=== PATIENT | female | born 1960 | race Caucasian/White ===

== ENCOUNTER 2018-04-02 13:49 | Outpatient (REF) | payer MEDICAID, SELFPAY ==
[2018-04-02 21:25] LABS: Anion Gap 7.8 mmol/L (3-11); BUN 11 mg/dL (7-18); CO2 30.2 mmol/L (21.0-32.0); CREATININE 0.56 mg/dL (0.55-1.02); Calcium 8.8 mg/dL (8.5-10.1); Chloride 100 mmol/L (98-107); Glucose 82 mg/dL (70-100); Potassium 4.3 mmol/L (3.5-5.1); Sodium 138 mmol/L (136-145); TSH (W/Ref FT4) 4.59 uIU/mL (0.358-3.74)
[2018-04-02 22:16] LABS: FREE T4 1.23 ng/dL (0.76-1.46)
[2018-04-02 22:53] LABS: Cholesterol 183 mg/dL (50-200); HDL Cholesterol 69 mg/dL (40-60); LDL CHOLESTEROL 99 mg/dL (<100); Triglyceride 80 mg/dL (30-150)
== END 2018-04-02 14:09 ==
LOC: NCHCN 13:49
PROVIDERS: PCP Nurse Practitioner Family; Visit Provider Specialist/Technologist Athletic Trainer
DX: E03.9 Hypothyroidism, unspecified (principal); E78.5 Hyperlipidemia, unspecified
CPT/HCPCS: 80048; 80061; 83721; 84439; 84443

== ENCOUNTER 2018-11-04 15:36 | Inpatient (IN) | payer OTHER, SELFPAY ==
[2018-11-04] VITALS (57 sets, daily range): BP systolic 126–187; BP diastolic 71–147; PULSE 94–132; RESP 4–49; TEMP 36.8–37.3; O2SAT 90–99
[2018-11-04] MEDS: Albuterol/Ipratropium 3 ML UPD VIAL (15:52)
--- NOTE | 2018-11-04 16:00 | W.ED.GENAD ---
Discharge Plan Disposition Patient Disposition: [facility] INPATIENT Condition: Fair Discharge Details Chief Complaint: SOB Clinical Impression: COPD with acute exacerbation, Alcohol intoxication Admit Date/Time: 11/04/18 21:54 Admit Provider: Ulises Dickey Attending Provider: Yaneth Carbajal Primary Care Provider: Heladio Charles ED Provider: Kiley Lerma Discharge Data Discharge Date/Time-TO BE ENTERED AT DEPARTURE: 11/04/18 22:49 Medical Decision Making 58-year-old female with a history of COPD, hypertension, depression who presents with a complaint of I feel bad. EMS states that her daughter called for concerns of patient's progressively worsening shortness of breath. Patient initially denies shortness of breath but now admits this. EMS states that patient had pursed lip breathing and sats were in the mid 80s on arrival and increased to high 90s after neb treatment. Oxygen saturation 99% on room air on arrival. Patient speaks in 2-3 word sentences. She has scattered wheezing throughout. EKG notes a rate of 104, sinus, no acute ST or T wave ischemic changes. 1700 --labs and imaging reviewed. Normal white blood cell count troponin negative. Alcohol 292. Chest x-ray negative. Patient sitting up on edge of bed speaking with daughters and appears in no acute distress. 1800 --called to bedside for patient complaining of nausea and not feeling well. Oxygen saturation 90 to 91% on room air. She was placed on 2 L nasal cannula and increased to 99%. Denies any chest pain. Repeat EKG unchanged. Dose of Compazine and Ativan given as patient appeared anxious. Abdomen soft and nontender. Discussed with daughter at bedside that if any change in status or pain, will consider CT abdomen pelvis. 1899 --patient denies any improvement. Still with scattered wheezing. We will give another albuterol neb treatment, dose of phenergan, and another dose of Ativan. Oxygen saturation 90% on room air, patient continues to take the nasal cannula oxygen off. 1999 --called to bedside for patient seeming to be more short of breath and drowsy. O2 sat 94% on room air. Diminished breath sounds and wheezing throughout. Patient does demonstrate increased work of breathing. Patient placed on BiPAP but she did not tolerate this. She then became more alert and comfortable after neb treatment. Lipase within normal limits. ABG notes lactate ~5 but otherwise unremarkable. Will continue IVF. Discussed with Dr. Bedoya accepts patient for admission. CT abdomen and pelvis ordered. Medical Records Medical records reviewed: Yes I reviewed the patient's medical records. Imaging Data Radiologic Study: Radiologist's impression: XR Chest, 2 Views EXAM DATE/TIME: 11/04/2018 3:59 PM CLINICAL HISTORY: 58 years old, female; Shortness of breath; Patient HX: SOB TECHNIQUE: Imaging protocol: XR of the chest, 2 views. COMPARISON: CR CHEST 2 VIEWS PA,LAT 06/09/2013 11:09 AM FINDINGS: Lungs: Unremarkable. No consolidation. Pleural space: Unremarkable. No pleural effusion. No pneumothorax. Heart/Mediastinum: Unremarkable. No cardiomegaly. Bones/joints: Degenerative disc disease. IMPRESSION: No acute finding. Lab Data Lab results reviewed: Yes I reviewed the patient's lab results. ECG Data Attestation: I personally reviewed and interpreted this ECG (s) as follows: Interpretation: #1 -- Rate of 104, sinus, T wave inversion in aVL. No acute ST elevation or depression. QTc 442. QRS 90. #2 -- Rate of 97, sinus, no acute ST elevation or depression. QTc 447. QRS 92 HPI General Mode of arrival: ambulatory. Date/Time Provider Initiated Documentation: 11/04/18 15:56. Limitations to Documentation: no limitations. Information obtained by: patient. HPI Narrative: Patient is a 58-year-old female with a history of hypertension, COPD, hyperlipidemia presents with shortness of breath for the past 3 days. Patient initially was denying she had shortness of breath and stated I feel bad. Patient appears intoxicated and smells of alcohol but states she is unsure if she drank any alcohol today. EMS stated that patient's daughter called the ambulance due to concern for her breathing and alcohol use. Patient denies any fever, coughing, urinary symptoms, chest pain or abdominal pain. Related Data Home Medications Medication Instructions Recorded Confirmed albuterol sulfate 2 puff INHALATION Q4H PRN PRN 03/20/13 11/04/18 potassium chloride 10 meq PO DAILY 03/20/13 11/04/18 simvastatin 40 mg PO DAILY 06/09/13 11/04/18 aspirin 325 mg PO DAILY 06/10/13 11/04/18 lisinopril 40 mg PO DAILY 06/10/13 11/04/18 loratadine 10 mg PO DAILY 11/13/14 11/04/18 budesonide-formoterol [Symbicort] 2 puff INHALATION Q12H 11/04/18 11/04/18 furosemide 40 mg PO DAILY 11/04/18 11/04/18 Allergies Allergy/AdvReac Type Severity Reaction Status Date / Time codeine AdvReac Severe Dizziness/L Unverified 11/04/18 21:55 ightheade Review of Systems Review of Systems All systems reviewed & are unremarkable except as noted in HPI and below Constitutional Reports as per HPI, Denies chills and Denies fever(s) Eyes Denies blurry vision ENT Denies dizziness, Denies sore throat and Denies throat swelling Cardiovascular Denies chest pain and Denies dyspnea Respiratory Denies cough and Denies dyspnea Gastrointestinal Denies abdominal pain, Denies diarrhea and Denies vomiting Genitourinary Denies hematuria and Denies dysuria Musculoskeletal Denies back pain and Denies numbness Integumentary/Breasts Denies lesions and Denies rash Neurologic Denies dizziness, Denies focal weakness and Denies numbness Allergic/Immunologic Denies throat swelling PFSH Medical History Gallstones (Acute) Fatty liver (Acute) COPD (chronic obstructive pulmonary disease) (Chronic) Depression (Chronic) Tobacco abuse (Chronic) Hypertension (Chronic) Hyperlipidemia (Chronic) Chronic alcohol abuse (Chronic) Alcoholism (Chronic) Depression (Chronic) HTN (hypertension) (Chronic) Anemia (Resolved) Hypokalemia (Resolved) Hyponatremia (Resolved) Left lower lobe pneumonia (Resolved 06/09/13) Surgical History H/O section (Chronic) History of tonsillectomy (Chronic) Social History Smoking/Tobacco Use Status: Current every day Tobacco Type: cigarettes Alcohol Intake: current Alcohol Intake frequency: 3 or more drinks per day Drug use: Never Do you feel safe at home: Yes Exam Const General: cooperative and intoxicated appearing [facility] Head: normal to inspection Face and sinus: normal facial exam Eyes General: appearance normal, both eyes and all related structures EOM: EOM intact bilaterally Neck Neck: normal visual inspection and No submandibular swelling Lymphatic: no lymphadenopathy noted Chest Chest: normal inspection of the chest and no tenderness Resp Effort & Inspection: normal respiratory effort and able to speak in complete sentences Auscultation: wheezes lower bilaterally and upper bilaterally Cardio Rate: regular rate Rhythm: regular rhythm GI Inspection: normal to inspection Palpation: soft, not firm, not rigid and nontender Auscultation: normal bowel sounds Skin General skin exam: no rashes or lesions noted Neuro General: alert, awake and oriented x3 Cognition: normal cognition Speech: speech normal Motor: muscle tone normal throughout Sensory Exam: no sensory deficits noted Extrem General: normal to inspection, full ROM, normal capillary refill, no calf tenderness bilaterally and no edema Psych Appearance: grossly normal Mental Status: mental status grossly normal Speech and Movement: speech and movement normal Affect: normal affect Course Vital Signs Pulse 99 H 11/04/18 15:52 Respiratory Rate 11/04/18 15:52 Pulse Oximetry 98 11/04/18 15:52 Pulse 99 H 11/04/18 15:52 Respiratory Rate 22 11/04/18 15:52 Pulse Oximetry 98 11/04/18 15:52 Oxygen Delivery Method Room Air 11/04/18 15:52 Oxygen Flow Rate 0 11/04/18 15:52
--- NOTE | 2018-11-04 16:04 | ED.GENADUL_ITS ---
Discharge Plan Disposition Patient Disposition: [facility] INPATIENT Condition: Fair Discharge Details Chief Complaint: SOB Clinical Impression: COPD with acute exacerbation, Alcohol intoxication Admit Date/Time: 11/04/18 21:54 Admit Provider: Ulises Dickey Attending Provider: Yaneth Carbajal Primary Care Provider: Heladio Charles ED Provider: Kiley Lerma Discharge Data Discharge Date/Time-TO BE ENTERED AT DEPARTURE: 11/04/18 22:49 Medical Decision Making 58-year-old female with a history of COPD, hypertension, depression who presents with a complaint of I feel bad. EMS states that her daughter called for concerns of patient's progressively worsening shortness of breath. Patient initially denies shortness of breath but now admits this. EMS states that patient had pursed lip breathing and sats were in the mid 80s on arrival and increased to high 90s after neb treatment. Oxygen saturation 99% on room air on arrival. Patient speaks in 2-3 word sentences. She has scattered wheezing throughout. EKG notes a rate of 104, sinus, no acute ST or T wave ischemic changes. 1700 --labs and imaging reviewed. Normal white blood cell count troponin negative. Alcohol 292. Chest x-ray negative. Patient sitting up on edge of bed speaking with daughters and appears in no acute distress. 1800 --called to bedside for patient complaining of nausea and not feeling well. Oxygen saturation 90 to 91% on room air. She was placed on 2 L nasal cannula and increased to 99%. Denies any chest pain. Repeat EKG unchanged. Dose of Compazine and Ativan given as patient appeared anxious. Abdomen soft and nontender. Discussed with daughter at bedside that if any change in status or pain, will consider CT abdomen pelvis. 1899 --patient denies any improvement. Still with scattered wheezing. We will give another albuterol neb treatment, dose of phenergan, and another dose of Ativan. Oxygen saturation 90% on room air, patient continues to take the nasal cannula oxygen off. 1999 --called to bedside for patient seeming to be more short of breath and drowsy. O2 sat 94% on room air. Diminished breath sounds and wheezing throughout. Patient does demonstrate increased work of breathing. Patient placed on BiPAP but she did not tolerate this. She then became more alert and comfortable after neb treatment. Lipase within normal limits. ABG notes lactate ~5 but otherwise unremarkable. Will continue IVF. Discussed with Dr. Bedoya accepts patient for admission. CT abdomen and pelvis ordered. Medical Records Medical records reviewed: Yes I reviewed the patient's medical records. Imaging Data Radiologic Study: Radiologist's impression: XR Chest, 2 Views EXAM DATE/TIME: 11/04/2018 3:59 PM CLINICAL HISTORY: 58 years old, female; Shortness of breath; Patient HX: SOB TECHNIQUE: Imaging protocol: XR of the chest, 2 views. COMPARISON: CR CHEST 2 VIEWS PA,LAT 06/09/2013 11:09 AM FINDINGS: Lungs: Unremarkable. No consolidation. Pleural space: Unremarkable. No pleural effusion. No pneumothorax. Heart/Mediastinum: Unremarkable. No cardiomegaly. Bones/joints: Degenerative disc disease. IMPRESSION: No acute finding. Lab Data Lab results reviewed: Yes I reviewed the patient's lab results. ECG Data Attestation: I personally reviewed and interpreted this ECG (s) as follows: Interpretation: #1 -- Rate of 104, sinus, T wave inversion in aVL. No acute ST elevation or depression. QTc 442. QRS 90. #2 -- Rate of 97, sinus, no acute ST elevation or depression. QTc 447. QRS 92 HPI General Mode of arrival: ambulatory . Date/Time Provider Initiated Documentation: 11/04/18 15:56 . Limitations to Documentation: no limitations . Information obtained by: patient . HPI Narrative: Patient is a 58-year-old female with a history of hypertension, COPD, hyperlipidemia presents with shortness of breath for the past 3 days. Patient initially was denying she had shortness of breath and stated I feel bad. Patient appears intoxicated and smells of alcohol but states she is unsure if she drank any alcohol today. EMS stated that patient's daughter called the ambulance due to concern for her breathing and alcohol use. Patient denies any fever, coughing, urinary symptoms, chest pain or abdominal pain. Related Data Home Medications Medication Instructions Recorded Confirmed albuterol sulfate 2 puff INHALATION Q4H PRN PRN 03/20/13 11/04/18 potassium chloride 10 meq PO DAILY 03/20/13 11/04/18 simvastatin 40 mg PO DAILY 06/09/13 11/04/18 aspirin 325 mg PO DAILY 06/10/13 11/04/18 lisinopril 40 mg PO DAILY 06/10/13 11/04/18 loratadine 10 mg PO DAILY 11/13/14 11/04/18 budesonide-formoterol [Symbicort] 2 puff INHALATION Q12H 11/04/18 11/04/18 furosemide 40 mg PO DAILY 11/04/18 11/04/18 Allergies Allergy/AdvReac Type Severity Reaction Status Date / Time codeine AdvReac Severe Dizziness/L Unverified 11/04/18 21:55 ightheade Review of Systems Review of Systems All systems reviewed & are unremarkable except as noted in HPI and below Constitutional Reports as per HPI, Denies chills and Denies fever(s) Eyes Denies blurry vision ENT Denies dizziness, Denies sore throat and Denies throat swelling Cardiovascular Denies chest pain and Denies dyspnea Respiratory Denies cough and Denies dyspnea Gastrointestinal Denies abdominal pain, Denies diarrhea and Denies vomiting Genitourinary Denies hematuria and Denies dysuria Musculoskeletal Denies back pain and Denies numbness Integumentary/Breasts Denies lesions and Denies rash Neurologic Denies dizziness, Denies focal weakness and Denies numbness Allergic/Immunologic Denies throat swelling PFSH Medical History Gallstones (Acute) Fatty liver (Acute) COPD (chronic obstructive pulmonary disease) (Chronic) Depression (Chronic) Tobacco abuse (Chronic) Hypertension (Chronic) Hyperlipidemia (Chronic) Chronic alcohol abuse (Chronic) Alcoholism (Chronic) Depression (Chronic) HTN (hypertension) (Chronic) Anemia (Resolved) Hypokalemia (Resolved) Hyponatremia (Resolved) Left lower lobe pneumonia (Resolved 06/09/13) Surgical History H/O section (Chronic) History of tonsillectomy (Chronic) Social History Smoking/Tobacco Use Status: Current every day Tobacco Type: cigarettes Alcohol Intake: current Alcohol Intake frequency: 3 or more drinks per day Drug use: Never Do you feel safe at home: Yes Exam Const General: cooperative and intoxicated appearing [facility] Head: normal to inspection Face and sinus: normal facial exam Eyes General: appearance normal, both eyes and all related structures EOM: EOM intact bilaterally Neck Neck: normal visual inspection and No submandibular swelling Lymphatic: no lymphadenopathy noted Chest Chest: normal inspection of the chest and no tenderness Resp Effort & Inspection: normal respiratory effort and able to speak in complete sentences Auscultation: wheezes lower bilaterally and upper bilaterally Cardio Rate: regular rate Rhythm: regular rhythm GI Inspection: normal to inspection Palpation: soft, not firm, not rigid and nontender Auscultation: normal bowel sounds Skin General skin exam: no rashes or lesions noted Neuro General: alert, awake and oriented x3 Cognition: normal cognition Speech: speech normal Motor: muscle tone normal throughout Sensory Exam: no sensory deficits noted Extrem General: normal to inspection, full ROM, normal capillary refill, no calf te nderness bilaterally and no edema Psych Appearance: grossly normal Mental Status: mental status grossly normal Speech and Movement: speech and movement normal Affect: normal affect Course Vital Signs Pulse 99 H 11/04/18 15:52 Respiratory Rate 11/04/18 15:52 Pulse Oximetry 98 11/04/18 15:52 Pulse 99 H 11/04/18 15:52 Respiratory Rate 22 11/04/18 15:52 Pulse Oximetry 98 11/04/18 15:52 Oxygen Delivery Method Room Air 11/04/18 15:52 Oxygen Flow Rate 0 11/04/18 15:52
[2018-11-04 16:24] LABS: Abs Immature Grans 0.06 k/cumm (0.0-0.09); Absolute Basophil Count 0.03 k/cumm (0.0-0.2); Absolute Eosinophil Count 0.03 k/cumm (0.0-0.7); Absolute Lymphocyte Count 2.16 k/cumm (1.2-3.4); Absolute Monocyte Count 0.79 k/cumm (0.11-0.7); Absolute Neutrophil Count 6.22 k/cumm (1.2-6.7); Basophils % 0.3; Eosinophils % 0.3; HCT 40.9 % (36.0-46.0); Immature Grans % 0.6; Lymphocytes % 23.3; Mean Corp. HGB Concentration 34.2 g/dL (32.0-36.0); Mean Corpuscular Hemoglobin 30.6 pg (27.0-33.0); Mean Corpuscular Volume 89.3 fL (80-95); Monocytes % 8.5; Platelet Count 253 x1000/uL (130-400); RBC 4.58 m/cumm (4.00-5.20); RBC Distribution Width 13.2 % (11.7-14.6); White Blood Cell Count 9.29 k/cumm (4.4-10.8)
--- NOTE | 2018-11-04 16:36 | DI.RAD_ITS ---
SYMPTOM/DIAGNOSIS: SHORTNESS OF BREATH, R/O ACUTE DISEASE PA AND LATERAL CHEST: The lungs are well expanded and free of infiltrate. There is no pleural effusion The cardiovascular structures are intact. SUMMARY: No evidence of acute cardiopulmonary disease.
[2018-11-04 16:45] LABS: NT-proBNP 91 pg/mL
[2018-11-04 16:47] LABS: ALT 42 U/L (12-78); AST 56 U/L (15-37); Albumin 3.3 g/dL (3.4-5.0); Alkaline Phosphatase 98 U/L (46-116); Anion Gap 13.4 mmol/L (3-11); BUN 6 mg/dL (7-18); Bilirubin, Total 0.2 mg/dL (0.2-1.0); CO2 27.6 mmol/L (21.0-32.0); CREATININE 0.42 mg/dL (0.55-1.02); Calcium 8.5 mg/dL (8.5-10.1); Chloride 92 mmol/L (98-107); Glucose 116 mg/dL (70-100); Magnesium 1.5 mg/dL (1.8-2.4); Potassium 3.7 mmol/L (3.5-5.1); Sodium 133 mmol/L (136-145); Total Protein 7.1 g/dL (6.4-8.2)
[2018-11-04 16:50] LABS: ETHANOL BLOOD 292.3 mg/dL (<3); Troponin I < 0.05 ng/mL (0.00-0.06)
--- NOTE | 2018-11-04 17:14 | DI.VRAD_ITS ---
EXAM: XR Chest, 2 Views EXAM DATE/TIME: 11/04/2018 3:59 PM CLINICAL HISTORY: 58 years old, female; Shortness of breath; Patient HX: SOB TECHNIQUE: Imaging protocol: XR of the chest, 2 views. COMPARISON: CR CHEST 2 VIEWS PA,LAT 06/09/2013 11:09 AM FINDINGS: Lungs: Unremarkable. No consolidation. Pleural space: Unremarkable. No pleural effusion. No pneumothorax. Heart/Mediastinum: Unremarkable. No cardiomegaly. Bones/joints: Degenerative disc disease. IMPRESSION: No acute finding. Dictated and Authenticated by: Eddie Barbour MD. Ordering:RUTH ANN Cao MD
[2018-11-04] MEDS: Albuterol 2.5 MG/3 ML INH SOLN VIAL 5 MG UPD (18:14)
[2018-11-04] MEDS: LORazepam 2 MG/ML VIAL 0.5 MG IVP ×2 (18:44→19:33)
[2018-11-04] MEDS: methylPREDNISolone SUCC 125 MG VIAL IVP (18:45)
[2018-11-04] MEDS: Prochlorperazine 10 MG/2 ML VIAL IVP (18:45)
[2018-11-04] MEDS: Normal Saline 250 ML IV (19:30)
[2018-11-04 20:33] LABS: BE 0.9 mmol/L (-3-3); HCO3 25 mmol/L (22-28); pCO2 39 mmHg (34-47); pH 7.42 (7.35-7.45); pO2 71 mmHg (83-108); sO2 94 % (94-98); tCO2 23 mmol/L (22-29)
[2018-11-04 20:35] LABS: FIO2 21% %; Site Right Radial
[2018-11-04 20:50] LABS: Lipase 170 U/L (73-393)
--- NOTE | 2018-11-04 22:10 | HPE_ITS ---
Date of service: 11/04/18 Time of Service: 22:10 Assessment and Plan (1) COPD (chronic obstructive pulmonary disease): Current visit: No Status: Chronic iv corticosteroids, scheduled nebulizers w/ DuoNeb, cont. her home dose of Symbicort. Use BIPAP if needed for acute respiratory failure. Qualifiers: COPD type: COPD with acute exacerbation Qualified Code(s): J44.1 - Chronic obstructive pulmonary disease with (acute) exacerbation (2) Alcoholism: Current visit: No Status: Chronic monitor for signs of acute alcohol withdrawal. place her on CIWA monitoring and prn ativan, consider scheduled doses of serax (3) Hypertension: Current visit: No Status: Chronic continue her lisinopril; hold on her lasix while she is being hydrated for the lactic acidosis (4) Tobacco abuse: Current visit: No Status: Chronic use nicotine patch (5) Lactic acidosis: Current visit: Yes Status: Acute unclear as to cause, may be due to acute alcohol intoxication. CTA abdomen/pelvis did not show any acute occlusion of her celiac or renal or mesenteric axes. continue to hydrate her and check serial lactate levels tonight, along w/ repeat CMP and CBC in the a.m. I have consulted w/ Dr. Smith to evaluate from a surgical standpoint to be sure that I am not missing any acute intraabdominal process. History of Present Illness Chief Complaint: short of breath, nausea, abdominal pain Narrative: 58 yr old female smoker w/ hx of depression, chronic alcoholism, HTN, HLD, COPD who presents to the ER w/ c/o dyspnea, nonproductive cough and vague abdominal discomfort for couple of days. Initially she denied any abdominal pains but admitted to nausea w/out emesis. Had BM yesterday that she described as dark, black. No hematochezia and no hematemesis. She has been binge drinking and drinks 4 to 5 glasses of wine a day and a gallono of vodka every 2 to 3 days. Her daughter called EMS and upon arrival her oxygen saturation was in the mid 80's and she was placed on oxygen and given a nebulizer treatment w/ albuterol. Upon arrival she was speaking in 2-3 word sentences and using pursed lip breathing and had scattered wheezes throughout although her oxygen was up to 99% on room air. While in the ER she seemed to have improved and was sitting up talking to her daughters in no acute distress, this was around 1700. However later around 1800 she complained of nausea and not feeling well although no chest pain. Her oxygen level dipped to 90-91% and she was placed on oxygen per NH. Her nausea was treated w/ compazine and ativan (0.5 mg iv x 2 doses) was given for anxiety. She continued to feel ill w/ scattered wheezing and was given iv corticosteroids (solumedrol 125 mg ivp) and given further nebulized albuterol. Upon my arrival to the ER she appeared to be dyspneic w/ audible wheezing and using her accessory respiratory muscles and with pursed lip breathing. She continued to complain of vague abdominal discomfort. A continuous albuterol nebulizer treatment x 1 hr was ordered and further labs were ordered including d-dimer, lactate, prolactin levels and a CT of her chest, abdomen and pelvis were ordered w/ iv contrast to rule out PE and to evaluate for acute abdominal problems such as ischemic bowel, diverticulitis, perforated viscus. CT report is pending however her ABG while it did not show any acidosis nor hypercapnea, the lactate was elevated at 8 and this prompted a formal blood lactated to be drawn which came back elevated at 8.6 thus prompting the CTA chest/abdome/pelvis. Patient was intoxicated upon arrival w/ VIV of 293, the rest of her UDS was negative. She is now admitted to ICU for treatment of COPD exacerbation, acute alcohol intoxication and evaluation of her lactic acidosis. Review of Systems Review of Systems All systems reviewed & are unremarkable except as noted in HPI and below Cardiovascular Denies chest pain at rest, Denies chest pain with activity, Reports dyspnea and Reports dyspnea on exertion Respiratory Denies change in phlegm color, Denies chest congestion, Denies hemoptysis, Denies excessive phlegm production, Reports dyspnea, Reports dyspnea on exertion and Reports wheezing Gastrointestinal Reports abdominal pain, Reports change in stool character (very dark colored black stool yesterday; no hematochezia), Reports nausea, Denies vomiting and Denies hematemesis Genitourinary Reports system reviewed and no additional complaints, except as docu Allergic/Immunologic Reports wheezing FOR[facility]LY [facility] Medical History COPD (chronic obstructive pulmonary disease) (Chronic) Depression (Chronic) Tobacco abuse (Chronic) Hypertension (Chronic) Hyperlipidemia (Chronic) Chronic alcohol abuse (Chronic) Alcoholism (Chronic) Depression (Chronic) HTN (hypertension) (Chronic) Anemia (Resolved) Hypokalemia (Resolved) Hyponatremia (Resolved) Left lower lobe pneumonia (Resolved 06/09/13) Surgical History H/O section (Chronic) History of tonsillectomy (Chronic) Social History Smoking/Tobacco Use Status: Current every day Tobacco Type: cigarettes Alcohol Intake: current Alcohol Intake frequency: 3 or more drinks per day Drug use: Never Do you feel safe at home: Yes Meds Home Medications Medication Instructions Recorded Confirmed Type albuterol sulfate 2 puff INHALATION Q4H PRN PRN 03/20/13 11/04/18 History potassium chloride 10 meq PO DAILY 03/20/13 11/04/18 History simvastatin 40 mg PO DAILY 06/09/13 11/04/18 History aspirin 325 mg PO DAILY 06/10/13 11/04/18 History lisinopril 40 mg PO DAILY 06/10/13 11/04/18 History loratadine 10 mg PO DAILY 11/13/14 11/04/18 History budesonide-formoterol [Symbicort] 2 puff INHALATION Q12H 11/04/18 11/04/18 History furosemide 40 mg PO DAILY 11/04/18 11/04/18 History Allergies Allergy/AdvReac Type Severity Reaction Status Date / Time codeine AdvReac Severe Dizziness/L Unverified 11/04/18 21:55 ightheade Exam Const General: cooperative, acute distress respiratory, anxious and ill appearing acutely Nutritional Appearance: overweight Orientation: alert, awake and oriented x3 Eyes General: appearance normal, both eyes and all related structures Alignment and Position: alignment normal Periorbital: periorbital findings normal Eyelids: eyelids normal Conjunctivae: conjunctivae normal Sclera: sclerae normal Cornea: corneas normal Pupils: PERRL EOM: EOM intact bilaterally Neck Neck: normal visual inspection, full ROM, trachea midline and no JVD Thyroid: thyroid normal Carotids: normal carotid upstroke Lymphatic: no lymphadenopathy noted Chest Chest: abnormal inspection of the chest barrel chest Resp Effort & Inspection: audible wheezes, cough Quality of cough: dry, pursed lip breathing, respiratory distress, tachypneic and uses accessory muscles Auscultation: wheezes scattered wheezes Cardio Jugular venous pressure: no JVD Palpation: normal PMI Rate: tachycardic Rhythm: regular rhythm Heart Sounds: S1 normal, S2 normal, normal, physiologic split S2 and no murmurs Bruits: no abdominal aortic bruits and no carotid bruits Pulses: normal peripheral pulses GI Inspection: obesity Palpation: soft, no hepatosplenomegaly, no guarding and no hepatosplenomegaly Percussion: normal to percussion Auscultation: normal bowel sounds General: bladder abnormal distended Back/Spine/Pelvis Back: no CVA tenderness Cervical Spine: normal cervical lordosis Thoracic/Lumbar Spine: thoracic and lumbar spine normal to inspection Skin General skin exam: no rashes or lesions noted, elasticity normal and turgor normal Neuro General: alert, awake, oriented x3, moves all extremities and no focal motor deficits Cranial Nerves: PERRL, EOM intact bilaterally, no nystagmus, facial strength normal, tongue midline, gag reflex normal and able to rotate head bilaterally Cognition: normal cognition Speech: speech normal Motor: muscle tone normal throughout Sensory Exam: no sensory deficits noted Extrem General: normal to inspection, full ROM, normal capillary refill, no joint enlargement, no clubbing, cyanosis or edema, no pedal edema and no calf tenderness Psych Appearance: grossly normal Mental Status: mental status grossly normal Speech and Movement: speech and movement normal Mood: congruent mood Affect: normal affect Attitude: cooperative Thought Process: normal Thought Content: normal Insight: insight good Judgment: judgment good Results Imaging Chest x-ray: image reviewed Abdomen CT scan report/results: report reviewed CT scan - chest: report reviewed CT scan - pelvis: report reviewed Labs : 11/05/18 06:40 11/05/18 06:40 Laboratory Results - last 24 hr 11/04/18 11/04/18 11/04/18 16:17 16:17 16:17 WBC 9.29 RBC 4.58 Hgb 14.0 Hct 40.9 MCV 89.3 MCH 30.6 MCHC 34.2 RDW 13.2 Plt Count 253 MPV 10.0 Immature Gran % 0.6 Neutrophils % 67.0 Lymphocytes % 23.3 Monocytes % 8.5 Eosinophils % 0.3 Basophils % 0.3 Absolute Neutrophils 6.22 Absolute Lymphocytes 2.16 Absolute Monocytes 0.79 H Absolute Eosinophils 0.03 Absolute Basophils 0.03 Sample Site pCO2 pO2 O2 Saturation ABG pH ABG HCO3 ABG Total CO2 ABG Base Excess FiO2 Sodium 133 L Potassium 3.7 Chloride 92 L Carbon Dioxide 27.6 Anion Gap 13.4 H BUN 6 L Creatinine 0.42 L Estimated GFR/1.73 m2 >= 60.00 Glucose 116 H Calcium 8.5 Magnesium 1.5 L Total Bilirubin 0.2 AST 56 H ALT 42 Alkaline Phosphatase 98 Troponin I < 0.05 NT-Pro-B Natriuret Pep 91 Total Protein 7.1 Albumin 3.3 L Lipase Ethyl Alcohol 292.3 11/04/18 11/04/18 16:17 20:17 WBC RBC Hgb Hct MCV MCH MCHC RDW Plt Count MPV Immature Gran % Neutrophils % Lymphocytes % Monocytes % Eosinophils % Basophils % Absolute Neutrophils Absolute Lymphocytes Absolute Monocytes Absolute Eosinophils Absolute Basophils Sample Site Right radial pCO2 39 pO2 71 L O2 Saturation 94 ABG pH 7.42 ABG HCO3 25 ABG Total CO2 23 ABG Base Excess 0.9 FiO2 21% Sodium Potassium Chloride Carbon Dioxide Anion Gap BUN Creatinine Estimated GFR/1.73 m2 Glucose Calcium Magnesium Total Bilirubin AST ALT Alkaline Phosphatase Troponin I NT-Pro-B Natriuret Pep Total Protein Albumin Lipase 170 Ethyl Alcohol Last Vital Signs Pulse 96 H 11/04/18 21:31 Resp 18 11/04/18 21:40 BP 140/106 H 11/04/18 21:31 Pulse Ox 94 L 11/04/18 21:40
[2018-11-04 22:17] LABS: Lactate-non-spesis 8.6 mmol/l (0.6-1.4)
--- NOTE | 2018-11-04 22:35 | DI.CT_ITS ---
SYMPTOM/DIAGNOSIS: DYSPNEA, ABDOMINAL PAIN. PE CT AND CT ABDOMEN AND PELVIS: CT angiography was performed with multi slice acquisition and multi planar and 3D reconstruction. The study was carried out with an intravenous administration of 100 cc Omnipaque 350. There is no evidence of pulmonary emboli. The aorta is unremarkable. Emphysematous changes are noted in the lungs. There is no pneumothorax or pleural effusion. The heart is not enlarged. There is no pericardial effusion. There is no evidence of lymphadenopathy. No acute bony abnormality seen. SUMMARY: Mild to moderate central lobular emphysematous changes identified in the lungs. No acute abnormality is noted in the chest. ANGIOGRAPHY ABDOMEN AND PELVIS: CT angiography was performed with multi slice acquisition and multi planar and 3D reconstruction. The study was conducted according to the usual protocol. There are minimal atherosclerotic changes involving the aorta. Celiac and mesenteric arteries are intact with no evidence of significant stenosis The renal arteries are intact There is fatty infiltration of the liver. Small gallstones are noted in the gallbladder. There is no evidence of biliary obstruction. The pancreas, spleen and adrenals and kidneys are normal. There is no evidence of bowel obstruction. There is nothing specific to suggest an acute appendix. Note is made of an exophytic right uterine fibroid. There is no evidence of free air or free fluid in the intraperitoneal space No acute bony abnormalities seen. The soft tissues are unremarkable. There is no evidence of lymphadenopathy. SUMMARY: A fatty liver is demonstrated. There is evidence of cholelithiasis. The appendix is not seen but there is nothing specific on this examination to suggest an acute appendix. There is minimal atherosclerosis.
[2018-11-04] MEDS: Omnipaque 350 MG/ML 100 ML BTL IJ (22:37)
[2018-11-04 22:47] LABS: D-Dimer 797 ng/mlFEU (<500)
[2018-11-04 22:51] LABS: Procalcitonin < 0.1 ng/mL
[2018-11-04] MEDS: Normal Saline 1,000 ML 150 ML IV (23:07)
[2018-11-04] MEDS: MAGNESIUM SULFATE 2 GM/50 ML BAG IVPB (23:07)
--- NOTE | 2018-11-04 23:13 | DI.VRAD_ITS ---
EXAM: CT Angiography Chest With Contrast EXAM DATE/TIME: 11/04/2018 9:14 PM CLINICAL HISTORY: 58 years old, female; Dyspnea and shortness of breath; Difficulty breathing or dyspnea; Additional info: Best images obtained due to patient unable to breathe. TECHNIQUE: Imaging protocol: Axial computed tomographic angiography images of the chest with intravenous contrast using CT angiography protocol. Coronal and sagittal reformatted images were created and reviewed. 3D rendering: MIP reconstructed images were created and reviewed. Radiation optimization: All CT scans at this facility use at least one of these dose optimization techniques: automated exposure control; mA and/or kV adjustment per patient size (includes targeted exams where dose is matched to clinical indication); or iterative reconstruction. Contrast material: OMNIPAQUE 350; Contrast volume: 100 ml; Contrast route: IV; COMPARISON: CR XR CHEST 2V PA LATERAL 11/04/2018 4:31 PM FINDINGS: Pulmonary arteries: Normal. No pulmonary emboli. Aorta: Unremarkable. No aortic aneurysm. No aortic dissection. Lungs: Mild to moderate centrilobular pulmonary emphysema. Pleural space: Unremarkable. No pneumothorax. No pleural effusion. Heart: Unremarkable. No cardiomegaly. No pericardial effusion. Lymph nodes: Unremarkable. No enlarged lymph nodes. Bones/joints: Degenerative changes in the spine. Soft tissues: Unremarkable. IMPRESSION: 1. Mild to moderate centrilobular pulmonary emphysema. 2. Degenerative changes in the spine. EXAM: CT Angiography Abdomen With Contrast EXAM DATE/TIME: 11/04/2018 9:14 PM CLINICAL HISTORY: 58 years old, female; Dyspnea and shortness of breath; Difficulty breathing or dyspnea; Additional info: Best images obtained due to patient unable to breathe. TECHNIQUE: Imaging protocol: Axial computed tomographic angiography images of the abdomen with intravenous contrast material. Coronal and sagittal reformatted images were created and reviewed. 3D rendering: MIP reconstructed images were created and reviewed. Radiation optimization: All CT scans at this facility use at least one of these dose optimization techniques: automated exposure control; mA and/or kV adjustment per patient size (includes targeted exams where dose is matched to clinical indication); or iterative reconstruction. COMPARISON: CR XR CHEST 2V PA LATERAL 11/04/2018 4:31 PM FINDINGS: Lungs: Unremarkable. No consolidation. VASCULATURE: Aorta: Minimal atherosclerosis. Celiac trunk and mesenteric arteries: No occlusion or significant stenosis. Renal arteries: No occlusion or significant stenosis. ABDOMEN: Liver: Fatty liver. Gallbladder and bile ducts: Small gallstones. Pancreas: Normal. No ductal dilation. Spleen: Normal. No splenomegaly. Adrenals: Normal. No mass. Kidneys and ureters: Normal. No hydronephrosis. Stomach and bowel: Unremarkable. No obstruction. No mucosal thickening. Appendix: Unable to identify the appendix. Reproductive: Exophytic right fibroid in the uterus. Intraperitoneal space: Unremarkable. No free air. No significant fluid collection. Bones/joints: Degenerative changes in the spine. Soft tissues: Unremarkable. Lymph nodes: Unremarkable. No enlarged lymph nodes. IMPRESSION: 1. Fatty liver. 2. Exophytic right fibroid in the uterus. 3. Small gallstones. 4. Unable to identify the appendix. 5. Minimal atherosclerosis. 6. Degenerative changes in the spine. Dictated and Authenticated by: Eddie Barbour MD. Ordering:[facility] Keli Montgomery MD
--- NOTE | 2018-11-04 23:54 | W.SURGCON ---
Date of service: 11/04/18 Time of Service: 23:54 Assessment and Plan (1) Alcohol withdrawal: Current visit: Yes Status: Acute (2) COPD with acute exacerbation: Current visit: Yes Status: Acute (3) Lactic acidosis: Current visit: Yes Status: Resolved I was asked to see pt regarding acidosis and uncertain etiology. I do not see anything on her CT's to suggest ischemia or bleeding. By physical exam- she does not have acute abdomen. She had good contrast uptake by the liver so I don't think she had any shock liver . I don't see any signs of acute infection in the chest or any etiology for her COPD exacerbation. B/c of her Hx of ETOH abuse- she has the possible for severe cirrhosis and potential for varices and GI bleed- although I don't see any signs of this currently. I did review the case w/ Dr. Carbajal and recommend she be on a PPI and carafate. She is actively w/drawing for ETOH. I don't see any signs of bleeding and don't think EGD is warranted at this time and feel it would be safer to wait until she is through w/drawls to perform if there are further concerns for Gi bleed. continue supportive care. will follow (4) COPD (chronic obstructive pulmonary disease): Current visit: No Status: Chronic Qualifiers: COPD type: COPD with acute exacerbation Qualified Code(s): J44.1 - Chronic obstructive pulmonary disease with (acute) exacerbation (5) Depression: Current visit: No Status: Chronic (6) Tobacco abuse: Current visit: No Status: Chronic (7) Hypertension: Current visit: No Status: Chronic (8) Hyperlipidemia: Current visit: No Status: Chronic (9) Chronic alcohol abuse: Current visit: No Status: Chronic (10) Alcoholism: Current visit: No Status: Chronic (11) Fatty liver: Current visit: Yes Status: Acute (12) Gallstones: Current visit: Yes Status: Acute History of Present Illness Narrative: I did review all of pt studies last pm. I did not see any signs of bowel ischemia- no air w/ in bowel wall/no wall thickening. no air w/ vessel of the bowel or liver or thrombosis or emboli. The liver took contrast readily up the small vessel of the liver- so I don't think here was any acute ischemia or shock liver. There are no signs of any lg varices in splenic/portal/esophageal system. There was no arterial blush/extravasation of contrast. There is no free air or signs of obstruction. The pt is starting to actively w/draw from ETOH adn can't answer in questions this am. She did have a lg black BM in ED- hemoccult was not done. no N/v. she says she does not have any abdominal pain. She did swallow ok per RN's. Consults Consult date: 11/04/18 Requesting physician: Ulises Dickey Review of Systems Review of Systems Unobtainable due to mental status [facility] Medical History COPD (chronic obstructive pulmonary disease) (Chronic) Depression (Chronic) Tobacco abuse (Chronic) Hypertension (Chronic) Hyperlipidemia (Chronic) Chronic alcohol abuse (Chronic) Alcoholism (Chronic) Depression (Chronic) HTN (hypertension) (Chronic) Anemia (Resolved) Hypokalemia (Resolved) Hyponatremia (Resolved) Left lower lobe pneumonia (Resolved 06/09/13) Surgical History H/O section (Chronic) History of tonsillectomy (Chronic) Social History Smoking/Tobacco Use Status: Current every day Tobacco Type: cigarettes Alcohol Intake: current Alcohol Intake frequency: 3 or more drinks per day Drug use: Never Do you feel safe at home: Yes Exam Const General: well developed and disheveled Nutritional Appearance: average body habitus and well nourished Orientation: oriented to person and confused Other: starting to w/draw. She knows her name. tremulous. Per the staff respiratory therapist- she has had no fever or chills. no vomting. Does not appear to be in pain. no stooling since she has been in [facility] Head: normal to inspection, normocephalic and atraumatic Ears: hearing grossly normal bilaterally and external ears normal General nose exam: external nose normal Face and sinus: normal facial exam Mouth: oral mucosae normal, lip normal, tongue normal and moist mucous membranes Teeth and gingiva: fair dentition Eyes General: appearance normal, both eyes and all related structures Conjunctivae: conjunctivae normal Sclera: sclerae normal Pupils: PERRL Chest Chest: normal inspection of the chest Resp Effort & Inspection: normal respiratory effort, able to speak in complete sentences, no cough, no nasal flaring, not tachypneic and no use of accessory muscles Auscultation: clear to auscultation bilaterally, no rales, no rhonchi and no wheezes Cardio Jugular venous pressure: no JVD Rate: regular rate Rhythm: regular rhythm GI Inspection: normal to inspection, no edema and non-distended Palpation: soft, no masses, nontender and No ascites Auscultation: normal bowel sounds Skin General skin exam: no rashes or lesions noted Trauma: no lacerations or abrasions Neuro General: oriented Patient Orientation: Person and moves all extremities Cranial Nerves: other (DT's) Cognition: abnormal cognition Extrem General: normal to inspection, full ROM and no clubbing, cyanosis or edema Psych Appearance: grossly normal and well kempt Mental Status: mental status grossly normal Speech and Movement: speech and movement normal Affect: normal affect Results Last Vital Signs Temp 37.3 C 11/04/18 23:17 Pulse 125 H 11/04/18 23:17 Resp 23 11/04/18 23:01 BP 132/76 11/04/18 23:00 Pulse Ox 97 11/04/18 23:17 Labs : 11/05/18 06:40 11/05/18 06:40 Laboratory Results - last 24 hr 11/04/18 11/04/18 11/04/18 16:17 16:17 16:17 WBC 9.29 RBC 4.58 Hgb 14.0 Hct 40.9 MCV 89.3 MCH 30.6 MCHC 34.2 RDW 13.2 Plt Count 253 MPV 10.0 Immature Gran % 0.6 Neutrophils % 67.0 Lymphocytes % 23.3 Monocytes % 8.5 Eosinophils % 0.3 Basophils % 0.3 Absolute Neutrophils 6.22 Absolute Lymphocytes 2.16 Absolute Monocytes 0.79 H Absolute Eosinophils 0.03 Absolute Basophils 0.03 D-Dimer Sample Site pCO2 pO2 O2 Saturation ABG pH ABG HCO3 ABG Total CO2 ABG Base Excess FiO2 Sodium 133 L Potassium 3.7 Chloride 92 L Carbon Dioxide 27.6 Anion Gap 13.4 H BUN 6 L Creatinine 0.42 L Estimated GFR/1.73 m2 >= 60.00 Glucose 116 H Lactate Calcium 8.5 Magnesium 1.5 L Total Bilirubin 0.2 AST 56 H ALT 42 Alkaline Phosphatase 98 Troponin I < 0.05 NT-Pro-B Natriuret Pep 91 Total Protein 7.1 Albumin 3.3 L Lipase Procalcitonin Ethyl Alcohol 292.3 11/04/18 11/04/18 11/04/18 16:17 20:17 22:10 WBC RBC Hgb Hct MCV MCH MCHC RDW Plt Count MPV Immature Gran % Neutrophils % Lymphocytes % Monocytes % Eosinophils % Basophils % Absolute Neutrophils Absolute Lymphocytes Absolute Monocytes Absolute Eosinophils Absolute Basophils D-Dimer Sample Site Right radial pCO2 39 pO2 71 L O2 Saturation 94 ABG pH 7.42 ABG HCO3 25 ABG Total CO2 23 ABG Base Excess 0.9 FiO2 21% Sodium Potassium Chloride Carbon Dioxide Anion Gap BUN Creatinine Estimated GFR/1.73 m2 Glucose Lactate 8.6 H Calcium Magnesium Total Bilirubin AST ALT Alkaline Phosphatase Troponin I NT-Pro-B Natriuret Pep Total Protein Albumin Lipase 170 Procalcitonin Ethyl Alcohol 11/04/18 11/04/18 22:10 22:10 WBC RBC Hgb Hct MCV MCH MCHC RDW Plt Count MPV Immature Gran % Neutrophils % Lymphocytes % Monocytes % Eosinophils % Basophils % Absolute Neutrophils Absolute Lymphocytes Absolute Monocytes Absolute Eosinophils Absolute Basophils D-Dimer 797 H Sample Site pCO2 pO2 O2 Saturation ABG pH ABG HCO3 ABG Total CO2 ABG Base Excess FiO2 Sodium Potassium Chloride Carbon Dioxide Anion Gap BUN Creatinine Estimated GFR/1.73 m2 Glucose Lactate Calcium Magnesium Total Bilirubin AST ALT Alkaline Phosphatase Troponin I NT-Pro-B Natriuret Pep Total Protein Albumin Lipase Procalcitonin < 0.1 Ethyl Alcohol
[2018-11-05] VITALS (45 sets, daily range): BP systolic 96–184; BP diastolic 47–106; PULSE 93–121; RESP 4–31; TEMP 36.7–37.3; O2SAT 84–97
[2018-11-05 01:13] LABS: Lactate 7.8 mmol/L (0.6-1.4)
[2018-11-05 01:23] LABS: BUN 6 mg/dL (7-18); CREATININE 0.65 mg/dL (0.55-1.02); Calcium 8.3 mg/dL (8.5-10.1); Chloride 91 mmol/L (98-107); Glucose 165 mg/dL (70-100); Potassium 3.5 mmol/L (3.5-5.1); Sodium 132 mmol/L (136-145)
[2018-11-05] MEDS: methylPREDNISolone SUCC 125 MG VIAL 80 MG IVP ×2 (01:26→10:00)
[2018-11-05] MEDS: FAMOTIDINE 20 MG/50 ML BAG 200 MG IVPB ×2 (01:26→12:07)
[2018-11-05] MEDS: Albuterol/Ipratropium 3 ML UPD VIAL UPD ×4 (01:34→18:36)
[2018-11-05] MEDS: Nicotine 21 MG/24 HR PATCH TD (01:34)
[2018-11-05] MEDS: LORazepam 1 MG TAB PO/SL ×4 (01:35→21:54)
[2018-11-05] MEDS: LORazepam 2 MG/ML VIAL IVP ×2 (05:50→21:17)
[2018-11-05] MEDS: Normal Saline 1,000 ML 300 ML IV (06:55)
[2018-11-05 07:02] LABS: Lactate 1.8 mmol/L (0.6-1.4)
[2018-11-05 07:10] LABS: Abs Immature Grans 0.05 k/cumm (0.0-0.09); Absolute Lymphocyte Count 0.58 k/cumm (1.2-3.4); Absolute Monocyte Count 0.18 k/cumm (0.11-0.7); HCT 36.7 % (36.0-46.0); HGB 12.4 g/dL (12.0-15.5); Immature Grans % 0.5; Mean Corp. HGB Concentration 33.8 g/dL (32.0-36.0); Mean Corpuscular Hemoglobin 30.2 pg (27.0-33.0); Mean Corpuscular Volume 89.3 fL (80-95); Mean Platelet Volume 10.3 fL (8.0-11.0); Monocytes % 1.9; Neutrophils % 91.6; Platelet Count 213 x1000/uL (130-400); RBC 4.11 m/cumm (4.00-5.20); RBC Distribution Width 13.1 % (11.7-14.6); White Blood Cell Count 9.61 k/cumm (4.4-10.8)
[2018-11-05 07:16] LABS: Magnesium 1.8 mg/dL (1.8-2.4)
[2018-11-05 07:23] LABS: C-Reactive Protein 0.36 mg/dL (0.0-0.3)
[2018-11-05 07:27] LABS: ALT 49 U/L (12-78); AST 60 U/L (15-37); Albumin 3.3 g/dL (3.4-5.0); Alkaline Phosphatase 89 U/L (46-116); Anion Gap 12.5 mmol/L (3-11); BUN 5 mg/dL (7-18); Bilirubin, Total 0.5 mg/dL (0.2-1.0); CO2 26.5 mmol/L (21.0-32.0); CREATININE 0.57 mg/dL (0.55-1.02); Calcium 8.1 mg/dL (8.5-10.1); Chloride 95 mmol/L (98-107); Glucose 180 mg/dL (70-100); Potassium 3.5 mmol/L (3.5-5.1); Sodium 134 mmol/L (136-145); Total Protein 6.8 g/dL (6.4-8.2)
--- NOTE | 2018-11-05 08:27 | W.PM.PROGNOT ---
Date of Service Date of service: 11/05/18 Time of Service: 08:27 Assessment and Plan (1) COPD with acute exacerbation: Current visit: Yes Status: Acute Significantly better. Continue symbicort. Continue scheduled and prn nebs. Decrease solumedrol to 60 mg IV BID. No evidence of active bacterial infectioN (negative procalcitonin) - will hold antibiotics at this time. Blood cultures drawn this am. (2) Alcohol withdrawal: Current visit: Yes Status: Acute I anticipate a pretty serious withdrawal considering the amount the patient drinks and that she was still intoxicated when she arrived to the ED yesterday. Will watch in ICU tonight to see in which direction the withdrawal is heading. Monitor CIWA/provide prn ativan, scheduled vitamins. (3) Alcoholism: Current visit: No Status: Chronic As above (4) Hypertension: Current visit: No Status: Chronic Continue her lisinopril; Would continue to hold lasix. (5) Tobacco abuse: Current visit: No Status: Chronic use nicotine patch (6) Lactic acidosis: Current visit: Yes Status: Resolved No evidence of bowel ischemia, and the patient's respiratory status cannot explain this degree of lactic acidosis. Agree that this could be due to acute alcohol intoxication. Discussed with Dr Smith (7) Complaint of melena: Current visit: Yes Status: Acute Not noted here. Patient is on H2 perlita, PPI, and carafate. Checking hematest. General surgery aware - if bleeding is indeed confirmed, we will address this. (8) Discharge planning issues: Current visit: Yes Status: Acute Full code Keep in ICU in anticipation of serious alcohol withdrawal (9) DVT prophylaxis: Current visit: Yes Status: Acute Hold lovenox due to potential for GI bleeding. Subjective Interval history since last seen: Denies dizziness, chest pain, shortness of breath, nausea, vomiting. Apparently, she drinks a gallon of vodka daily. States she has withdrawn before, but denies every getting confused or having seizures while withdrawing. CIWA 2-8-4 this morning. Drowsy, but does wake up and knows where she is. She has been tachycardic. Apparently, she reported dark stools (prior to admission) Not requiring oxygen today (did need 2 L overnight). Reported restless legs to nursing. Exam Narrative Exam Narrative: General: Obese female, mildly tachypenic, A&OX3, somnolent, easily arousable HEENT: EOMI, MMM Heart: RRR, tachycardic, no m/r/g Lungs: Diminished breath sounds B. The patient does not permit me to listen to her back, but anteriorly I hear no wheezing GI: abdomen is soft, nontender, nondistended Extremities: no e/c/c BLEs; ?bruise R ankle, 2+ pedal pulses B Objective Objective Clinical Data: Abnormal lab results 11/04/18 11/04/18 11/04/18 Range/Units 16:17 16:17 20:17 Absolute Neutrophils (1.2-6.7) k/cumm Absolute Lymphocytes (1.2-3.4) k/cumm Absolute Monocytes 0.79 H (0.11-0.7) k/cumm D-Dimer (<500) ng/mlFEU pO2 71 L (83-108) mmHg Sodium 133 L (136-145) mmol/L Chloride 92 L (98-107) mmol/L Carbon Dioxide (21.0-32.0) mmol/L Anion Gap 13.4 H (3-11) mmol/L BUN 6 L (7-18) mg/dL Creatinine 0.42 L (0.55-1.02) mg/dL Glucose 116 H (70-100) mg/dL Lactate (0.6-1.4) mmol/l Calcium (8.5-10.1) mg/dL Phosphorus (2.6-4.7) mg/dL Magnesium 1.5 L (1.8-2.4) mg/dL AST 56 H (15-37) U/L C-Reactive Protein (0.0-0.3) mg/dL Albumin 3.3 L (3.4-5.0) g/dL 11/04/18 11/04/18 11/05/18 Range/Units 22:10 22:10 01:00 Absolute Neutrophils (1.2-6.7) k/cumm Absolute Lymphocytes (1.2-3.4) k/cumm Absolute Monocytes (0.11-0.7) k/cumm D-Dimer 797 H (<500) ng/mlFEU pO2 (83-108) mmHg Sodium (136-145) mmol/L Chloride (98-107) mmol/L Carbon Dioxide (21.0-32.0) mmol/L Anion Gap (3-11) mmol/L BUN (7-18) mg/dL Creatinine (0.55-1.02) mg/dL Glucose (70-100) mg/dL Lactate 8.6 H 7.8 H* (0.6-1.4) mmol/l Calcium (8.5-10.1) mg/dL Phosphorus (2.6-4.7) mg/dL Magnesium (1.8-2.4) mg/dL AST (15-37) U/L C-Reactive Protein (0.0-0.3) mg/dL Albumin (3.4-5.0) g/dL 11/05/18 11/05/18 11/05/18 Range/Units 01:00 06:40 06:40 Absolute Neutrophils (1.2-6.7) k/cumm Absolute Lymphocytes (1.2-3.4) k/cumm Absolute Monocytes (0.11-0.7) k/cumm D-Dimer (<500) ng/mlFEU pO2 (83-108) mmHg Sodium 132 L (136-145) mmol/L Chloride 91 L (98-107) mmol/L Carbon Dioxide 20.0 L (21.0-32.0) mmol/L Anion Gap 21.0 H (3-11) mmol/L BUN 6 L (7-18) mg/dL Creatinine (0.55-1.02) mg/dL Glucose 165 H (70-100) mg/dL Lactate 1.8 H (0.6-1.4) mmol/l Calcium 8.3 L (8.5-10.1) mg/dL Phosphorus 2.0 L (2.6-4.7) mg/dL Magnesium (1.8-2.4) mg/dL AST (15-37) U/L C-Reactive Protein (0.0-0.3) mg/dL Albumin (3.4-5.0) g/dL 11/05/18 11/05/18 11/05/18 Range/Units 06:40 06:40 06:40 Absolute Neutrophils 8.80 H (1.2-6.7) k/cumm Absolute Lymphocytes 0.58 L (1.2-3.4) k/cumm Absolute Monocytes (0.11-0.7) k/cumm D-Dimer (<500) ng/mlFEU pO2 (83-108) mmHg Sodium 134 L (136-145) mmol/L Chloride 95 L (98-107) mmol/L Carbon Dioxide (21.0-32.0) mmol/L Anion Gap 12.5 H (3-11) mmol/L BUN 5 L (7-18) mg/dL Creatinine (0.55-1.02) mg/dL Glucose 180 H (70-100) mg/dL Lactate (0.6-1.4) mmol/l Calcium 8.1 L (8.5-10.1) mg/dL Phosphorus (2.6-4.7) mg/dL Magnesium (1.8-2.4) mg/dL AST 60 H (15-37) U/L C-Reactive Protein 0.36 H (0.0-0.3) mg/dL Albumin 3.3 L (3.4-5.0) g/dL Vital Signs Temperature 36.7 C 11/05/18 03:03 Temperature Source Temporal Artery Scan 11/05/18 03:03 Pulse 111 H 11/05/18 02:00 Pulse 121 H 11/05/18 04:30 Respiratory Rate 26 H 11/05/18 04:30 Respiratory Effort 11/05/18 03:03 Respiratory Depth Normal 11/05/18 03:03 Respiratory Pattern Tachypnea 11/05/18 03:03 Blood Pressure 142/71 H 11/05/18 02:00 Blood Pressure Mean 90 11/05/18 02:00 Blood Pressure Position Supine 11/04/18 23:17 Pulse Oximetry 96 11/05/18 02:00 Oxygen Delivery Method Nasal Cannula 11/05/18 03:03 Oxygen Flow Rate 2 11/05/18 03:03 Pain Level 0 11/05/18 03:03 Intake & Output 11/04/18 11/04/18 11/05/18 11:59 23:59 11:59 Intake Total 257.5 / 257.5 1242.500 / 1242.500 Output Total 1300 / 1300 Balance 257.5 / 257.5 -57.500 / -57.500 Weight 93.2 kg 94.3 kg Intake: IV 257.5 / 257.5 1042.500 / 1042.500 Oral 200 / 200 Output: Urine 1300 / 1300 Other: Urine Color Yellow Urine Appearance Clear Comment sykes in place draining and patent sykes in place draining and patent Laboratory Results WBC 9.61 k/cumm (4.4-10.8) 11/05/18 06:40 RBC 4.11 m/cumm (4.00-5.20) 11/05/18 06:40 Hgb 12.4 g/dL (12.0-15.5) 11/05/18 06:40 Hct 36.7 % (36.0-46.0) 11/05/18 06:40 MCV 89.3 fL (80-95) 11/05/18 06:40 MCH 30.2 pg (27.0-33.0) 11/05/18 06:40 MCHC 33.8 g/dL (32.0-36.0) 11/05/18 06:40 RDW 13.1 % (11.7-14.6) 11/05/18 06:40 Plt Count 213 x1000/uL (130-400) 11/05/18 06:40 MPV 10.3 fL (8.0-11.0) 11/05/18 06:40 Immature Gran % 0.5 11/05/18 06:40 Neutrophils % 91.6 11/05/18 06:40 Lymphocytes % 6.0 11/05/18 06:40 Monocytes % 1.9 11/05/18 06:40 Eosinophils % 0.0 11/05/18 06:40 Basophils % 0.0 11/05/18 06:40 Absolute Neutrophils 8.80 k/cumm (1.2-6.7) H 11/05/18 06:40 Absolute Lymphocytes 0.58 k/cumm (1.2-3.4) L 11/05/18 06:40 Absolute Monocytes 0.18 k/cumm (0.11-0.7) 11/05/18 06:40 Absolute Eosinophils 0.00 k/cumm (0.0-0.7) 11/05/18 06:40 Absolute Basophils 0.00 k/cumm (0.0-0.2) 11/05/18 06:40 D-Dimer 797 ng/mlFEU (<500) H 11/04/18 22:10 Sample Site Right radial 06/19/19 20:17 pCO2 39 mmHg (34-47) 11/04/18 20:17 pO2 71 mmHg (83-108) L 11/04/18 20:17 O2 Saturation 94 % (94-98) 11/04/18 20:17 ABG pH 7.42 (7.35-7.45) 11/04/18 20:17 ABG HCO3 25 mmol/L (22-28) 11/04/18 20:17 ABG Total CO2 23 mmol/L (22-29) 11/04/18 20:17 ABG Base Excess 0.9 mmol/L (-3-3) 11/04/18 20:17 FiO2 21% % 11/04/18 20:17 Sodium 134 mmol/L (136-145) L 11/05/18 06:40 Potassium 3.5 mmol/L (3.5-5.1) 11/05/18 06:40 Chloride 95 mmol/L (98-107) L 11/05/18 06:40 Carbon Dioxide 26.5 mmol/L (21.0-32.0) 11/05/18 06:40 Anion Gap 12.5 mmol/L (3-11) H 11/05/18 06:40 BUN 5 mg/dL (7-18) L 11/05/18 06:40 Creatinine 0.57 mg/dL (0.55-1.02) 11/05/18 06:40 Estimated GFR/1.73 m2 >= 60.00 (mL/min/1.73m2) 11/05/18 06:40 Glucose 180 mg/dL (70-100) H 11/05/18 06:40 Lactate 1.8 mmol/L (0.6-1.4) H 11/05/18 06:40 Calcium 8.1 mg/dL (8.5-10.1) L 11/05/18 06:40 Phosphorus 2.0 mg/dL (2.6-4.7) L 11/05/18 06:40 Magnesium 1.8 mg/dL (1.8-2.4) 11/05/18 06:40 Total Bilirubin 0.5 mg/dL (0.2-1.0) 11/05/18 06:40 AST 60 U/L (15-37) H 11/05/18 06:40 ALT 49 U/L (12-78) 11/05/18 06:40 Alkaline Phosphatase 89 U/L (46-116) 11/05/18 06:40 Troponin I < 0.05 ng/mL (0.00-0.06) 11/04/18 16:17 C-Reactive Protein 0.36 mg/dL (0.0-0.3) H 11/05/18 06:40 NT-Pro-B Natriuret Pep 91 pg/mL (-299) 11/04/18 16:17 Total Protein 6.8 g/dL (6.4-8.2) 11/05/18 06:40 Albumin 3.3 g/dL (3.4-5.0) L 11/05/18 06:40 Lipase 170 U/L (73-393) 11/04/18 16:17 Procalcitonin < 0.1 ng/mL 11/04/18 22:10 Ethyl Alcohol 292.3 mg/dL (<3) 11/04/18 16:17
[2018-11-05 08:31] LABS: D-Dimer 878 ng/mlFEU (<500)
[2018-11-05 08:57] LABS: Bilirubin Negative (Negative); Blood Trace-intact (Negative); Clarity Clear; Glucose Negative (Negative); Ketones Trace mg/dL (Negative); Leukocyte Esterase Negative (Negative); Nitrite Negative (Negative); Specific Gravity <= 1.005 (1.005-1.025); Urobilinogen 0.2 EU/dL (Up TO 0.2); pH 6.5 (5-8)
[2018-11-05] MEDS: Lisinopril 20 MG TAB 40 MG PO (09:03)
[2018-11-05] MEDS: Enoxaparin 40 MG/0.4 ML SYR SC (09:04)
[2018-11-05] MEDS: Folic Acid 1 MG TAB PO (09:04)
[2018-11-05] MEDS: Thiamine 100 MG TAB PO (09:04)
[2018-11-05] MEDS: Multivitamin TAB 1 TAB PO (09:04)
[2018-11-05 09:06] LABS: Epithelial Cells Negative HPF (Negative)
[2018-11-05 09:07] LABS: Bacteria Negative HPF (Negative); C & S Indicated? No; Crystals Negative HPF (Negative); Mucus Negative (Negative); Other Cells Rare Transitional (Negative); WBC Negative HPF (0-5)
[2018-11-05] MEDS: Pantoprazole 40 MG VIAL IVP (10:00)
[2018-11-05] MEDS: Normal Saline Flush 10 ML SYR IVP (10:01)
[2018-11-05] MEDS: Budesonide/Formoterol 160/4.5 6 GM 60 PUFF INH IH ×2 (10:32→19:45)
[2018-11-05] MEDS: Sucralfate 1 GM TAB PO ×3 (12:07→23:18)
--- NOTE | 2018-11-05 12:20 | PHARADMIT ---
Addendum entered by Addison Givens III 11/06/18 11:47: Pharmacy Note Subjective MD notes that patient is much improved. Lactic Acidosis trending down RT notes she is still a little wheezy. Ready to transfer to [facility] Objective BP-156/102 K+2.8 Mag-1.9 WBC-18.47 (micro-no growth/24hrs) on steroids Other Labs-WNL Assessment CIWA Score-12 overnight (0-2 now) Plan Awaiting bed for transfer Original Note: Admission Pharmacy Clinical Review Acute COPD exacerbation, alcohol intoxication Code Status Full Code Current Weight 94.3 kg Renally Cleared and Narrow Therapeutic Index Meds Crcl ~108.9 mL/min using adjusted body weight QTc Value / Action Taken QTc 447 BP Control, Fever BP 162/92 afebrile Electrolytes reviewed Na 134 Cl 95 phos 2.0 DVT Prophylaxis enoxaparin Opiate Usage / Scheduled Bowel Regimen Ordered no/prn Plt/SCr for Heparin / Enoxaparin plt 213 SCr 0.57 INR for Warfarin n/a H/H stable, WBC/Bands h/h 12.4/36.7 wbc 9.61 Antibiotic appropriateness none Cultures and Sensitivities blood cultures pending Surgical ABX d/c within 24 hr n/a DM control / Insulin Dosing BG 180 none Heart Failure (Check EF%) (MATT's, B-Block, Diuretics) lisinopril IV to PO Switch n/a Home Meds Reviewed loratadine may enhance the ulcerogenic effects of potassium Home Meds Not Ordered aspirin, furosemide, loratadine, KCl Comments CIWA max of 11 this morning, 4 most recently
--- NOTE | 2018-11-05 13:30 | PDOC.CMIN ---
- If Service Date Differs Date of service: 11/05/18 Time of Service: 13:30 Care Management Initial Assess REASON FOR HOSPITALIZATION:: COPD, acute intoxication VIV 292.3 on admission PAST MEDICAL HISTORY/PAST SURGICAL HISTORY:: COPD (chronic obstructive pulmonary disease) (Chronic). Depression (Chronic). Tobacco abuse (Chronic). Hypertension (Chronic). Hyperlipidemia (Chronic). Chronic alcohol abuse (Chronic). Alcoholism (Chronic). Depression (Chronic). HTN (hypertension) (Chronic). Anemia (Resolved). Hypokalemia (Resolved). Hyponatremia (Resolved). Left lower lobe pneumonia (Resolved 06/09/13). Surgical hx: csection x 5 and tonsilectomy PREVIOUS FUNCTIONAL STATUS/SOCIAL/FAMILY SUPPORTS:: Carolin states she lives in an apartment in [place], [place] she states she lives along and has a daughter Alysa who is supportive. The only equipment she reports is a nebulizer at home and she states she uses [facility] for transportation. CURRENT FUNCTIONAL STATUS:: Carolin is sleepy she is not able to engage with CM well at time of visit. She is having blood cultures, and remains in the ICU. She states her daughter Alysa will be here soon and can provide updates. ADVANCE DIRECTIVES:: Pt reports she has them, CM is unable to locate. Has patient been provided with information about the portal?: No Did the patient sign up for the portal?: No CODE STATUS:: Full Code INSURANCE COVERAGE / FINANCIAL ISSUES:: Self pay - Pt states she does have coverage and is awaiting daughter to arrive with cards. CURRENT HOME/COMMUNITY SERVICES/EQUIPMENT:: Pt reports no home services, she does have a nebulizer. PRIMARY CARE PHYSICIAN:: Heladio Charles POTENTIAL DISCHARGE NEEDS:: Follow up with primary care, referral to substance abuse services and community connections assistance with supports. PATIENT/FAMILY EDUCATION NEEDS:: Discharge education, limitaitons and follow up plan of care including ask me three. ANTICIPATED BARRIERS TO DISCHARGE:: Access to care, substance abuse services. TRANSPORTATION:: Via [facility] at time of discharge. PLAN:: Carolin is being treated for COPD exacerbation and CIWA protocol. She is receiving IV steroids to treat COPD and IV fluids. Carolin will be discharged home when medically ready. CM to continue to provide support discahrge planning and disposition.
[2018-11-05] MEDS: Normal Saline 1,000 ML 150 ML IV ×2 (15:00→21:17)
[2018-11-05] MEDS: Simvastatin 40 MG TAB PO (19:45)
[2018-11-05] MEDS: Pantoprazole 40 MG TABCR PO (19:45)
[2018-11-05] MEDS: methylPREDNISolone SUCC 125 MG VIAL 60 MG IVP (19:46)
--- NOTE | 2018-11-05 23:34 | NUR.NOTE ---
symptoms of etoh withdrawal escalated during the - shift. By 2100, pt stated removing blood pressure cuff and started to get oob and states she was going home. Pt medicated with 1mg lorazepam IV which did not provide enough relief and was given 3mg po lorazepam. Pt asleep by 2200.
[2018-11-06] VITALS (25 sets, daily range): BP systolic 136–174; BP diastolic 74–102; PULSE 72–112; RESP 17–29; TEMP 36.3–36.8; O2SAT 91–95
[2018-11-06] MEDS: FAMOTIDINE 20 MG/50 ML BAG 200 MG IVPB ×2 (01:11→12:39)
[2018-11-06] MEDS: LORazepam 1 MG TAB PO/SL (01:14)
[2018-11-06] MEDS: Albuterol 2.5 MG/3 ML INH SOLN VIAL UPD (03:09)
[2018-11-06] MEDS: Normal Saline 1,000 ML 150 ML IV (03:59)
[2018-11-06] MEDS: Albuterol/Ipratropium 3 ML UPD VIAL UPD ×3 (06:29→18:06)
[2018-11-06 06:59] LABS: Abs Immature Grans 0.08 k/cumm (0.0-0.09); HCT 39.9 % (36.0-46.0); HGB 13.5 g/dL (12.0-15.5); Immature Grans % 0.4; Lymphocytes % 3.6; Mean Corp. HGB Concentration 33.8 g/dL (32.0-36.0); Mean Corpuscular Hemoglobin 30.6 pg (27.0-33.0); Mean Corpuscular Volume 90.5 fL (80-95); Mean Platelet Volume 10.7 fL (8.0-11.0); Monocytes % 6.1; Neutrophils % 89.9; Platelet Count 209 x1000/uL (130-400); RBC 4.41 m/cumm (4.00-5.20); RBC Distribution Width 13.5 % (11.7-14.6); White Blood Cell Count 18.47 k/cumm (4.4-10.8)
[2018-11-06 07:08] LABS: Anion Gap 10.1 mmol/L (3-11); BUN 5 mg/dL (7-18); CO2 29.9 mmol/L (21.0-32.0); CREATININE 0.52 mg/dL (0.55-1.02); Calcium 7.9 mg/dL (8.5-10.1); Chloride 103 mmol/L (98-107); Glucose 141 mg/dL (70-100); Magnesium 1.9 mg/dL (1.8-2.4); Sodium 143 mmol/L (136-145)
[2018-11-06 07:09] LABS: Absolute Lymphocyte Count 0.66 k/cumm (1.2-3.4); Absolute Monocyte Count 1.13 k/cumm (0.11-0.7)
[2018-11-06 07:10] LABS: Potassium 2.8 mmol/L (3.5-5.1)
[2018-11-06] MEDS: Budesonide/Formoterol 160/4.5 6 GM 60 PUFF INH IH (07:16)
[2018-11-06] MEDS: Pantoprazole 40 MG TABCR PO (07:39)
[2018-11-06] MEDS: Sucralfate 1 GM TAB PO ×2 (07:39→12:39)
[2018-11-06] MEDS: Thiamine 100 MG TAB PO (07:39)
[2018-11-06] MEDS: Lisinopril 20 MG TAB 40 MG PO (07:40)
[2018-11-06] MEDS: methylPREDNISolone SUCC 125 MG VIAL 60 MG IVP (07:40)
[2018-11-06] MEDS: Folic Acid 1 MG TAB PO (07:40)
[2018-11-06] MEDS: Multivitamin TAB 1 TAB PO (07:40)
[2018-11-06] MEDS: POTASSIUM CHLORIDE/0.9% NACL 1,000 ML 150 MEQ IV ×2 (08:03→15:59)
[2018-11-06] MEDS: Potassium Chloride 20 MEQ TABCR 40 MEQ PO (08:05)
[2018-11-06] MEDS: POTASSIUM CHLORIDE 20 MEQ/100 ML BAG 50 MEQ IVPB ×2 (08:06→10:30)
--- NOTE | 2018-11-06 08:19 | PDOC.CMPRO ---
- If Service Date Differs Date of service: 11/06/18 Time of Service: 08:19 Care Management Progress Note S/O: CM met with Carolin in her room she is sitting up in the chair she is complaining of being chilled. She does have her insurance card on her which CM faxed to access she has MVP. Carolin remains in the ICU she continues to be monitored for ETOH withdrawal and continues to recieve resp support. A: Carolin is a 58 year old female admitted with COPD acute on choronic and ETOH withdrawal. P: Carolin remains in the ICU today anticipate she will transition to acute status from ICU level of care today. Carolin will be discharged home when medically ready anticipate no services she has been offered a field hockey and lacrosse coach and will consider it.
--- NOTE | 2018-11-06 08:26 | CMPROGNOTE_ITS ---
- If Service Date Differs Date of service: 11/06/18 Time of Service: 08:19 Care Management Progress Note S/O: CM met with Carolin in her room she is sitting up in the chair she is complaining of being chilled. She does have her insurance card on her which CM faxed to access she has MVP. Carolin remains in the ICU she continues to be monitored for ETOH withdrawal and continues to recieve resp support. A: Carolin is a 58 year old female admitted with COPD acute on choronic and ETOH withdrawal. P: Carolin remains in the ICU today anticipate she will transition to acute status from ICU level of care today. Carolin will be discharged home when medically ready anticipate no services she has been offered a track and field coach and will consider it.
--- NOTE | 2018-11-06 08:32 | PGE_ITS ---
Date of Service Date of service: 11/06/18 Time of Service: 08:29 Assessment and Plan (1) COPD with acute exacerbation: Current visit: Yes Status: Acute Improved, but still diminished. No change in therapy today. Continue symbicort. Continue scheduled and prn nebs. Continue solumedrol to 60 mg IV BID. No indication for antibiotics at this time. Blood cx negative. (2) Alcohol withdrawal: Current visit: Yes Status: Acute Mild so far. Ok to transfer out of ICU to [facility] with tele. (3) Alcoholism: Current visit: No Status: Chronic As above (4) Hypertension: Current visit: No Status: Chronic Continue her lisinopril; Would continue to hold lasix. (5) Tobacco abuse: Current visit: No Status: Chronic use nicotine patch (6) Lactic acidosis: Current visit: Yes Status: Resolved Resolved. No evidence of bowel ischemia, and the patient's respiratory status cannot explain this degree of lactic acidosis. Likely due to acute alcohol intoxication. No further workup indicated. (7) Complaint of melena: Current visit: Yes Status: Ruled-out Hemoccult negative. D/c PPI and carafate. Continue H2 perlita. (8) Discharge planning issues: Current visit: Yes Status: Acute Full code Transfer out to [facility] with tele. (9) DVT prophylaxis: Current visit: Yes Status: Acute Resume lovenox. Subjective Interval history since last seen: CIWA 12 at 3 am - received 3 mg of ativan PO, doing well since. CIWA 0 since then States breathing is better. Denies dizziness, chest pain, nausea, vomiting. Nursing, however, states she got very short of breath on walking just a few steps and also reports that the patient has had 2 episodes of fecal incontinence today (hemoccult negative). Nursing feels that she is so weak, she could benefit from subacute reab. Remains on room air, O2 sats in the 90's. Exam Narrative Exam Narrative: General: Obese female, sitting in a chair, awake, A&OX3 HEENT: EOMI, MMM Heart: RRR, no m/r/g Lungs: Diminished breath sounds B. No wheezing GI: abdomen is soft, nontender, nondistended Extremities: no e/c/c BLEs; 2+ pedal pulses B Objective Objective Clinical Data: Abnormal lab results 11/05/18 11/05/18 11/06/18 Range/Units 06:40 08:15 06:15 WBC (4.4-10.8) k/cumm Absolute Neutrophils (1.2-6.7) k/cumm Absolute Lymphocytes (1.2-3.4) k/cumm Absolute Monocytes (0.11-0.7) k/cumm D-Dimer 878 H (<500) ng/mlFEU Potassium 2.8 L* (3.5-5.1) mmol/L BUN 5 L (7-18) mg/dL Creatinine 0.52 L (0.55-1.02) mg/dL Glucose 141 H (70-100) mg/dL Calcium 7.9 L (8.5-10.1) mg/dL Urine Ketones Trace H (Negative) mg/dL Urine Blood Trace-intact H (Negative) Urine RBC 5-10 H (0-2) 11/06/18 Range/Units 06:15 WBC 18.47 H D (4.4-10.8) k/cumm Absolute Neutrophils 16.60 H (1.2-6.7) k/cumm Absolute Lymphocytes 0.66 L (1.2-3.4) k/cumm Absolute Monocytes 1.13 H (0.11-0.7) k/cumm D-Dimer (<500) ng/mlFEU Potassium (3.5-5.1) mmol/L BUN (7-18) mg/dL Creatinine (0.55-1.02) mg/dL Glucose (70-100) mg/dL Calcium (8.5-10.1) mg/dL Urine Ketones (Negative) mg/dL Urine Blood (Negative) Urine RBC (0-2) Vital Signs Temperature 36.6 C 11/06/18 03:05 Temperature Source Temporal Artery Scan 11/06/18 03:05 Pulse 98 H 11/06/18 07:33 Pulse 95 H 11/06/18 08:00 Respiratory Rate 23 11/06/18 08:00 Respiratory Effort 11/06/18 03:05 Respiratory Depth Shallow 11/06/18 03:05 Respiratory Pattern Tachypnea 11/06/18 03:05 Blood Pressure 165/93 H 11/06/18 07:33 Blood Pressure Mean 111 11/06/18 07:33 Blood Pressure Position Supine 11/05/18 15:30 Pulse Oximetry 94 L 11/06/18 07:33 Oxygen Delivery Method Room Air 11/05/18 23:35 Oxygen Flow Rate 0 11/05/18 23:35 Pain Level 0 11/06/18 03:05 Intake & Output 11/05/18 11/05/18 11/06/18 11:59 23:59 11:59 Intake Total 1392.500 / 4285.000 2892.5 / 4285.000 1960 / 1960 Output Total 1300 / 4450 3150 / 4450 1200 / 1200 Balance 92.500 / -165.000 -257.5 / -165.000 760 / 760 Weight 94.3 kg 95.6 kg Intake: IV 1142.500 / 3035.000 1892.5 / 3035.000 1660 / 1660 Oral 250 / 1250 1000 / 1250 300 / 300 Output: Urine 1300 / 4450 3150 / 4450 1200 / 1200 Other: Urine Color Yellow Pale Light Cristina Urine Appearance Clear Clear Clear Comment Lopez to gravity Lopez in place. Lopez in place. Stool Size Smear Stool Characteristics Brown Laboratory Results WBC 18.47 k/cumm (4.4-10.8) H D 11/06/18 06:15 RBC 4.41 m/cumm (4.00-5.20) 11/06/18 06:15 Hgb 13.5 g/dL (12.0-15.5) 11/06/18 06:15 Hct 39.9 % (36.0-46.0) 11/06/18 06:15 MCV 90.5 fL (80-95) 11/06/18 06:15 MCH 30.6 pg (27.0-33.0) 11/06/18 06:15 MCHC 33.8 g/dL (32.0-36.0) 11/06/18 06:15 RDW 13.5 % (11.7-14.6) 11/06/18 06:15 Plt Count 209 x1000/uL (130-400) 11/06/18 06:15 MPV 10.7 fL (8.0-11.0) 11/06/18 06:15 Immature Gran % 0.4 11/06/18 06:15 Neutrophils % 89.9 11/06/18 06:15 Lymphocytes % 3.6 11/06/18 06:15 Monocytes % 6.1 11/06/18 06:15 Eosinophils % 0.0 11/06/18 06:15 Basophils % 0.0 11/06/18 06:15 Absolute Neutrophils 16.60 k/cumm (1.2-6.7) H 11/06/18 06:15 Absolute Lymphocytes 0.66 k/cumm (1.2-3.4) L 11/06/18 06:15 Absolute Monocytes 1.13 k/cumm (0.11-0.7) H 11/06/18 06:15 Absolute Eosinophils 0.00 k/cumm (0.0-0.7) 11/06/18 06:15 Absolute Basophils 0.00 k/cumm (0.0-0.2) 11/06/18 06:15 D-Dimer 878 ng/mlFEU (<500) H 11/05/18 06:40 Sample Site Right radial 11/04/18 20:17 pCO2 39 mmHg (34-47) 11/04/18 20:17 pO2 71 mmHg (83-108) L 11/04/18 20:17 O2 Saturation 94 % (94-98) 11/04/18 20:17 ABG pH 7.42 (7.35-7.45) 11/04/18 20:17 ABG HCO3 25 mmol/L (22-28) 11/04/18 20:17 ABG Total CO2 23 mmol/L (22-29) 11/04/18 20:17 ABG Base Excess 0.9 mmol/L (-3-3) 11/04/18 20:17 FiO2 21% % 11/04/18 20:17 Sodium 143 mmol/L (136-145) 11/06/18 06:15 Potassium 2.8 mmol/L (3.5-5.1) L* 11/06/18 06:15 Chloride 103 mmol/L (98-107) 11/06/18 06:15 Carbon Dioxide 29.9 mmol/L (21.0-32.0) 11/06/18 06:15 Anion Gap 10.1 mmol/L (3-11) 11/06/18 06:15 BUN 5 mg/dL (7-18) L 11/06/18 06:15 Creatinine 0.52 mg/dL (0.55-1.02) L 11/06/18 06:15 Estimated GFR/1.73 m2 >= 60.00 (mL/min/1.73m2) 11/06/18 06:15 Glucose 141 mg/dL (70-100) H 11/06/18 06:15 Lactate 1.8 mmol/L (0.6-1.4) H 11/05/18 06:40 Calcium 7.9 mg/dL (8.5-10.1) L 11/06/18 06:15 Phosphorus 2.0 mg/dL (2.6-4.7) L 11/05/18 06:40 Magnesium 1.9 mg/dL (1.8-2.4) 11/06/18 06:15 Total Bilirubin 0.5 mg/dL (0.2-1.0) 11/05/18 06:40 AST 60 U/L (15-37) H 11/05/18 06:40 ALT 49 U/L (12-78) 11/05/18 06:40 Alkaline Phosphatase 89 U/L (46-116) 11/05/18 06:40 Troponin I < 0.05 ng/mL (0.00-0.06) 11/04/18 16:17 C-Reactive Protein 0.36 mg/dL (0.0-0.3) H 11/05/18 06:40 NT-Pro-B Natriuret Pep 91 pg/mL (-299) 11/04/18 16:17 Total Protein 6.8 g/dL (6.4-8.2) 11/05/18 06:40 Albumin 3.3 g/dL (3.4-5.0) L 11/05/18 06:40 Lipase 170 U/L (73-393) 11/04/18 16:17 Procalcitonin < 0.1 ng/mL 11/04/18 22:10 Urine Color Yellow (Yellow) 11/05/18 08:15 Urine Clarity Clear 11/05/18 08:15 Urine pH 6.5 (5-8) 11/05/18 08:15 Ur Specific Peetz <= 1.005 (1.005-1.025) 11/05/18 08:15 Urine Protein Negative mg/dL (Negative) 11/05/18 08:15 Urine Ketones Trace mg/dL (Negative) H 11/05/18 08:15 Urine Blood Trace-intact (Negative) H 11/05/18 08:15 Urine Nitrite Negative (Negative) 11/05/18 08:15 Urine Bilirubin Negative (Negative) 11/05/18 08:15 Urine Urobilinogen 0.2 EU/dL (Up TO 0.2) 11/05/18 08:15 Ur Leukocyte Esterase Negative (Negative) 11/05/18 08:15 Urine RBC 5-10 (0-2) H 11/05/18 08:15 Urine WBC Negative HPF (0-5) 11/05/18 08:15 Ur Epithelial Cells Negative HPF (Negative) 11/05/18 08:15 Urine Crystals Negative HPF (Negative) 11/05/18 08:15 Urine Bacteria Negative HPF (Negative) 11/05/18 08:15 Urine Mucus Negative (Negative) 11/05/18 08:15 Urine Other Rare transitional (Negative) 11/05/18 08:15 Ur Culture Indicated? No 11/05/18 08:15 Urine Glucose Negative mg/dL (Negative) 11/05/18 08:15 Ethyl Alcohol 292.3 mg/dL (<3) 11/04/18 16:17
--- NOTE | 2018-11-06 09:00 | DI.RAD_ITS ---
SYMPTOM/DIAGNOSIS: ASPIRATION PORTABLE CHEST: The exam is limited by mild motion. Leads overlie the chest. The heart size is normal. The lungs are grossly clear. IMPRESSION: Limited exam. No gross evidence of an acute abnormality.
--- NOTE | 2018-11-06 09:16 | OT.INIE ---
Occupational Therapy Notes Inpatient Occupational Therapy Evaluation Date: 11/06/18 Referring Doctor:Yaneth Carbajal MD OT Orders: Eval and Treat Precautions: Fall, Standard PATIENT PROFILE/ADMITTING DIAGNOSIS: Pt is a 58 year old female who presented through the ER on 11/04/18 for SOB. She was assessed in the ER and admitted to the ICU for COPD, acute intoxication VIV 292.3 on admission per pts EMR. Pt is currently being treated with IV steroids to tx COPD. Past Medical History: COPD (chronic obstructive pulmonary disease) (Chronic) Depression (Chronic) Tobacco abuse (Chronic) Hypertension (Chronic) Hyperlipidemia (Chronic) Chronic alcohol abuse (Chronic) Alcoholism (Chronic) Depression (Chronic) HTN (hypertension) (Chronic) Anemia (Resolved) Hypokalemia (Resolved) Hyponatremia (Resolved) Left lower lobe pneumonia (Resolved 06/09/13) Surgical History H/O section (Chronic) History of tonsillectomy (Chronic) Current Functional Limitations: Decreased functional activity tolerance, decreased (B) UE strength, decreased ADLs due to labored breathing. Difficulty performing bending, lifting and carrying objects required for functional activities in her home. Social History/Home Situation: Pt lives in a private apartment in [place], [place]. She states that there is a handicap ramp near her building which she walks on each day 3x and then walks around the house. Pt states that she is totally (I) with all ADLs/IADLs however she notes that she is only having difficulty with ADLs because she is out of shape. Functionally pt reports that she was a stall shower, she notes that she does not have a seat which would be beneficial for breathing in the shower however she denies the need for a shower bench at this time. Pt also notes that she is (I) with dressing in her room in her apartment. She has a daughter who lives close by who (A) her with anything that she needs. She gets (A) with home cleaning and grocery shopping. She states that if she feels like going grocery shopping she does otherwise she waits till her daughter can take her or go for her. Pt notes that she is able to do her hair and teeth (I), she reports that she is not (I) in community mobility. She notes that she does not qualify for RCT as she does not have the proper insurance, OT will clarify this with child care teacher. She also notes that she performs an exercise regimen everyday and if she gets tired from that then she does not do anything the rest of the day. Pt did not clarify whether this was given to her from a health professional or one that she came up with on her own. Pt states that she is (I) with her toileting routine at home on the toilet. Equipment owned/DME: None per pt report. SUBJECTIVE: Pt is a pleasant 58 year old female. She is positive that the only reason she is here is because she is deconditioned and needs to exercise. Pt reports that she is normally on 2 inhalers both symbicort and albuterol and uses a nebulizer. She notes that the nebulizer medication is cheaper for her to afford so she was using just that. She states that the symbicort costs around $100 and she cannot afford this so she has not been using it. She states that she is unsure as to whether the symbicort even works or not. She then notes that since she has stopped using it she has noticed slight difficulty in wheezing when performing her functional mobility. Pt states that she cannot afford to continue to pay for her inhalers all the time so the albuterol one is what she uses to maintain her breathing. OBJECTIVE: General Observation: Pt was pleasant and answered questions appropriately. IV, telemetry, sykes, BP cuff (L) UE, Mental Status: A&Ox3 Pain: no c/o pain ROM: RUE AROM WNL L UE AROM WNL STRENGTH: RUE Shoulder flexion 3/5, bicep 3+/5, tricep 3/5, fighter pilot is weak LUE Shoulder flexion 3/5, bicep 3/5, tricep 3/5, fighter pilot is weak FUNCTIONAL MOBILITY/ADLS: Transfers- pt denies and states that she would like to stay in the chair. Noticeable breathing/wheezing. OT did discuss this with nursing who reports that pt was having difficulty with this yesterday. BATHING - pt denies stating she is clean, however she was able to demonstrate AROM required for performance of bathing self in seated position. She functionally is very weak and this required increased performance time. DRESSING Dressing UE NT Dressing LE Seated in chair min vc for leg placement (I) with don and doffing (B) socks with increased functional activity time for performance. GROOMING Pt denies going to the sink, however in seated position she was able to brush her teeth with difficulty opening and closing toothpaste d/t decreased functional strength. She was able to bring tooth brush to mouth but performed minimal brushing then stated she was done. TOILETING Pt denies at this time, she does have a sykes currently in place. EATING Sitting in chair, pt was able to open containers with decreased overall strength to close them. BALANCE: Static sitting Normal Dynamic Sitting Good SPECIAL TESTS: Daily Activity Limitations Standardized Measure [facility] AM -PAC ?6 clicks? Daily Activity Inpatient Short Form: Raw score: 21 Standardized score: 44.27 CMS score: 32.79% INFORMED CONSENT/EDUCATION: Pt instructed in purpose of OT Consult and plan of care. ASSESSMENT: Patient is a 58-year-old female referred to occupational therapy services with diagnosis of COPD, acute intoxication on admission, being tx with IV steriods to tx COPD. Patient presents with clinical signs and symptoms consistent with dx, as demonstrated by the following impairment level findings: decreased (B) UE strength, decreased functional activity tolerance, difficulty with functional mobility d/t breathing, decreased gross and fine motor control for performance of ADLs. Impairments are contributing to the following functional limitations: Increased functional activity time to perform ADL routines, decreased functional mobility required to perform ADL routines, decreased functional activity tolerance, difficulty breathing when performing ADLs d/t COPD. AMPAC score 21, CMS score 32.79% Patient is assessed as a Moderate 90554 complexity based on the following: History: See Above Examination: See Above Presentation: Evolving Decision Making: AMPAC score 21, CMS score 32.79% GOALS Goals x1 week 1. Transfers LRD (I) 2. Dressing Sitting in chair pt will be able to (I) don and doff UE/LE clothing 3. Bathing Sitting in chair pt will be able to (I) wash UE/LE 4. Toileting on commode (I) 5. Eating (I) open and closing containers, (I) food to mouth translation 6. Grooming (I) with brushing teeth standing at sink PLAN OF CARE/TREATMENT PLAN: 1x/day, 5 days/ week x 1week Initiate Occupational Therapy Services for bathing, dressing, grooming, toileting, eating, transfer training. DISCHARGE RECOMMENDATIONS OT recommends that if pt returns home that she have a home assessment and assessment of ADLs/IADLs performed by HH to assess pts functional (I) and safety in her home setting. Pt would benefit from a shower seat/bench to increase her overall safety with her bathing routine, however pt denies the need for one at this time. TREATMENT TIME/MINUTES/CODES [id number], Raya Napier, OTR/L [facility]
--- NOTE | 2018-11-06 09:25 | OTIE_ITS ---
Occupational Therapy Notes Inpatient Occupational Therapy Evaluation Date: 11/06/18 Referring Doctor:Yaneth Carbajal MD OT Orders: Eval and Treat Precautions: Fall, Standard PATIENT PROFILE/ADMITTING DIAGNOSIS: Pt is a 58 year old female who presented through the ER on 11/04/18 for SOB. She was assessed in the ER and admitted to the ICU for COPD, acute intoxication VIV 292.3 on admission per pts EMR. Pt is currently being treated with IV steroids to tx COPD. Past Medical History: COPD (chronic obstructive pulmonary disease) (Chronic) Depression (Chronic) Tobacco abuse (Chronic) Hypertension (Chronic) Hyperlipidemia (Chronic) Chronic alcohol abuse (Chronic) Alcoholism (Chronic) Depression (Chronic) HTN (hypertension) (Chronic) Anemia (Resolved) Hypokalemia (Resolved) Hyponatremia (Resolved) Left lower lobe pneumonia (Resolved 06/09/13) Surgical History H/O section (Chronic) History of tonsillectomy (Chronic) Current Functional Limitations: Decreased functional activity tolerance, decreased (B) UE strength, decreased ADLs due to labored breathing. Difficulty performing bending, lifting and carrying objects required for functional activities in her home. Social History/Home Situation: Pt lives in a private apartment in [place], [place]. She states that there is a handicap ramp near her building which she walks on each day 3x and then walks around the house. Pt states that she is totally (I) with all ADLs/IADLs however she notes that she is only having difficulty wit h ADLs because she is out of shape. Functionally pt reports that she was a stall shower, she notes that she does not have a seat which would be beneficial for breathing in the shower however she denies the need for a shower bench at this time. Pt also notes that she is (I) with dressing in her room in her apartment. She has a daughter who lives close by who (A) her with anything that she needs. She gets (A) with home cleaning and grocery shopping. She states that if she feels like going grocery shopping she does otherwise she waits till her daughter can take her or go for her. Pt notes that she is able to do her hair and teeth (I), she reports that she is not (I) in community mobility. She notes that she does not qualify for RCT as she does not have the proper insurance, OT will clarify this with respiratory care program director. She also notes that she performs an exercise regimen everyday and if she gets tired from that then she does not do anything the rest of the day. Pt did not clarify whether this was given to her from a health professional or one that she came up with on her own. Pt states that she is (I) with her toileting routine at home on the toilet. Equipment owned/DME: None per pt report. SUBJECTIVE: Pt is a pleasant 58 year old female. She is positive that the only reason she is here is because she is deconditioned and needs to exercise. Pt reports that she is normally on 2 inhalers both symbicort and albuterol and uses a nebulizer. She notes that the nebulizer medication is cheaper for her to afford so she was using just that. She states that the symbicort costs around $100 and she cannot afford this so she has not been using it. She states that she is unsure as to whether the symbicort even works or not. She then notes that since she has stopped using it she has noticed slight difficulty in wheezing when performing her functional mobility. Pt states that she cannot afford to continue to pay for her inhalers all the time so the albuterol one is what she uses to maintain her breathing. OBJECTIVE: General Observation: Pt was pleasant and answered questions appropriately. IV, telemetry, sykes, BP cuff (L) UE, Mental Status: A&Ox3 Pain: no c/o pain ROM: RUE AROM WNL L UE AROM WNL STRENGTH: RUE Shoulder flexion 3/5, bicep 3+/5, tricep 3/5, mine patrol is weak LUE Shoulder flexion 3/5, bicep 3/5, tricep 3/5, mine patrol is weak FUNCTIONAL MOBILITY/ADLS: Transfers- pt denies and states that she would like to stay in the chair. Noticeable breathing/wheezing. OT did discuss this with nursing who reports that pt was having difficulty with this yesterday. BATHING - pt denies stating she is clean, however she was able to demonstrate AROM required for performance of bathing self in seated position. She functionally is very weak and this required increased performance time. DRESSING Dressing UE NT Dressing LE Seated in chair min vc for leg placement (I) with don and doannelieseing (B) socks with increased functional activity time for performance. GROOMING Pt denies going to the sink, however in seated position she was able to brush her teeth with difficulty opening and closing toothpaste d/t decreased functional strength. She was able to bring tooth brush to mouth but performed minimal brushing then stated she was done. TOILETING Pt denies at this time, she does have a sykes currently in place. EATING Sitting in chair, pt was able to open containers with decreased overall strength to close them. BALANCE: Static sitting Normal Dynamic Sitting Good SPECIAL TESTS: Daily Activity Limitations Standardized Measure [facility] AM -PAC ?6 clicks? Daily Activity Inpatient Short Form: Raw score: 21 Standardized score: 44.27 CMS score: 32.79% INFORMED CONSENT/EDUCATION: Pt instructed in purpose of OT Consult and plan of care. ASSESSMENT: Patient is a 58-year-old female referred to occupational therapy services with diagnosis of COPD, acute intoxication on admission, being tx with IV steriods to tx COPD. Patient presents with clinical signs and symptoms consistent with dx, as demonstrated by the following impairment level findings: decreased (B) UE strength, decreased functional activity tolerance, difficulty with functional mobility d/t breathing, decreased gross and fine motor control for performance of ADLs. Impairments are contributing to the following functional limitations: Increased functional activity time to perform ADL routines, decreased functional mobility required to perform ADL routines, decreased functional activity tolerance, difficulty breathing when performing ADLs d/t COPD. AMPAC score 21, CMS score 32.79% Patient is assessed as a Moderate 51447 complexity based on the following: History: See Above Examination: See Above Presentation: Evolving Decision Making: AMPAC score 21, CMS score 32.79% GOALS Goals x1 week 1. Transfers LRD (I) 2. Dressing Sitting in chair pt will be able to (I) don and doff UE/LE clothing 3. Bathing Sitting in chair pt will be able to (I) wash UE/LE 4. Toileting on commode (I) 5. Eating (I) open and closing containers, (I) food to mouth translation 6. Grooming (I) with brushing teeth standing at sink PLAN OF CARE/TREATMENT PLAN: 1x/day, 5 days/ week x 1week Initiate Occupational Therapy Services for bathing, dressing, grooming, toileting, eating, transfer training. DISCHARGE RECOMMENDATIONS OT recommends that if pt returns home that she have a home assessment and assessment of ADLs/IADLs performed by HH to assess pts functional (I) and safety in her home setting. Pt would benefit from a shower seat/bench to increase her overall safety with her bathing routine, however pt denies the need for one at this time. TREATMENT TIME/MINUTES/CODES [id number], Raya Napier, OTR/L [facility]
--- NOTE | 2018-11-06 11:03 | W.PM.PROGNOT ---
Date of Service Date of service: 11/06/18 Time of Service: 11:03 Assessment and Plan (1) Lactic acidosis: Current visit: Yes Status: Resolved Lactic acidosis trending down on admission. Abdomen benign on exam. No signs of acute bowel ischemia. Nothing further to add at this time. Will sign off. Please reconsult as needed. (2) Complaint of melena: Current visit: Yes Status: Acute Stool hemoccult (-) this am. No urgent indication for endoscopy at this time. Can follow-up for screening colonoscopy if patient is due for one. Nothing further to add at this time. Please reconsult as needed. Subjective Interval history since last seen: Chart reviewed. Patient up in chair. No complaints. Denies any abdominal pain, nausea, or vomiting. Not much appetite but tolerated breakfast. (+) small, soft BM - hemoccult (-) this am. Lactic acid had decreased from 8.6 -> 7.8 -> 1.8 on this admission. Labs this am reviewed. Exam Const General: cooperative, comfortable and no acute distress Nutritional Appearance: overweight Orientation: alert [facility] Head: normocephalic and atraumatic Eyes Sclera: sclerae normal Resp Effort & Inspection: normal respiratory effort and able to speak in complete sentences GI Inspection: non-distended Palpation: soft, not firm, no guarding, not rigid and nontender Auscultation: normal bowel sounds Objective Objective Clinical Data: Abnormal lab results 11/06/18 11/06/18 Range/Units 06:15 06:15 WBC 18.47 H D (4.4-10.8) k/cumm Absolute Neutrophils 16.60 H (1.2-6.7) k/cumm Absolute Lymphocytes 0.66 L (1.2-3.4) k/cumm Absolute Monocytes 1.13 H (0.11-0.7) k/cumm Potassium 2.8 L* (3.5-5.1) mmol/L BUN 5 L (7-18) mg/dL Creatinine 0.52 L (0.55-1.02) mg/dL Glucose 141 H (70-100) mg/dL Calcium 7.9 L (8.5-10.1) mg/dL Vital Signs Temperature 36.3 C L 11/06/18 09:58 Temperature Source Temporal Artery Scan 11/06/18 09:58 Pulse 72 11/06/18 09:48 Pulse 83 11/06/18 09:48 Respiratory Rate 24 11/06/18 09:48 Respiratory Effort 11/06/18 09:48 Respiratory Depth Normal 11/06/18 09:48 Respiratory Pattern Normal 11/06/18 09:48 Blood Pressure 156/102 H 11/06/18 09:48 Blood Pressure Mean 115 11/06/18 09:48 Blood Pressure Position Sitting 11/06/18 09:48 Pulse Oximetry 94 L 11/06/18 09:58 Oxygen Delivery Method Room Air 11/06/18 09:58 Oxygen Flow Rate 0 11/06/18 09:58 Pain Level 0 11/06/18 03:05 Intake & Output 11/05/18 11/05/18 11/06/18 11:59 23:59 11:59 Intake Total 1392.500 / 4285.000 2892.5 / 4285.000 2300 / 2300 Output Total 1300 / 4450 3150 / 4450 1200 / 1200 Balance 92.500 / -165.000 -257.5 / -420.170 1380 / 1100 Weight 94.3 kg 95.6 kg Intake: IV 1142.500 / 3035.000 1892.5 / 3035.000 1760 / 1760 Oral 250 / 1250 1000 / 1250 540 / 540 Output: Urine 1300 / 4450 3150 / 4450 1200 / 1200 Other: Urine Color Yellow Pale Yellow Urine Appearance Clear Clear Clear Comment Lopez to gravity Lopez in place. Lopez draining to gravity Stool Occult Blood Negative Stool Size Small Stool Characteristics Soft Laboratory Results WBC 18.47 k/cumm (4.4-10.8) H D 11/06/18 06:15 RBC 4.41 m/cumm (4.00-5.20) 11/06/18 06:15 Hgb 13.5 g/dL (12.0-15.5) 11/06/18 06:15 Hct 39.9 % (36.0-46.0) 11/06/18 06:15 MCV 90.5 fL (80-95) 11/06/18 06:15 MCH 30.6 pg (27.0-33.0) 11/06/18 06:15 MCHC 33.8 g/dL (32.0-36.0) 11/06/18 06:15 RDW 13.5 % (11.7-14.6) 11/06/18 06:15 Plt Count 209 x1000/uL (130-400) 11/06/18 06:15 MPV 10.7 fL (8.0-11.0) 11/06/18 06:15 Immature Gran % 0.4 11/06/18 06:15 Neutrophils % 89.9 11/06/18 06:15 Lymphocytes % 3.6 11/06/18 06:15 Monocytes % 6.1 11/06/18 06:15 Eosinophils % 0.0 11/06/18 06:15 Basophils % 0.0 11/06/18 06:15 Absolute Neutrophils 16.60 k/cumm (1.2-6.7) H 11/06/18 06:15 Absolute Lymphocytes 0.66 k/cumm (1.2-3.4) L 11/06/18 06:15 Absolute Monocytes 1.13 k/cumm (0.11-0.7) H 11/06/18 06:15 Absolute Eosinophils 0.00 k/cumm (0.0-0.7) 11/06/18 06:15 Absolute Basophils 0.00 k/cumm (0.0-0.2) 11/06/18 06:15 D-Dimer 878 ng/mlFEU (<500) H 11/05/18 06:40 Sample Site Right radial 11/04/18 20:17 pCO2 39 mmHg (34-47) 11/04/18 20:17 pO2 71 mmHg (83-108) L 11/04/18 20:17 O2 Saturation 94 % (94-98) 11/04/18 20:17 ABG pH 7.42 (7.35-7.45) 11/04/18 20:17 ABG HCO3 25 mmol/L (22-28) 11/04/18 20:17 ABG Total CO2 23 mmol/L (22-29) 11/04/18 20:17 ABG Base Excess 0.9 mmol/L (-3-3) 11/04/18 20:17 FiO2 21% % 11/04/18 20:17 Sodium 143 mmol/L (136-145) 11/06/18 06:15 Potassium 2.8 mmol/L (3.5-5.1) L* 11/06/18 06:15 Chloride 103 mmol/L (98-107) 11/06/18 06:15 Carbon Dioxide 29.9 mmol/L (21.0-32.0) 11/06/18 06:15 Anion Gap 10.1 mmol/L (3-11) 11/06/18 06:15 BUN 5 mg/dL (7-18) L 11/06/18 06:15 Creatinine 0.52 mg/dL (0.55-1.02) L 11/06/18 06:15 Estimated GFR/1.73 m2 >= 60.00 (mL/min/1.73m2) 11/06/18 06:15 Glucose 141 mg/dL (70-100) H 11/06/18 06:15 Lactate 1.8 mmol/L (0.6-1.4) H 11/05/18 06:40 Calcium 7.9 mg/dL (8.5-10.1) L 11/06/18 06:15 Phosphorus 2.0 mg/dL (2.6-4.7) L 11/05/18 06:40 Magnesium 1.9 mg/dL (1.8-2.4) 11/06/18 06:15 Total Bilirubin 0.5 mg/dL (0.2-1.0) 11/05/18 06:40 AST 60 U/L (15-37) H 11/05/18 06:40 ALT 49 U/L (12-78) 11/05/18 06:40 Alkaline Phosphatase 89 U/L (46-116) 11/05/18 06:40 Troponin I < 0.05 ng/mL (0.00-0.06) 11/04/18 16:17 C-Reactive Protein 0.36 mg/dL (0.0-0.3) H 11/05/18 06:40 NT-Pro-B Natriuret Pep 91 pg/mL (-299) 11/04/18 16:17 Total Protein 6.8 g/dL (6.4-8.2) 11/05/18 06:40 Albumin 3.3 g/dL (3.4-5.0) L 11/05/18 06:40 Lipase 170 U/L (73-393) 11/04/18 16:17 Procalcitonin < 0.1 ng/mL 11/04/18 22:10 Urine Color Yellow (Yellow) 11/05/18 08:15 Urine Clarity Clear 11/05/18 08:15 Urine pH 6.5 (5-8) 11/05/18 08:15 Ur Specific [place] <= 1.005 (1.005-1.025) 11/05/18 08:15 Urine Protein Negative mg/dL (Negative) 11/05/18 08:15 Urine Ketones Trace mg/dL (Negative) H 11/05/18 08:15 Urine Blood Trace-intact (Negative) H 11/05/18 08:15 Urine Nitrite Negative (Negative) 11/05/18 08:15 Urine Bilirubin Negative (Negative) 11/05/18 08:15 Urine Urobilinogen 0.2 EU/dL (Up TO 0.2) 11/05/18 08:15 Ur Leukocyte Esterase Negative (Negative) 11/05/18 08:15 Urine RBC 5-10 (0-2) H 11/05/18 08:15 Urine WBC Negative HPF (0-5) 11/05/18 08:15 Ur Epithelial Cells Negative HPF (Negative) 11/05/18 08:15 Urine Crystals Negative HPF (Negative) 11/05/18 08:15 Urine Bacteria Negative HPF (Negative) 11/05/18 08:15 Urine Mucus Negative (Negative) 11/05/18 08:15 Urine Other Rare transitional (Negative) 11/05/18 08:15 Ur Culture Indicated? No 11/05/18 08:15 Urine Glucose Negative mg/dL (Negative) 11/05/18 08:15 Ethyl Alcohol 292.3 mg/dL (<3) 11/04/18 16:17
--- NOTE | 2018-11-06 14:03 | CHAPLAIN ---
Carolin was sitting up in her chair when I visited. She said she is feeling better, but is bored. She told me that she has three daughters, a nurse, a PT, and a mental health counselor, but none have been in to visit her yet, and she 's not mickey why. She is [employer] and was visited today by the residential real estate appraiser. s Carolin asked for a cup a coffee and responded to questions but seemed not interested in further conversation.
[2018-11-06 14:48] LABS: ANA Interpretation Negative (NEGAT)
--- NOTE | 2018-11-06 20:44 | PT.INTREAT ---
Date of service: 11/06/18 Time of Service: 20:44 PT Notes Inpatient Physical Therapy Treatment Note [facility] Date: 11/06/18 PRECAUTIONS: Fall SUBJECTIVE: Carolin is agreeable to participating in PT, although states that she would like to be discharged back home as soon as possible. OBJECTIVE: PAIN: No c/o pain BED MOBILITY/TRANSFERS Sit-supine: SBA with HOB flat Sit-stand: CGA Stand-sit: CGA GAIT Assistive Device: FWW Weight bearing: Full Assist: CGA Distance: 25' x2 Deviation: Slow pace, increased need for direction and instruction ASSESSMENT: Patient was able to tolerate a slight progression in gait distance with FWW support and CGA. She would benefit from continued gait and transfer training as well as strengthening for improved mobility and activity tolerance. PLAN: Continue with PT's POC TREATMENT CODE/TIME: 20 minutes; [id number]
--- NOTE | 2018-11-07 06:15 | IN_ITS ---
Date of service: 11/07/18 Time of Service: 10:46 PT Notes Inpatient Physical Therapy Evaluation Date: 11/06/2018 Referring Doctor: Yaneth Carbajal MD PT Orders: PT CONSULT: Eval/treat Precautions: Fall. Standard. Patient Profile/Admitting Diagnosis: Patient is a 58-year-old female who presented to the ED on 11/04/2018 with chief complaints of shortness of breath, nausea, vague abdominal pain, and nonproductive cough. Patient was diagnosed with lactic acidosis due to alcohol withdrawal, COPD exacerbation, and generalized weakness. Referral for physical therapy was made to address functional mobility decline, reduced activity tolerance, and increased fall risk. PMHX: Medical History COPD (chronic obstructive pulmonary disease) (Chronic) Depression (Chronic) Tobacco abuse (Chronic) Hypertension (Chronic) Hyperlipidemia (Chronic) Chronic alcohol abuse (Chronic) Alcoholism (Chronic) Depression (Chronic) HTN (hypertension) (Chronic) Anemia (Resolved) Hypokalemia (Resolved) Hyponatremia (Resolved) Left lower lobe pneumonia (Resolved 06/09/13) Surgical History H/O section (Chronic) History of tonsillectomy (Chronic) Social History/Home Situation: Patient states she lives alone in a 1 floor apartment without stairs in [place], [place]. She states she reports that she is independent with all aspects of ADLs without the need to use a walker, cane, or any other adaptive equipment. She does not drive anymore and needs to use of the [facility] bus for all her transportation needs. Per case management notes, patient has a daughter who lives close by who is able to help as needed. Current Functional Limitations: Need for assistance with all transfers and ambulation task performance using front wheeled walker due to increased shakiness, reduced activity tolerance, and weakness. Equipment Owned/DME: None Subjective: Patient reports that she slept better last night. She states that coughing bouts has subsided but continues to be minimally productive. She is agreeable to a PT consult and treatment today. She reported feeling shaky and unstable when she tried working with this PT. She is agreeable to having home health physical therapy ordered to ensure progression to prior level of function at discharge destination. Objective: General Observation: Patient is seen resting on her chair just breakfast. Telemetry monitoring monitoring in place. IV in the left UE. Mental Status: Alert and oriented x 4 although instructions needed to be given twice or thrice for clarity Pain: 0/10 Vital Signs: Oxygen saturation stayed above 90% on room air during ambulation activity ROM: Right Upper Extremity: Shoulder Flexion WFL. Shoulder abduction WFL. Elbow flexion WFL. Wrist flexion WFL. Functional opening and closing of hand WFL. Left Upper Extremity: Shoulder Flexion WFL. Shoulder abduction WFL. Elbow flexion WFL. Wrist flexion WFL. Functional opening and closing of hand WFL. Right Lower Extremity: Hip flexion WFL. Hip abduction WFL. Knee flexion WFL. Ankle dorsiflexion WFL. Ankle plantarflexion WFL. Left Lower Extremity: Hip flexion WFL. Hip abduction WFL. Knee flexion WFL. Ankle dorsiflexion WFL. Ankle plantarflexion WFL. Strength: Right Upper Extremity: Shoulder flexors 4/5. Shoulder abductors 4/5. Elbow flexors 4/5. Elbow extensors 4/5. Community Outreach Advocate strong. Left Upper Extremity: Shoulder flexors 4/5. Shoulder abductors 4/5. Elbow flexors 4/5. Elbow extensors 4/5. Community Outreach Advocate strong. Right Lower Extremity: Hip flexors 4-/5. Hip abductors 4-/5. Knee flexors 4-/5. Knee extensors 4-/5. Ankle dorsiflexors 4-/5. Ankle plantarflexors 4-/5. Left Lower Extremity: Hip flexors 4-/5. Hip abductors 4-/5. Knee flexors 4-/5. Knee extensors 4-/5. Ankle dorsiflexors 4-/5. Ankle plantarflexors 4-/5. Sensation: Intact as to pain and pressure on bilateral lower extremities. Bed Mobility/Transfers: Supine to sit minimal assist Sit to supine minimal assist Sit to stand CGA Stand to sit CGA Bed to chair CGA Chair to bed CGA Gait: Patient was able to tolerate in room ambulation of 12 feet using FWW and reported increased shakiness and unsteadiness requiring minimal assist of this PT and standby assist of nurse for IV pole management and overall safety. Modified Suha dyspnea scale of 3-4/10 with patient demonstrating moderate to somewhat severe breathlessness after gait activity. Significantly reduced gait velocity, step height, and step length observed. Balance: Static Sitting: Good Dynamic Sitting: Good Static Standing: Fair Dynamic Standing: Fair Special Tests: Mobility Limitations Standardized Measure [facility] AM-PAC 6 clicks Basic Mobility Inpatient Short Form: Raw Score: 16 CMS Score: 54% deficit Informed Consent/Education: Patient instructed in purpose of PT consult and plan of care. Reinforced with patient the need for calling for help for all out of bed and out of chair activities in order to reduce fall risk and maximize safety. Assessment: 58-year-old female with COPD exacerbation and lactic acidosis from alcohol withdrawal admitted for medical management and rehabilitation. Patient presents with clinical signs and symptoms consistent with current/admitting diagnoses that have resulted to mobility limitations, gait instability, generalized weakness, and impairment of motor control as demonstrated by the following impairment level findings: 1. Decreased strength to B LE major muscle groups 2. Impaired sitting/standing balance 3. Impaired activity tolerance Impairments are contributing to the following functional limitations: 1. Dependent bed mobility skills 2. Increased dependence with transfers 3. Inability to safely ambulate without assistive device and physical assistance 4. Increase completion time for mobility ADL performance 5. Increased fall risk 6. Inability to negotiate steps alone safely Patient is assessed as a 31591 moderate complexity complexity based on the following: History: 58-year-old female with COPD exacerbation lactic acidosis from alcohol withdrawal demonstrating above impairments and functional limitations with comorbidities as listed above Examination: Demonstrable impairment in strength, balance, and range of motion with underlying impairments and functional limitations as documented above Presentation:Evolving Decision Makin moderate complexity Goals: Goals X1 week 1. Supine-Sit independent 2. Sit-Supine independent 3. Sit-Stand independent 4. Stand-Sit independent 5. Bed-Chair independent 6. Chair-Bed independent 7. Independent gait on level surface with use of least restrictive device for at least 100 feet without report of dyspnea with board modified dyspnea scale of 1/10 8. Independent with home exercise program 9. Good static and dynamic standing balance/tolerance Plan of Care/Treatment Plan: 1-2x/day, 7 days/week x 1 week. Plan of care has been reviewed with the [facility] providing the service under Physical Therapy direction. Initiate Physical Therapy intervention for strengthening, bed mobility, transfers, gait, stairs, balance training, use of assistive device. DISCHARGE RECOMMENDATIONS: Patient will benefit from home health PT services in order to progress mobility level using least restrictive assistive ambulatory device/using no device, assess home safety, identify additional equipment needs, and establish a functional maintenance program that will increase ability of patient to remain at home. TREATMENT CODE/TIME: 16586 for 30 minutes, [id number] 423 minutes beginning at 10:46 AM. Thank you very much for this referral. Paulette Irwin PT, DPT, CLT [facility]
--- NOTE | 2018-11-09 07:52 | OT.INDS ---
Date of service: 11/09/18 Time of Service: 07:52 Occupational Therapy Notes Occupational Therapy Inpatient Discharge Summary Date: 11/09/18 Dates of Service: 11/06/18-11/06/18 as pt left AMA Referring Doctor:Yaneth Carbajal MD OT Orders: Eval and Treat Precautions: Fall, Standard PATIENT PROFILE/ADMITTING DIAGNOSIS: Pt is a 58 year old female who presented through the ER on 11/04/18 for SOB. She was assessed in the ER and admitted to the ICU for COPD, acute intoxication VIV 292.3 on admission per pts EMR. Pt is currently being treated with IV steroids to tx COPD. Past Medical History: COPD (chronic obstructive pulmonary disease) (Chronic) Depression (Chronic) Tobacco abuse (Chronic) Hypertension (Chronic) Hyperlipidemia (Chronic) Chronic alcohol abuse (Chronic) Alcoholism (Chronic) Depression (Chronic) HTN (hypertension) (Chronic) Anemia (Resolved) Hypokalemia (Resolved) Hyponatremia (Resolved) Left lower lobe pneumonia (Resolved 06/09/13) Surgical History H/O section (Chronic) History of tonsillectomy (Chronic) Social History/Home Situation: Pt lives in a private apartment in [place], [place]. She states that there is a handicap ramp near her building which she walks on each day 3x and then walks around the house. Pt states that she is totally (I) with all ADLs/IADLs however she notes that she is only having difficulty with ADLs because she is out of shape. Functionally pt reports that she was a stall shower, she notes that she does not have a seat which would be beneficial for breathing in the shower however she denies the need for a shower bench at this time. Pt also notes that she is (I) with dressing in her room in her apartment. She has a daughter who lives close by who (A) her with anything that she needs. She gets (A) with home cleaning and grocery shopping. She states that if she feels like going grocery shopping she does otherwise she waits till her daughter can take her or go for her. Pt notes that she is able to do her hair and teeth (I), she reports that she is not (I) in community mobility. She notes that she does not qualify for [facility] as she does not have the proper insurance, OT will clarify this with lawn care technician. She also notes that she performs an exercise regimen everyday and if she gets tired from that then she does not do anything the rest of the day. Pt did not clarify whether this was given to her from a health professional or one that she came up with on her own. Pt states that she is (I) with her toileting routine at home on the toilet. Equipment owned/DME: None per pt report. THIS DOCUMENT SERVES A SUMMARY OF CARE, NO SKILLED OT SERVICES PROVIDED FOR THIS DOCUMENTATION. SUBJECTIVE: NT OBJECTIVE: ROM: RUE AROM WNL L UE AROM WNL STRENGTH: RUE Shoulder flexion 3/5, bicep 3+/5, tricep 3/5, bag end sewer is weak LUE Shoulder flexion 3/5, bicep 3/5, tricep 3/5, bag end sewer is weak FUNCTIONAL MOBILITY/ADLS: No skilled OT services provided for this documentation. Functional mobility/ADLs are taken from initial assessment. BATHING -She was able to demonstrate AROM required for performance of bathing self in seated position. She functionally is very weak and this required increased performance time. DRESSING Dressing UE NT Dressing LE Seated in chair min vc for leg placement (I) with don and doffing (B) socks with increased functional activity time for performance. GROOMING Pt denies going to the sink, however in seated position she was able to brush her teeth with difficulty opening and closing toothpaste d/t decreased functional strength. She was able to bring tooth brush to mouth but performed minimal brushing then stated she was done. TOILETING Pt denies at this time, she does have a sykes currently in place. EATING Sitting in chair, pt was able to open containers with decreased overall strength to close them. BALANCE: Static sitting Normal Dynamic Sitting Good ASSESSMENT: Patient is a 58-year-old female referred to occupational therapy services with diagnosis of COPD, acute intoxication on admission, being tx with IV steriods to tx COPD. Pt was seen for OT consult only. She was unable to obtain goals and was seen for OT consult only. Based on this OT will plan to discharge pt from skilled OT services at this time. GOALS- Pt did not meet goals, pt was seen for OT consult only. 1. Transfers LRD (I) 2. Dressing Sitting in chair pt will be able to (I) don and doff UE/LE clothing 3. Bathing Sitting in chair pt will be able to (I) wash UE/LE 4. Toileting on commode (I) 5. Eating (I) open and closing containers, (I) food to mouth translation 6. Grooming (I) with brushing teeth standing at sink PLAN OF CARE/TREATMENT PLAN: Discharge pt from skilled OT services. DISCHARGE RECOMMENDATIONS Pt left 11/06/18 AMA TREATMENT TIME/MINUTES/CODES N/A Raya Napier OTR/L [facility]
--- NOTE | 2018-11-09 07:57 | OTDS_ITS ---
Date of service: 11/09/18 Time of Service: 07:52 Occupational Therapy Notes Occupational Therapy Inpatient Discharge Summary Date: 11/09/18 Dates of Service: 11/06/18-11/06/18 as pt left AMA Referring Doctor:Yaneth Carbajal MD OT Orders: Eval and Treat Precautions: Fall, Standard PATIENT PROFILE/ADMITTING DIAGNOSIS: Pt is a 58 year old female who presented through the ER on 11/04/18 for SOB. She was assessed in the ER and admitted to the ICU for COPD, acute intoxication VIV 292.3 on admission per pts EMR. Pt is currently being treated with IV steroids to tx COPD. Past Medical History: COPD (chronic obstructive pulmonary disease) (Chronic) Depression (Chronic) Tobacco abuse (Chronic) Hypertension (Chronic) Hyperlipidemia (Chronic) Chronic alcohol abuse (Chronic) Alcoholism (Chronic) Depression (Chronic) HTN (hypertension) (Chronic) Anemia (Resolved) Hypokalemia (Resolved) Hyponatremia (Resolved) Left lower lobe pneumonia (Resolved 06/09/13) Surgical History H/O section (Chronic) History of tonsillectomy (Chronic) Social History/Home Situation: Pt lives in a private apartment in [place], [place]. She states that there is a handicap ramp near her building which she walks on each day 3x and then walks around the house. Pt states that she is totally (I) with all ADLs/IADLs however she notes that she is only having difficulty with ADLs because she is out of shape. Functionally pt reports that she was a stall shower, she notes that she does not have a seat which would be beneficial for breathing in the shower however she denies the need for a shower bench at this time. Pt also notes that she is (I) with dressing in her room in her apartment. She has a daughter who lives close by who (A) her with anything that she needs. She gets (A) with home cleaning and grocery shopping. She states that if she feels like going grocery shopping she does otherwise she waits till her daughter can take her or go for her. Pt notes that she is able to do her hair and teeth (I), she reports that she is not (I) in community mobility. She notes that she does not qualify for [facility] as she does not have the proper insurance, OT will clarify this with healthcare economics consultant. She also notes that she performs an exercise regimen everyday and if she gets tired from that then she does not do anything the rest of the day. Pt did not clarify whether this was given to her from a health professional or one that she came up with on her own. Pt states that she is (I) with her toileting routine at home on the toilet. Equipment owned/DME: None per pt report. THIS DOCUMENT SERVES A SUMMARY OF CARE, NO SKILLED OT SERVICES PROVIDED FOR THIS DOCUMENTATION. SUBJECTIVE: NT OBJECTIVE: ROM: RUE AROM WNL L UE AROM WNL STRENGTH: RUE Shoulder flexion 3/5, bicep 3+/5, tricep 3/5, metallurgical analyst is weak LUE Shoulder flexion 3/5, bicep 3/5, tricep 3/5, metallurgical analyst is weak FUNCTIONAL MOBILITY/ADLS: No skilled OT services provided for this documentation. Functional mobility/ADLs are taken from initial assessment. BATHING -She was able to demonstrate AROM required for performance of bathing self in seated position. She functionally is very weak and this required increased performance time. DRESSING Dressing UE NT Dressing LE Seated in chair min vc for leg placement (I) with don and doffing (B) socks with increased functional activity time for performance. GROOMING Pt denies going to the sink, however in seated position she was able to brush her teeth with difficulty opening and closing toothpaste d/t decreased functional strength. She was able to bring tooth brush to mouth but performed minimal brushing then stated she was done. TOILETING Pt denies at this time, she does have a sykes currently in place. EATING Sitting in chair, pt was able to open containers with decreased overall strength to close them. BALANCE: Static sitting Normal Dynamic Sitting Good ASSESSMENT: Patient is a 58-year-old female referred to occupational therapy services with diagnosis of COPD, acute intoxication on admission, being tx with IV steriods to tx COPD. Pt was seen for OT consult only. She was unable to obtain goals and was seen for OT consult only. Based on this OT will plan to discharge pt from skilled OT services at this time. GOALS- Pt did not meet goals, pt was seen for OT consult only. 1. Transfers LRD (I) 2. Dressing Sitting in chair pt will be able to (I) don and doff UE/LE clothing 3. Bathing Sitting in chair pt will be able to (I) wash UE/LE 4. Toileting on commode (I) 5. Eating (I) open and closing containers, (I) food to mouth translation 6. Grooming (I) with brushing teeth standing at sink PLAN OF CARE/TREATMENT PLAN: Discharge pt from skilled OT services. DISCHARGE RECOMMENDATIONS Pt left 11/06/18 AMA TREATMENT TIME/MINUTES/CODES N/A Raya Napier OTR/L [facility]
--- NOTE | 2018-11-09 16:45 | PT.INDS ---
Date of service: 11/09/18 PT Notes Inpatient Physical Therapy Discharge Summary Dates: 11/09/2018 Dates of Service: 11/06/2018 only This is a clinical summary of care provided on the duration of dates listed above. No charge was made in the completion of this documentation. Referring Doctor: Yaneth Carbajal MD PT Orders: PT CONSULT: Eval/treat Precautions: Fall. Standard. Patient Profile/Admitting Diagnosis: Patient left AMA on 11/14/2018. Patient is a 58-year-old female who presented to the ED on 11/04/2018 with chief complaints of shortness of breath, nausea, vague abdominal pain, and nonproductive cough. Patient was diagnosed with lactic acidosis due to alcohol withdrawal, COPD exacerbation, and generalized weakness. Referral for physical therapy was made to address functional mobility decline, reduced activity tolerance, and increased fall risk. PMHX: Medical History COPD (chronic obstructive pulmonary disease) (Chronic) Depression (Chronic) Tobacco abuse (Chronic) Hypertension (Chronic) Hyperlipidemia (Chronic) Chronic alcohol abuse (Chronic) Alcoholism (Chronic) Depression (Chronic) HTN (hypertension) (Chronic) Anemia (Resolved) Hypokalemia (Resolved) Hyponatremia (Resolved) Left lower lobe pneumonia (Resolved 06/09/13) Surgical History H/O section (Chronic) History of tonsillectomy (Chronic) Social History/Home Situation: Patient states she lives alone in a 1 floor apartment without stairs in [place], [place]. She states she reports that she is independent with all aspects of ADLs without the need to use a walker, cane, or any other adaptive equipment. She does not drive anymore and needs to use of the [facility] bus for all her transportation needs. Per case management notes, patient has a daughter who lives close by who is able to help as needed. Current Functional Limitations: Need for assistance with all transfers and ambulation task performance using front wheeled walker due to increased shakiness, reduced activity tolerance, and weakness. Equipment Owned/DME: None Subjective: NT Objective: General Observation:NT Mental Status: NT Pain: NT ROM: Right Upper Extremity: Shoulder Flexion WFL. Shoulder abduction WFL. Elbow flexion WFL. Wrist flexion WFL. Functional opening and closing of hand WFL. Left Upper Extremity: Shoulder Flexion WFL. Shoulder abduction WFL. Elbow flexion WFL. Wrist flexion WFL. Functional opening and closing of hand WFL. Right Lower Extremity: Hip flexion WFL. Hip abduction WFL. Knee flexion WFL. Ankle dorsiflexion WFL. Ankle plantarflexion WFL. Left Lower Extremity: Hip flexion WFL. Hip abduction WFL. Knee flexion WFL. Ankle dorsiflexion WFL. Ankle plantarflexion WFL. Strength: Right Upper Extremity: Shoulder flexors 4/5. Shoulder abductors 4/5. Elbow flexors 4/5. Elbow extensors 4/5. 911 Operator strong. Left Upper Extremity: Shoulder flexors 4/5. Shoulder abductors 4/5. Elbow flexors 4/5. Elbow extensors 4/5. 911 Operator strong. Right Lower Extremity: Hip flexors 4-/5. Hip abductors 4-/5. Knee flexors 4-/5. Knee extensors 4-/5. Ankle dorsiflexors 4-/5. Ankle plantarflexors 4-/5. Left Lower Extremity: Hip flexors 4-/5. Hip abductors 4-/5. Knee flexors 4-/5. Knee extensors 4-/5. Ankle dorsiflexors 4-/5. Ankle plantarflexors 4-/5. Sensation: Intact as to pain and pressure on bilateral lower extremities. Bed Mobility/Transfers: Supine to sit minimal assist Sit to supine minimal assist Sit to stand CGA Stand to sit CGA Bed to chair CGA Chair to bed CGA Gait: Patient was able to tolerate in room ambulation of 12 feet using FWW and reported increased shakiness and unsteadiness requiring minimal assist of this PT and standby assist of nurse for IV pole management and overall safety. Modified Suha dyspnea scale of 3-4/10 with patient demonstrating moderate to somewhat severe breathlessness after gait activity. Significantly reduced gait velocity, step height, and step length observed. Balance: Static Sitting: Good Dynamic Sitting: Good Static Standing: Fair Dynamic Standing: Fair Special Tests: Mobility Limitations Standardized Measure [facility]-PAC 6 clicks Basic Mobility Inpatient Short Form: Raw Score: 16 CMS Score: 54% deficit Assessment: 58-year-old female with COPD exacerbation and lactic acidosis from alcohol withdrawal admitted for medical management and rehabilitation. Patient presents with clinical signs and symptoms consistent with current/admitting diagnoses that have resulted to mobility limitations, gait instability, generalized weakness, and impairment of motor control as demonstrated by the following impairment level findings: 1. Decreased strength to B LE major muscle groups 2. Impaired sitting/standing balance 3. Impaired activity tolerance Impairments are contributing to the following functional limitations: 1. Dependent bed mobility skills 2. Increased dependence with transfers 3. Inability to safely ambulate without assistive device and physical assistance 4. Increase completion time for mobility ADL performance 5. Increased fall risk 6. Inability to negotiate steps alone safely Goals: Goals X1 week 1. Supine-Sit independent NOT MET 2. Sit-Supine independent NOT MET 3. Sit-Stand independent NOT MET 4. Stand-Sit independent NOT MET 5. Bed-Chair independent NOT MET 6. Chair-Bed independent NOT MET 7. Independent gait on level surface with use of least restrictive device for at least 100 feet without report of dyspnea with board modified dyspnea scale of 1/10 NOT MET 8. Independent with home exercise program NOT MET 9. Good static and dynamic standing balance/tolerance NOT MET DISCHARGE RECOMMENDATIONS: Patient will benefit from home health PT services in order to progress mobility level using least restrictive assistive ambulatory device/using no device, assess home safety, identify additional equipment needs, and establish a functional maintenance program that will increase ability of patient to remain at home. TREATMENT CODE/TIME: NM Thank you very much for this referral. Paulette Irwin PT, DPT, CLT [facility]
--- NOTE | 2018-11-09 16:48 | INDS_ITS ---
Date of service: 11/09/18 PT Notes Inpatient Physical Therapy Discharge Summary Dates: 11/09/2018 Dates of Service: 11/06/2018 only This is a clinical summary of care provided on the duration of dates listed above. No charge was made in the completion of this documentation. Referring Doctor: Yaneth Carbajal MD PT Orders: PT CONSULT: Eval/treat Precautions: Fall. Standard. Patient Profile/Admitting Diagnosis: Patient left AMA on 11/14/2018. Patient is a 58-year-old female who presented to the ED on 11/04/2018 with chief complaints of shortness of breath, nausea, vague abdominal pain, and nonproductive cough. Patient was diagnosed with lactic acidosis due to alcohol withdrawal, COPD exac erbation, and generalized weakness. Referral for physical therapy was made to address functional mobility decline, reduced activity tolerance, and increased fall risk. PMHX: Medical History COPD (chronic obstructive pulmonary disease) (Chronic) Depression (Chronic) Tobacco abuse (Chronic) Hypertension (Chronic) Hyperlipidemia (Chronic) Chronic alcohol abuse (Chronic) Alcoholism (Chronic) Depression (Chronic) HTN (hypertension) (Chronic) Anemia (Resolved) Hypokalemia (Resolved) Hyponatremia (Resolved) Left lower lobe pneumonia (Resolved 06/09/13) Surgical History H/O section (Chronic) History of tonsillectomy (Chronic) Social History/Home Situation: Patient states she lives alone in a 1 floor apartment without stairs in [place], [place]. She states she reports that she is independent with all aspects of ADLs without the need to use a walker, cane, or any other adaptive equipment. She does not drive anymore and needs to use of the [employer] bus for all her transportation needs. Per case management notes, patient has a daughter who lives close by who is able to help as needed. Current Functional Limitations: Need for assistance with all transfers and ambulation task performance using front wheeled walker due to increased shakiness, reduced activity tolerance, and weakness. Equipment Owned/DME: None Subjective: NT Objective: General Observation:NT Mental Status: NT Pain: NT ROM: Right Upper Extremity: Shoulder Flexion WFL. Shoulder abduction WFL. Elbow flexion WFL. Wrist flexion WFL. Functional opening and closing of hand WFL. Left Upper Extremity: Shoulder Flexion WFL. Shoulder abduction WFL. Elbow flexion WFL. Wrist flexion WFL. Functional opening and closing of hand WFL. Right Lower Extremity: Hip flexion WFL. Hip abduction WFL. Knee flexion WFL. Ankle dorsiflexion WFL. Ankle plantarflexion WFL. Left Lower Extremity: Hip flexion WFL. Hip abduction WFL. Knee flexion WFL. Ankle dorsiflexion WFL. Ankle plantarflexion WFL. Strength: Right Upper Extremity: Shoulder flexors 4/5. Shoulder abductors 4/5. Elbow flexors 4/5. Elbow extensors 4/5. Pretzel Twister strong. Left Upper Extremity: Shoulder flexors 4/5. Shoulder abductors 4/5. Elbow flexors 4/5. Elbow extensors 4/5. Pretzel Twister strong. Right Lower Extremity: Hip flexors 4-/5. Hip abductors 4-/5. Knee flexors 4-/5. Knee extensors 4-/5. Ankle dorsiflexors 4-/5. Ankle plantarflexors 4-/5. Left Lower Extremity: Hip flexors 4-/5. Hip abductors 4-/5. Knee flexors 4-/5. Knee extensors 4-/5. Ankle dorsiflexors 4-/5. Ankle plantarflexors 4-/5. Sensation: Intact as to pain and pressure on bilateral lower extremities. Bed Mobility/Transfers: Supine to sit minimal assist Sit to supine minimal assist Sit to stand CGA Stand to sit CGA Bed to chair CGA Chair to bed CGA Gait: Patient was able to tolerate in room ambulation of 12 feet using FWW and reported increased shakiness and unsteadiness requiring minimal assist of this PT and standby assist of nurse for IV pole management and overall safety. Modified Suha dyspnea scale of 3-4/10 with patient demonstrating moderate to somewhat severe breathlessness after gait activity. Significantly reduced gait velocity, step height, and step length observed. Balance: Static Sitting: Good Dynamic Sitting: Good Static Standing: Fair Dynamic Standing: Fair Special Tests: Mobility Limitations Standardized Measure [facility]-P[facility] 6 clicks Basic Mobility Inpatient Short Form: Raw Score: 16 CMS Score: 54% deficit Assessment: 58-year-old female with COPD exacerbation and lactic acidosis from alcohol withdrawal admitted for medical management and rehabilitation. Patient presents with clinical signs and symptoms consistent with current/admitting diagnoses that have resulted to mobility limitations, gait instability, generalized weakness, and impairment of motor control as demonstrated by the following impairment level findings: 1. Decreased strength to B LE major muscle groups 2. Impaired sitting/standing balance 3. Impaired activity tolerance Impairments are contributing to the following functional limitations: 1. Dependent bed mobility skills 2. Increased dependence with transfers 3. Inability to safely ambulate without assistive device and physical assistance 4. Increase completion time for mobility ADL performance 5. Increased fall risk 6. Inability to negotiate steps alone safely Goals: Goals X1 week 1. Supine-Sit independent NOT MET 2. Sit-Supine independent NOT MET 3. Sit-Stand independent NOT MET 4. Stand-Sit independent NOT MET 5. Bed-Chair independent NOT MET 6. Chair-Bed independent NOT MET 7. Independent gait on level surface with use of least restrictive device for at least 100 feet without report of dyspnea with board modified dyspnea scale of 1/10 NOT MET 8. Independent with home exercise program NOT MET 9. Good static and dynamic standing balance/tolerance NOT MET DISCHARGE RECOMMENDATIONS: Patient will benefit from home health PT services in order to progress mobility level using least restrictive assistive ambulatory device/using no device, assess home safety, identify additional equipment needs, and establish a functional maintenance program that will increase ability of patient to remain at home. TREATMENT CODE/TIME: RI Thank you very much for this referral. Paulette Irwin PT, DPT, CLT [facility]
== END 2018-11-06 19:15 | disposition left against medical advice (07) | DRG 191 ==
LOC: ER 21:24 → ICU 22:56
PROVIDERS: Admitting Provider Internal Medicine; Emergency Provider Physician Assistant; PCP Specialist/Technologist Athletic Trainer; Visit Provider Internal Medicine
DX: J44.1 Chronic obstructive pulmonary disease with (acute) exacerbation (principal); E87.2 Acidosis; K92.1 Melena; F10.239 Alcohol dependence with withdrawal, unspecified; Z53.29 Procedure and treatment not carried out because of patient's decision for other reasons; I10 Essential (primary) hypertension; F17.210 Nicotine dependence, cigarettes, uncomplicated; F10.220 Alcohol dependence with intoxication, uncomplicated; Y90.7 Blood alcohol level of 200-239 mg/100 ml; F32.9 Major depressive disorder, single episode, unspecified; E78.5 Hyperlipidemia, unspecified; R09.02 Hypoxemia; R10.9 Unspecified abdominal pain; K76.0 Fatty (change of) liver, not elsewhere classified; R53.1 Weakness
CPT/HCPCS: 36410; 36415; 71275; 74177; 80048; 80053; 82805; 83690; 84145; 87040; 93005; 94640; 96361; 96365; 97162; 97166; 97530; 99223; 99232; 99233; 99253; 99285; J1650; 71045; 71046; 80320; 81003; 81015; 83605; 83735; 83880; 84100; 84484; 85025; 85379; 86038; 86140; 93010; J0780; J2060; J2930; J3480; J3490; J7613; J7620

== ENCOUNTER 2018-11-12 16:40 | Inpatient (IN) | payer OTHER, SELFPAY ==
[2018-11-12] VITALS (25 sets, daily range): BP systolic 103–130; BP diastolic 61–94; PULSE 72–102; RESP 1–25; TEMP 37–37.6; O2SAT 87–95
--- NOTE | 2018-11-12 17:06 | DI.RAD_ITS ---
SYMPTOM/DIAGNOSIS: COUGH, WHEEZE, SMOKER PA AND LATERAL CHEST: 11/12 The examination is compared with previous chest radiographs of 11/04/18 and 11/06/18. There is interval development of an area of apparent consolidation and/or atelectasis of the right middle lobe. Otherwise, lungs remain clear. No pleural effusion seen. CONCLUSION: Findings consistent with interval development of right middle lobe pneumonia
--- NOTE | 2018-11-12 17:10 | W.ED.GENAD ---
Discharge Plan Disposition Patient Disposition: [facility] INPATIENT Condition: Improving Discharge Details Chief Complaint: Nausea/Vomit/Diar Clinical Impression: Hypokalemia, Alcoholism, COPD with acute exacerbation, Rectal bleeding Primary Care Provider: Heladio Charles ED Provider: Tavon Long Home Meds and New Rx's Prescriptions: No Action potassium chloride 10 MEQ capsule, extended release 10 meq PO DAILY RF: 0 albuterol sulfate 8.5 GM HFA aerosol inhaler 2 puff Inhalation Q4H PRN PRNRF: 0 simvastatin 40 MG tablet 40 mg PO DAILY RF: 0 lisinopril 40 MG tablet 40 mg PO DAILY RF: 0 aspirin 325 MG tablet 325 mg PO DAILY RF: 0 loratadine 10 MG tablet 10 mg PO DAILY RF: 0 furosemide 40 mg Tablet 40 mg PO DAILY RF: 0 Symbicort 160-4.5 mcg/actuation Hfa Aerosol Inhaler 2 puff INHALATION Q12H RF: 0 Medical Decision Making 58-year-old female chronic and daily alcoholic presents with generalized weakness, mild diffuse abdominal pain, shortness of breath, and bright red blood per rectum when wiping today. She continues to abuse alcohol. She was admitted to the hospital last week now returns due to aforementioned complaints. Fountain Helper has not been completed, but I am informed that she left AMA. She arrives with a temp of 37.2, pulse 72 at rest, blood pressure 103/61. She is somewhat tremulous, poorly kept, with decreased breath sounds and wheezing, discrete bright red blood per rectum on exam. Differential diagnosis includes dehydration, electrolyte abnormality, alcohol withdrawal, lower GI bleed. Patient was placed on a monitoring coordinator and given an antiemetic, PPI, inhaled DuoNeb. She is referred for laboratory testing, chest x-ray, EKG. Potassium is 2.5, magnesium 1.1, bicarb 36. Hematocrit stable at 39. chest x-ray with atelectasis versus infiltrate at the right base. She will require ongoing electrolyte supplementation, management of COPD exacerbation, further evaluation of probable lower GI bleed, and is at risk for alcohol withdrawal. Case discussed with Dr. Eckert and patient to be admitted. Lab Data Lab results reviewed: Yes I reviewed the patient's lab results. Laboratory Results - last 24 hr 11/12/18 11/12/18 11/12/18 16:50 16:50 16:50 WBC 14.60 H RBC 4.52 Hgb 13.6 Hct 39.4 MCV 87.2 MCH 30.1 MCHC 34.5 RDW 13.3 Plt Count 119 L MPV 11.9 H Immature Gran % 0.8 Neutrophils % 73.8 Lymphocytes % 9.0 Monocytes % 16.2 Eosinophils % 0.1 Basophils % 0.1 Absolute Neutrophils 10.77 H Absolute Lymphocytes 1.31 Absolute Monocytes 2.37 H Absolute Eosinophils 0.01 Absolute Basophils 0.01 PT 11.0 INR 1.1 Sodium 131 L Potassium 2.5 L* Chloride 86 L Carbon Dioxide 36.0 H Anion Gap 9.0 BUN 8 Creatinine 0.66 Estimated GFR/1.73 m2 >= 60.00 Glucose 133 H Calcium 8.7 Magnesium 1.1 L Total Bilirubin 1.2 H AST 36 ALT 52 Alkaline Phosphatase 91 Total Protein 6.8 Albumin 3.3 L Lipase Ethyl Alcohol 11/12/18 11/12/18 16:50 16:50 WBC RBC Hgb Hct MCV MCH MCHC RDW Plt Count MPV Immature Gran % Neutrophils % Lymphocytes % Monocytes % Eosinophils % Basophils % Absolute Neutrophils Absolute Lymphocytes Absolute Monocytes Absolute Eosinophils Absolute Basophils PT INR Sodium Potassium Chloride Carbon Dioxide Anion Gap BUN Creatinine Estimated GFR/1.73 m2 Glucose Calcium Magnesium Total Bilirubin AST ALT Alkaline Phosphatase Total Protein Albumin Lipase 250 Ethyl Alcohol < 3.0 ECG Data Attestation: I personally reviewed and interpreted this ECG (s) as follows: Interpretation: Normal sinus rhythm with a rate of 94, the QRS is narrow, no ST segment elevation HPI General Mode of arrival: ambulatory. Date/Time Provider Initiated Documentation: 11/12/18 16:54. Limitations to Documentation: no limitations. Information obtained by: patient. History of Present Illness 58 year old F presents to the emergency department with the chief complaint of Generalized weakness, persistent alcohol abuse, bright red blood per rectum, described as moderate, Quality is described as dull and constant, Patient started experiencing this day(s) and it has been constant. No relieving factors improve symptom(s), No exacerbating factors reported . Patient notes loss of appetite, weakness and other (Nauseated. No emesis.); denies fever/chills and syncope. Patient did receive the following treatments prior to arrival, none Related Data Home Medications Medication Instructions Recorded Confirmed albuterol sulfate 2 puff INHALATION Q4H PRN PRN 03/20/13 11/12/18 potassium chloride 10 meq PO DAILY 03/20/13 11/12/18 simvastatin 40 mg PO DAILY 06/09/13 11/12/18 aspirin 325 mg PO DAILY 06/10/13 11/12/18 lisinopril 40 mg PO DAILY 06/10/13 11/12/18 loratadine 10 mg PO DAILY 11/13/14 11/12/18 budesonide-formoterol [Symbicort] 2 puff INHALATION Q12H 11/04/18 11/12/18 furosemide 40 mg PO DAILY 11/04/18 11/12/18 Allergies Allergy/AdvReac Type Severity Reaction Status Date / Time codeine AdvReac Severe Dizziness/L Unverified 11/12/18 16:48 ightheade General Stated Complaint: Nausea/Vomit/Diar DAVID: 2 Review of Systems Review of Systems Continues to drink alcohol daily including this morning. Reports no active rectal bleeding but noted bright red blood when wiping today. Mild diffuse abdominal pain. Nauseated without emesis. Short of breath, chronic cough. Denies chest pain. 8 systems reviewed and otherwise neg PFSH Medical History Gallstones (Acute) Fatty liver (Acute) COPD (chronic obstructive pulmonary disease) (Chronic) Depression (Chronic) Tobacco abuse (Chronic) Hypertension (Chronic) Hyperlipidemia (Chronic) Chronic alcohol abuse (Chronic) Alcoholism (Chronic) Depression (Chronic) HTN (hypertension) (Chronic) Anemia (Resolved) Hypokalemia (Resolved) Hyponatremia (Resolved) Left lower lobe pneumonia (Resolved 06/09/13) Surgical History H/O section (Chronic) History of tonsillectomy (Chronic) Social History Smoking/Tobacco Use Status: Current every day Tobacco Type: cigarettes Alcohol Intake: current Alcohol Intake frequency: 3 or more drinks per day Drug use: Never Do you feel safe at home: Yes Do you feel safe in your relationship?: Yes Exam Narrative Exam Narrative: GEN: awake, alert, oriented 3. Pleasant, poorly groomed, interactive. HEAD: Normocephalic, atraumatic ENT: Mucous membranes moist, oropharynx unremarkable, External ear exam unremarkable EYES: PERRL, EOMI NECK: Full ROM, no MADELIN, no menigismus CHEST/RESP: Nontender, diminished bilaterally with bilateral end expiratory CARDIOVASCULAR: RRR, no murmur, rub natalia. 2+ Rad pulse bilateral ABDOMEN: Soft, nontender, no mass. +Bowel sounds. Rectal exam performed with scant bloody effluent present. No mass appreciated EXT: Full ROM, no edema, no rash Neuro: Grossly normal neurologic exam, conversant, interactive. Mildly tremulous Psych: Speech fluent, thoughts congruent, affect anxious Course Vital Signs Temperature 37.2 C 11/12/18 16:40 Pulse 72 11/12/18 16:40 Respiratory Rate 18 11/12/18 16:40 Blood Pressure 103/61 11/12/18 16:40 Pulse Oximetry 95 11/12/18 16:40 Temperature 37.2 C 11/12/18 16:40 Temperature Source Temporal Artery Scan 11/12/18 16:40 Pulse 72 11/12/18 16:40 Respiratory Rate 18 11/12/18 16:40 Respiratory Effort Non-Labored 11/12/18 16:46 Blood Pressure 103/61 11/12/18 16:40 Blood Pressure Position Supine 11/12/18 16:40 Pulse Oximetry 95 11/12/18 16:40 Oxygen Delivery Method Room Air 11/12/18 16:40 Oxygen Flow Rate 0 11/12/18 16:40 Pain Level 0 11/12/18 16:40
--- NOTE | 2018-11-12 17:13 | ED.GENADUL_ITS ---
Discharge Plan Disposition Patient Disposition: [facility] INPATIENT Condition: Improving Discharge Details Chief Complaint: Nausea/Vomit/Diar Clinical Impression: Hypokalemia, Alcoholism, COPD with acute exacerbation, Rectal bleeding Primary Care Provider: Heladio Charles ED Provider: Tavon Long Home Meds and New Rx's Prescriptions: No Action potassium chloride 10 MEQ capsule, extended release 10 meq PO DAILY RF: 0 albuterol sulfate 8.5 GM HFA aerosol inhaler 2 puff Inhalation Q4H PRN PRNRF: 0 simvastatin 40 MG tablet 40 mg PO DAILY RF: 0 lisinopril 40 MG tablet 40 mg PO DAILY RF: 0 aspirin 325 MG tablet 325 mg PO DAILY RF: 0 loratadine 10 MG tablet 10 mg PO DAILY RF: 0 furosemide 40 mg Tablet 40 mg PO DAILY RF: 0 Symbicort 160-4.5 mcg/actuation Hfa Aerosol Inhaler 2 puff INHALATION Q12H RF: 0 Medical Decision Making 58-year-old female chronic and daily alcoholic presents with generalized weakness, mild diffuse abdominal pain, shortness of breath, and bright red blood per rectum when wiping today. She continues to abuse alcohol. She was admitted to the hospital last week now returns due to aforementioned complaints. Diving Board Assembler has not been completed, but I am informed that she left AMA. She arrives with a temp of 37.2, pulse 72 at rest, blood pressure 103/61. She is somewhat tremulous, poorly kept, with decreased breath sounds and wheezing, discrete bright red blood per rectum on exam. Differential diagnosis includes dehydration, electrolyte abnormality, alcohol withdrawal, lower GI bleed. Patient was placed on a pearler and given an antiemetic, PPI, inhaled DuoNeb. She is referred for laboratory testing, chest x-ray, EKG. Potassium is 2.5, magnesium 1.1, bicarb 36. Hematocrit stable at 39. chest x- ray with atelectasis versus infiltrate at the right base. She will require ongoing electrolyte supplementation, management of COPD exacerbation, further evaluation of probable lower GI bleed, and is at risk for alcohol withdrawal. Case discussed with Dr. Eckert and patient to be admitted. Lab Data Lab results reviewed: Yes I reviewed the patient's lab results. Laboratory Results - last 24 hr 11/12/18 11/12/18 11/12/18 16:50 16:50 16:50 WBC 14.60 H RBC 4.52 Hgb 13.6 Hct 39.4 MCV 87.2 MCH 30.1 MCHC 34.5 RDW 13.3 Plt Count 119 L MPV 11.9 H Immature Gran % 0.8 Neutrophils % 73.8 Lymphocytes % 9.0 Monocytes % 16.2 Eosinophils % 0.1 Basophils % 0.1 Absolute Neutrophils 10.77 H Absolute Lymphocytes 1.31 Absolute Monocytes 2.37 H Absolute Eosinophils 0.01 Absolute Basophils 0.01 PT 11.0 INR 1.1 Sodium 131 L Potassium 2.5 L* Chloride 86 L Carbon Dioxide 36.0 H Anion Gap 9.0 BUN 8 Creatinine 0.66 Estimated GFR/1.73 m2 >= 60.00 Glucose 133 H Calcium 8.7 Magnesium 1.1 L Total Bilirubin 1.2 H AST 36 ALT 52 Alkaline Phosphatase 91 Total Protein 6.8 Albumin 3.3 L Lipase Ethyl Alcohol 11/12/18 11/12/18 16:50 16:50 WBC RBC Hgb Hct MCV MCH MCHC RDW Plt Count MPV Immature Gran % Neutrophils % Lymphocytes % Monocytes % Eosinophils % Basophils % Absolute Neutrophils Absolute Lymphocytes Absolute Monocytes Absolute Eosinophils Absolute Basophils PT INR Sodium Potassium Chloride Carbon Dioxide Anion Gap BUN Creatinine Estimated GFR/1.73 m2 Glucose Calcium Magnesium Total Bilirubin AST ALT Alkaline Phosphatase Total Protein Albumin Lipase 250 Ethyl Alcohol < 3.0 ECG Data Attestation: I personally reviewed and interpreted this ECG (s) as follows: Interpretation: Normal sinus rhythm with a rate of 94, the QRS is narrow, no ST segment elevation HPI General Mode of arrival: ambulatory . Date/Time Provider Initiated Documentation: 11/12/18 16:54 . Limitations to Documentation: no limitations . Information obtained by: patient . History of Present Illness 58 year old F presents to the emergency department with the chief complaint of Generalized weakness, persistent alcohol abuse, bright red blood per rectum, described as moderate, Quality is described as dull and constant, Patient started experiencing this day(s) and it has been constant. No relieving factors improve symptom(s), No exacerbating factors reported . Patient notes loss of appetite, weakness and other (Nauseated. No emesis.); denies fever/chills and syncope. Patient did receive the following treatments prior to arrival, none Related Data Home Medications Medication Instructions Recorded Confirmed albuterol sulfate 2 puff INHALATION Q4H PRN PRN 03/20/13 11/12/18 potassium chloride 10 meq PO DAILY 03/20/13 11/12/18 simvastatin 40 mg PO DAILY 06/09/13 11/12/18 aspirin 325 mg PO DAILY 06/10/13 11/12/18 lisinopril 40 mg PO DAILY 06/10/13 11/12/18 loratadine 10 mg PO DAILY 11/13/14 11/12/18 budesonide-formoterol [Symbicort] 2 puff INHALATION Q12H 11/04/18 11/12/18 furosemide 40 mg PO DAILY 11/04/18 11/12/18 Allergies Allergy/AdvReac Type Severity Reaction Status Date / Time codeine AdvReac Severe Dizziness/L Unverified 11/12/18 16:48 ightheade General Stated Complaint: Nausea/Vomit/Diar DAVID: 2 Review of Systems Review of Systems Continues to drink alcohol daily including this morning. Reports no active rectal bleeding but noted bright red blood when wiping today. Mild diffuse abdominal pain. Nauseated without emesis. Short of breath, chronic cough. Denies chest pain. 8 systems reviewed and otherwise neg PFSH Medical History Gallstones (Acute) Fatty liver (Acute) COPD (chronic obstructive pulmonary disease) (Chronic) Depression (Chronic) Tobacco abuse (Chronic) Hypertension (Chronic) Hyperlipidemia (Chronic) Chronic alcohol abuse (Chronic) Alcoholism (Chronic) Depression (Chronic) HTN (hypertension) (Chronic) Anemia (Resolved) Hypokalemia (Resolved) Hyponatremia (Resolved) Left lower lobe pneumonia (Resolved 06/09/13) Surgical History H/O section (Chronic) History of tonsillectomy (Chronic) Social History Smoking/Tobacco Use Status: Current every day Tobacco Type: cigarettes Alcohol Intake: current Alcohol Intake frequency: 3 or more drinks per day Drug use: Never Do you feel safe at home: Yes Do you feel safe in your relationship?: Yes Exam Narrative Exam Narrative: GEN: awake, alert, oriented 3. Pleasant, poorly groomed, interactive. HEAD: Normocephalic, atraumatic ENT: Mucous membranes moist, oropharynx unremarkable, External ear exam unremarkable EYES: PERRL, EOMI NECK: Full ROM, no MADELIN, no menigismus CHEST/RESP: Nontender, diminished bilaterally with bilateral end expiratory CARDIOVASCULAR: RRR, no murmur, rub natalia. 2+ Rad pulse bilateral ABDOMEN: Soft, nontender, no mass. +Bowel sounds. Rectal exam performed with scant bloody effluent present. No mass appreciated EXT: Full ROM, no edema, no rash Neuro: Grossly normal neurologic exam, conversant, interactive. Mildly tremulous Psych: Speech fluent, thoughts congruent, affect anxious Course Vital Signs Temperature 37.2 C 11/12/18 16:40 Pulse 72 11/12/18 16:40 Respiratory Rate 18 11/12/18 16:40 Blood Pressure 103/61 11/12/18 16:40 Pulse Oximetry 95 11/12/18 16:40 Temperature 37.2 C 11/12/18 16:40 Temperature Source Temporal Artery Scan 11/12/18 16:40 Pulse 72 11/12/18 16:40 Respiratory Rate 18 11/12/18 16:40 Respiratory Effort Non-Labored 11/12/18 16:46 Blood Pressure 103/61 11/12/18 16:40 Blood Pressure Position Supine 11/12/18 16:40 Pulse Oximetry 95 11/12/18 16:40 Oxygen Delivery Method Room Air 11/12/18 16:40 Oxygen Flow Rate 0 11/12/18 16:40 Pain Level 0 11/12/18 16:40
[2018-11-12] MEDS: Pantoprazole 40 MG VIAL 80 MG IVP (17:23)
[2018-11-12] MEDS: Ondansetron 4 MG/2 ML VIAL IVP (17:23)
[2018-11-12] MEDS: Albuterol/Ipratropium 3 ML UPD VIAL UPD (17:24)
[2018-11-12] MEDS: Normal Saline 1,000 ML 125 ML IV (17:24)
[2018-11-12 17:29] LABS: Absolute Basophil Count 0.01 k/cumm (0.0-0.2); Basophils % 0.1; HGB 13.6 g/dL (12.0-15.5)
[2018-11-12 17:46] LABS: INR 1.1 (0.9-1.1)
[2018-11-12 17:51] LABS: Lipase 250 U/L (73-393)
[2018-11-12 18:04] LABS: ALT 52 U/L (12-78); AST 36 U/L (15-37); Albumin 3.3 g/dL (3.4-5.0); Alkaline Phosphatase 91 U/L (46-116); BUN 8 mg/dL (7-18); Bilirubin, Total 1.2 mg/dL (0.2-1.0); CREATININE 0.66 mg/dL (0.55-1.02); Calcium 8.7 mg/dL (8.5-10.1); Chloride 86 mmol/L (98-107); Glucose 133 mg/dL (70-100); Magnesium 1.1 mg/dL (1.8-2.4); Potassium 2.5 mmol/L (3.5-5.1); Sodium 131 mmol/L (136-145); Total Protein 6.8 g/dL (6.4-8.2)
[2018-11-12 18:12] LABS: ETHANOL BLOOD < 3.0 mg/dL (<3)
[2018-11-12 18:22] LABS: Abs Immature Grans 0.11 k/cumm (0.0-0.09); Absolute Eosinophil Count 0.01 k/cumm (0.0-0.7); Absolute Lymphocyte Count 1.31 k/cumm (1.2-3.4); Absolute Monocyte Count 2.37 k/cumm (0.11-0.7); Absolute Neutrophil Count 10.77 k/cumm (1.2-6.7); Eosinophils % 0.1; HCT 39.4 % (36.0-46.0); Immature Grans % 0.8; Mean Corp. HGB Concentration 34.5 g/dL (32.0-36.0); Mean Corpuscular Hemoglobin 30.1 pg (27.0-33.0); Mean Corpuscular Volume 87.2 fL (80-95); Mean Platelet Volume 11.9 fL (8.0-11.0); Monocytes % 16.2; Neutrophils % 73.8; Platelet Count 119 x1000/uL (130-400); RBC 4.52 m/cumm (4.00-5.20); RBC Distribution Width 13.3 % (11.7-14.6)
--- NOTE | 2018-11-12 18:33 | DI.VRAD_ITS ---
EXAM: XR Chest, 2 Views EXAM DATE/TIME: 11/12/2018 5:07 PM CLINICAL HISTORY: 58 years old, female; Cough and wheezing TECHNIQUE: Imaging protocol: XR of the chest, 2 views. COMPARISON: CR XR PORTABLE CHEST AP 11/06/2018 9:12 AM FINDINGS: Lungs: Increased density in the right basilar distribution on the frontal view, with a band like zone of density projecting over the cardiac shadow on the lateral view in the distribution of the right middle lobe. This is consistent with atelectasis or infiltrate in the anterior right base. Mild vascular congestion. Pleural space: No pleural effusion. No pneumothorax. Heart/Mediastinum: Heart size normal. Vasculature: Mild aortic tortuosity and ectasia. Bones/joints: No acute osseous abnormalities are identified. Other findings: No tracheal shift. IMPRESSION: Atelectasis versus infiltrate in anterior right basilar distribution. Dictated and Authenticated by: Parrish Leon MD. Ordering:SHAWNA Montes De Oca MD
[2018-11-12] MEDS: POTASSIUM CHLORIDE 20 MEQ/100 ML BAG 50 MEQ IVPB (18:43)
[2018-11-12] MEDS: MAGNESIUM SULFATE 2 GM/50 ML BAG IVPB (18:45)
[2018-11-12 20:10] LABS: Diff Comment Diff Reviewed
[2018-11-12 20:11] LABS: RBC Morphology Normal
--- NOTE | 2018-11-12 20:16 | HPE_ITS ---
Date of service: 11/12/18 Time of Service: 20:05 Assessment and Plan (1) Bright red blood per rectum: Current visit: Yes Status: Acute Bright red blood confirmed by Dr. Long in the ER on his exam. Hemodynam ically stable at this time. Absence of tachycardia speaks against a very brisk upper GI bleed causing blood per rectum. Probably this is distal, hemorrhoid or diverticular most likely. I am placing her on IV fluids, monitoring hemoglobin, monitor for further rectal bleeding. IV PPI as noted below. Hold aspirin and no anticoagulants at this time. Surgical consultation for considering upper and lower endoscopy. (2) Nausea & vomiting: Current visit: Yes Status: Acute Never fully went away following last week's hospitalization and symptoms worsened. Does not have symptoms that point to obstruction but certainly compatible with peptic acid disease or alcoholic gastritis. Clinically dehydrated. Diagnostically monitor symptoms, CBC. Symptom treatment for nause a, IV PPI. (3) Hypokalemia due to loss of potassium: Current visit: Yes Status: Acute Probably due to ongoing diuretic use with poor oral intake. Replace IV and monitor potassium level. Telemetry until potassium level closer to normal. (4) Hyponatremia: Current visit: Yes Status: Acute Suspect due to continued diuretic use with poor oral intake. IV fluids and recheck electrolytes. (5) Hypomagnesemia: Current visit: Yes Status: Acute May have chronic hypomagnesemia from her alcohol use worsened with dehydration. IV supplementation and recheck magnesium level. (6) Dehydration: Current visit: Yes Status: Acute Poor oral intake plus continued diuretic use. IV fluids as above. (7) COPD (chronic obstructive pulmonary disease): Current visit: Yes Status: Chronic Seems to be close to or at baseline. I do not think she has pneumonia based on lack of significant cough or sputum production, no fever, chest x-ray that is equivocal but certainly there is no lobar infiltrate and exam does not have any focal findings. I am not going to start her on antibiotics. Received a single dose of steroids the emergency room. Subjectively her breathing does not bother her and I am concerned about peptic acid disease and steroids contributing to that. Hold off on any further steroids at this time and monitor respiratory status. Continue inhaled corticosteroids with long-acting beta agonist and as needed short acting beta agonist. Oxygen supplementation as needed. Nicotine replacement as needed. Qualifiers: COPD type: COPD with acute exacerbation Qualified Code(s): J44.1 - Chronic obstructive pulmonary disease with (acute) exacerbation (8) Alcoholism: Current visit: Yes Status: Chronic Continues to actively drink. Verbalizing her desire to quit and perhaps attend AA. Placed on withdrawal protocol. Will start with p.o. lorazepam in hopes that withdrawal symptoms, if present, will be mild. Vitamin supplem entation. (9) Hypertension: Current visit: Yes Status: Chronic MATT inhibitor and diuretics on hold. Monitor blood pressure off meds in the setting of GI bleed and uncertainty as to hemodynamics. (10) Thrombocytopenia: Current visit: Yes Status: Acute This is new compared to her last admission. Not sure if this is alcohol related. I think it is unlikely this represents consumption from bleeding. She did not have splenomegaly on CT scan done last week. Hold on anticoagulants and aspirin. Recheck platelet count in the morning. (11) DVT prophylaxis: Current visit: Yes Status: Acute Will use mechanical means with compression stockings. History of Present Illness Chief Complaint: Continued nausea, dry heaves, stomach distress and new rectal bleeding Narrative: 58-year-old woman with a history of alcohol abuse hypertension and COPD who presented back to the emergency room complaining of ongoing abdominal discomfort in the mid and epigastric areas, nausea, inability to take much in the way of fluids and no solids since her hospitalization last week when she left AMA 6 days ago. She was admitted last week with diffuse abdominal discomfort but a nonsurgical abdomen, lactic acidosis and COPD exacerbation. The source of her lactic acidosis could not be found and resolved during her hospitalization. She had heme-negative stool on at least 2 occasions during that admission. She was placed on PPI and Carafate prophylactically. She left the hospital AMA before complete work-up, now stating she is not sure why. She regrets her decision as she resumed drinking as soon as she got out of the hospital, had worsening abdominal pressure-like sensation in the mid abdomen, anorexia, dry heaves. She never had hematemesis. She does not recall any choking episodes or aspiration events. Her appetite is depressed. She has had fewer bowel movements but no diarrhea. Today for the first time noted br ight red blood on the toilet tissue when she cleaned herself. Her urine output has diminished greatly but she has not had any dysuria, urgency or hematuria. She continued to take most of her medications, stopped aspirin and potassium because she could not get them down and was worried about bleeding. She continues to take her 40 mg of furosemide every day despite very little oral intake solid or liquid. She denies any increased shortness of breath or cough. She has had no pleuritic chest pain. No fevers or chills. Her last alcohol consumption was this morning, glass of wine. She self identifies as an alcoholic. Presently stating that she needs to quit and is open to attending AA meetings when she is out of the hospital. She has never had a colonoscopy. She has done stool fecal occult blood testing within the past 2 or so years and recalls it was negative. She had heme-negativ e stool last week when she was in the hospital. She has no known history of ulcers. She had no indication of cirrhosis by CT scan done last week. She is never had upper endoscopy and is never known to have varices. She is not known to have hemorrhoids. Review of Systems Review of Systems No dizziness or lightheadedness when she sits up. Has been feeling weaker. No night sweats. Other than the rectal bleeding no bleeding elsewhere. No paresthesias or focal weakness. All systems reviewed & are unremarkable except as noted in HPI and below PFSH Medical History Gallstones (Acute) Fatty liver (Acute) COPD (chronic obstructive pulmonary disease) (Chronic) Depression (Chronic) Tobacco abuse (Chronic) Hypertension (Chronic) Hyperlipidemia (Chronic) Chronic alcohol abuse (Chronic) Alcoholism (Chronic) Depression (Chronic) HTN (hypertension) (Chronic) Anemia (Resolved) Hypokalemia (Resolved) Hyponatremia (Resolved) Left lower lobe pneumonia (Resolved 06/09/13) Surgical History H/O section (Chronic) History of tonsillectomy (Chronic) Social History Smoking/Tobacco Use Status: Current every day Tobacco Type: cigarettes Alcohol Intake: current Alcohol Intake frequency: 3 or more drinks per day Drug use: Never Do you feel safe at home: Yes Do you feel safe in your relationship?: Yes Meds Home Medications Medication Instructions Recorded Confirmed Type albuterol sulfate 2 puff INHALATION Q4H PRN PRN 03/20/13 11/12/18 History potassium chloride 10 meq PO DAILY 03/20/13 11/12/18 History simvastatin 40 mg PO DAILY 06/09/13 11/12/18 History aspirin 325 mg PO DAILY 06/10/13 11/12/18 History lisinopril 40 mg PO DAILY 06/10/13 11/12/18 History loratadine 10 mg PO DAILY 11/13/14 11/12/18 History budesonide-formoterol [Symbicort] 2 puff INHALATION Q12H 11/04/18 11/12/18 History furosemide 40 mg PO DAILY 11/04/18 11/12/18 History Allergies Allergy/AdvReac Type Severity Reaction Status Date / Time codeine AdvReac Severe Dizziness/L Unverified 11/12/18 16:48 ightheade Exam Narrative Exam Narrative: No acute respiratory distress at the time of my exam which followed her ER treatments with albuterol/ipratropium, Solu-Medrol, IV fluids, IV Protonix, 10 mEq of potassium and magnesium currently running. Skin is not jaundiced. Sclera clear. Poor dentition. Mucous membranes dry no ulcerations. No JVD thyromegaly carotid bruits or cervical adenopathy. Lungs distant breath sounds no wheeze crackles or rub heard anywhere. Heart rate in the upper 80s at rest, regular rhythm, no murmur S3 or S4. Bowel sounds normal. Abdomen obese with some mild tenderness to palpation in the epigastric area. No guarding or rebound. No masses appreciated. Dr. Long did a rectal exam in the ER and reported bright red blood on the examining digit, no hemorrhoids reported. Extremities warm with 2+ pulses in the feet. No petechiae. Trace ankle edema. Transfers independently. No tremor. Oriented x4. Cranial nerve function intact. Symmetric movement of all extremities. 2+ DTRs at the knees and elbows symmetrically. Results Chest x-ray probable atelectasis in the right middle lobe. EKG normal Labs : 11/12/18 16:50 11/12/18 16:50 Laboratory Results - last 24 hr 11/12/18 11/12/18 11/12/18 16:50 16:50 16:50 WBC 14.60 H RBC 4.52 Hgb 13.6 Hct 39.4 MCV 87.2 MCH 30.1 MCHC 34.5 RDW 13.3 Plt Count 119 L MPV 11.9 H Immature Gran % 0.8 Neutrophils % 73.8 Lymphocytes % 9.0 Monocytes % 16.2 Eosinophils % 0.1 Basophils % 0.1 Absolute Neutrophils 10.77 H Absolute Lymphocytes 1.31 Absolute Monocytes 2.37 H Absolute Eosinophils 0.01 Absolute Basophils 0.01 PT 11.0 INR 1.1 Sodium 131 L Potassium 2.5 L* Chloride 86 L Carbon Dioxide 36.0 H Anion Gap 9.0 BUN 8 Creatinine 0.66 Estimated GFR/1.73 m2 >= 60.00 Glucose 133 H Calcium 8.7 Magnesium 1.1 L Total Bilirubin 1.2 H AST 36 ALT 52 Alkaline Phosphatase 91 Total Protein 6.8 Albumin 3.3 L Lipase Ethyl Alcohol Patient ABO/Rh Antibody Screen 11/12/18 11/12/18 11/12/18 16:50 16:50 16:50 WBC RBC Hgb Hct MCV MCH MCHC RDW Plt Count MPV Immature Gran % Neutrophils % Lymphocytes % Monocytes % Eosinophils % Basophils % Absolute Neutrophils Absolute Lymphocytes Absolute Monocytes Absolute Eosinophils Absolute Basophils PT INR Sodium Potassium Chloride Carbon Dioxide Anion Gap BUN Creatinine Estimated GFR/1.73 m2 Glucose Calcium Magnesium Total Bilirubin AST ALT Alkaline Phosphatase Total Protein Albumin Lipase 250 Ethyl Alcohol < 3.0 Patient ABO/Rh AB Positive Antibody Screen Negative Last Vital Signs Temp 37.2 C 11/12/18 16:40 Pulse 83 11/12/18 19:10 Resp 22 11/12/18 19:10 BP 127/68 11/12/18 19:10 Pulse Ox 94 L 11/12/18 19:10
[2018-11-12] MEDS: POTASSIUM CHLORIDE 10 MEQ/100 ML BAG 100 MEQ IVPB ×2 (20:36→22:58)
[2018-11-12] MEDS: Normal Saline Flush 10 ML SYR IVP ×3 (20:43→21:58)
[2018-11-12] MEDS: methylPREDNISolone SUCC 125 MG VIAL IVP (21:58)
[2018-11-12 22:17] LABS: HGB 12.5 g/dL (12.0-15.5)
[2018-11-12 22:24] LABS: Anion Gap 6.1 mmol/L (3-11); BUN 7 mg/dL (7-18); CO2 33.9 mmol/L (21.0-32.0); CREATININE 0.71 mg/dL (0.55-1.02); Chloride 90 mmol/L (98-107); Glucose 144 mg/dL (70-100); Sodium 130 mmol/L (136-145)
[2018-11-12 22:26] LABS: Potassium 2.9 mmol/L (3.5-5.1)
[2018-11-12] MEDS: Albuterol 2.5 MG/3 ML INH SOLN VIAL UPD (23:22)
[2018-11-13] VITALS (17 sets, daily range): BP systolic 102–142; BP diastolic 64–87; PULSE 80–111; RESP 4–20; TEMP 36.5–37.5; O2SAT 92–96
--- NOTE | 2018-11-13 02:26 | NUR.NOTE ---
Nursing Note: At 1920 hrs., pt admitted in [facility], alert and oriented x 3, sometimes has garbled speech due to sorethroat. Has both feet with trace of edema. Unable to lie down flat. Instructed for NPO after midnight for procedure today. Large bruised on right arm noted. Voiding good with no difficulty. Had nebs tx PRN for SOB on exertion.Denied of pain.Call lights at reach.
[2018-11-13] MEDS: Albuterol 2.5 MG/3 ML INH SOLN VIAL UPD ×4 (04:19→16:28)
[2018-11-13 07:30] LABS: HCT 37.9 % (36.0-46.0); HGB 12.8 g/dL (12.0-15.5); Mean Corp. HGB Concentration 33.8 g/dL (32.0-36.0); Mean Corpuscular Hemoglobin 30.2 pg (27.0-33.0); Mean Corpuscular Volume 89.4 fL (80-95); Mean Platelet Volume 11.8 fL (8.0-11.0); Platelet Count 136 x1000/uL (130-400); RBC 4.24 m/cumm (4.00-5.20); RBC Distribution Width 13.6 % (11.7-14.6); White Blood Cell Count 11.35 k/cumm (4.4-10.8)
[2018-11-13 07:41] LABS: Anion Gap 8.1 mmol/L (3-11); BUN 6 mg/dL (7-18); CO2 33.9 mmol/L (21.0-32.0); CREATININE 0.69 mg/dL (0.55-1.02); Calcium 8.1 mg/dL (8.5-10.1); Chloride 94 mmol/L (98-107); Glucose 212 mg/dL (70-100); Magnesium 1.8 mg/dL (1.8-2.4); Potassium 3.1 mmol/L (3.5-5.1); Sodium 136 mmol/L (136-145)
[2018-11-13] MEDS: Budesonide/Formoterol 160/4.5 6 GM 60 PUFF INH IH ×2 (07:50→20:30)
[2018-11-13] MEDS: Pantoprazole 40 MG VIAL IVP ×2 (08:40→20:31)
[2018-11-13] MEDS: Normal Saline Flush 10 ML SYR IVP ×4 (08:40→23:55)
[2018-11-13] MEDS: Magnesium Oxide 400 MG TAB PO (09:13)
[2018-11-13] MEDS: Potassium Chloride 20 MEQ TABCR 40 MEQ PO ×2 (09:13→15:28)
--- NOTE | 2018-11-13 10:22 | INITIAL_ITS ---
- If Service Date Differs Date of service: 11/13/18 Time of Service: 10:21 Care Management Initial Assess PAST MEDICAL HISTORY/PAST SURGICAL HISTORY:: COPD (chronic obstructive pulmonary disease) (Chronic). Depression (Chronic). Tobacco abuse (Chronic). Hypertension (Chronic). Hyperlipidemia (Chronic). Chronic alcohol abuse (Chronic). Alcoholism (Chronic). Depression (Chronic). HTN (hypertension) (Chronic). Anemia (Resolved). Hypokalemia (Resolved). Hyponatremia (Reso lved). Left lower lobe pneumonia (Resolved 06/09/13). Surgical hx: csection x 5 and tonsilectomy PREVIOUS FUNCTIONAL STATUS/SOCIAL/FAMILY SUPPORTS:: Carolin states she lives in an apartment in [place], [place] she states she lives along and has a daughter Alysa who is supportive. The only equipment she reports is a nebulizer at home and she states she uses [facility] for transportation. CURRENT FUNCTIONAL STATUS:: Carolin is siting up over the side of then bed. She states she feel sready for discharge she reports she is going to stop using alcohol. NICOLAS gaver her the contact for [facility]. ADVANCE DIRECTIVES:: None on file Has patient been provided with information about the portal?: Yes Did the patient sign up for the portal?: No CODE STATUS:: Full Code INSURANCE COVERAGE / FINANCIAL ISSUES:: [facility] CURRENT HOME/COMMUNITY SERVICES/EQUIPMENT:: Nebulizer PRIMARY CARE PHYSICIAN:: POTENTIAL DISCHARGE NEEDS:: Follow up appt with [facility] when ready PATIENT/FAMILY EDUCATION NEEDS:: discharge education. limitations and follow up plan of car ANTICIPATED BARRIERS TO DISCHARGE:: None. NICOLAS gave her the contact number for disaster recovery consultant. TRANSPORTATION:: Via private car when meddically ready PLAN:: Carolin is going to be discharged today and follow up with surgery next week for colonoscopy and EGD. Carolin is returning home with medciations to assist her with sympotms of withdrawal. NICOLAS provided disaster recovery consultant contact information and offered to call with her she declines and states she will call on her own. She has a friend nameed Jarad that is supportive and sober. Carolin will be transported home via private car with her daughter at time of discharge.
[2018-11-13] MEDS: Gabapentin 800 MG TAB PO ×2 (11:25→20:32)
[2018-11-13] MEDS: Sucralfate 1 GM TAB PO ×3 (11:25→21:32)
--- NOTE | 2018-11-13 12:19 | PHARADMIT ---
Addendum entered by Margaret Maguire 11/14/18 13:56: Pharmacy Note Subjective pt wants to go home per nursing report Objective VS-okay WBC-20.65(up) Assessment cefepime changed to zosyn to cover for possible aspiration gabapentin dosing decreased pantoprazole changed from IV to PO Plan continue to watch VS, labs and for med changes Original Note: Admission Pharmacy Clinical Review rectal bleeding, hypokalemia, nausea, dehydration, COPD Code Status Full Code Current Weight 92 kg Renally Cleared and Narrow Therapeutic Index Meds Crcl ~93.3 mL/min using adjusted body weight QTc Value / Action Taken QTc 485 has ondansetron and formotorol ordered BP Control, Fever BP 130/65 afebrile Electrolytes reviewed K+ 3.1 Cl 94 DVT Prophylaxis none- due to bleeding Opiate Usage / Scheduled Bowel Regimen Ordered no/prn Plt/SCr for Heparin / Enoxaparin plt 136 SCr 0.69 INR for Warfarin n/a H/H stable, WBC/Bands h/h 12.8/37.9 wbc 11.35 Antibiotic appropriateness n/a Cultures and Sensitivities n/a Surgical ABX d/c within 24 hr n/a DM control / Insulin Dosing BG 212 none, no A1c done since 2012 Heart Failure (Check EF%) (MATT's, B-Block, Diuretics) none IV to PO Switch n/a Home Meds Reviewed loratadine may enhance the ulcerogenic effect of potassium Home Meds Not Ordered aspirin, furosemide, lisinopril, loratadine, potassium Comments surgery consult- outpatient EGD and colonoscopy recommended
--- NOTE | 2018-11-13 12:21 | W.SURGCON ---
Date of service: 11/13/18 Time of Service: 12:21 Assessment and Plan (1) Bright red blood per rectum: Current visit: Yes Status: Acute The bleeding has not continued and her HgB is stable. I advised outpatient EGD and colonoscopy. Will schedule an office visit for next week to discuss the prep and schedule the procedures in the near future. Okay to advance diet Contact me with any changes. History of Present Illness Narrative: Patient was admitted with complaints of dry heaves and bright red blood per rectum. She states that she urinated and with wiping had some bright red blood on the toilet paper. Rectal exam did reveal Hemoccult positive stool per the emergency department. Today the patient is feeling well. She has been able to tolerate a clear diet without nausea or vomiting. She has no abdominal pain. She has not had any further rectal bleeding. The patient did have a recent admission when possible melena was observed and she needs to have an outpatient EGD and colonoscopy. She has not had previous. The patient in general notes no change in her bowel habits. Her hemoglobin has been stable this admission. Review of Systems Constitutional Denies fatigue Eyes Denies change in vision ENT Denies neck mass Cardiovascular Denies chest pain, Denies edema and Denies palpitations Gastrointestinal Denies abdominal pain and Denies change in bowel habits Genitourinary Denies abnormal vaginal bleeding and Denies dysuria Musculoskeletal Denies joint swelling Integumentary/Breasts Denies new lesions and Denies rash Neurologic Denies confusion and Denies focal weakness Psychiatric Reports system reviewed and no additional complaints, except as docu and Denies confusion Endocrine Denies fatigue and Denies palpitations Hematologic/Lymphatic Denies easy bleeding and Denies lymphadenopathy COUNT INCLUDES THE [facility] Medical History Gallstones (Acute) Fatty liver (Acute) COPD (chronic obstructive pulmonary disease) (Chronic) Depression (Chronic) Tobacco abuse (Chronic) Hypertension (Chronic) Hyperlipidemia (Chronic) Alcoholism (Chronic) Depression (Chronic) HTN (hypertension) (Chronic) Anemia (Resolved) Hypokalemia (Resolved) Hyponatremia (Resolved) Left lower lobe pneumonia (Resolved 06/09/13) Surgical History H/O section (Chronic) History of tonsillectomy (Chronic) Social History Smoking/Tobacco Use Status: Current every day Tobacco Type: cigarettes Alcohol Intake: current Alcohol Intake frequency: 3 or more drinks per day Drug use: Never Do you feel safe at home: Yes Do you feel safe in your relationship?: Yes Exam Const General: not in acute distress Nutritional Appearance: well nourished Orientation: oriented x3 HENMT Head: normal to inspection Eyes Sclera: sclerae normal Pupils: PERRL Neck Neck: no lymphadenopathy Thyroid: thyroid normal Carotids: no bruits Lymphatic: no lymphadenopathy noted Resp Effort & Inspection: normal respiratory effort Auscultation: diminished lung sounds and no wheezes Cardio Rate: regular rate Rhythm: regular rhythm GI Inspection: non-distended Palpation: soft, no hepatosplenomegaly, no hernias and nontender Skin General skin exam: no rashes or lesions noted Neuro General: alert Extrem General: normal to inspection Psych Affect: normal affect Attitude: cooperative Results Last Vital Signs Temp 97.7 F 11/13/18 09:00 Pulse 92 H 11/13/18 09:45 Resp 20 11/13/18 09:00 BP 130/65 11/13/18 09:00 Pulse Ox 95 11/13/18 09:00 Labs : 11/13/18 06:40 11/13/18 06:40 Laboratory Results - last 24 hr 11/12/18 11/12/18 11/12/18 16:50 16:50 16:50 WBC 14.60 H RBC 4.52 Hgb 13.6 Hct 39.4 MCV 87.2 MCH 30.1 MCHC 34.5 RDW 13.3 Plt Count 119 L MPV 11.9 H Immature Gran % 0.8 Neutrophils % 73.8 Lymphocytes % 9.0 Monocytes % 16.2 Eosinophils % 0.1 Basophils % 0.1 Absolute Neutrophils 10.77 H Absolute Lymphocytes 1.31 Absolute Monocytes 2.37 H Absolute Eosinophils 0.01 Absolute Basophils 0.01 Differential Comment Diff reviewed RBC Morphology Normal PT 11.0 INR 1.1 Sodium 131 L Potassium 2.5 L* Chloride 86 L Carbon Dioxide 36.0 H Anion Gap 9.0 BUN 8 Creatinine 0.66 Estimated GFR/1.73 m2 >= 60.00 Glucose 133 H Calcium 8.7 Magnesium 1.1 L Total Bilirubin 1.2 H AST 36 ALT 52 Alkaline Phosphatase 91 Total Protein 6.8 Albumin 3.3 L Lipase Ethyl Alcohol Patient ABO/Rh Antibody Screen 11/12/18 11/12/18 11/12/18 16:50 16:50 16:50 WBC RBC Hgb Hct MCV MCH MCHC RDW Plt Count MPV Immature Gran % Neutrophils % Lymphocytes % Monocytes % Eosinophils % Basophils % Absolute Neutrophils Absolute Lymphocytes Absolute Monocytes Absolute Eosinophils Absolute Basophils Differential Comment RBC Morphology PT INR Sodium Potassium Chloride Carbon Dioxide Anion Gap BUN Creatinine Estimated GFR/1.73 m2 Glucose Calcium Magnesium Total Bilirubin AST ALT Alkaline Phosphatase Total Protein Albumin Lipase 250 Ethyl Alcohol < 3.0 Patient ABO/Rh AB Positive Antibody Screen Negative 11/12/18 11/12/18 11/13/18 22:10 22:10 06:40 WBC RBC Hgb 12.5 Hct MCV MCH MCHC RDW Plt Count MPV Immature Gran % Neutrophils % Lymphocytes % Monocytes % Eosinophils % Basophils % Absolute Neutrophils Absolute Lymphocytes Absolute Monocytes Absolute Eosinophils Absolute Basophils Differential Comment RBC Morphology PT INR Sodium 130 L 136 Potassium 2.9 L* 3.1 L Chloride 90 L 94 L Carbon Dioxide 33.9 H 33.9 H Anion Gap 6.1 8.1 BUN 7 6 L Creatinine 0.71 0.69 Estimated GFR/1.73 m2 >= 60.00 >= 60.00 Glucose 144 H 212 H Calcium 8.0 L 8.1 L Magnesium 1.8 Total Bilirubin AST ALT Alkaline Phosphatase Total Protein Albumin Lipase Ethyl Alcohol Patient ABO/Rh Antibody Screen 11/13/18 06:40 WBC 11.35 H RBC 4.24 Hgb 12.8 Hct 37.9 MCV 89.4 MCH 30.2 MCHC 33.8 RDW 13.6 Plt Count 136 MPV 11.8 H Immature Gran % Neutrophils % Lymphocytes % Monocytes % Eosinophils % Basophils % Absolute Neutrophils Absolute Lymphocytes Absolute Monocytes Absolute Eosinophils Absolute Basophils Differential Comment RBC Morphology PT INR Sodium Potassium Chloride Carbon Dioxide Anion Gap BUN Creatinine Estimated GFR/1.73 m2 Glucose Calcium Magnesium Total Bilirubin AST ALT Alkaline Phosphatase Total Protein Albumin Lipase Ethyl Alcohol Patient ABO/Rh Antibody Screen
[2018-11-13] MEDS: MAGNESIUM SULFATE 8.12 MEQ, MULTIVITAMIN 10 ML, THIAMINE 100 MG, FOLIC ACID 1 MG in Nor... 168.867 MG IV (13:19)
[2018-11-13] MEDS: Acetaminophen 325 MG TAB PO ×2 (15:28→20:32)
--- NOTE | 2018-11-13 16:26 | DSE_ITS ---
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 She was admitted last week with diffuse abdominal discomfort but a nonsurgical abdomen, lactic acidosis and COPD exacerbation. The source of her lactic acidosis could not be found and resolved during her hospitalization. She had heme-negative stool on at least 2 occasions during that admission. She was placed on PPI and Carafate prophylactically. She left the hospital AMA before complete work-up, now stating she is not sure why. She regrets her decision as she resumed drinking as soon as she got out of the hospital, had worsening abdominal pressure-like sensation in the mid abdomen, anorexia, dry heaves. She never had hematemesis. She does not recall any choking episodes or aspiration events. Her appetite is depressed. She has had fewer bowel movements but no diarrhea. For the first time yesterday she noted bright red blood on the toilet tissue when she cleaned herself. Her urine output has diminished greatly but she has not had any dysuria, urgency or hematuria. She continued to take most of her medications, stopped aspirin and potassium because she could not get them down and was worried about bleeding. She continues to take her 40 mg of furosemide every day despite very little oral intake solid or liquid. She denies any increased shortness of breath or cough. She has had no pleuritic chest pain. No fevers or chills. Her last alcohol consumption was yesterday a glass of wine. She self identifies as an alcoholic. Presently stating that she needs to quit and is open to attending AA meetings when she is out of the hospital. She has never had a colonoscopy. She has done stool fecal occult blood testing within the past 2 or so years and recalls it was negative. She had heme- negative stool last week when she was in the hospital. She has no known history of ulcers. She had no indication of cirrhosis by CT scan done last week. She is never had upper endoscopy and is never known to have varices. She is not known to have hemorrhoids. During course of hospital stay, she was seen by Dr. Duque who feels she can be seen as an outpatient for colonoscopy and EGD given negative heme stools, stable H/H and no nausea or vomiting. She has an available appointment on Friday and will see her in the office. The legal secretary receptionist is setting up the appointment now. She will be sent home on PPI and carafate. It was recommended she does not drink, she will go through withdrawal, she has gone through withdrawal in the past and does not feel that she can not handle it. She will be getting a tapering dose of gabapentin and Oxazepam. The dangers of withdrawal were explained to her. She denies, CP, SOB, n/v/d. Home Meds and New Rx's Prescriptions: New gabapentin [Neurontin] 400 mg Capsule 400 mg PO TID Qty: 12 RF: 0 sucralfate 1 gram Tablet 1 g PO AC & HS Qty: 30 RF: 0 oxazepam 15 mg Capsule 25 mg PO TID Qty: 24 RF: 0 gabapentin 800 mg Tablet 800 mg PO TID Qty: 11 RF: 0 omeprazole 40 mg capsule,delayed release(DR/EC) 40 mg PO DAILY Qty: 30 RF: 0 ondansetron HCl [Zofran] 4 mg tablet 4 mg PO QID PRN (Reason: nausea and vomiting) Qty: 20 RF: 0 Continued potassium chloride 10 MEQ capsule, extended release 10 meq PO DAILY RF: 0 albuterol sulfate 8.5 GM HFA aerosol inhaler 2 puff Inhalation Q4H PRN PRNRF: 0 simvastatin 40 MG tablet 40 mg PO DAILY RF: 0 lisinopril 40 MG tablet 40 mg PO DAILY RF: 0 aspirin 325 MG tablet 325 mg PO DAILY RF: 0 loratadine 10 MG tablet 10 mg PO DAILY RF: 0 furosemide 40 mg Tablet 40 mg PO DAILY RF: 0 Symbicort 160-4.5 mcg/actuation Hfa Aerosol Inhaler 2 puff INHALATION Q12H RF: 0 Discharge Instructions Instructions: Gastritis (GEN), Colonoscopy (GEN), Alcohol Intoxication (GEN), Abuse of Alcohol (DC), Acute Nausea and Vomiting (DC), Alcohol Withdrawal (GEN) Additional Instructions: Take two potassium supplements for the next 2 days then take your normal amount. Space them out, one in the evening one in the morning. You will be following up with Dr. Duque for an appointment for EDG or Colonoscopy on Friday. We will call you with the time Follow up with your PCP in 1 week. STOP DRINKING!! take the gabapentin and oxazepam as scheduled to help you withdrawal. Seek medical attention immediately if you have Shortness of breath, nausea, vomiting, diarrhea. Referrals: Dina Duque MD [[facility] STAFF PHYSICIAN] - 11/17/18 9:00 am Heladio Charles [Primary Care Provider] - 11/23/18 11:20 am Activity:: Activity as Tolerated Equipment/Supplies:: No Equipment Needed Diet:: As Tolerated Discharge Orders Discharge Orders: Discharge Order (Routine); Ordered 11/13/18 Ordered By: Ashley Dobson Exam Narrative Exam Narrative: Skin is not jaundiced. Sclera clear. Poor dentition. Mucous membranes dry no ulcerations. No JVD thyromegaly carotid bruits or cervical adenopathy. Lungs distant breath sounds no wheeze crackles or rub heard anywhere. Heart rate in the upper 80s at rest, regular rhythm, no murmur S3 or S4. Bowel sounds normal. Abdomen obese without tenderness to palpation in the epigastric area. No guarding or rebound. No masses appreciated. Extremities warm with 2+ pulses in the feet. No petechiae. Trace ankle edema. Transfers independently. No tremor. Oriented x4. Cranial nerve function intact. Sym metric movement of all extremities. 2+ DTRs at the knees and elbows symmetrically. DS: Data Vitals/I&O Vitals and I&O: Vital Signs Temperature 37.1 C 11/13/18 13:15 Temperature Source Tympanic 11/13/18 13:15 Pulse 92 H 11/13/18 13:15 Pulse Rhythm Regular 11/13/18 15:41 Pulse 93 H 11/12/18 18:50 Respiratory Rate 20 11/13/18 13:15 Respiratory Effort Non-Labored 11/13/18 15:41 Respiratory Depth Normal 11/13/18 15:41 Respiratory Pattern Normal 11/13/18 15:41 Blood Pressure 132/80 11/13/18 13:15 Blood Pressure Mean 74 11/12/18 18:19 Blood Pressure Position Supine 11/12/18 16:40 Pulse Oximetry 95 11/13/18 13:15 Oxygen Delivery Method Room Air 11/13/18 13:15 Oxygen Flow Rate 0 11/13/18 13:15 Pain Level 4 11/13/18 15:28 Intake & Output 11/12/18 11/13/18 11/13/18 23:59 11:59 23:59 Intake Total 516.667 / 516.667 912 / 1312 400 / 1312 Output Total 1200 / 2150 950 / 2150 Balance 516.667 / 516.667 -288 / -838 -550 / -838 Weight 92 kg Intake: IV 516.667 / 516.667 862 / 862 Oral 50 / 450 400 / 450 Output: Urine 1200 / 2150 950 / 2150 Other: Urine Color Straw Yellow Yellow Urine Appearance Clear Clear Clear Urine Odor Normal Normal Normal Comment urine not assessed at this time; pt oob to void at this time Emesis Description Bile Voiding Methods Toilet Toilet Toilet Labs on day of discharge: Labs from last 24 hours 11/13/18 11/13/18 11/12/18 06:40 06:40 22:10 WBC 11.35 H RBC 4.24 Hgb 12.8 12.5 Hct 37.9 MCV 89.4 MCH 30.2 MCHC 33.8 RDW 13.6 Plt Count 136 MPV 11.8 H Immature Gran % Neutrophils % Lymphocytes % Monocytes % Eosinophils % Basophils % Absolute Neutrophils Absolute Lymphocytes Absolute Monocytes Absolute Eosinophils Absolute Basophils Differential Comment RBC Morphology PT INR Sodium 136 Potassium 3.1 L Chloride 94 L Carbon Dioxide 33.9 H Anion Gap 8.1 BUN 6 L Creatinine 0.69 Estimated GFR/1.73 m2 >= 60.00 Glucose 212 H Calcium 8.1 L Magnesium 1.8 Total Bilirubin AST ALT Alkaline Phosphatase Total Protein Albumin Lipase Ethyl Alcohol Patient ABO/Rh Antibody Screen 11/12/18 11/12/18 11/12/18 22:10 16:50 16:50 WBC RBC Hgb Hct MCV MCH MCHC RDW Plt Count MPV Immature Gran % Neutrophils % Lymphocytes % Monocytes % Eosinophils % Basophils % Absolute Neutrophils Absolute Lymphocytes Absolute Monocytes Absolute Eosinophils Absolute Basophils Differential Comment RBC Morphology PT INR Sodium 130 L Potassium 2.9 L* Chloride 90 L Carbon Dioxide 33.9 H Anion Gap 6.1 BUN 7 Creatinine 0.71 Estimated GFR/1.73 m2 >= 60.00 Glucose 144 H Calcium 8.0 L Magnesium Total Bilirubin AST ALT Alkaline Phosphatase Total Protein Albumin Lipase 250 Ethyl Alcohol < 3.0 Patient ABO/Rh Antibody Screen 11/12/18 11/12/18 11/12/18 16:50 16:50 16:50 WBC 14.60 H RBC 4.52 Hgb 13.6 Hct 39.4 MCV 87.2 MCH 30.1 MCHC 34.5 RDW 13.3 Plt Count 119 L MPV 11.9 H Immature Gran % 0.8 Neutrophils % 73.8 Lymphocytes % 9.0 Monocytes % 16.2 Eosinophils % 0.1 Basophils % 0.1 Absolute Neutrophils 10.77 H Absolute Lymphocytes 1.31 Absolute Monocytes 2.37 H Absolute Eosinophils 0.01 Absolute Basophils 0.01 Differential Comment Diff reviewed RBC Morphology Normal PT 11.0 INR 1.1 Sodium Potassium Chloride Carbon Dioxide Anion Gap BUN Creatinine Estimated GFR/1.73 m2 Glucose Calcium Magnesium Total Bilirubin AST ALT Alkaline Phosphatase Total Protein Albumin Lipase Ethyl Alcohol Patient ABO/Rh AB Positive Antibody Screen Negative 11/12/18 16:50 WBC RBC Hgb Hct MCV MCH MCHC RDW Plt Count MPV Immature Gran % Neutrophils % Lymphocytes % Monocytes % Eosinophils % Basophils % Absolute Neutrophils Absolute Lymphocytes Absolute Monocytes Absolute Eosinophils Absolute Basophils Differential Comment RBC Morphology PT INR Sodium 131 L Potassium 2.5 L* Chloride 86 L Carbon Dioxide 36.0 H Anion Gap 9.0 BUN 8 Creatinine 0.66 Estimated GFR/1.73 m2 >= 60.00 Glucose 133 H Calcium 8.7 Magnesium 1.1 L Total Bilirubin 1.2 H AST 36 ALT 52 Alkaline Phosphatase 91 Total Protein 6.8 Albumin 3.3 L Lipase Ethyl Alcohol Patient ABO/Rh Antibody Screen [facility] Medical History Gallstones (Acute) Fatty liver (Acute) COPD (chronic obstructive pulmonary disease) (Chronic) Depression (Chronic) Tobacco abuse (Chronic) Hypertension (Chronic) Hyperlipidemia (Chronic) Alcoholism (Chronic) Depression (Chronic) HTN (hypertension) (Chronic) Anemia (Resolved) Hypokalemia (Resolved) Hyponatremia (Resolved) Left lower lobe pneumonia (Resolved 06/09/13) Surgical History H/O section (Chronic) History of tonsillectomy (Chronic) Social History Smoking/Tobacco Use Status: Current every day Tobacco Type: cigarettes Alcohol Intake: current Alcohol Intake frequency: 3 or more drinks per day Drug use: Never Do you feel safe at home: Yes Do you feel safe in your relationship?: Yes
--- NOTE | 2018-11-13 16:46 | PGE_ITS ---
Date of Service Date of service: 11/13/18 Time of Service: 16:46 Assessment and Plan (1) HCAP (healthcare-associated pneumonia): Start date: 11/13/18 Start time: 17:26 Current visit: Yes Status: Acute CXR revealing RLL pneumonia. Being treated for HCAP, in the setting of recently hospitalized at this facility for several days. Updrafts, nebs, vancomycin and cefepime day 1, blood cultures ordered, sputum culture ordered. Not requiring oxygen at this time. Lung sounds with rhonchi no wheezing or c rackles, consider steroids if patient starts wheezing. (2) COPD (chronic obstructive pulmonary disease): Start date: 11/13/18 Start time: 17:29 Current visit: Yes Status: Chronic Not exacerbated at this time. Being treated for HCAP, see above. Qualifiers: COPD type: COPD with acute exacerbation Qualified Code(s): J44.1 - Chronic obstructive pulmonary disease with (acute) exacerbation (3) Tobacco abuse: Start date: 11/13/18 Start time: 17:30 Current visit: No Status: Chronic Smokes maybe one cigarette a day, does not want replacement at this time (4) Alcohol withdrawal: Start date: 11/13/18 Start time: 17:32 Current visit: No Status: Acute Drinks a large amount of alcohol per day. Last drink was 24 hours ago. Starting to have tremors, CIWA with oxazepam and gabapentin on board for withdrawal. continue to monitor (5) Nausea & vomiting: Start date: 11/13/18 Start time: 17:33 Current visit: Yes Status: Acute Resolved (6) Hypokalemia due to loss of potassium: Start date: 11/13/18 Start time: 17:33 Current visit: Yes Status: Acute Continue to monitor and replete as necessary Subjective Patient reports: feels better Interval history since last seen: Mrs. Nieto is feeling better, not nauseated tolerating her diet. Surgery saw her and feel that she is stable enough to be seen as an outpatient with stable h/h no hempotsis, no rectal bleeding, abdominal pain is resolved. No nausea or vomiting. She was going to be discharged home when she was found to have RLL pneumonia. She did have a CXR that revealed RLL pneumonia. In the setting that she is COPD, smoker and was previously here 6 days ago she will need to be treated for HCAP. Blood cultures ordered, procalcitonin, sputum culture, updrafts, albuterol nebs, at this time she does not having wheezing and I do not feel she requires any steroids at this time, if she does present with wheezing consider steroids. Continue CIWA with gabapentin taper and oxazepam taper. Monitor for worsening signs of withdrawal in which she has gone through withdrawal before and states it was not that bad. She denies, CP, SOB, n/v/d. Exam Const General: cooperative, healthy appearing and comfortable Neck Lymphatic: no lymphadenopathy noted and no lymphedema noted Chest Chest: normal inspection of the chest Resp Effort & Inspection: normal respiratory effort and able to speak in complete sentences Cardio Jugular venous pressure: no JVD Rate: regular rate Rhythm: regular rhythm Heart Sounds: S1 normal and S2 normal GI Inspection: normal to inspection Palpation: soft and no hepatosplenomegaly Auscultation: normal bowel sounds Skin General skin exam: no rashes or lesions noted Lesions: no lesions Rashes: no rashes Wounds: no wounds Neuro General: alert, awake and oriented x3 Cognition: normal cognition Speech: speech normal Gait: normal gait Extrem General: normal to inspection and full ROM Right lower extremity: edema Details: 2+ Left lower extremity: edema Details: 2+ Objective Objective Clinical Data: Abnormal lab results 11/12/18 11/12/18 11/12/18 Range/Units 16:50 16:50 22:10 WBC 14.60 H (4.4-10.8) k/cumm Plt Count 119 L (130-400) x1000/uL MPV 11.9 H (8.0-11.0) fL Absolute Neutrophils 10.77 H (1.2-6.7) k/cumm Absolute Monocytes 2.37 H (0.11-0.7) k/cumm Sodium 131 L 130 L (136-145) mmol/L Potassium 2.5 L* 2.9 L* (3.5-5.1) mmol/L Chloride 86 L 90 L (98-107) mmol/L Carbon Dioxide 36.0 H 33.9 H (21.0-32.0) mmol/L BUN (7-18) mg/dL Glucose 133 H 144 H (70-100) mg/dL Calcium 8.0 L (8.5-10.1) mg/dL Magnesium 1.1 L (1.8-2.4) mg/dL Total Bilirubin 1.2 H (0.2-1.0) mg/dL Albumin 3.3 L (3.4-5.0) g/dL 11/13/18 11/13/18 Range/Units 06:40 06:40 WBC 11.35 H (4.4-10.8) k/cumm Plt Count (130-400) x1000/uL MPV 11.8 H (8.0-11.0) fL Absolute Neutrophils (1.2-6.7) k/cumm Absolute Monocytes (0.11-0.7) k/cumm Sodium (136-145) mmol/L Potassium 3.1 L (3.5-5.1) mmol/L Chloride 94 L (98-107) mmol/L Carbon Dioxide 33.9 H (21.0-32.0) mmol/L BUN 6 L (7-18) mg/dL Glucose 212 H (70-100) mg/dL Calcium 8.1 L (8.5-10.1) mg/dL Magnesium (1.8-2.4) mg/dL Total Bilirubin (0.2-1.0) mg/dL Albumin (3.4-5.0) g/dL Vital Signs Temperature 36.9 C 11/13/18 15:45 Temperature Source Tympanic 11/13/18 15:45 Pulse 106 H 11/13/18 15:45 Pulse Rhythm Regular 11/13/18 15:41 Pulse 93 H 11/12/18 18:50 Respiratory Rate 19 11/13/18 15:45 Respiratory Effort Non-Labored 11/13/18 15:41 Respiratory Depth Normal 11/13/18 15:41 Respiratory Pattern Normal 11/13/18 15:41 Blood Pressure 126/64 11/13/18 15:45 Blood Pressure Mean 74 11/12/18 18:19 Blood Pressure Position Supine 11/12/18 16:40 Pulse Oximetry 94 L 11/13/18 15:45 Oxygen Delivery Method Room Air 11/13/18 15:45 Oxygen Flow Rate 0 11/13/18 15:45 Pain Level 1 11/13/18 16:28 Intake & Output 11/12/18 11/13/18 11/13/18 23:59 11:59 23:59 Intake Total 516.667 / 516.667 912 / 1312 400 / 1312 Output Total 1200 / 2150 950 / 2150 Balance 516.667 / 516.667 -288 / -838 -550 / -838 Weight 92 kg Intake: IV 516.667 / 516.667 862 / 862 Oral 50 / 450 400 / 450 Output: Urine 1200 / 2150 950 / 2150 Other: Urine Color Straw Yellow Yellow Urine Appearance Clear Clear Clear Urine Odor Normal Normal Normal Comment urine not assessed at this time; pt oob to void at this time Emesis Description Bile Voiding Methods Toilet Toilet Toilet Laboratory Results WBC 11.35 k/cumm (4.4-10.8) H 11/13/18 06:40 RBC 4.24 m/cumm (4.00-5.20) 11/13/18 06:40 Hgb 12.8 g/dL (12.0-15.5) 11/13/18 06:40 Hct 37.9 % (36.0-46.0) 11/13/18 06:40 MCV 89.4 fL (80-95) 11/13/18 06:40 MCH 30.2 pg (27.0-33.0) 11/13/18 06:40 MCHC 33.8 g/dL (32.0-36.0) 11/13/18 06:40 RDW 13.6 % (11.7-14.6) 11/13/18 06:40 Plt Count 136 x1000/uL (130-400) 11/13/18 06:40 MPV 11.8 fL (8.0-11.0) H 11/13/18 06:40 Immature Gran % 0.8 11/12/18 16:50 Neutrophils % 73.8 11/12/18 16:50 Lymphocytes % 9.0 11/12/18 16:50 Monocytes % 16.2 11/12/18 16:50 Eosinophils % 0.1 11/12/18 16:50 Basophils % 0.1 11/12/18 16:50 Absolute Neutrophils 10.77 k/cumm (1.2-6.7) H 11/12/18 16:50 Absolute Lymphocytes 1.31 k/cumm (1.2-3.4) 11/12/18 16:50 Absolute Monocytes 2.37 k/cumm (0.11-0.7) H 11/12/18 16:50 Absolute Eosinophils 0.01 k/cumm (0.0-0.7) 11/12/18 16:50 Absolute Basophils 0.01 k/cumm (0.0-0.2) 11/12/18 16:50 Differential Comment Diff reviewed 11/12/18 16:50 RBC Morphology Normal 11/12/18 16:50 PT 11.0 sec (9.3-11.0) 11/12/18 16:50 INR 1.1 (0.9-1.1) 11/12/18 16:50 Sodium 136 mmol/L (136-145) 11/13/18 06:40 Potassium 3.1 mmol/L (3.5-5.1) L 11/13/18 06:40 Chloride 94 mmol/L (98-107) L 11/13/18 06:40 Carbon Dioxide 33.9 mmol/L (21.0-32.0) H 11/13/18 06:40 Anion Gap 8.1 mmol/L (3-11) 11/13/18 06:40 BUN 6 mg/dL (7-18) L 11/13/18 06:40 Creatinine 0.69 mg/dL (0.55-1.02) 11/13/18 06:40 Estimated GFR/1.73 m2 >= 60.00 (mL/min/1.73m2) 11/13/18 06:40 Glucose 212 mg/dL (70-100) H 11/13/18 06:40 Calcium 8.1 mg/dL (8.5-10.1) L 11/13/18 06:40 Magnesium 1.8 mg/dL (1.8-2.4) 11/13/18 06:40 Total Bilirubin 1.2 mg/dL (0.2-1.0) H 11/12/18 16:50 AST 36 U/L (15-37) 11/12/18 16:50 ALT 52 U/L (12-78) 11/12/18 16:50 Alkaline Phosphatase 91 U/L (46-116) 11/12/18 16:50 Total Protein 6.8 g/dL (6.4-8.2) 11/12/18 16:50 Albumin 3.3 g/dL (3.4-5.0) L 11/12/18 16:50 Lipase 250 U/L (73-393) 11/12/18 16:50 Ethyl Alcohol < 3.0 mg/dL (<3) 11/12/18 16:50 Patient ABO/Rh AB Positive 11/12/18 16:50 Antibody Screen Negative 11/12/18 16:50
[2018-11-13] MEDS: Normal Saline 500 ML IV (17:29)
[2018-11-13] MEDS: CEFEPIME 2 GM in Normal Saline 100 ML IVPB (17:29)
[2018-11-13 17:43] LABS: Procalcitonin < 0.1 ng/mL
[2018-11-13] MEDS: Albuterol/Ipratropium 3 ML UPD VIAL UPD ×2 (18:43→23:54)
[2018-11-13] MEDS: CEFEPIME 1 GM in Normal Saline 50 ML IVPB (23:55)
[2018-11-14] VITALS (15 sets, daily range): BP systolic 115–153; BP diastolic 62–85; PULSE 78–93; RESP 17–19; TEMP 36.2–37.2; O2SAT 93–97
[2018-11-14] MEDS: Acetaminophen 325 MG TAB PO ×4 (02:43→20:41)
[2018-11-14] MEDS: Albuterol/Ipratropium 3 ML UPD VIAL UPD ×3 (05:50→17:46)
[2018-11-14 07:24] LABS: Abs Immature Grans 0.23 k/cumm (0.0-0.09); Absolute Basophil Count 0.02 k/cumm (0.0-0.2); Absolute Monocyte Count 2.19 k/cumm (0.11-0.7); Basophils % 0.1; HCT 35.5 % (36.0-46.0); HGB 11.5 g/dL (12.0-15.5); Immature Grans % 1.1; Lymphocytes % 9.2; Mean Corp. HGB Concentration 32.4 g/dL (32.0-36.0); Mean Corpuscular Hemoglobin 30.4 pg (27.0-33.0); Mean Corpuscular Volume 93.9 fL (80-95); Mean Platelet Volume 11.2 fL (8.0-11.0); Monocytes % 10.6; Platelet Count 143 x1000/uL (130-400); RBC 3.78 m/cumm (4.00-5.20); RBC Distribution Width 14.3 % (11.7-14.6); White Blood Cell Count 20.65 k/cumm (4.4-10.8)
[2018-11-14 07:29] LABS: Absolute Neutrophil Count 16.31 k/cumm (1.2-6.7)
[2018-11-14 07:37] LABS: Anion Gap 5.5 mmol/L (3-11); BUN 7 mg/dL (7-18); CO2 30.5 mmol/L (21.0-32.0); Calcium 8.1 mg/dL (8.5-10.1); Chloride 100 mmol/L (98-107); Glucose 100 mg/dL (70-100); Magnesium 1.8 mg/dL (1.8-2.4); Potassium 4.1 mmol/L (3.5-5.1); Sodium 136 mmol/L (136-145)
[2018-11-14] MEDS: Budesonide/Formoterol 160/4.5 6 GM 60 PUFF INH IH ×2 (07:50→20:00)
[2018-11-14 07:55] LABS: Diff Comment Agrees w/ Instrument; RBC Morphology Normal
[2018-11-14] MEDS: Pantoprazole 40 MG VIAL IVP (08:07)
[2018-11-14] MEDS: Normal Saline Flush 10 ML SYR IVP (08:07)
[2018-11-14] MEDS: Sucralfate 1 GM TAB PO ×3 (08:09→22:16)
[2018-11-14] MEDS: Gabapentin 800 MG TAB PO (08:09)
[2018-11-14] MEDS: Simvastatin 40 MG TAB PO (08:09)
[2018-11-14] MEDS: PIPERACILLIN/TAZO 3.375 GM in Normal Saline 50 ML IVPB ×3 (08:52→20:02)
--- NOTE | 2018-11-14 13:22 | PGE_ITS ---
Date of Service Date of service: 11/14/18 Time of Service: 13:10 Assessment and Plan (1) HCAP (healthcare-associated pneumonia): Start date: 11/14/18 Start time: 13:29 Current visit: Yes Status: Acute CXR revealing RLL pneumonia. Day 2 of vancomycin, switched to zosyn Day 1 today to cover possible aspiration pneumonia after vomiting last week. Continue nebs, updrafts, ICS, IHS. Blood culture pending. Sputum pending. Cough improved. Lung sound with rhonchi. (2) COPD (chronic obstructive pulmonary disease): Start date: 11/14/18 Start time: 13:29 Current visit: Yes Status: Chronic Not exacerbated at this time. Being treated for HCAP, see above. Qualifiers: COPD type: COPD with acute exacerbation Qualified Code(s): J44.1 - Chronic obstructive pulmonary disease with (acute) exacerbation (3) Tobacco abuse: Start date: 11/14/18 Start time: 13:27 Current visit: No Status: Chronic Smokes maybe one cigarette a day, would like nicotine patch and nicotrol inhaler. (4) Alcohol withdrawal: Start date: 11/14/18 Start time: 13:25 Current visit: No Status: Acute Drinks a large amount of alcohol per day. Last drink was 10 am on the 11/12 hours ago. CIWA 0-3, currently on oxazepam and gabapentin titrated dose down to 400 mg TID. On telemetry SR in 80-90's as high as 102. continue to monitor on teley (5) Nausea & vomiting: Start date: 11/14/18 Start time: 13:25 Current visit: Yes Status: Acute Resolved (6) Hypokalemia due to loss of potassium: Start date: 11/14/18 Start time: 13:25 Current visit: Yes Status: Acute Resolved. (7) Anemia due to acute blood loss: Start date: 11/14/18 Start time: 13:22 Current visit: Yes Status: Acute H/H down to 11.5/35.5 from 13.6/39.4 on admission. continue to monitor. Surgery does not feel colonoscopy is needed at this time, it can be done on outpatient basis. Continue to monitor. Last heme stool negative. Denies bleeding. (8) DVT prophylaxis: Start date: 11/14/18 Start time: 13:19 Current visit: Yes Status: Acute Chemical prophylaxis contraindicated in a patient with bloody stool and possible varicies. Subjective Patient reports: no new complaints Interval history since last seen: Patient feeling sleepy today. Neurontin changed to 400 mg TID which is likely contributing to her sleepiness. No SOB. WBC did increase likely in setting of steroid use. Continue nebs, updrafts IHS, on Day 2 on vanco and Day 1 on zosyn; on prior admission patient was hospital ized and vomiting treating for aspiration pneumonia. HCAP found prior to admission by xray. CIWA has been 0-3 not requiring any additional benzos at this time. Continue monitor. Telemetry with 80's HR. Denies CP, SOB, n/v/d. Exam Const General: cooperative, healthy appearing and comfortable Neck Lymphatic: no lymphadenopathy noted and no lymphedema noted Chest Chest: normal inspection of the chest Resp Effort & Inspection: normal respiratory effort and able to speak in complete sentences Auscultation: rhonchi Cardio Jugular venous pressure: no JVD Rate: regular rate Rhythm: regular rhythm Heart Sounds: S1 normal and S2 normal GI Inspection: normal to inspection Palpation: soft and no hepatosplenomegaly Auscultation: normal bowel sounds Skin General skin exam: no rashes or lesions noted Lesions: no lesions Rashes: no rashes Wounds: no wounds Neuro General: alert, awake and oriented x3 Cognition: normal cognition Speech: speech normal Gait: normal gait Extrem General: normal to inspection and full ROM Right lower extremity: edema Details: 2+ Left lower extremity: edema Details: 2+ Objective Objective Clinical Data: Abnormal lab results 11/14/18 11/14/18 Range/Units 07:04 07:04 WBC 20.65 H D (4.4-10.8) k/cumm RBC 3.78 L (4.00-5.20) m/cumm Hgb 11.5 L (12.0-15.5) g/dL Hct 35.5 L (36.0-46.0) % MPV 11.2 H (8.0-11.0) fL Absolute Neutrophils 16.31 H (1.2-6.7) k/cumm Absolute Monocytes 2.19 H (0.11-0.7) k/cumm Calcium 8.1 L (8.5-10.1) mg/dL Vital Signs Temperature 36.6 C 11/14/18 07:23 Temperature Source Tympanic 11/14/18 07:23 Pulse 80 11/14/18 07:23 Pulse Rhythm Regular 11/14/18 03:33 Pulse 93 H 11/12/18 18:50 Respiratory Rate 18 11/14/18 07:23 Respiratory Effort Non-Labored 11/14/18 03:33 Respiratory Depth Normal 11/14/18 03:33 Respiratory Pattern Normal 11/14/18 03:33 Blood Pressure 115/72 11/14/18 07:23 Blood Pressure Mean 74 11/12/18 18:19 Blood Pressure Position Supine 11/12/18 16:40 Pulse Oximetry 94 L 11/14/18 07:50 Oxygen Delivery Method Room Air 11/14/18 07:50 Oxygen Flow Rate 0 11/14/18 07:50 Pain Level 5 11/14/18 09:07 Comment 11/13/18 18:42 Intake & Output 11/13/18 11/14/18 11/14/18 23:59 11:59 23:59 Intake Total 2332.591 / 3244.591 1778.6 / 1778.6 Output Total 950 / 2150 1300 / 1300 Balance 1382.591 / 1094.591 478.6 / 478.6 Intake: IV 1692.591 / 2554.591 1778.6 / 1778.6 Oral 640 / 690 Output: Urine 950 / 2150 1300 / 1300 Other: Urine Color Yellow Light Cristina Urine Appearance Clear Clear Urine Odor Normal Voiding Methods Toilet Toilet Laboratory Results WBC 20.65 k/cumm (4.4-10.8) H D 11/14/18 07:04 RBC 3.78 m/cumm (4.00-5.20) L 11/14/18 07:04 Hgb 11.5 g/dL (12.0-15.5) L 11/14/18 07:04 Hct 35.5 % (36.0-46.0) L 11/14/18 07:04 MCV 93.9 fL (80-95) 11/14/18 07:04 MCH 30.4 pg (27.0-33.0) 11/14/18 07:04 MCHC 32.4 g/dL (32.0-36.0) 11/14/18 07:04 RDW 14.3 % (11.7-14.6) 11/14/18 07:04 Plt Count 143 x1000/uL (130-400) 11/14/18 07:04 MPV 11.2 fL (8.0-11.0) H 11/14/18 07:04 Immature Gran % 1.1 11/14/18 07:04 Neutrophils % 79.0 11/14/18 07:04 Lymphocytes % 9.2 11/14/18 07:04 Monocytes % 10.6 11/14/18 07:04 Eosinophils % 0.0 11/14/18 07:04 Basophils % 0.1 11/14/18 07:04 Absolute Neutrophils 16.31 k/cumm (1.2-6.7) H 11/14/18 07:04 Absolute Lymphocytes 1.90 k/cumm (1.2-3.4) 11/14/18 07:04 Absolute Monocytes 2.19 k/cumm (0.11-0.7) H 11/14/18 07:04 Absolute Eosinophils 0.00 k/cumm (0.0-0.7) 11/14/18 07:04 Absolute Basophils 0.02 k/cumm (0.0-0.2) 11/14/18 07:04 Differential Comment Agrees w/ instrument 11/14/18 07:04 RBC Morphology Normal 11/14/18 07:04 PT 11.0 sec (9.3-11.0) 11/12/18 16:50 INR 1.1 (0.9-1.1) 11/12/18 16:50 Sodium 136 mmol/L (136-145) 11/14/18 07:04 Potassium 4.1 mmol/L (3.5-5.1) D 11/14/18 07:04 Chloride 100 mmol/L (98-107) 11/14/18 07:04 Carbon Dioxide 30.5 mmol/L (21.0-32.0) 11/14/18 07:04 Anion Gap 5.5 mmol/L (3-11) 11/14/18 07:04 BUN 7 mg/dL (7-18) 11/14/18 07:04 Creatinine 0.80 mg/dL (0.55-1.02) 11/14/18 07:04 Estimated GFR/1.73 m2 >= 60.00 (mL/min/1.73m2) 11/14/18 07:04 Glucose 100 mg/dL (70-100) D 11/14/18 07:04 Calcium 8.1 mg/dL (8.5-10.1) L 11/14/18 07:04 Magnesium 1.8 mg/dL (1.8-2.4) 11/14/18 07:04 Total Bilirubin 1.2 mg/dL (0.2-1.0) H 11/12/18 16:50 AST 36 U/L (15-37) 11/12/18 16:50 ALT 52 U/L (12-78) 11/12/18 16:50 Alkaline Phosphatase 91 U/L (46-116) 11/12/18 16:50 Total Protein 6.8 g/dL (6.4-8.2) 11/12/18 16:50 Albumin 3.3 g/dL (3.4-5.0) L 11/12/18 16:50 Lipase 250 U/L (73-393) 11/12/18 16:50 Procalcitonin < 0.1 ng/mL 11/13/18 00:01 Ethyl Alcohol < 3.0 mg/dL (<3) 11/12/18 16:50 Patient ABO/Rh AB Positive 11/12/18 16:50 Antibody Screen Negative 11/12/18 16:50
--- NOTE | 2018-11-14 13:43 | PDOC.CMPRO ---
Care Management Progress Note S/O: Carolin was sitting up in her recliner visiting with her daughter and grandchildren. Laughing and enjoying the interactions. Prior to the family's arrival she had been anxious and wanted to go home even if she had to sign out AMA. She seems to be able to accept the need to remain in the hospital at this time. A: 58 y.o. female admitted for rectal bleeding, hypokalemia, nausea and dehydration. Remains acute. IV medications changing to oral today. P: Carolin will return home when medically cleared for discharge. Daughter will transport.
[2018-11-14] MEDS: Gabapentin 400 MG CAP PO (20:01)
[2018-11-14] MEDS: Pantoprazole 40 MG TABCR PO (20:01)
[2018-11-14] MEDS: Albuterol 2.5 MG/3 ML INH SOLN VIAL UPD (22:22)
[2018-11-15] MEDS: Albuterol/Ipratropium 3 ML UPD VIAL UPD ×3 (00:02→11:25)
[2018-11-15] MEDS: Normal Saline Flush 10 ML SYR IVP ×2 (02:01→08:00)
[2018-11-15] MEDS: PIPERACILLIN/TAZO 3.375 GM in Normal Saline 50 ML IVPB ×2 (02:01→08:00)
[2018-11-15 03:28] VITALS: BP 127/76; PULSE 84; RESP 17; TEMP 36.6; O2SAT 96
[2018-11-15 06:57] VITALS: PULSE 84
[2018-11-15 07:26] VITALS: BP 147/84; PULSE 82; RESP 19; TEMP 37; O2SAT 94
[2018-11-15] MEDS: Budesonide/Formoterol 160/4.5 6 GM 60 PUFF INH IH (07:29)
[2018-11-15 07:30] VITALS: O2SAT 94
[2018-11-15 07:35] LABS: Abs Immature Grans 0.46 k/cumm (0.0-0.09); HCT 36.3 % (36.0-46.0); HGB 11.6 g/dL (12.0-15.5); Mean Corpuscular Hemoglobin 30.4 pg (27.0-33.0); Platelet Count 169 x1000/uL (130-400); RBC 3.82 m/cumm (4.00-5.20); RBC Distribution Width 14.4 % (11.7-14.6)
[2018-11-15 07:46] LABS: Anion Gap 7.3 mmol/L (3-11); BUN 11 mg/dL (7-18); CO2 29.7 mmol/L (21.0-32.0); CREATININE 0.65 mg/dL (0.55-1.02); Calcium 8.2 mg/dL (8.5-10.1); Chloride 100 mmol/L (98-107); Glucose 80 mg/dL (70-100); Magnesium 1.4 mg/dL (1.8-2.4); Potassium 3.8 mmol/L (3.5-5.1); Sodium 137 mmol/L (136-145)
[2018-11-15 07:47] LABS: Vancomycin, Trough 17.7 ug/mL (10.0-20.0)
[2018-11-15] MEDS: Pantoprazole 40 MG TABCR PO (08:00)
[2018-11-15] MEDS: Simvastatin 40 MG TAB PO (08:00)
[2018-11-15] MEDS: Sucralfate 1 GM TAB PO ×2 (08:02→10:55)
[2018-11-15] MEDS: Acetaminophen 325 MG TAB PO (08:02)
[2018-11-15 08:09] LABS: Absolute Lymphocyte Count 2.28 k/cumm (1.2-3.4); Absolute Monocyte Count 1.47 k/cumm (0.11-0.7); Absolute Neutrophil Count 9.11 k/cumm (1.2-6.7)
[2018-11-15 08:10] LABS: Diff Comment Manual Differential; RBC Morphology Normal
[2018-11-15] MEDS: Amoxicillin 875/Clav. 125 TAB PO (08:41)
[2018-11-15] MEDS: Magnesium Oxide 400 MG TAB 800 MG PO (10:55)
[2018-11-15] MEDS: Furosemide 40 MG TAB PO (10:55)
[2018-11-15] MEDS: Lisinopril 20 MG TAB 40 MG PO (10:55)
[2018-11-15 11:13] VITALS: BP 165/98; PULSE 82; RESP 18; TEMP 36.8; O2SAT 98
--- NOTE | 2018-11-15 14:14 | W.PM.DS.N ---
Date of service: 11/15/18 Time of Service: 14:15 DS: Diagnosis Discharge Diagnosis (1) HCAP (healthcare-associated pneumonia): Status: Acute (2) COPD (chronic obstructive pulmonary disease): Status: Chronic (3) Tobacco abuse: Status: Chronic (4) Alcohol withdrawal: Status: Acute (5) Nausea & vomiting: Status: Acute (6) Hypokalemia due to loss of potassium: Status: Acute (7) Anemia due to acute blood loss: Status: Acute (8) DVT prophylaxis: Status: Acute Discharge Plan Disposition Patient Disposition: HOME Condition: Stable Discharge Details Reason For Visit: RECTAL BLEEDING,HYPOKALEMIA,NAUSEA,DEHYDRATION,ANESTHESIOLOGIST ASSISTANT CERTIFIED Admit Date/Time: 11/12/18 18:46 Admit Provider: Jun Eckert Attending Provider: Jun Eckert Primary Care Provider: Heladio Charles Hospital Course Hospital Course: 58-year-old woman with a history of alcohol abuse hypertension and COPD who presented back to the emergency room complaining of ongoing abdominal discomfort in the mid and epigastric areas, nausea, inability to take much in the way of fluids and no solids since her hospitalization last week when she left AMA 6 days ago. She was admitted last week with diffuse abdominal discomfort but a nonsurgical abdomen, lactic acidosis and COPD exacerbation. The source of her lactic acidosis could not be found and resolved during her hospitalization. She had heme-negative stool on at least 2 occasions during that admission. She was placed on PPI and Carafate prophylactically. She left the hospital AMA before complete work-up, now stating she is not sure why. She regrets her decision as she resumed drinking as soon as she got out of the hospital, had worsening abdominal pressure-like sensation in the mid abdomen, anorexia, dry heaves. She never had hematemesis. She does not recall any choking episodes or aspiration events. Her appetite is depressed. She has had fewer bowel movements but no diarrhea. For the first time yesterday she noted bright red blood on the toilet tissue when she cleaned herself. Her urine output has diminished greatly but she has not had any dysuria, urgency or hematuria. She continued to take most of her medications, stopped aspirin and potassium because she could not get them down and was worried about bleeding. She continues to take her 40 mg of furosemide every day despite very little oral intake solid or liquid. She denies any increased shortness of breath or cough. She has had no pleuritic chest pain. No fevers or chills. Her last alcohol consumption was yesterday a glass of wine. She self identifies as an alcoholic. Presently stating that she needs to quit and is open to attending AA meetings when she is out of the hospital. She has never had a colonoscopy. She has done stool fecal occult blood testing within the past 2 or so years and recalls it was negative. She had heme-negative stool last week when she was in the hospital. She has no known history of ulcers. She had no indication of cirrhosis by CT scan done last week. She is never had upper endoscopy and is never known to have varices. She is not known to have hemorrhoids. During course of hospital stay, she was seen by Dr. Duque who feels she can be seen as an outpatient for colonoscopy and EGD given negative heme stools, stable H/H and no nausea or vomiting. She has an available appointment on Friday and will see her in the office. The workers compensation legal secretary is setting up the appointment now. She will be sent home on PPI and carafate. She was also found to have a right basilar distribution. She was treated with zosyn and vancomycin for 2 days, IV then infiltrated and she refused to have any more placed. She was switched to augmentin in which she is doing well. She was also monitored for withdrawal. HR one time 120 and few times low 110's, more consistently in the 80's-90's. Her last alcohol beverage was ; with CIWA 0-3 at the [facility]. She did revcieve a course of oxazepam and gabapentin here. Today she is up ambulating around, sitting up in a chair, looking well and feeling well. There was a long discussion about alcohol and oxazepam and gabapentin. She agreed to not drink, she wants to be sober and stated there was no alcohol in her house. She will be getting a tapering dose of gabapentin and Oxazepam. The dangers of withdrawal were explained to her. She will be getting a full course of augmentinShe denies, CP, SOB, n/v/d. Home Meds and New Rx's Prescriptions: New gabapentin 800 mg Tablet 800 mg PO TID Qty: 11 RF: 0 omeprazole 40 mg capsule,delayed release(DR/EC) 40 mg PO DAILY Qty: 30 RF: 0 ondansetron HCl [Zofran] 4 mg tablet 4 mg PO QID PRN (Reason: nausea and vomiting) Qty: 20 RF: 0 potassium chloride 20 mEq tablet,ER particles/crystals 40 meq PO DAILY Qty: 60 RF: 0 amoxicillin-pot clavulanate [Augmentin] 875-125 mg tablet 1 tab PO BID Qty: 20 RF: 0 gabapentin [Neurontin] 400 mg Capsule 400 mg PO BID Qty: 12 RF: 0 pantoprazole 40 mg Tablet,Delayed Release (Dr/Ec) 40 mg PO BID Qty: 60 RF: 0 magnesium chloride [Mag 64] 64 mg Tablet,Delayed Release (Dr/Ec) 64 mg PO BID Qty: 60 RF: 0 oxazepam 15 mg capsule 15 mg PO TID PRN (Reason: alcohol withdrawal) Qty: 9 RF: 0 sucralfate [Carafate] 1 gram tablet 1 gm PO QACHS Qty: 60 RF: 0 Continued potassium chloride 10 MEQ capsule, extended release 10 meq PO DAILY RF: 0 albuterol sulfate 8.5 GM HFA aerosol inhaler 2 puff Inhalation Q4H PRN PRNRF: 0 simvastatin 40 MG tablet 40 mg PO DAILY RF: 0 lisinopril 40 MG tablet 40 mg PO DAILY RF: 0 aspirin 325 MG tablet 325 mg PO DAILY RF: 0 loratadine 10 MG tablet 10 mg PO DAILY RF: 0 furosemide 40 mg Tablet 40 mg PO DAILY RF: 0 Symbicort 160-4.5 mcg/actuation Hfa Aerosol Inhaler 2 puff INHALATION Q12H RF: 0 Discharge Instructions Instructions: Gastritis (GEN), Colonoscopy (GEN), Alcohol Intoxication (GEN), Abuse of Alcohol (DC), Acute Nausea and Vomiting (DC), Alcohol Withdrawal (GEN) Additional Instructions: Take potassium daily You will be following up with Dr. Duque for an appointment for EDG or Colonoscopy on Friday. We will call you with the time Follow up with your PCP in 1 week. STOP DRINKING!! take the gabapentin and oxazepam as scheduled to help you withdrawal. Take the augmentin twice a day for 10 days. Seek medical attention immediately if you have Shortness of breath, nausea, vomiting, diarrhea. Stand Alone Forms: Nursing Discharge Form Referrals: Dina Duque MD [ [facility]YS[facility]IAN] - 11/17/18 9:00 am Heladio Charles [Primary Care Provider] - 11/23/18 11:20 am Activity:: Activity as Tolerated Equipment/Supplies:: No Equipment Needed Diet:: As Tolerated Discharge Orders Discharge Orders: Discharge Order (Routine); Ordered 11/15/18 Ordered By: Ashley Dobson Exam Const General: cooperative, healthy appearing and comfortable Neck Lymphatic: no lymphadenopathy noted and no lymphedema noted Chest Chest: normal inspection of the chest Resp Effort & Inspection: normal respiratory effort and able to speak in complete sentences Auscultation: rhonchi Cardio Jugular venous pressure: no JVD Rate: regular rate Rhythm: regular rhythm Heart Sounds: S1 normal and S2 normal GI Inspection: normal to inspection Palpation: soft and no hepatosplenomegaly Auscultation: normal bowel sounds Skin General skin exam: no rashes or lesions noted Lesions: no lesions Rashes: no rashes Wounds: no wounds Neuro General: alert, awake and oriented x3 Cognition: normal cognition Speech: speech normal Gait: normal gait Extrem General: normal to inspection and full ROM Right lower extremity: edema Details: 2+ Left lower extremity: edema Details: 2+ DS: Data Vitals/I&O Vitals and I&O: Vital Signs Temperature 36.8 C 11/15/18 11:13 Temperature Source Tympanic 11/15/18 11:13 Pulse 82 11/15/18 11:13 Pulse Rhythm Regular 11/15/18 08:13 Pulse 93 H 11/12/18 18:50 Respiratory Rate 18 11/15/18 11:13 Respiratory Effort Non-Labored 11/15/18 08:13 Respiratory Depth Normal 11/15/18 08:13 Respiratory Pattern Normal 11/15/18 08:13 Blood Pressure 165/98 H 11/15/18 11:13 Blood Pressure Mean 74 11/12/18 18:19 Blood Pressure Position Supine 11/12/18 16:40 Pulse Oximetry 98 11/15/18 11:13 Oxygen Delivery Method Room Air 11/15/18 11:13 Oxygen Flow Rate 0 11/15/18 11:13 Pain Level 0 11/15/18 11:13 Comment 11/13/18 18:42 Intake & Output 11/14/18 11/15/18 11/15/18 23:59 11:59 23:59 Intake Total 2826 / 5204.6 610 / 660 50 / 660 Balance 2826 / 3904.6 610 / 660 50 / 660 Intake: IV 1506 / 3284.6 50 / 100 50 / 100 Oral 1320 / 1920 560 / 560 Other: Urine Appearance Clear Clear Comment pt voiding ad tatum in toilet; urine not assessed Voiding Methods Toilet Toilet Completed studies during hospitalization [Text1]: EXAM: XR Chest, 2 Views EXAM DATE/TIME: 11/12/2018 5:07 PM CLINICAL HISTORY: 58 years old, female; Cough and wheezing TECHNIQUE: Imaging protocol: XR of the chest, 2 views. COMPARISON: CR XR PORTABLE CHEST AP 11/06/2018 9:12 AM FINDINGS: Lungs: Increased density in the right basilar distribution on the frontal view, with a band like zone of density projecting over the cardiac shadow on the lateral view in the distribution of the right middle lobe. This is consistent with atelectasis or infiltrate in the anterior right base. Mild vascular congestion. Pleural space: No pleural effusion. No pneumothorax. Heart/Mediastinum: Heart size normal. Vasculature: Mild aortic tortuosity and ectasia. Bones/joints: No acute osseous abnormalities are identified. Other findings: No tracheal shift. IMPRESSION: Atelectasis versus infiltrate in anterior right basilar distribution Labs on day of discharge: Labs from last 24 hours 11/15/18 11/15/18 11/15/18 07:04 07:04 07:04 WBC 13.40 H D RBC 3.82 L Hgb 11.6 L Hct 36.3 MCV 95.0 MCH 30.4 MCHC 32.0 RDW 14.4 Plt Count 169 MPV 11.0 Immature Gran % See Differential Neutrophils % 63.0 Band Neutrophils % 5.0 Lymphocytes % 17.0 Monocytes % 11.0 Eosinophils % 0.0 Basophils % 0.0 Metamyelocytes % 2.0 Myelocytes % 2.0 Absolute Neutrophils 9.11 H Absolute Lymphocytes 2.28 Absolute Monocytes 1.47 H Absolute Eosinophils 0.00 Absolute Basophils 0.00 Differential Comment Manual differential RBC Morphology Normal Sodium 137 Potassium 3.8 Chloride 100 Carbon Dioxide 29.7 Anion Gap 7.3 BUN 11 Creatinine 0.65 Estimated GFR/1.73 m2 >= 60.00 Glucose 80 Calcium 8.2 L Magnesium 1.4 L Vancomycin Trough 17.7 Preliminary micro results at discharge 11/13/18 17:46 Blood Culture - Preliminary Blood NO GROWTH 24 HOURS 11/13/18 17:35 Blood Culture - Preliminary Blood NO GROWTH 24 HOURS [facility] Medical History Gallstones (Acute) Fatty liver (Acute) COPD (chronic obstructive pulmonary disease) (Chronic) Depression (Chronic) Tobacco abuse (Chronic) Hypertension (Chronic) Hyperlipidemia (Chronic) Alcoholism (Chronic) Depression (Chronic) HTN (hypertension) (Chronic) Anemia (Resolved) Hypokalemia (Resolved) Hyponatremia (Resolved) Left lower lobe pneumonia (Resolved 06/09/13) Surgical History H/O section (Chronic) History of tonsillectomy (Chronic) Social History Smoking/Tobacco Use Status: Current every day Tobacco Type: cigarettes Alcohol Intake: current Alcohol Intake frequency: 3 or more drinks per day Drug use: Never Do you feel safe at home: Yes Do you feel safe in your relationship?: Yes
[2018-11-15 14:20] VITALS: PULSE 91
--- NOTE | 2018-11-15 16:59 | PDOC.CMDIS ---
LACE Index Scoring Tool - Questions: Length of Stay (in days): 3 Acuity (Admit via E.D.?): Yes E.D. Visits: 2 - Answers: Total Score: 8 Risk of Readmission: Low Risk Care Management Discharge Reason for Hospitalization: Rectal bleeding, hypokalemia, nausea, dehydration Discharge Plan: Carolin will returnhome and has been instructed to make contact with her college coach. Patient/Family Education Needs: Discharge instructions.
--- NOTE | 2018-11-15 17:02 | CMDISCH_ITS ---
LACE Index Scoring Tool - Questions: Length of Stay (in days): 3 Acuity (Admit via E.D.?): Yes E.D. 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 Patient/Family Education Needs: Discharge instructions.
== END 2018-11-15 15:19 | disposition home or self-care (01) | DRG 190 ==
LOC: ER 19:09 → MS 19:23
PROVIDERS: Internal Medicine; Nurse Practitioner Family; Admitting Provider Internal Medicine; Emergency Provider Emergency Medicine; PCP Specialist/Technologist Athletic Trainer; Visit Provider Internal Medicine
DX: J44.0 Chronic obstructive pulmonary disease with (acute) lower respiratory infection (principal); J18.1 Lobar pneumonia, unspecified organism; F10.239 Alcohol dependence with withdrawal, unspecified; D62 Acute posthemorrhagic anemia; K92.1 Melena; E87.1 Hypo-osmolality and hyponatremia; J44.1 Chronic obstructive pulmonary disease with (acute) exacerbation; Y95 Nosocomial condition; F17.210 Nicotine dependence, cigarettes, uncomplicated; E87.6 Hypokalemia; R11.2 Nausea with vomiting, unspecified; I10 Essential (primary) hypertension; E83.42 Hypomagnesemia; D69.6 Thrombocytopenia, unspecified
CPT/HCPCS: 36410; 36415; 80048; 80053; 83690; 84145; 85027; 86850; 86900; 86901; 87040; 93005; 94640; 96361; 96374; 96375; 99223; 99233; 99239; 99253; 99285; 71046; 80202; 80320; 83735; 85018; 85025; 85610; 93010; 99284; J2405; J2543; J2930; J3370; J3480; J7613; J7620

== ENCOUNTER 2019-04-01 09:57 | Outpatient (REF) | payer OTHER, SELFPAY ==
[2019-04-01 20:41] LABS: Abs Immature Grans 0.04 k/cumm (0.0-0.09); Absolute Basophil Count 0.05 k/cumm (0.0-0.2); Absolute Lymphocyte Count 2.59 k/cumm (1.2-3.4); Absolute Monocyte Count 1.05 k/cumm (0.11-0.7); Absolute Neutrophil Count 5.97 k/cumm (1.2-6.7); Basophils % 0.5; HCT 39.3 % (36.0-46.0); HGB 12.6 g/dL (12.0-15.5); Immature Grans % 0.4; Lymphocytes % 25.9; Mean Corp. HGB Concentration 32.1 g/dL (32.0-36.0); Mean Corpuscular Volume 87.3 fL (80-95); Mean Platelet Volume 11.8 fL (8.0-11.0); Monocytes % 10.5; Neutrophils % 59.7; Platelet Count 319 x1000/uL (130-400); RBC Distribution Width 14.4 % (11.7-14.6)
[2019-04-01 20:49] LABS: ALT 18 U/L (14-59); AST 12 U/L (15-37); Albumin 3.9 g/dL (3.4-5.0); Alkaline Phosphatase 86 U/L (46-116); Anion Gap 7.8 mmol/L (3-11); BUN 10 mg/dL (7-18); Bilirubin, Total 0.2 mg/dL (0.2-1.0); CO2 30.2 mmol/L (21.0-32.0); CREATININE 0.62 mg/dL (0.55-1.02); Calcium 9.1 mg/dL (8.5-10.1); Calculated LDL 84 mg/dL; Chloride 101 mmol/L (98-107); Cholesterol 165 mg/dL (50-200); Glucose 105 mg/dL (70-100); HDL Cholesterol 68 mg/dL (40-60); Magnesium 1.9 mg/dL (1.8-2.4); Sodium 139 mmol/L (136-145); TSH (W/Ref FT4) 4.08 uIU/mL (0.36-3.74); Total Protein 7.3 g/dL (6.4-8.2); Triglyceride 69 mg/dL (30-150)
[2019-04-01 22:57] LABS: FREE T4 1.22 ng/dL (0.76-1.46)
== END 2019-04-01 10:17 ==
LOC: NCHCN 09:57
PROVIDERS: PCP Specialist/Technologist Athletic Trainer; Visit Provider Specialist/Technologist Athletic Trainer
DX: E03.9 Hypothyroidism, unspecified (principal); E78.5 Hyperlipidemia, unspecified; I10 Essential (primary) hypertension
CPT/HCPCS: 80053; 80061; 83735; 84439; 84443; 85025

== ENCOUNTER 2020-03-30 15:54 | Outpatient (REF) | payer OTHER, SELFPAY ==
--- NOTE | 2020-03-30 15:10 | PAPFT_PTH ---
PATIENT: Carolin Nieto LOC: [facility] U#:[id number] AGE/SX: 60/F ROOM: RE03/30/[address]: Kelly Hogan V : 1960 BED: DIS: 03/30/2020 SPEC #: [id number] RECD: 03/30/20 18:33 STATUS: VIRGIL REQ #: [id number] KAI: 03/30/20 15:[address]: Kelly Hogan V DEPT: [facility] Cytology RECD BY: Raegan Ferguson Tissues: 1 - CX/ENDOCX FOR PAP SMEARS Procedures: PAP THIN PREP/[facility] Screening HPV DNA PROBE Comments: [id number] (CVPH#)
[2020-03-30 19:17] LABS: HCT 40.8 % (36.0-46.0); HGB 13.2 g/dL (11.2-15.7); MCH 27.2 pg (27.0-33.0); MCHC 32.4 % (32.0-36.0); MPV 11.2 fL (8.0-11.0); Platelet Count 288 10^3/uL (130-400); RBC 4.86 10^6/uL (3.93-5.22); RDW 13.8 % (11.7-14.6); RDW-SD 42.7 fL; WBC 10.09 10^3/uL (4.4-10.8)
[2020-03-30 19:37] LABS: ALT 15 U/L (14-59); AST 11 U/L (15-37); Albumin 3.7 g/dL (3.4-5.0); Alkaline Phosphatase 73 U/L (46-116); Anion Gap 5.2 mmol/L (3-11); BUN 8 mg/dL (7-18); Bilirubin, Total 0.3 mg/dL (0.2-1.0); CO2 31.8 mmol/L (21.0-32.0); CREATININE 0.63 mg/dL (0.55-1.02); Calcium 9.2 mg/dL (8.5-10.1); Chloride 100 mmol/L (98-107); FREE T4 1.47 ng/dL (0.76-1.46); Glucose 107 mg/dL (74-106); Sodium 137 mmol/L (136-145)
== END 2020-03-30 16:14 ==
LOC: NCHCN 15:54
PROVIDERS: PCP Family Medicine; Visit Provider Family Medicine
DX: Z00.00 Encounter for general adult medical examination without abnormal findings (principal); I10 Essential (primary) hypertension; E03.9 Hypothyroidism, unspecified; E78.5 Hyperlipidemia, unspecified; J44.9 Chronic obstructive pulmonary disease, unspecified; Z12.4 Encounter for screening for malignant neoplasm of cervix; Z11.51 Encounter for screening for human papillomavirus (HPV)
CPT/HCPCS: 80053; 85027; 88142; 84439; 87624

== ENCOUNTER 2020-11-08 13:16 | Inpatient (IN) | payer OTHER, SELFPAY ==
[2020-11-08] VITALS (54 sets, daily range): BP systolic 126–153; BP diastolic 84–109; PULSE 88–110; RESP 2–36; TEMP 36.2–36.8; O2SAT 87–99
--- NOTE | 2020-11-08 13:00 | DI.RAD_ITS ---
Exam(s) XR PORTABLE CHEST AP EXAM: XR PORTABLE CHEST AP CLINICAL HISTORY: SOB, HX COPD, CHF. TECHNIQUE: 2D digital imaging was performed. COMPARISON: CR XR CHEST 2V PA LATERAL from 11/12/2018 FINDINGS: Heart size is normal. The mediastinum is not widened. Lungs are clear. No infiltrates nor obvious pleural effusions. Previously present infiltrate in the right lung is less evident on the present portable view. No ple ural effusions. No pneumothorax IMPRESSION: No acute pulmonary findings on this single AP portable view of the chest. DATA REPOSITORY: RADIATION DOSE DELIVERED: All CT scans at this facility use at least one of these dose optimization techniques: automated exposure control; mA and/or kV adjustment per patient size (includes targeted e xams where dose is matched to clinical indication); or iterative reconstruction.
--- NOTE | 2020-11-08 13:15 | RT.EKG_ITS ---
APPROVED REPORT Exam: Resting ECG Reason for Exam: SOB, Hx CHF,COPD Patient Location: E HR:100 bpm ECG Measurements Heart Rate 100 AXIS IN 205 P 57 QRSd 96 QRS 49 QT 369 T 82 QTc 476 Conclusion Sinus tachycardia...rate> 99. No STEMI I have reviewed and interpreted ECG and agree with software generated interpretation.
--- NOTE | 2020-11-08 13:18 | W.ED.GENAD ---
Discharge Plan Disposition Patient Disposition: [facility] IN[facility]IENT Condition: Fair Discharge Details Clinical Impression: COPD exacerbation Admit Date/Time: 11/10/20 17:15 Admit Provider: Ulises Quezada Attending Provider: Ulises Quezada Primary Care Provider: Kelly Hogan V ED Provider: Brittney Huff Discharge Data Discharge Date/Time-TO BE ENTERED AT DEPARTURE: 11/08/20 23:28 Medical Decision Making <Cheryl Crenshaw - Last Filed: 11/11/20 00:31> 50-year-old female presents to the ER via EMS with chief complaint of think you shortness of breath which has been worsening over the last couple of days, on scene she was 90% room air per fire, she received 125 mg Solu-Medrol prior to arrival, 2 albuterol nebulizer treatment, she does have a duo nebs handheld inhaler at home which she used prior to arrival. Upon initial exam she has scattered wheezes throughout, is receiving 10 mg albuterol nebulizer by EMS satting 100%. She is tachypneic not able to speak in full sentences. She does have 2+ pitting edema to bilateral lower extremities. She denies any chest pain. She denies productive cough. She is a current daily smoker. She has a past medical history of hyponatremia hypokalemia, pneumonia, COPD, depression, she does take furosemide 40 mg daily however she reports she did not take any of her medications today. She also reports she has been out of her Spiriva inhaler for the last 2-weeks. She has received 1 DuoNeb treatment here in the department and a 10 mg albuterol nebulizer, did receive 125 mg Solu-Medrol prior to arrival. Work-up ordered including CBC, CMP, serial troponins, EKG, chest x-ray. Labs are largely within normal limits sodium is slightly low at 135 which is expected from the nebulizer treatments, no leukocytosis no evidence for infection. BNP is 251 initial troponin is within normal limits chest x-ray COMPARISON: CR XR CHEST 2V PA LATERAL from 11/12/2018 FINDINGS: Heart size is normal. The mediastinum is not widened. Lungs are clear. No infiltrates nor obvious pleural effusions. Previously present infiltrate in the right lung is less evident on the present portable view. No pleural effusions. No pneumothorax IMPRESSION: No acute pulmonary findings on this single AP portable view of the chest. 1522: Patient reevaluation, sitting on edge of bed breathing eupneic is on 2 L nasal cannula, satting 94-95%. Placed on room air for room air trial, 1630: Patient easily dropped down to 88% on room air with mild movement. IV inadvertently got pulled out while patient was placing her shirt on. She is 91 to 92% on room air at rest. Dropped down to 86% RA with ambulation. Care is to be signed out to Brittney Huff [employer] pending reevaluation and disposition for discharge versus admission. At this time we will give patient normal daily dose of Lasix and order Spiriva. Lasix 40 mg IV, ordered Spiriva inhaler. <Brittney Huff, [employer] - Last Filed: 11/09/20 10:27> sign out and care of patient received from Saroj Valdez APRN. patient is still requiring 1 liter to maintain sats in the low 90's. was given IV lasix, duoneb, IV steroids, her spiriva and tiotropium with improvement in her symptoms. she is hemodynamically stable voicing no other c/o. will continue to monitor in the ED for now and see if she responds enough to wean off oxygen and discharge home after several hours of monitoring and repeating duoneb, patient is unable to wean off oxygen with activity. case was discussed with DR Quezada and she will be referred to observation for further management and weaning of oxygen as able. admission orders placed Medical Records Medical records reviewed: Yes I reviewed the patient's medical records. Lab Data Lab results reviewed: Yes I reviewed the patient's lab results. Lab results narrative: Laboratory Results - last 24 hr 11/08/20 11/08/20 11/08/20 13:50 13:50 17:30 WBC 10.30 RBC 4.63 Hgb 12.8 Hct 39.2 MCV 84.7 MCH 27.6 MCHC 32.7 RDW 13.4 Plt Count 276 MPV 10.6 Immature Gran % 0.5 Neutrophils % 77.8 Lymphocytes % 12.4 Monocytes % 8.7 Eosinophils % 0.2 Basophils % 0.4 Nucleated RBC % 0 Absolute Neutrophils 8.01 H Absolute Lymphocytes 1.28 Absolute Monocytes 0.90 H Absolute Eosinophils 0.02 Absolute Basophils 0.04 D-Dimer Sodium 135 L Potassium 3.5 Chloride 96 L Carbon Dioxide 29.6 Anion Gap 9.4 BUN 8 Creatinine 0.6 Estimated GFR/1.73 m2 >= 60.00 Glucose 141 H Calcium 8.9 Magnesium 1.9 Total Bilirubin 0.3 AST 17 ALT 17 Alkaline Phosphatase 80 Troponin I < 0.05 < 0.05 NT-Pro-B Natriuret Pep 251 Total Protein 7.9 Albumin 3.7 COVID-19 Source SARS-CoV-2 (PCR) 11/08/20 11/08/20 20:25 21:15 WBC RBC Hgb Hct MCV MCH MCHC RDW Plt Count MPV Immature Gran % Neutrophils % Lymphocytes % Monocytes % Eosinophils % Basophils % Nucleated RBC % Absolute Neutrophils Absolute Lymphocytes Absolute Monocytes Absolute Eosinophils Absolute Basophils D-Dimer 650 H Sodium Potassium Chloride Carbon Dioxide Anion Gap BUN Creatinine Estimated GFR/1.73 m2 Glucose Calcium Magnesium Total Bilirubin AST ALT Alkaline Phosphatase Troponin I NT-Pro-B Natriuret Pep Total Protein Albumin COVID-19 Source Nasal/Nares SARS-CoV-2 (PCR) Negative HPI <Cheryl Crenshaw - Last Filed: 11/11/20 00:31> General Mode of arrival: EMS. Date/Time Provider Initiated Documentation: 11/08/20 14:50. Limitations to Documentation: no limitations. Information obtained by: patient and EMS. HPI Narrative: 50-year-old female presents to the ER via EMS with chief complaint of think you shortness of breath which has been worsening over the last couple of days, on scene she was 90% room air per fire, she received 125 mg Solu-Medrol prior to arrival, 2 albuterol nebulizer treatment, she does have a duo nebs handheld inhaler at home which she used prior to arrival. Upon initial exam she has scattered wheezes throughout, is receiving 10 mg albuterol nebulizer by EMS satting 100%. She is tachypneic not able to speak in full sentences. She does have 2+ pitting edema to bilateral lower extremities. She denies any chest pain. She denies productive cough. She is a current daily smoker. She has a past medical history of hyponatremia hypokalemia, pneumonia, COPD, depression, she does take furosemide 40 mg daily however she reports she did not take any of her medications today. She also reports she has been out of her Spiriva inhaler for the last 2-weeks. Related Data Home Medications Medication Instructions Recorded Confirmed albuterol sulfate 2 puff INHALATION Q4H PRN PRN 03/20/13 11/08/20 simvastatin 40 mg PO DAILY 06/09/13 11/08/20 aspirin 325 mg PO DAILY 06/10/13 11/08/20 lisinopril 40 mg PO DAILY 06/10/13 11/08/20 loratadine 10 mg PO DAILY 11/13/14 11/08/20 budesonide-formoterol [Symbicort] 2 puff INHALATION Q12H 11/04/18 11/08/20 furosemide 40 mg PO DAILY 11/04/18 11/08/20 magnesium chloride [Mag 64] 64 mg PO BID #60 tab 11/15/18 11/08/20 potassium chloride 40 meq PO DAILY #60 tab 11/15/18 11/08/20 prednisone 60 mg PO DAILY 5 Days #15 tab 11/08/20 Previous Rx's Medication Instructions Recorded magnesium chloride [Mag 64] 64 mg PO BID #60 tab 11/15/18 potassium chloride 40 meq PO DAILY #60 tab 11/15/18 prednisone 60 mg PO DAILY 5 Days #15 tab 11/08/20 Allergies Allergy/AdvReac Type Severity Reaction Status Date / Time codeine AdvReac Severe Dizziness/L Unverified 11/12/18 16:48 ightheade General DAVID: 2 Review of Systems <Cheryl Crenshaw - Last Filed: 11/11/20 00:31> Narrative: Constitutional: Negative for weight loss, alert and oriented, appears uncomfortable. Denies fever HEENT: Denies trauma, headaches, blurry vision, nasal discharge, sore throat, trouble swallowing. Chest: Denies chest pain, palpitations, irregular rhythm, hypertension. Respiratory: Denies hemoptysis. Nonproductive cough positive shortness of breath. History of COPD positive smoker. GI: Denies abdominal pain, nausea, vomiting, diarrhea, constipation. : Denies dysuria, hematuria, flank pain, rectal bleeding. Neuro: Denies dizziness, blurry vision, weakness, syncope, headache or facial numbness. Extremities: Report bilateral lower extremity swelling which she states is a normal thing for her has worsened over the last couple of days Hematologic: Denies easy bruising, intolerance to heat or cold, hair loss. PFS <Cheryl Crenshaw - [facility] Filed: 11/11/20 00:31> Medical History (Updated 11/09/20 @ 10:19 by Brittney Huff NP) Alcoholism Currently abstinent x2 weeks. Anemia COPD (chronic obstructive pulmonary disease) Depression Depression Fatty liver Gallstones HTN (hypertension) Hyperlipidemia Hypertension Hypokalemia Recurrent Hyponatremia Recurrent Left lower lobe pneumonia (06/09/13) Tobacco abuse Surgical History H/O section History of tonsillectomy Social History Smoking/Tobacco Use Status: Current every day Tobacco Type: cigarettes Smoking risk assessment performed?: Yes Alcohol Intake: current Alcohol Intake frequency: 3 or more drinks per day Drug use: Never Substance use type: does not use Do you feel safe at home: Yes Do you feel safe in your relationship?: Yes Exam <Cheryl Crenshaw - Last Filed: 11/11/20 00:31> Narrative Exam Narrative: Constitutional: Alert and oriented x3. Appears stated age. Obese body habitus. Upon initial exam patient is tripoding increased work of breathing. Pursed lip breathing, unable to speak in full sentence Head: Normocephalic, no trauma. Eyes: Pupils PERRLA, Red reflex noted, EOM's intact. Eyelids symmetrical without lesions, discharge, or swelling. ENT: Bilateral TM's WNL, External ear normal to inspection, no mastoid TTP, swelling, or erythema, Nasal turbinates WNL, no nasal discharge. Normal dentition, Posterior pharynx WNL, no exudate. Chest: RRR, Normal S1, S2, distal pulses intact. Resp: Scattered wheezes throughout,. Musculoskeletal: Unable to assess gait 5/5 strength to all four extremities. Skin: No suspicious rashes or lesions. Capillary refill less than 2 sec. Neurologic: Cranial nerves II-XII intact. Alert and oriented x 3. DTR's intact. Hematologic/Lymphatic: No ecchymosis, no lymphadenopathy. Sign Out <Cheryl Crenshaw - Last Filed: 11/11/20 00:31> Sign Out Data: Sign Out Comment: Pending Dispo and Lasix, Spiriva inhaler. Last updated by Cheryl Crenshaw at 11/08/20 16:53
[2020-11-08] MEDS: Albuterol/Ipratropium 3 ML UPD VIAL ×2 (13:37→23:05)
[2020-11-08 13:58] LABS: Abs Immature Grans 0.05 10^3/uL (0.0-0.06); Absolute Basophil Count 0.04 10^3/uL (0.0-0.2); Absolute Eosinophil Count 0.02 10^3/uL (0.0-0.7); Absolute Lymphocyte Count 1.28 10^3/uL (1.2-3.4); Absolute Neutrophil Count 8.01 10^3/uL (1.2-6.7); Basophils % 0.4; Eosinophils % 0.2; HCT 39.2 % (36.0-46.0); HGB 12.8 g/dL (11.2-15.7); Immature Grans % 0.5; Lymphocytes % 12.4; MCH 27.6 pg (27.0-33.0); MCHC 32.7 % (32.0-36.0); MCV 84.7 fL (80-95); MPV 10.6 fL (8.0-11.0); Monocytes % 8.7; Neutrophils % 77.8; Nucleated RBC 0 %; Platelet Count 276 10^3/uL (130-400); RBC 4.63 10^6/uL (3.93-5.22); RDW 13.4 % (11.7-14.6); RDW-SD 41.6 fL
[2020-11-08 14:24] LABS: ALT 17 U/L (14-59); AST 17 U/L (15-37); Albumin 3.7 g/dL (3.4-5.0); Alkaline Phosphatase 80 U/L (46-116); Anion Gap 9.4 mmol/L (3-11); BUN 8 mg/dL (7-18); Bilirubin, Total 0.3 mg/dL (0.2-1.0); CO2 29.6 mmol/L (21.0-32.0); CREATININE 0.6 mg/dL (0.55-1.02); Calcium 8.9 mg/dL (8.5-10.1); Chloride 96 mmol/L (98-107); Glucose 141 mg/dL (74-106); Magnesium 1.9 mg/dL (1.8-2.4); NT-proBNP 251 pg/mL (<300); Potassium 3.5 mmol/L (3.5-5.1); Sodium 135 mmol/L (136-145); Total Protein 7.9 g/dL (6.4-8.2); Troponin I < 0.05 ng/mL (<0.06)
--- NOTE | 2020-11-08 14:26 | NUR.NOTE ---
1425 Spoke with patient's daughter Leela with patient permission update given.
[2020-11-08] MEDS: Budesonide/Formoterol 160/4.5 6 GM 60 PUFF INH IH (17:02)
[2020-11-08] MEDS: Tiotropium Bromide-Respimat 10 PUFF INH 2 PUFF IH (17:02)
[2020-11-08] MEDS: Furosemide 40 MG/4 ML VIAL IVP (17:37)
[2020-11-08 17:55] LABS: Troponin I < 0.05 ng/mL (<0.06)
[2020-11-08] MEDS: Albuterol/Ipratropium 3 ML UPD VIAL UPD (18:15)
--- NOTE | 2020-11-08 20:12 | NUR.NOTE ---
pt provided with sandwich and juice Nursing Note:
--- NOTE | 2020-11-08 20:12 | NUR.NOTE ---
pt dropped to 88% on room air while at rest placed back on 1/2 liter Nursing Note:
[2020-11-08 21:12] LABS: D-Dimer 650 ng/mlFEU (<500)
[2020-11-08 21:21] LABS: Source Nasal/Nares
[2020-11-08 22:43] LABS: COVID-19 PCR Negative (Negative)
--- NOTE | 2020-11-08 22:56 | W.PM.HP.N ---
Date of service: 11/08/20 Time of Service: 22:56 Assessment and Plan Assessment and plan (1) COPD exacerbation: Status: Acute Assessment and plan: referred to observation continue steroids, will hold off on antibiotics for now inhalers, updrafts (2) Hypertension: Status: Chronic Assessment and plan: continue home meds and monitor (3) Tobacco abuse: Status: Chronic Assessment and plan: declines nicotine replacement (4) Hyperlipidemia: Status: Chronic Assessment and plan: continue statin (5) Alcohol abuse: Status: Chronic Assessment and plan: reportedly has not been currently drinking monitor for withdrawal thiamine replacement (6) DVT prophylaxis: Status: Acute Assessment and plan: enoxaparin (7) Discharge planning issues: Status: Acute Assessment and plan: case management following. may need oxygen prescription at discharge discussed with Dr Dickey History of Present Illness History of Present Illness Chief Complaint: shortness of breath Narrative: patient presents to ED for worsening sob over past 2 weeks since running out of her inhalers. No fever or chills, cough but no increased sputum production. no chest pain. continues to smoke. also did not take her daily dose of lasix today. Review of Systems All systems reviewed & are unremarkable except as noted in HPI and below Constitutional Constitutional: Denies fever(s) ENT Ears, Nose, Mouth, and Throat: Denies vertigo and Denies dizziness Cardiovascular Cardiovascular: Denies chest pain, Denies rapid heart rate, Denies leg edema, Denies lightheadedness and Reports dyspnea Respiratory Respiratory: Reports cough, Denies hemoptysis, Denies excessive phlegm production, Denies pain on inspiration, Denies pain with cough, Reports dyspnea and Denies wheezing Gastrointestinal Gastrointestinal: Denies nausea Musculoskeletal Musculoskeletal: Denies back pain Neurologic Neurologic: Denies vertigo and Denies dizziness Allergic/Immunologic Allergic/Immunologic: Denies wheezing [facility] Medical History (Updated 11/09/20 @ 10:19 by Brittney Huff NP) Alcoholism Currently abstinent x2 weeks. Anemia COPD (chronic obstructive pulmonary disease) Depression Depression Fatty liver Gallstones HTN (hypertension) Hyperlipidemia Hypertension Hypokalemia Recurrent Hyponatremia Recurrent Left lower lobe pneumonia (06/09/13) Tobacco abuse Surgical History H/O section History of tonsillectomy Social History Smoking/Tobacco Use Status: Current every day Tobacco Type: cigarettes Smoking risk assessment performed?: Yes Alcohol Intake: current Alcohol Intake frequency: 3 or more drinks per day Drug use: Never Substance use type: does not use Do you feel safe at home: Yes Do you feel safe in your relationship?: Yes Meds Allergies and Home Medications Allergies Allergy/AdvReac Type Severity Reaction Status Date / Time codeine AdvReac Severe Dizziness/L Unverified 11/12/18 16:48 ightheade Home Medications Medication Instructions Recorded Confirmed Type albuterol sulfate 2 puff INHALATION Q4H PRN PRN 03/20/13 11/08/20 History simvastatin 40 mg PO DAILY 06/09/13 11/08/20 History aspirin 325 mg PO DAILY 06/10/13 11/08/20 History lisinopril 40 mg PO DAILY 06/10/13 11/08/20 History loratadine 10 mg PO DAILY 11/13/14 11/08/20 History budesonide-formoterol [Symbicort] 2 puff INHALATION Q12H 11/04/18 11/08/20 History furosemide 40 mg PO DAILY 11/04/18 11/08/20 History magnesium chloride [Mag 64] 64 mg PO BID #60 tab 11/15/18 11/08/20 Rx potassium chloride 40 meq PO DAILY #60 tab 11/15/18 11/08/20 Rx prednisone 60 mg PO DAILY 5 Days #15 tab 11/08/20 Rx Exam Const General: disheveled, frail appearing and ill appearing (older than stated age) chronically Nutritional Appearance: obese Orientation: alert, awake and oriented x3 HENAR Head: normal to inspection, normocephalic and atraumatic Mouth: oral mucosae normal Chest Chest: normal inspection of the chest Resp Effort & Inspection: no audible wheezes and cough Auscultation: diminished lung sounds bilaterally, no rales, no rhonchi and wheezes (faint exp) Cardio Rate: regular rate Rhythm: regular rhythm GI Inspection: normal to inspection Palpation: soft Auscultation: normal bowel sounds Skin General skin exam: no rashes or lesions noted Neuro General: patient alert, patient awake and patient oriented x3 Cognition: normal cognition Speech: speech normal Results Labs Result diagrams: 11/09/20 06:48 11/09/20 06:48 Labs: Laboratory Results - last 24 hr 11/08/20 11/08/20 11/08/20 13:50 13:50 17:30 WBC 10.30 RBC 4.63 Hgb 12.8 Hct 39.2 MCV 84.7 MCH 27.6 MCHC 32.7 RDW 13.4 Plt Count 276 MPV 10.6 Immature Gran % 0.5 Neutrophils % 77.8 Lymphocytes % 12.4 Monocytes % 8.7 Eosinophils % 0.2 Basophils % 0.4 Nucleated RBC % 0 Absolute Neutrophils 8.01 H Absolute Lymphocytes 1.28 Absolute Monocytes 0.90 H Absolute Eosinophils 0.02 Absolute Basophils 0.04 D-Dimer Sodium 135 L Potassium 3.5 Chloride 96 L Carbon Dioxide 29.6 Anion Gap 9.4 BUN 8 Creatinine 0.6 Estimated GFR/1.73 m2 >= 60.00 Glucose 141 H Calcium 8.9 Magnesium 1.9 Total Bilirubin 0.3 AST 17 ALT 17 Alkaline Phosphatase 80 Troponin I < 0.05 < 0.05 NT-Pro-B Natriuret Pep 251 Total Protein 7.9 Albumin 3.7 COVID-19 Source SARS-CoV-2 (PCR) 11/08/20 11/08/20 20:25 21:15 WBC RBC Hgb Hct MCV MCH MCHC RDW Plt Count MPV Immature Gran % Neutrophils % Lymphocytes % Monocytes % Eosinophils % Basophils % Nucleated RBC % Absolute Neutrophils Absolute Lymphocytes Absolute Monocytes Absolute Eosinophils Absolute Basophils D-Dimer 650 H Sodium Potassium Chloride Carbon Dioxide Anion Gap BUN Creatinine Estimated GFR/1.73 m2 Glucose Calcium Magnesium Total Bilirubin AST ALT Alkaline Phosphatase Troponin I NT-Pro-B Natriuret Pep Total Protein Albumin COVID-19 Source Nasal/Nares SARS-CoV-2 (PCR) Negative Last Vital Signs Temp 36.2 C L 11/08/20 13:24 Pulse 88 11/08/20 19:00 Resp 27 H 11/08/20 21:20 BP 151/85 H 11/08/20 19:00 Pulse Ox 94 11/08/20 21:20
[2020-11-08] MEDS: Melatonin 3 MG TAB 6 MG PO (23:47)
[2020-11-08] MEDS: Albuterol 2.5 MG/3 ML INH SOLN VIAL UPD (23:47)
[2020-11-09] VITALS (13 sets, daily range): BP systolic 139–141; BP diastolic 74–82; PULSE 66–87; RESP 4–24; TEMP 36.3–36.8; O2SAT 89–99
[2020-11-09] MEDS: Normal Saline Flush 10 ML SYR IVP ×4 (00:31→20:51)
[2020-11-09] MEDS: methylPREDNISolone SUCC 125 MG VIAL 80 MG IVP ×3 (00:31→23:16)
[2020-11-09] MEDS: MAGNESIUM SULFATE 2 GM/50 ML BAG IVPB (00:31)
[2020-11-09] MEDS: Normal Saline 500 ML 30 ML IV (00:32)
[2020-11-09] MEDS: Acetaminophen 325 MG TAB PO ×4 (00:35→15:38)
[2020-11-09] MEDS: Albuterol 2.5 MG/3 ML INH SOLN VIAL UPD ×7 (00:55→23:55)
[2020-11-09 07:02] LABS: Abs Immature Grans 0.09 10^3/uL (0.0-0.06); Absolute Basophil Count 0.01 10^3/uL (0.0-0.2); Absolute Lymphocyte Count 0.83 10^3/uL (1.2-3.4); Absolute Neutrophil Count 7.16 10^3/uL (1.2-6.7); Basophils % 0.1; HCT 37.9 % (36.0-46.0); HGB 12.8 g/dL (11.2-15.7); Immature Grans % 1.1; MCH 27.8 pg (27.0-33.0); MCHC 33.8 % (32.0-36.0); MCV 82.2 fL (80-95); MPV 10.4 fL (8.0-11.0); Monocytes % 2.4; Neutrophils % 86.4; Nucleated RBC 0 %; Platelet Count 298 10^3/uL (130-400); RBC 4.61 10^6/uL (3.93-5.22); RDW 13.4 % (11.7-14.6); RDW-SD 39.8 fL; WBC 8.29 10^3/uL (4.4-10.8)
[2020-11-09 07:16] LABS: ALT 23 U/L (14-59); AST 22 U/L (15-37); Albumin 3.7 g/dL (3.4-5.0); Alkaline Phosphatase 74 U/L (46-116); Anion Gap 10.4 mmol/L (3-11); BUN 11 mg/dL (7-18); Bilirubin, Total 0.3 mg/dL (0.2-1.0); CO2 29.6 mmol/L (21.0-32.0); CREATININE 0.7 mg/dL (0.55-1.02); Calcium 8.7 mg/dL (8.5-10.1); Chloride 92 mmol/L (98-107); Glucose 149 mg/dL (74-106); Sodium 132 mmol/L (136-145); Total Protein 7.9 g/dL (6.4-8.2)
[2020-11-09 07:27] LABS: Potassium 2.9 mmol/L (3.5-5.1)
[2020-11-09] MEDS: Aspirin 325 MG TAB PO (07:37)
[2020-11-09] MEDS: Furosemide 40 MG TAB PO (07:37)
[2020-11-09] MEDS: predniSONE 20 MG TAB 40 MG PO (07:37)
[2020-11-09] MEDS: Loratidine 10 MG TAB PO (07:37)
[2020-11-09] MEDS: Lisinopril 20 MG TAB 40 MG PO (07:37)
[2020-11-09] MEDS: Potassium Chloride 20 MEQ TABCR 40 MEQ PO ×3 (07:38→21:12)
[2020-11-09] MEDS: Enoxaparin 40 MG/0.4 ML SYR SC (07:38)
[2020-11-09] MEDS: Magnesium Chloride 64 MG TABCR PO ×2 (07:38→21:12)
[2020-11-09] MEDS: Budesonide/Formoterol 160/4.5 6 GM 60 PUFF INH IH ×2 (08:02→19:42)
[2020-11-09] MEDS: Tiotropium Bromide-Respimat 10 PUFF INH 2 PUFF IH (08:02)
--- NOTE | 2020-11-09 08:44 | PDOC.CMIN ---
- If Service Date Differs Date of service: 11/09/20 Time of Service: 08:44 Care Management Initial Assess REASON FOR HOSPITALIZATION:: COPD Exacerbation PAST MEDICAL HISTORY/PAST SURGICAL HISTORY:: Alcoholism. Currently abstinent x2 weeks. Anemia. COPD (chronic obstructive pulmonary disease). Depression. Depression. Fatty liver. Gallstones. HTN (hypertension). Hyperlipidemia. Hypertension. Hypokalemia. Recurrent. Hyponatremia. Recurrent. Left lower lobe pneumonia (06/09/13). Tobacco abuse. H/O section. History of tonsillectomy PREVIOUS FUNCTIONAL STATUS/SOCIAL/FAMILY SUPPORTS:: Carolin resides in [place], she has four supportive children Alysa, Glenny, Umm and Vanessa. The only equipment she reports is a nebulizer at home and [facility] for transportation. ADVANCE DIRECTIVES:: None on file, children listed on [employer]; Christy as person to notify. Has patient been provided with info about the portal/API?: No Did the patient sign up for the portal?: No CODE STATUS:: Full Code INSURANCE COVERAGE / FINANCIAL ISSUES:: [employer] CURRENT HOME/COMMUNITY SERVICES/EQUIPMENT:: Nebulizer PRIMARY CARE PHYSICIAN:: Kelly Hogan POTENTIAL DISCHARGE NEEDS:: Follow up with primary care, referral to substance abuse services and community connections assistance with supports. PATIENT/FAMILY EDUCATION NEEDS:: Discharge education, limitaitons and follow up plan of care including ask me three. ANTICIPATED BARRIERS TO DISCHARGE:: Access to care, substance abuse services. TRANSPORTATION:: Via [facility] at time of discharge. PLAN:: Anticipate Carolin will be discharged home when medically ready. CM to continue to provide support discharge planning and disposition.
[2020-11-09] MEDS: Thiamine 100 MG TAB PO (09:33)
[2020-11-09] MEDS: Albuterol HFA 8 GM 60 PUFF INH IH ×2 (09:38→16:26)
--- NOTE | 2020-11-09 15:32 | W.PM.PROGNOT ---
Date of Service Date of service: 11/09/20 Time of Service: 15:32 Assessment and Plan Assessment and plan (1) COPD exacerbation: Status: Acute Assessment and plan: still wheezing and short of breath, ongoing oxygen requirements. continue steroids, and add antibiotic continue inhalers, updrafts (2) Hypertension: Status: Chronic Assessment and plan: continue home meds and monitor (3) Tobacco abuse: Status: Chronic Assessment and plan: declines nicotine replacement (4) Hyperlipidemia: Status: Chronic Assessment and plan: continue statin (5) Alcohol abuse: Status: Chronic Assessment and plan: reportedly has not been currently drinking monitor for withdrawal thiamine replacement (6) DVT prophylaxis: Status: Acute Assessment and plan: enoxaparin (7) Discharge planning issues: Status: Acute Assessment and plan: case management following. may need oxygen prescription at discharge discussed with Dr Dickey Subjective Subjective Patient reports: shortness of breath Exam Const General: disheveled, frail appearing and ill appearing (older than stated age) chronically Nutritional Appearance: obese Orientation: alert, awake and oriented x3 HENMT Head: normal to inspection, normocephalic and atraumatic Mouth: oral mucosae normal Chest Chest: normal inspection of the chest Resp Effort & Inspection: no audible wheezes and cough Auscultation: diminished lung sounds bilaterally, no rales, no rhonchi and wheezes (faint exp) Cardio Rate: regular rate Rhythm: regular rhythm GI Inspection: normal to inspection Palpation: soft Auscultation: normal bowel sounds Skin General skin exam: no rashes or lesions noted Neuro General: patient alert, patient awake and patient oriented x3 Cognition: normal cognition Speech: speech normal Objective Last Vital Signs Temp 36.5 C 11/09/20 15:22 Pulse 87 11/09/20 15:22 Resp 23 11/09/20 15:22 BP 140/79 11/09/20 15:22 Pulse Ox 99 11/09/20 15:22 Laboratory Results - last 24 hr 11/08/20 11/08/20 11/08/20 17:30 20:25 21:15 WBC RBC Hgb Hct MCV MCH MCHC RDW Plt Count MPV Immature Gran % Neutrophils % Lymphocytes % Monocytes % Eosinophils % Basophils % Nucleated RBC % Absolute Neutrophils Absolute Lymphocytes Absolute Monocytes Absolute Eosinophils Absolute Basophils D-Dimer 650 H Sodium Potassium Chloride Carbon Dioxide Anion Gap BUN Creatinine Estimated GFR/1.73 m2 Glucose Calcium Total Bilirubin AST ALT Alkaline Phosphatase Troponin I < 0.05 Total Protein Albumin COVID-19 Source Nasal/Nares SARS-CoV-2 (PCR) Negative 11/09/20 11/09/20 06:48 06:48 WBC 8.29 RBC 4.61 Hgb 12.8 Hct 37.9 MCV 82.2 MCH 27.8 MCHC 33.8 RDW 13.4 Plt Count 298 MPV 10.4 Immature Gran % 1.1 Neutrophils % 86.4 Lymphocytes % 10.0 Monocytes % 2.4 Eosinophils % 0.0 Basophils % 0.1 Nucleated RBC % 0 Absolute Neutrophils 7.16 H Absolute Lymphocytes 0.83 L Absolute Monocytes 0.20 Absolute Eosinophils 0.00 Absolute Basophils 0.01 D-Dimer Sodium 132 L Potassium 2.9 L Chloride 92 L Carbon Dioxide 29.6 Anion Gap 10.4 BUN 11 Creatinine 0.7 Estimated GFR/1.73 m2 >= 60.00 Glucose 149 H Calcium 8.7 Total Bilirubin 0.3 AST 22 ALT 23 Alkaline Phosphatase 74 Troponin I Total Protein 7.9 Albumin 3.7 COVID-19 Source SARS-CoV-2 (PCR)
[2020-11-09] MEDS: Doxycycline Hyclate 100 MG CAP PO ×2 (16:27→21:12)
[2020-11-09] MEDS: Pantoprazole 40 MG TABCR PO (18:12)
[2020-11-09] MEDS: cefTRIAXone 1 GM/50 ML BAG IVPB (18:12)
[2020-11-09] MEDS: Albuterol/Ipratropium 3 ML UPD VIAL UPD ×2 (18:30→23:16)
[2020-11-09] MEDS: MORPHine 2 MG/ML SYR IVP (20:51)
[2020-11-09] MEDS: Melatonin 3 MG TAB 6 MG PO (21:12)
[2020-11-09] MEDS: Simvastatin 40 MG TAB PO (21:13)
[2020-11-10] VITALS (10 sets, daily range): BP systolic 113–120; BP diastolic 75–80; PULSE 73–83; RESP 4–20; TEMP 36.1–36.2; O2SAT 86–98
[2020-11-10] MEDS: MORPHine 2 MG/ML SYR IVP (00:21)
[2020-11-10] MEDS: Normal Saline Flush 10 ML SYR IVP ×4 (00:21→23:23)
[2020-11-10] MEDS: Albuterol/Ipratropium 3 ML UPD VIAL UPD ×4 (05:13→23:23)
[2020-11-10 07:05] LABS: Abs Immature Grans 0.09 10^3/uL (0.0-0.06); Absolute Basophil Count 0.02 10^3/uL (0.0-0.2); Absolute Lymphocyte Count 0.98 10^3/uL (1.2-3.4); Absolute Monocyte Count 0.83 10^3/uL (0.1-0.8); Basophils % 0.1; HCT 37.9 % (36.0-46.0); HGB 12.4 g/dL (11.2-15.7); Immature Grans % 0.6; Lymphocytes % 6.5; MCH 27.6 pg (27.0-33.0); MCHC 32.7 % (32.0-36.0); MCV 84.4 fL (80-95); MPV 10.9 fL (8.0-11.0); Monocytes % 5.5; Neutrophils % 87.3; Nucleated RBC 0 %; Platelet Count 295 10^3/uL (130-400); RBC 4.49 10^6/uL (3.93-5.22); RDW 13.9 % (11.7-14.6); RDW-SD 42.9 fL; WBC 15.12 10^3/uL (4.4-10.8)
[2020-11-10 07:17] LABS: Anion Gap 5.4 mmol/L (3-11); BUN 19 mg/dL (7-18); CO2 30.6 mmol/L (21.0-32.0); CREATININE 0.7 mg/dL (0.55-1.02); Calcium 8.6 mg/dL (8.5-10.1); Chloride 97 mmol/L (98-107); Glucose 131 mg/dL (74-106); Magnesium 2.6 mg/dL (1.8-2.4); Potassium 4.5 mmol/L (3.5-5.1); Sodium 133 mmol/L (136-145)
[2020-11-10] MEDS: Budesonide/Formoterol 160/4.5 6 GM 60 PUFF INH IH ×2 (08:01→20:15)
[2020-11-10] MEDS: Enoxaparin 40 MG/0.4 ML SYR SC (08:37)
[2020-11-10] MEDS: Pantoprazole 40 MG TABCR PO (08:38)
[2020-11-10] MEDS: Lisinopril 20 MG TAB 40 MG PO (08:38)
[2020-11-10] MEDS: Doxycycline Hyclate 100 MG CAP PO ×2 (08:38→20:14)
[2020-11-10] MEDS: Aspirin 325 MG TAB PO (08:38)
[2020-11-10] MEDS: Loratidine 10 MG TAB PO (08:38)
[2020-11-10] MEDS: Thiamine 100 MG TAB PO (08:38)
[2020-11-10] MEDS: Magnesium Chloride 64 MG TABCR PO (08:38)
[2020-11-10] MEDS: Furosemide 40 MG TAB PO (08:38)
[2020-11-10] MEDS: methylPREDNISolone SUCC 125 MG VIAL 80 MG IVP ×3 (08:39→23:23)
[2020-11-10] MEDS: Potassium Chloride 20 MEQ TABCR 40 MEQ PO (08:39)
--- NOTE | 2020-11-10 08:59 | PDOC.CMPRO ---
Care Management Progress Note S/O: Carolin continues to be closely monitored; remains on IV ABX and steroids at this time. She was sitting up in her chair when CM met with her, and shared frustration central to feeling overwhelmed, lack of sleep and constant disruptions for medical care. She advocated for not doing personal care until the afternoon; CM reviewed with Hossein who was agreeable to limiting interventions when possible. Per MD Carolin will remain at [facility] overnight. CM continues to follow. A: 60 year old female admitted to [facility] 11/08/20 for COPD Exacerbation P: Anticipate Carolin will be discharged home when medically ready, likely with new home O2 to be determined by RT and MD. CM to continue to provide support discharge planning and disposition.
[2020-11-10] MEDS: Albuterol HFA 8 GM 60 PUFF INH IH ×2 (09:52→15:41)
[2020-11-10] MEDS: Acetaminophen 325 MG TAB PO (10:27)
--- NOTE | 2020-11-10 10:29 | RESPIRATORY ---
RT spoke with patient today regarding pt's home inhalers as well as the possible need for new home O2 setup. Pt stated that she was taking Symbicort and Spiriva Respimat inhalers as directed by her PCP. When asked about her rescue inhaler (Albuterol), pt stated that she was taking it mulitple times a day throughout the day as she felt needed. This included prior to getting up from her chair, taking it with her to another room, and using again shortly after. Pt expressed concern that she did not understand why she was only allowed to have her rescue inhaler a certain number of times a day while in the hospital and why the administered doses had to be spread out from each other, as this is not how she normally administers it to herself at home. RT explained that this medication should only be used as directed, and if it is taking an excessive amount of puffs from a rescue inhaler to relieve her shortness of breath, that concern should be expressed to her PCP for possible medication changes or assessment for exacerbation. While speaking with pt about home O2 use, RT went over the role of O2 in the home for the patient, the importance of not smoking or having open flames around while O2 was in use, and the patient's preferred DME. Pt is agreeable to being set up with home O2 and would like to use [facility] if home O2 is needed upon discharge.
--- NOTE | 2020-11-10 12:37 | W.PM.PROGNOT ---
Date of Service Date of service: 11/10/20 Time of Service: 12:37 Assessment and Plan Assessment and plan (1) COPD exacerbation: Status: Acute Assessment and plan: still wheezing and short of breath, ongoing oxygen requirements. poor exercise tolerance continue IV steroids, and antibiotics, doxycycline and ceftriaxone day 2 continue inhalers, updrafts patient with very clear knowledge deficit regarding disease process and medication usage. respiratory therapy, nursing and providers closely working with her regarding this which has not proved to be effective yet. will continue to attempt to educate but patient is resistive to measures and can not return demonstrate any adequate comprehension. (2) Hypertension: Status: Chronic Assessment and plan: continue home meds and monitor (3) Tobacco abuse: Status: Chronic Assessment and plan: declines nicotine replacement. will not commit to cessation on discharge. (4) Hyperlipidemia: Status: Chronic Assessment and plan: continue statin (5) Alcohol abuse: Status: Chronic Assessment and plan: reportedly has not been currently drinking monitor for withdrawal thiamine replacement (6) DVT prophylaxis: Status: Acute Assessment and plan: enoxaparin (7) Discharge planning issues: Status: Acute Assessment and plan: case management following. may need oxygen prescription at discharge discussed with Dr Carbajal Subjective Subjective Patient reports: shortness of breath and afebrile Exam Const General: disheveled, frail appearing and ill appearing (older than stated age) chronically Nutritional Appearance: obese Orientation: alert, awake and oriented x3 HENMT Head: normal to inspection, normocephalic and atraumatic Mouth: oral mucosae normal Chest Chest: normal inspection of the chest Resp Effort & Inspection: no audible wheezes and cough Auscultation: diminished lung sounds bilaterally, no rales, no rhonchi and wheezes (faint exp) Cardio Rate: regular rate Rhythm: regular rhythm GI Inspection: normal to inspection Palpation: soft Auscultation: normal bowel sounds Skin General skin exam: no rashes or lesions noted Neuro General: patient alert, patient awake and patient oriented x3 Cognition: normal cognition Speech: speech normal Objective Last Vital Signs Temp 36.2 C L 11/10/20 07:56 Pulse 76 11/10/20 11:38 Resp 20 11/10/20 11:38 BP 115/80 11/10/20 07:56 Pulse Ox 92 11/10/20 11:40 Laboratory Results - last 24 hr 11/10/20 11/10/20 06:30 06:30 WBC 15.12 H D RBC 4.49 Hgb 12.4 Hct 37.9 MCV 84.4 MCH 27.6 MCHC 32.7 RDW 13.9 Plt Count 295 MPV 10.9 Immature Gran % 0.6 Neutrophils % 87.3 Lymphocytes % 6.5 Monocytes % 5.5 Eosinophils % 0.0 Basophils % 0.1 Nucleated RBC % 0 Absolute Neutrophils 13.20 H Absolute Lymphocytes 0.98 L Absolute Monocytes 0.83 H Absolute Eosinophils 0.00 Absolute Basophils 0.02 Sodium 133 L Potassium 4.5 D Chloride 97 L Carbon Dioxide 30.6 Anion Gap 5.4 BUN 19 H D Creatinine 0.7 Estimated GFR/1.73 m2 >= 60.00 Glucose 131 H Calcium 8.6 Magnesium 2.6 H
--- NOTE | 2020-11-10 16:26 | RESPIRATORY ---
Pt had newly administered inhalers from the ED in her purse at bedside, RT asked if hospital could store those medications in the med drawer until discharge to prevent accidental double-administration of medications, pt agreed. Symbicort inhaler was noted to have <50 out of 60 actuations left. Spiriva Respimat had 10 out of 10 actuations left.
[2020-11-10] MEDS: cefTRIAXone 1 GM/50 ML BAG IVPB (18:04)
[2020-11-10] MEDS: Simvastatin 40 MG TAB PO (20:14)
[2020-11-10] MEDS: Melatonin 3 MG TAB 6 MG PO (21:52)
[2020-11-11] MEDS: Albuterol 2.5 MG/3 ML INH SOLN VIAL UPD (02:31)
[2020-11-11 07:30] VITALS: BP 108/72; PULSE 68; RESP 22; TEMP 36.4; O2SAT 95
[2020-11-11] MEDS: Albuterol/Ipratropium 3 ML UPD VIAL UPD ×4 (07:35→23:11)
[2020-11-11] MEDS: Normal Saline Flush 10 ML SYR IVP ×2 (07:37→20:03)
[2020-11-11] MEDS: Enoxaparin 40 MG/0.4 ML SYR SC (07:37)
[2020-11-11] MEDS: methylPREDNISolone SUCC 125 MG VIAL 80 MG IVP ×2 (07:38→20:04)
[2020-11-11] MEDS: Aspirin 325 MG TAB PO (07:39)
[2020-11-11] MEDS: Doxycycline Hyclate 100 MG CAP PO ×2 (07:39→20:04)
[2020-11-11] MEDS: Lisinopril 20 MG TAB 40 MG PO (07:39)
[2020-11-11] MEDS: Furosemide 40 MG TAB PO (07:39)
[2020-11-11] MEDS: Loratidine 10 MG TAB PO (07:39)
[2020-11-11] MEDS: Pantoprazole 40 MG TABCR PO (07:40)
[2020-11-11] MEDS: Thiamine 100 MG TAB PO (07:40)
[2020-11-11] MEDS: Potassium Chloride 20 MEQ TABCR 40 MEQ PO (07:40)
[2020-11-11] MEDS: Budesonide/Formoterol 160/4.5 6 GM 60 PUFF INH IH ×2 (08:05→20:04)
[2020-11-11 10:50] VITALS: O2SAT 95
--- NOTE | 2020-11-11 10:58 | W.PM.PROGNOT ---
Date of Service Date of service: 11/11/20 Time of Service: 10:58 Assessment and Plan Assessment and plan (1) COPD exacerbation: Status: Acute Assessment and plan: Carolin continue to wheeze. She has SOB with activity. She feels her breathing is near baseline. She is no longer requiring oxygen. Her O2 saturation is 95% on room air. Continue IV steroids, start tapering. Continue antibiotics, doxycycline and ceftriaxone day #3. Continue inhalers, updrafts Continue education on disease process and medication administration. Repeat labs tomorrow. (2) Hypertension: Status: Chronic Assessment and plan: Stable. Continue home meds and monitor. (3) Tobacco abuse: Status: Chronic Assessment and plan: Declines nicotine replacement. Does not plan on quitting on discharge. (4) Hyperlipidemia: Status: Chronic Assessment and plan: continue statin (5) Alcohol abuse: Status: Chronic Assessment and plan: reportedly has not been currently drinking monitor for withdrawal thiamine replacement (6) DVT prophylaxis: Status: Acute Assessment and plan: Subcutaneous enoxaparin. (7) Discharge planning issues: Status: Acute Assessment and plan: She is a FULL CODE. Care management working on discharge planning. Does not appear to need home O2 at this time. Case discussed with discussed with Dr. Guadarrama who is in agreement. Subjective Subjective Interval history since last seen: Carolin reports that she is doing much better than when she came in. Her breathing is near baseline for her. She is SOB with activity, more so than usual. She feels wheezy. She continues to cough, she does not normally cough much. Her cough is nonproductive. She is able to eat now, she was unable to eat much before due to her SOB. She denies N/V/D. She is moving her bowels regularly. She denies CP. She had a KLEIN, but APAP helps. She is not sleeping well. She reports that she never sleeps well. She is eager for discharge home. Exam Narrative Exam Narrative: General: middle aged female, sitting up in the recliner, audible wheeze. She is alert and oriented, pleasant and talkative. HEENT: normocephalic, atraumatic, Pupils equal and round, EOMI, mucous membranes moist, poor dentition. Neck: supple. Cardiovascular: heart sounds regular, nontachycardic. Respiratory: appears to have increased WOB, audible wheeze, inspiratory and expiratory wheezes noted on lung exam. GI: soft, +BS, nontender on palpation, nondistended. Extremities: +1 pitting edema to BLEs. Moves all 4 extremities freely. Objective Last Vital Signs Temp 36.4 C L 11/11/20 07:30 Pulse 68 11/11/20 07:30 Resp 22 11/11/20 07:30 BP 108/72 11/11/20 07:30 Pulse Ox 95 11/11/20 10:50
[2020-11-11 11:59] VITALS: PULSE 95; RESP 20; O2SAT 94
[2020-11-11] MEDS: Albuterol HFA 8 GM 60 PUFF INH IH ×2 (13:06→16:02)
--- NOTE | 2020-11-11 13:14 | PHA.REVIEW ---
Pharmacy Admission Review - Admission Clinical Review (Last Reviewed 11/13/18 @ 16:18 by Ashley Dobson NP) Discharge planning issues (Acute) COPD exacerbation (Acute) DVT prophylaxis (Acute) codeine Adverse Reaction (Severe, Unverified 11/12/18 16:48) Dizziness/Lightheade Resuscitation Status Full Code Height 5 ft 3 in Weight 94.995 kg - Renal Dosing Renal Dosing: BUN 19 mg/dL (7-18) H D 11/10/20 06:30 Creatinine 0.7 mg/dL (0.55-1.02) 11/10/20 06:30 Medications needing adjustments: Reviewed (CRCL ~60ML/MIN) - Anticoagulation Anticoagulation: Hgb 12.4 g/dL (11.2-15.7) 11/10/20 06:30 Hct 37.9 % (36.0-46.0) 11/10/20 06:30 Plt Count 295 10^3/uL (130-400) 11/10/20 06:30 Creatinine 0.7 mg/dL (0.55-1.02) 11/10/20 06:30 DVT Prohphylaxis: Reviewed Medications: Enoxaparin Therapeutic Anticoagulation: N/A - Relevant Labs Sodium 133 mmol/L (136-145) L 11/10/20 06:30 Potassium 4.5 mmol/L (3.5-5.1) D 11/10/20 06:30 Chloride 97 mmol/L (98-107) L 11/10/20 06:30 Magnesium 2.6 mg/dL (1.8-2.4) H 11/10/20 06:30 Electrolytes, C-Reactive P, ESR: Reviewed - DM Control DM Control: Glucose 131 mg/dL (74-106) H 11/10/20 06:30 Insulin Dosing: N/A - Heart Failure/OK Heart Failure/OK: Troponin I < 0.05 ng/mL (<0.06) 11/08/20 17:30 NT-Pro-B Natriuret Pep 251 pg/mL (<300) 11/08/20 13:50 - BP Control BP Control: Blood Pressure 108/72 If elevated: N/A - Qtc Review If Elevated: N/A (476) - IV to PO Switch IV Medications: Reviewed (DOXY PO, IV ROCEPHIN, SOME MEDS PO) - Home Meds Home Med List reviewed: Reviewed (meds ordered) - Comments Comments/Follow Ups: EXPECT TAPERING STEROIDS/SWITCH TO PO. RT working on education since, pt is non compliant with inhalers at home
--- NOTE | 2020-11-11 16:41 | CMPROGNOTE_ITS ---
- If Service Date Differs Date of service: 11/11/20 Time of Service: 16:41 Care Management Progress Note S/O: Carolin continues to be closely monitored; remains on IV ABX and steroids at this time. Per provider note, she continues to wheeze and to have shortness of breath with activity, but patient reports her breathing is near her baseline. She is improved and is able to eat, which she was unable to do prior to coming to the hospital due to shortness of breath. Carolin is looking forward to returning home. CM will continue to follow. A: 60 year old female admitted to [facility] 11/08/20 for COPD Exacerbation P: No change in plan. Anticipate Carolin will be discharged home when medically ready, likely with new home O2 to be determined by RT and MD. CM to continue to provide support discharge planning and disposition.
[2020-11-11] MEDS: cefTRIAXone 1 GM/50 ML BAG IVPB (17:45)
[2020-11-11] MEDS: MORPHine 2 MG/ML SYR IVP (18:10)
[2020-11-11 18:20] VITALS: PULSE 91; RESP 24; RESP 4; RESP 5; O2SAT 95
[2020-11-11 18:45] VITALS: BP 148/98; PULSE 89; RESP 22; TEMP 36.6; O2SAT 100
[2020-11-11] MEDS: Simvastatin 40 MG TAB PO (20:04)
[2020-11-11] MEDS: Melatonin 3 MG TAB 6 MG PO (21:24)
[2020-11-11 23:37] VITALS: BP 158/76; PULSE 100; RESP 20; TEMP 36; O2SAT 91
[2020-11-12] MEDS: MORPHine 2 MG/ML SYR IVP (02:58)
[2020-11-12] MEDS: Albuterol/Ipratropium 3 ML UPD VIAL UPD ×2 (05:52→11:03)
[2020-11-12 07:06] LABS: Platelet Count 296 10^3/uL (130-400)
[2020-11-12 07:14] LABS: Anion Gap 0.3 mmol/L (3-11); BUN 24 mg/dL (7-18); CO2 33.7 mmol/L (21.0-32.0); CREATININE 0.6 mg/dL (0.55-1.02); Calcium 8.1 mg/dL (8.5-10.1); Chloride 103 mmol/L (98-107); Glucose 127 mg/dL (74-106); Magnesium 2.6 mg/dL (1.8-2.4); Potassium 4.7 mmol/L (3.5-5.1); Sodium 137 mmol/L (136-145)
[2020-11-12] MEDS: Budesonide/Formoterol 160/4.5 6 GM 60 PUFF INH IH (07:39)
[2020-11-12 07:56] VITALS: BP 124/81; PULSE 76; RESP 23; TEMP 36.4; O2SAT 96
[2020-11-12] MEDS: Aspirin 325 MG TAB PO (08:49)
[2020-11-12] MEDS: Thiamine 100 MG TAB PO (08:49)
[2020-11-12] MEDS: Pantoprazole 40 MG TABCR PO (08:49)
[2020-11-12] MEDS: Doxycycline Hyclate 100 MG CAP PO (08:49)
[2020-11-12] MEDS: Loratidine 10 MG TAB PO (08:49)
[2020-11-12] MEDS: Lisinopril 20 MG TAB 40 MG PO (08:50)
[2020-11-12] MEDS: Furosemide 40 MG TAB PO (08:50)
[2020-11-12] MEDS: Enoxaparin 40 MG/0.4 ML SYR SC (08:50)
[2020-11-12] MEDS: Potassium Chloride 20 MEQ TABCR 40 MEQ PO (08:50)
[2020-11-12] MEDS: methylPREDNISolone SUCC 125 MG VIAL 80 MG IVP (08:50)
[2020-11-12] MEDS: Normal Saline Flush 10 ML SYR IVP (08:51)
[2020-11-12 11:03] VITALS: PULSE 81; RESP 24; RESP 4; O2SAT 94
--- NOTE | 2020-11-12 13:55 | W.PM.DS.N ---
Date of service: 11/12/20 Time of Service: 13:55 DS: Diagnosis Discharge Diagnosis (1) COPD exacerbation: Status: Acute (2) Hypertension: Status: Chronic (3) Tobacco abuse: Status: Chronic (4) Hyperlipidemia: Status: Chronic (5) Alcohol abuse: Status: Chronic (6) DVT prophylaxis: Status: Acute (7) Discharge planning issues: Status: Acute (8) Bronchitis: Status: Acute Discharge Plan Disposition Patient Disposition: HOME Condition: Fair Discharge Details Reason For Visit: COPD EXAC Admit Date/Time: 11/10/20 17:15 Admit Provider: Ulises Dickey Attending Provider: Ulises Dickey Primary Care Provider: Kelly Hogan V Hospital Course Hospital Course: This is a 60 yo female with a PMH of COPD, alcohol abuse, fatty liver, HTN, tobacco abuse, HLD. She presented to the ED for worsening sob over past 2 weeks since running out of her inhalers. No fever or chills, cough but no increased sputum production. no chest pain. She continues to smoke. She also did not take her daily dose of lasix on day of admission. She reported her grandson has had cold symptoms and she has been exposed to him. Her WBC count was normal; it did increase after implementation of IV steroids. NTProBNP was normal. CXR showed a right middle lobe pneumonia. It was discovered that the reason she ran out of her albuterol early is she takes it much more frequently than prescribed. She also endorsed thinking her Symbicort was a rescue medication. Resp Therapy educated the patient on proper use of her pulmonary medications. On the day of discharge her oxygen saturations were in the mid 90's on room air. She was encouraged to d/c tobacco use. She will complete a course of doxycycline. She received Rocephin and doxycycline while in the hospital. F/U with PCP in 1-2 weeks. Home Meds and New Rx's Prescriptions: New prednisone 20 mg tablet 60 mg PO DAILY 5 Days Qty: 15 RF: 0 doxycycline hyclate 100 mg Capsule 100 mg PO BID Qty: 10 RF: 0 Continued albuterol sulfate 8.5 GM HFA aerosol inhaler 2 puff Inhalation Q4H PRN PRNRF: 0 simvastatin 40 MG tablet 40 mg PO DAILY RF: 0 lisinopril 40 MG tablet 40 mg PO DAILY RF: 0 aspirin 325 MG tablet 325 mg PO DAILY RF: 0 loratadine 10 MG tablet 10 mg PO DAILY RF: 0 furosemide 40 mg Tablet 40 mg PO DAILY RF: 0 budesonide-formoterol [Symbicort] 160-4.5 mcg/actuation Hfa Aerosol Inhaler 2 puff INHALATION Q12H RF: 0 potassium chloride 20 mEq tablet,ER particles/crystals 40 meq PO DAILY Qty: 60 RF: 0 Changed magnesium chloride [Mag 64] 64 mg Tablet,Delayed Release (Dr/Ec) 64 mg PO DAILY Qty: 60 RF: 0 Discharge Instructions Instructions: How to Stop Smoking (ED), COPD (Chronic Obstructive Pulmonary Disease) (ED) Additional Instructions: Please take your nebulizers as directed.. Follow up with primary care provider in 3-5 days. Return to ED sooner if any worsening or concerns. Increase oral fluids. A prescription for prednisone sent to the pharmacy on file please take that as directed. Try to quit smoking. Referrals: Kelly Hogan MD [Primary Care Provider] - Activity:: Activity as Tolerated Equipment/Supplies:: No Equipment Needed Diet:: Low Sodium Discharge Orders Discharge Orders: Discharge Order (Routine); Ordered 11/12/20 Ordered By: Nimesh Guadarrama DS: Summary Time Spent with Patient providing and/or coordinating discharge services: Less than 30 minutes Status at Discharge Functional status at discharge: independent ambulation Overall status at discharge: patient is back to baseline Mental Status: mental status grossly normal Speech and Movement: speech and movement normal Mood: congruent mood Affect: normal affect Exam Const General: cooperative and no acute distress Nutritional Appearance: obese Orientation: alert and oriented x3 Eyes Sclera: sclerae normal Pupils: PERRL Resp Effort & Inspection: normal respiratory effort Auscultation: clear to auscultation bilaterally and diminished lung sounds Cardio Rate: regular rate Rhythm: regular rhythm Heart Sounds: S1 normal and S2 normal Extrem General: no calf tenderness and edema Laterality: bilateral (tr to 1+) Psych Mental Status: mental status grossly normal Speech and Movement: speech and movement normal Mood: congruent mood Affect: normal affect DS: Data Vitals/I&O Vitals and I&O: Vital Signs Temperature 36.4 C L 11/12/20 07:56 Temperature Source Tympanic 11/12/20 07:56 Pulse 81 11/12/20 11:03 Pulse Rhythm Regular 11/12/20 09:13 Pulse 99 H 06/23/21 21:20 Respiratory Rate 24 11/12/20 11:03 Respiratory Effort Non-Labored 11/12/20 09:13 Respiratory Depth Normal 11/12/20 09:13 Respiratory Pattern Normal 11/12/20 09:13 Blood Pressure 124/81 11/12/20 07:56 Blood Pressure Mean 98 11/08/20 19:00 Blood Pressure Position Sitting 11/08/20 13:24 Pulse Oximetry 94 11/12/20 11:03 Oxygen Delivery Method Room Air 11/12/20 11:03 Oxygen Flow Rate 0 11/12/20 11:03 Fraction of Inspired Oxygen (FIO2) 2 11/09/20 15:22 Pain Level 0 11/12/20 07:56 Comment 11/11/20 18:45 Intake & Output 11/11/20 11/12/20 11/12/20 23:59 11:59 23:59 Intake Total 600 / 850 461 / 911 450 / 911 Balance 600 / 550 461 / 911 450 / 911 Weight 94.892 kg Intake: IV Oral 600 / 850 450 / 900 450 / 900 Other: Urine Color Yellow Urine Appearance Clear Urine Odor Normal Comment voiding in BSC Voiding Methods Toilet Data Completed and Pending Labs on day of discharge: Labs from last 24 hours 11/12/20 11/12/20 06:30 06:30 Plt Count 296 Sodium 137 Potassium 4.7 Chloride 103 Carbon Dioxide 33.7 H Anion Gap 0.3 L BUN 24 H Creatinine 0.6 Estimated GFR/1.73 m2 >= 60.00 Glucose 127 H Calcium 8.1 L Magnesium 2.6 H PFSH Medical History (Updated 11/12/20 @ 13:58 by Nimesh Guadarrama MD) Alcoholism Currently abstinent x2 weeks. Anemia COPD (chronic obstructive pulmonary disease) Depression Depression Fatty liver Gallstones HTN (hypertension) Hyperlipidemia Hypertension Hypokalemia Recurrent Hyponatremia Recurrent Left lower lobe pneumonia (06/09/13) Tobacco abuse Surgical History H/O section History of tonsillectomy Social History Smoking/Tobacco Use Status: Current every day Tobacco Type: cigarettes Smoking risk assessment performed?: Yes Alcohol Intake: current Alcohol Intake frequency: 3 or more drinks per day Drug use: Never Substance use type: does not use Do you feel safe at home: Yes Do you feel safe in your relationship?: Yes
[2020-11-12] MEDS: Albuterol 2.5 MG/3 ML INH SOLN VIAL UPD (14:33)
--- NOTE | 2020-11-12 16:09 | PDOC.CMDIS ---
- If Service Date Differs Date of service: 11/12/20 Time of Service: 16:09 LACE Index Scoring Tool - Questions: Length of Stay (in days): 2 Acuity (Admit via E.D.?): Yes Comorbidities: Chronic Pulmonary Disease E.D. Visits: 1 - Answers: Total Score: 8 Risk of Readmission: Low Risk Care Management Discharge Reason for Hospitalization: COPD Exacerbation Discharge Plan: Carolin is discharged home with no services. She will follow up with her PCP and discharge plan of care as directed. She is driven home via private vehicle by her daughter. Patient/Family Education Needs: Discharge instructions regarding medications and activity levels, and follow up plan of care, including Ask Me Three and self management.
== END 2020-11-12 17:05 | disposition home or self-care (01) | DRG 191 ==
LOC: ER 21:49 → MS 23:20
PROVIDERS: Nurse Practitioner; Registered Nurse Emergency; Admitting Provider Internal Medicine; Emergency Provider Nurse Practitioner Acute Care; PCP Family Medicine; Visit Provider Internal Medicine
DX: J44.0 Chronic obstructive pulmonary disease with (acute) lower respiratory infection (principal); E87.1 Hypo-osmolality and hyponatremia; J44.1 Chronic obstructive pulmonary disease with (acute) exacerbation; J20.9 Acute bronchitis, unspecified; I10 Essential (primary) hypertension; F17.210 Nicotine dependence, cigarettes, uncomplicated; E78.5 Hyperlipidemia, unspecified; D64.9 Anemia, unspecified; F32.9 Major depressive disorder, single episode, unspecified; K76.0 Fatty (change of) liver, not elsewhere classified; E87.6 Hypokalemia; Z20.822 Contact with and (suspected) exposure to COVID-19; F10.10 Alcohol abuse, uncomplicated
CPT/HCPCS: 36415; 80048; 80053; 87635; 93005; 94640; 96374; 99285; J1650; 71045; 83735; 83880; 84484; 85025; 85049; 85379; 93010; 99220; 99226; 99232; 99233; 99238; 99284; J0696; J1940; J2270; J2930; J7512; J7613; J7620

== ENCOUNTER 2021-02-27 00:57 | Outpatient (CLI) | payer OTHER, SELFPAY ==
--- NOTE | 2021-02-27 | DI.MAMMO_ITS ---
Exam(s) MAMMO SCREENING EXAM: MAMMO SCREENING CLINICAL HISTORY: SCREENING, Z12.31. TECHNIQUE: Bilateral full field digital CC and MLO mammographic images were obtained with 3D tomosyn thesis and utilizing computer aided detection (CAD). COMPARISON: Prior mammograms dating back to 2012, the most recent being 2013.. There been no interval mammograms since 2013. FINDINGS: There are no new spiculated masses nor malignant appearing microcalcification groups. There is no significant architectural distortion nor skin thickening-retraction. IMPRESSION: No radiographic evidence of malignancy. BI-RADS Category 1 - Negative Breast Density - Category B - Scattered areas of fibroglandular density Breast density Category C or D implies that the patient has dense breast tissue. Dense breast tissue can make it harder to find cancer on a mammogram. Dense breast tissue is also associated with an incr eased risk of breast cancer. This information about the result of the mammogram report was provided to the patient to raise their awareness. Use this report when you speak with the patient about their risks for breast cancer, which includes their family history. At that time, you may recommend additional screening tests (Ultrasoun d or MRI) as these tests may add significant information. A negative radiographic report should not delay biopsy if a dominant or clinically suspicious mass is present. Up to ten percent of cancers are not identified on mammography. A negative report may reinforce clinical impression. Adenosis and dense breasts may obscure an underlying neoplasm. False positive reports average 6 to 10%. Patient will receive a letter notifying them of these results.
== END 2021-02-27 01:17 ==
PROVIDERS: PCP Family Medicine; Visit Provider Nurse Practitioner Family
DX: Z12.31 Encounter for screening mammogram for malignant neoplasm of breast (principal)
CPT/HCPCS: 77063; 77067

== ENCOUNTER 2021-04-16 14:50 | Outpatient (REF) | payer OTHER, SELFPAY ==
[2021-04-16 20:28] LABS: FREE T4 1.42 ng/dL (0.76-1.46)
== END 2021-04-16 14:51 | disposition home or self-care (01) ==
LOC: NCHCN 14:50
PROVIDERS: PCP Family Medicine; Visit Provider Nurse Practitioner Family
DX: E03.9 Hypothyroidism, unspecified (principal)
CPT/HCPCS: 84439

== ENCOUNTER 2021-06-07 02:02 | Outpatient (CLI) | payer OTHER, SELFPAY | END 2021-06-07 02:03 | disposition home or self-care (01) | LOC: LBO 02:02 | PROVIDERS: PCP Family Medicine; Visit Provider Nurse Practitioner Family ==

== ENCOUNTER 2021-07-23 21:19 | Outpatient (REF) | payer OTHER, SELFPAY ==
[2021-07-25 12:59] LABS: COVID-19 RT-PCR UVMMC Result Negative (Negative)
== END 2021-07-23 21:20 | disposition home or self-care (01) ==
LOC: LBN 21:19
PROVIDERS: PCP Family Medicine; Visit Provider Nurse Practitioner Family
DX: Z20.822 Contact with and (suspected) exposure to COVID-19 (principal); R05.8 Other specified cough
CPT/HCPCS: U0003

== ENCOUNTER 2022-05-09 16:36 | Outpatient (REF) | payer OTHER, SELFPAY ==
[2022-05-09 17:54] LABS: Abs Immature Grans 0.01 10^3/uL (0.0-0.06); Absolute Basophil Count 0.03 10^3/uL (0.0-0.2); Absolute Eosinophil Count 0.03 10^3/uL (0.0-0.7); Absolute Lymphocyte Count 0.68 10^3/uL (1.2-3.4); Absolute Neutrophil Count 2.57 10^3/uL (1.2-6.7); Basophils % 0.6; Eosinophils % 0.6; HCT 35.8 % (36.0-46.0); HGB 12.3 g/dL (11.2-15.7); Immature Grans % 0.2; Lymphocytes % 14.7; MCHC 34.4 % (32.0-36.0); MCV 81 fL (80-95); MPV 10.7 fL (8.0-11.0); Monocytes % 28.1; Neutrophils % 55.8; Platelet Count 248 10^3/uL (130-400); RDW 12.6 % (11.7-14.6); RDW-SD 37.6 fL; WBC 4.62 10^3/uL (4.4-10.8)
[2022-05-09 18:15] LABS: ALT 15 U/L (14-59); AST 18 U/L (15-37); Albumin 3.4 g/dL (3.4-5.0); Alkaline Phosphatase 72 U/L (46-116); Anion Gap 6.1 mmol/L (3-11); BUN 8 mg/dL (7-18); Bilirubin, Total 0.3 mg/dL (0.2-1.0); CO2 32.9 mmol/L (21.0-32.0); CREATININE 0.4 mg/dL (0.55-1.02); Calcium 8.3 mg/dL (8.5-10.1); Calculated LDL 71 mg/dL (<100); Chloride 89 mmol/L (98-107); Cholesterol 148 mg/dL (<200); Estimated GFR 110.45 (mL/min/1.73m2); Glucose 101 mg/dL (74-106); HDL Cholesterol 66 mg/dL (40-60); Potassium 3.4 mmol/L (3.5-5.1); Sodium 128 mmol/L (136-145); TSH (W/Ref FT4) 2.41 uIU/mL (0.36-3.74); Total Protein 6.6 g/dL (6.4-8.2); Triglyceride 56 mg/dL (<150)
== END 2022-05-09 16:37 | disposition home or self-care (01) ==
LOC: NCHCN 16:36
PROVIDERS: PCP Family Medicine; Visit Provider Nurse Practitioner Family
DX: J44.9 Chronic obstructive pulmonary disease, unspecified (principal); I10 Essential (primary) hypertension; E03.9 Hypothyroidism, unspecified; K21.9 Gastro-esophageal reflux disease without esophagitis; G25.81 Restless legs syndrome; E78.5 Hyperlipidemia, unspecified
CPT/HCPCS: 80053; 80061; 84443; 85025

== ENCOUNTER → 2023-05-22 01:15 | Outpatient (CLI) | payer OTHER, SELFPAY ==
--- NOTE | 2023-05-22 14:57 | DI.MAMMO_ITS ---
Exam(s) MAMMO SCREENING EXAM: MAMMO SCREENING CLINICAL HISTORY: SCREENING,Z12.31 TECHNIQUE: Bilateral full field digital CC and MLO mammographic images were obtained with 3D tomosyn thesis and utilizing computer aided detection (CAD). COMPARISON: Available for comparison. FINDINGS: Masses/Architectural Distortion: There is a new 6 mm ovoid opacity in the posterior upper left breast on the MLO view. Microcalcifications: No suspicious pleomorphic-type are seen. Skin Thickening/Nipple Retraction: None. IMPRESSION: 1. New 6 mm ovoid density posteriorly in the upper left breast appreciated on the MLO view. 2. This area should be further evaluated with a spot compression view. Ultrasound should also be obt ained at that time. BI-RADS Category 0 - Assessment Incomplete: Need additional imaging evaluation Breast Density - Category B - Scattered areas of fibroglandular density Breast density category C or D implies that the patient has dense breast tissue. Dense breast tissue is very common and is not abnormal but dense breast tissue can make it harder to find cancer on a ma mmogram. Also, dense breast tissue may increase their breast cancer risk. This information about the result of the mammogram report was provided to the patient to raise their awareness. Use this report when you speak with the patient about their risks for breast cancer, which includes their family hist ory. At that time, you may recommend for more screening tests (Ultrasound or MRI) as they might be us eful based on their risk. A negative radiographic report should not delay biopsy if a dominant or clinically suspicious mass is present. Up to ten percent of cancers are not identified on mammography. A negative report may reinforce clinical impression. Adenosis and dense breasts may obscure an underlying neoplasm. False positive reports average 6 to 10%. Patient will receive a letter notifying them of these results.
== END ==
PROVIDERS: PCP Nurse Practitioner Family; Visit Provider Nurse Practitioner Family
DX: N63.21 Unspecified lump in the left breast, upper outer quadrant (principal); Z12.31 Encounter for screening mammogram for malignant neoplasm of breast
CPT/HCPCS: 77063; 77067

== ENCOUNTER → 2023-05-27 01:01 | Outpatient (CLI) | payer MEDICARE, SELFPAY ==
--- NOTE | 2023-05-27 | DI.MAMMO_ITS ---
Exam(s) MG MAMMO SCREEN CALL BACK UNI US BREAST LT COMPLETE EXAM: MG MAMMO SCREEN CALL BACK UNI-LEFT AND COMPLETE LEFT BREAST ULTRASOUND CLINICAL HISTORY: 6 MM OVOID DENSITY UPPER LEFT BREAST R92.8 ABNL MAMMO. TECHNIQUE: Unilateral spot mammographic images obtained with 3D tomosynthesisand utilizing computer aided detection (CAD). . Complete LEFT breast Ultrasound was also performed, including all 4 quadrants, the retroareolar regio n, and the ipsilateral axilla. COMPARISON: Prior mammograms were reviewed. This additional imaging was performed due to findings described on the recent screening mammogram of 05/22/2023. FINDINGS: DIAGNOSTIC MAMMOGRAM: Additional mammographic views performed todaydo not dissipate the recently described nodule the poste rior aspect of the left breast. We proceeded with ultrasound COMPLETE left BREAST ULTRASOUND: Ultrasound performed today reveals no evidence of solid or significant cystic lesions in all 4 quadra nts.. Scanning of the ipsilateral axilla reveals no significant adenopathy. IMPRESSION: 1. Negative complete left breast ultrasound. However, the nodule does persists on spot compression view. Appropriate follow-up is repeat left breast imaging in 3 months, to include repeat left breast mammo gram and ultrasound.. The patient was informed of these findings and recommendations prior to leaving the department today. BI-RADS Category 3 - 3 month - Probably Benign Finding: Recommend follow-up mammography in 3 months Breast Density - Category B - Scattered areas of fibroglandular density Breast density Category C or D implies that the patient has dense breast tissue. Dense breast tissue can make it harder to find cancer on a mammogram. Dense breast tissue is also associated with an incr eased risk of breast cancer. This information about the result of the mammogram report was provided to the patient to raise their awareness. Use this report when you speak with the patient about their risks for breast cancer, which includes their family history. At that time, you may recommend additional screening tests (Ultrasoun d or MRI) as these tests may add significant information. A negative radiographic report should not delay biopsy if a dominant or clinically suspicious mass is present. Up to ten percent of cancers are not identified on mammography. A negative report may reinforce clinical impression. Adenosis and dense breasts may obscure an underlying neoplasm. False positive reports average 6 to 10%. Patient will receive a letter notifying them of these results.
== END ==
PROVIDERS: PCP Nurse Practitioner Family; Visit Provider Nurse Practitioner Family
DX: Z12.31 Encounter for screening mammogram for malignant neoplasm of breast (principal); R92.8 Other abnormal and inconclusive findings on diagnostic imaging of breast
CPT/HCPCS: 76642; 77063; 77067

== ENCOUNTER 2023-06-17 03:00 | Outpatient (CLI) | payer MEDICARE, SELFPAY ==
[2023-06-17] MEDS: Levalbuterol HFA 15 GM INH 4 PUFF IH (09:12)
[2023-06-17] MEDS: Inhaler, Assist Device 1 EACH MC (09:13)
--- NOTE | 2023-06-17 12:46 | W.PFT ---
Date of service: 06/17/23 Time of Service: 08:01 Pulmonary Function Test Result Indications: Dyspnea Interpretation Spirometry: There is very severe airflow limitation. No bronchodilator response. Lung Volumes: Unable to perform Diffusion Capacity: Unable to perform Impression Very severe airflow obstruction. Patient unable to perform plethysmography and DLCO. Clinical Correlation therefore is recommended.
== END 2023-06-17 03:01 | disposition home or self-care (01) ==
LOC: RT 03:00
PROVIDERS: PCP Nurse Practitioner Family; Visit Provider Nurse Practitioner Family
DX: J44.9 Chronic obstructive pulmonary disease, unspecified (principal)
CPT/HCPCS: 94060

== ENCOUNTER 2023-08-12 18:00 | Outpatient (REF) | payer MEDICARE, SELFPAY ==
[2023-08-12 19:44] LABS: HCT 43.3 % (36.0-46.0); HGB 14.3 g/dL (11.2-15.7); MCH 28.1 pg (27.0-33.0); MCV 85 fL (80-95); MPV 10.7 fL (8.0-11.0); Platelet Count 286 10^3/uL (130-400); RBC 5.08 10^6/uL (3.93-5.22); RDW 13.6 % (11.7-14.6); RDW-SD 42.3 fL; WBC 8.62 10^3/uL (4.4-10.8)
[2023-08-12 20:22] LABS: ALT 14 U/L (14-59); AST 14 U/L (15-37); Albumin 3.7 g/dL (3.4-5.0); Alkaline Phosphatase 93 U/L (46-116); Anion Gap 4.9 mmol/L (3-11); BUN 11 mg/dL (7-18); Bilirubin, Total 0.2 mg/dL (0.2-1.0); CO2 36.1 mmol/L (21.0-32.0); CREATININE 0.5 mg/dL (0.55-1.02); Calcium 9.1 mg/dL (8.5-10.1); Chloride 86 mmol/L (98-107); Estimated GFR 104.02 (mL/min/1.73m2); Ferritin 47 ng/mL (8-252); Glucose 107 mg/dL (74-106); Potassium 3.8 mmol/L (3.5-5.1); Sodium 127 mmol/L (136-145); TSH 2.88 uIU/Ml (0.36-3.74); Total Protein 6.7 g/dL (6.4-8.2); Vitamin B12 1965 pg/mL (193-986)
[2023-08-12 20:35] LABS: Iron 33 ug/dL (50-170); Total Iron Binding Capacity 335 ug/dL (250-450); Transferrin Sat 10 % (15-50)
== END 2023-08-12 18:01 | disposition home or self-care (01) ==
LOC: NCHCN 18:00
PROVIDERS: PCP Nurse Practitioner Family; Visit Provider Nurse Practitioner Family
DX: R53.83 Other fatigue (principal); I10 Essential (primary) hypertension; E03.9 Hypothyroidism, unspecified; R79.89 Other specified abnormal findings of blood chemistry; Z79.899 Other long term (current) drug therapy
CPT/HCPCS: 80053; 85027; 82607; 82728; 83540; 83550; 84443

== ENCOUNTER 2024-06-21 14:14 | Outpatient (REF) | payer MEDICARE, SELFPAY ==
[2024-06-21 16:30] LABS: Anion Gap -0.2 mmol/L (3-11); BUN 11 mg/dL (7-18); CO2 42.2 mmol/L (21.0-32.0); CREATININE 0.6 mg/dL (0.55-1.02); Calcium 9.1 mg/dL (8.5-10.1); Chloride 93 mmol/L (98-107); Estimated GFR 98.93 (mL/min/1.73m2); Glucose 125 mg/dL (74-106); Potassium 3.3 mmol/L (3.5-5.1); Sodium 135 mmol/L (136-145); TSH 4.96 uIU/mL (0.36-3.74)
== END 2024-06-21 14:15 | disposition home or self-care (01) ==
LOC: NCHCN 14:14
PROVIDERS: PCP Nurse Practitioner Family; Visit Provider Nurse Practitioner Family
DX: I10 Essential (primary) hypertension (principal)
CPT/HCPCS: 80048; 84443

== ENCOUNTER 2024-10-21 12:31 | Inpatient (IN) | payer MEDICARE, SELFPAY ==
[2024-10-21] VITALS (97 sets, daily range): BP systolic 90–186; BP diastolic 43–105; PULSE 64–98; RESP 9–38; TEMP 34.8–36.7; O2SAT 84–98
--- NOTE | 2024-10-21 12:15 | RT.EKG_ITS ---
APPROVED REPORT Exam: Resting ECG Reason for Exam: SOB Patient Location: E HR:73 bpm ECG Measurements Heart Rate 73 AXIS SD 218 P 89 QRSd 98 QRS 97 QT 470 T [id number] QTc 515 Conclusion Sinus rhythm...normal P axis, V-rate 60- 99 Atrial premature complex...SV complex w/ short R-R interval Borderline prolonged SD interval...SD >212, V-rate 50- 90 Right axis deviation...QRS axis ( 91,269) Prolonged QT interval...QTc >500mS
--- NOTE | 2024-10-21 12:45 | DI.RAD_ITS ---
Exam(s) XR PORTABLE CHEST AP EXAM: XR PORTABLE CHEST AP CLINICAL HISTORY: cough. TECHNIQUE: 2D digital imaging was performed. COMPARISON: CR XR PORTABLE CHEST AP from 11/08/2020 FINDINGS: Single AP portable view. Patient is rotated towards the right. Heart size is upper normal. The mediastinum is not widened. Increased markings both lung purvis but these are probably exaggerated by the portable AP technique h ere. There are no pleural effusions. No air bronchograms. IMPRESSION: As above. Recommend nonportable PA and lateral views when clinically possible. DATA REPOSITORY: RADIATION DOSE DELIVERED:
--- NOTE | 2024-10-21 12:45 | ED.GENADUL_ITS ---
Discharge Plan Discharge Details Chief Complaint: SOB Clinical Impression: Hypomagnesemia, Hypokalemia, Hyponatremia, Prolonged QT interval Primary Care Provider: SILVA PRATHER ED Provider: Xavier Castellano Home Meds and New Rx's Prescriptions: No Action potassium chloride 20 mEq tablet,ER particles/crystals 20 meq PO DAILY albuterol 90 mcg/actuation aerosol inhalation albuterol sulfate 0.63 mg/3 mL solution for nebulization 0.63 mg inhalation QID PRN Primatene Mist 0.125 mg/actuation HFA aerosol inhaler 1 puff inhalation Q6H PRN Rx Instructions: may repeat once after 1 minute lisinopril 40 mg tablet 20 mg PO DAILY PRN Patient Comments: has not taken for 2 years magnesium oxide 250 mg magnesium tablet 250 mg PO DAILY furosemide [Lasix] 20 mg tablet 20 mg PO DAILY PRN hydrochlorothiazide 25 mg tablet 25 mg PO QAM levothyroxine 75 mcg capsule 75 mcg PO DAILY ropinirole 1 mg tablet 1 mg PO TID ipratropium-albuterol 0.5 mg-3 mg(2.5 mg base)/3 mL solution for nebulization 3 ml inhalation Q4H PRN mecobalamin (vitamin B12) See Rx Instructions PO DIRECTED Rx Instructions: orally as directed; ipratropium bromide 0.02 % solution 2.5 ml inhalation Q6H PRN loratadine 10 mg tablet 10 mg PO DAILY prednisone 20 mg tablet 40 mg PO BID mecobalamin (vitamin B12) 1,000 mcg tablet,chewable 1,000 mcg PO TID azithromycin [Zithromax] 250 mg tablet See Rx Instructions PO .COMPLEX Rx Instructions: For 250 mg dose pack: take 500 mg today (day 1), then 250 mg for 4 days (days 2-5) PO simvastatin 40 MG tablet 40 mg PO DAILY HPI General Mode of arrival: ambulatory . Date/Time Provider Initiated Documentation: 10/21/24 12:36 . Limitations to Documentation: no limitations . Information obtained by: patient . HPI Narrative: 64-year-old female with multiple medical problems including history of COPD, here with generalized weakness, chronic cough. Patient notes she has been feeling generally weak over the past few days. She states she has had a cough for the past few months. Per EMS, patient initially had O2 saturation in the 60s on room air. She was given 2 nebs and 125 mg of Solu-Medrol. Patient denies associated pain. Related Data Home Medications ?Medication ?Instructions ?Recorded ?Confirmed simvastatin 40 mg tablet 40 mg PO DAILY 06/09/13 10/21/24 albuterol 90 mcg/actuation aerosol mcg inhalation 06/17/22 10/13/24 inhaler albuterol sulfate 0.63 mg/3 mL 0.63 mg inhalation QID PRN 06/17/22 10/21/24 solution for nebulization potassium chloride 20 mEq 20 meq PO DAILY 06/17/22 10/21/24 tablet,extended release(part/cryst) furosemide 20 mg tablet (Lasix) 20 mg PO DAILY PRN 11/28/22 10/21/24 hydrochlorothiazide 25 mg tablet 25 mg PO QAM 11/28/22 10/21/24 ipratropium 0.5 mg-albuterol 3 mg 3 ml inhalation Q4H PRN 11/28/22 10/21/24 (2.5 mg base)/3 mL nebulization soln levothyroxine 75 mcg capsule 75 mcg PO DAILY 11/28/22 10/21/24 lisinopril 40 mg tablet 20 mg PO DAILY PRN 11/28/22 10/21/24 magnesium oxide 250 mg PO DAILY 11/28/22 10/21/24 ropinirole 1 mg tablet 1 mg PO TID 11/28/22 10/21/24 mecobalamin (vitamin B12) See Rx Instructions PO DIRECTED 08/15/23 10/21/24 epinephrine 0.125 mg/actuation 1 puff inhalation Q6H PRN 06/22/24 10/21/24 aerosol inhaler (Primatene Mist) azithromycin 250 mg tablet See Rx Instructions PO .COMPLEX 08/25/24 10/21/24 (Zithromax) ipratropium bromide 0.02 % 2.5 ml inhalation Q6H PRN 08/25/24 10/21/24 solution for inhalation loratadine 10 mg tablet 10 mg PO DAILY 08/25/24 10/21/24 mecobalamin (vitamin B12) 1,000 1,000 mcg PO TID 08/25/24 10/21/24 mcg chewable tablet prednisone 20 mg tablet 40 mg PO BID 08/25/24 10/21/24 Allergies Allergy/AdvReac Type Severity Reaction Status Date / Time codeine AdvReac Severe Dizziness/L Unverified 10/21/24 12:38 ightheade General Stated Complaint: SOB DAVID: 3 Review of Systems All systems reviewed & are unremarkable except as noted in HPI and below Constitutional Constitutional: Denies fever(s) Respiratory Respiratory: Reports as per HPI Exam Const General: cooperative and no acute distress HENMT Mouth: moist mucous membranes Eyes Conjunctivae: normal conjunctivae Sclera: normal sclerae EOM: EOM intact bilaterally Neck Neck: trachea midline and supple Resp Effort & Inspection: not able to speak in complete sentences and labored Auscultation: no rales, rhonchi and wheezes expiratory wheezes Cardio Jugular venous pressure: no JVD Rate: regular rate and not tachycardic Rhythm: regular rhythm Heart Sounds: S1 normal, S2 normal, no murmurs and no rubs GI Palpation: soft, not firm, no guarding, no masses, not rigid and nontender Skin General skin exam: no rashes or lesions noted Neuro General: patient alert, patient awake and tone normal Extrem General: no calf tenderness and no edema Psych Appearance: grossly normal Mental Status: mental status grossly normal Speech and Movement: speech and movement normal Course Vital Signs Vital signs: Vital Signs Pulse 78 10/21/24 12:33 Respiratory Rate 18 10/21/24 12:33 Pulse Oximetry 90 L 10/21/24 12:33 Pulse 78 10/21/24 12:33 Respiratory Rate 24 10/21/24 12:37 Respiratory Effort Short of Breath 10/21/24 12:37 Respiratory Depth Normal 10/21/24 12:37 Respiratory Pattern Normal 10/21/24 12:37 Pulse Oximetry 90 L 10/21/24 12:33 Oxygen Delivery Method Room Air 10/21/24 12:33 Oxygen Flow Rate 0 10/21/24 12:33 Medical Decision Making 64-year-old female with multiple medical problems including history of COPD, here with generalized weakness, chronic cough. EKG was reviewed and interpreted by me: Please report, sinus rhythm 73 bpm, borderline prolonged [place] interval at 212. Prolonged QT interval at 515. Chest x-ray was reviewed interpreted by radiology: Increased markings both lung purvis but these are probably exaggerated by the portable AP technique here. There are no pleural effusions. No air bronchograms. Plan to proceed to CT chest for better visualization. Labs reviewed and hyponatremia and hypokalemia and hypomagnesemia noted. Will replete with IV potassium and IV magnesium. COVID flu RSV negative. 1700 --CT the chest was interpreted by radiology: 1. Mild right lower lobe infiltrate in the posterior basal segment. No associated pleural effusion Patient has had an acute change in condition. She is now very difficult to arouse. No focal deficits. Hemodynamically stable. She is saturating in the low 90s on 3 to 4 L nasal cannula. Maintaining airway. Continuous capnography was applied. Plan to check VBG. Plan to obtain CT of the head to assess for acute intracranial pathology. Patient will require admission. Plan to initiate treatment with ceftriaxone and azithromycin. Lab Data Lab results reviewed: Yes I reviewed the patient's lab results. Labs: 10/21/24 14:50 Blood Blood Culture - Pending 10/21/24 13:25 Blood Blood Culture - Pending Laboratory Tests Range/Units 10/21/24 10/21/24 12:40 13:26 WBC (4.4-10.8) 10^3/uL 9.20 RBC (3.93-5.22) 10^6/uL 6.21 H Hgb (11.2-15.7) g/dL 17.2 H Hct (36.0-46.0) % 50.7 H MCV (80-95) fL 82 MCH (27.0-33.0) pg 27.7 MCHC (32.0-36.0) % 33.9 RDW (11.7-14.6) % 13.4 Plt Count (130-400) 10^3/uL 279 MPV (8.0-11.0) fL 9.6 Immature Gran % % 0.7 Neutrophils % % 75.1 Lymphocytes % % 12.1 Monocytes % % 8.4 Eosinophils % % 3.4 Basophils % % 0.3 Nucleated RBC % (0.0-0.3) % 0.0 Absolute Neutrophils (1.2-6.7) 10^3/uL 6.92 H Absolute Lymphocytes (1.2-3.4) 10^3/uL 1.11 L Absolute Monocytes (0.1-0.8) 10^3/uL 0.77 Absolute Eosinophils (0.0-0.7) 10^3/uL 0.31 Absolute Basophils (0.0-0.2) 10^3/uL 0.03 RBC Morphology Normal VBG Lactate (<or=2.0) mmol/L 1.2 Sodium (136-145) mmol/L 120 L* Potassium (3.5-5.1) mmol/L 2.4 L* Chloride (98-107) mmol/L 76 L Carbon Dioxide (21.0-32.0) mmol/L > 45.0 H Anion Gap (3-11) mmol/L -1.50895 L BUN (7-18) mg/dL 20 H Creatinine (0.55-1.02) mg/dL 0.7 Est GFR (CKD-EPI 2020) (mL/min/1.73m2) 95.32 Glucose (74-106) mg/dL 132 H Calcium (8.5-10.1) mg/dL 8.6 Magnesium (1.8-2.4) mg/dL 1.6 L Total Bilirubin (0.2-1.0) mg/dL 0.5 AST (15-37) U/L 20 ALT (14-59) U/L 11 L Alkaline Phosphatase (46-116) U/L 85 Troponin I (<or=51) ng/L 23 Total Protein (6.4-8.2) g/dL 7.4 Albumin (3.4-5.0) g/dL 3.7 COVID-19 Source Nasopharynx SARS-CoV-2 (PCR) (Negative) Negative Influenza Type A (PCR) (Negative) Negative Influenza Type B (PCR) (Negative) Negative RSV (PCR) (Negative) Negative Quality:SDOH Health Related Social Needs: No Data to Display PFSH All Active Problems (Updated 10/21/24 @ 15:42 by Xavier Castellano MD) Prolonged QT interval (Acute) Hyponatremia (Acute) Hypokalemia (Acute) Hypomagnesemia (Acute) Impacted cerumen of right ear (Acute) COPD with hypoxia (Acute) 2024: Declines home oxygen Nicotine dependence (Acute) Anxiety (Chronic) Localized edema (Acute) Partial atrioventricular block (Acute) Bilateral leg edema (Acute) Hypothyroidism (acquired) (Acute) Situational anxiety (Acute) GERD (gastroesophageal reflux disease) (Chronic) RLS (restless legs syndrome) (Acute) Onychocryptosis (Acute) Thrombocytopenia (Acute) Fatty liver (Acute) DVT prophylaxis (Acute) COPD (chronic obstructive pulmonary disease) (Chronic) Depression (Chronic) Tobacco abuse (Chronic) Hypertension (Chronic) Hyperlipidemia (Chronic) Alcoholism (Chronic) Currently abstinent x2 weeks. Medical History Essential hypertension Hypothyroid Fatigue Acute upper respiratory infection History of alcohol abuse Mammogram abnormal HPV in female LGSIL on Pap smear of cervix Bronchitis Viral URI COPD exacerbation HCAP (healthcare-associated pneumonia) Dehydration Hypomagnesemia Nausea & vomiting Bright red blood per rectum Gallstones Lactic acidosis Anemia Hypokalemia Recurrent Hyponatremia Recurrent Left lower lobe pneumonia (06/09/13) Surgical History History of tonsillectomy H/O section Family History Father , age82 COPD (chronic obstructive pulmonary disease) Sister Lymphedema Sister , age 59 COPD (chronic obstructive pulmonary disease) Son Autism high functioning Daughter CHD (coronary heart disease) Social History Smoking/Tobacco Use Status: Current every day Tobacco Type: cigarettes Smoking risk assessment performed?: Yes Alcohol Intake: current Alcohol Intake frequency: 3 or more drinks per day Drug use: Never Substance use type: does not use Do you feel safe at home: Yes Do you feel safe in your relationship?: Yes
[2024-10-21 12:54] LABS: Lactate 1.2 mmol/L (<or=2.0)
[2024-10-21 12:57] LABS: Abs Immature Grans 0.06 10^3/uL (0.0-0.06); Absolute Basophil Count 0.03 10^3/uL (0.0-0.2); Absolute Eosinophil Count 0.31 10^3/uL (0.0-0.7); Absolute Lymphocyte Count 1.11 10^3/uL (1.2-3.4); Absolute Monocyte Count 0.77 10^3/uL (0.1-0.8); Absolute Neutrophil Count 6.92 10^3/uL (1.2-6.7); Basophils % 0.3 %; Eosinophils % 3.4 %; HCT 50.7 % (36.0-46.0); HGB 17.2 g/dL (11.2-15.7); Immature Grans % 0.7 %; Lymphocytes % 12.1 %; MCH 27.7 pg (27.0-33.0); MCHC 33.9 % (32.0-36.0); MCV 82 fL (80-95); MPV 9.6 fL (8.0-11.0); Monocytes % 8.4 %; Neutrophils % 75.1 %; RBC 6.21 10^6/uL (3.93-5.22); RDW 13.4 % (11.7-14.6); RDW-SD 39.3 fL
[2024-10-21 13:14] LABS: ALT 11 U/L (14-59); AST 20 U/L (15-37); Albumin 3.7 g/dL (3.4-5.0); Alkaline Phosphatase 85 U/L (46-116); BUN 20 mg/dL (7-18); Bilirubin, Total 0.5 mg/dL (0.2-1.0); CREATININE 0.7 mg/dL (0.55-1.02); Calcium 8.6 mg/dL (8.5-10.1); Chloride 76 mmol/L (98-107); Estimated GFR 95.32 (mL/min/1.73m2); Glucose 132 mg/dL (74-106); Magnesium 1.6 mg/dL (1.8-2.4); Total Protein 7.4 g/dL (6.4-8.2); Troponin I 23 ng/L (<or=51)
[2024-10-21 13:24] LABS: Anion Gap -1.00001 mmol/L (3-11); CO2 > 45.0 mmol/L (21.0-32.0)
[2024-10-21 13:25] LABS: Diff Comment Diff Reviewed; Platelet Count 279 10^3/uL (130-400); RBC Morphology Normal
[2024-10-21 13:27] LABS: Potassium 2.4 mmol/L (3.5-5.1); Sodium 120 mmol/L (136-145)
[2024-10-21 14:24] LABS: COVID-19 PCR Negative (Negative); Influenza A PCR Negative (Negative); Influenza B PCR Negative (Negative); RSV PCR Negative (Negative)
[2024-10-21 14:27] LABS: Source Nasopharynx
--- NOTE | 2024-10-21 14:30 | DI.CT_ITS ---
Exam(s) CT CHEST W EXAM: CT CHEST W CLINICAL HISTORY: cough, shortness of breath. TECHNIQUE: Multi planar reconstructions were performed. CONTRAST MATERIAL: Omnipaque 350; 70 cc COMPARISON: CT CT CHEST PE ABD PELVIS W from 11/04/2018 Also chest x-ray earlier today. FINDINGS: CHEST: LUNGS: There is COPD emphysematous changes in the upper lung purvis. There are no large confluent in filtrates nor pleural effusions. Mild increased subpleural markings are noted in the posterior basal segment of the right lower lobe. MEDIASTINUM: There is no hilar nor mediastinal adenopathy. Visualized thyroid unremarkable. CARDIAC: Heart size is normal. There is no pericardial effusion.Caliber of the thoracic aorta is wit hin normal limits. No evidence of aortic dissection. VISUALIZED UPPER ABDOMEN:Hypodense nodular densities noted in the left adrenal gland. Probably was p resent on CT scan of 2019 but blurred at that time from respiratory motion artifact; less blurring on the present study. The opposite-right adrenal gland remains unremarkable. There is a cyst or heman gioma in the medial aspect of the right hepatic lobe adjacent to the IVC, this measuring 3 by 2.5 cm. Difficult to evaluate on this type of study. OSSEOUS: No significant osseous lesions.No fractures evident.. IMPRESSION: 1. Mild right lower lobe infiltrate in the posterior basal segment. No associated pleural effusion Discussed by phone with ER physician 10/21/2024 at 4:25 p.m. RADIATION DOSE DELIVERED: 472.19mGy.cm Total DLP DATA REPOSITORY: All CT scans at this facility are submitted to the National Radiology Data Registry (NRDR) Dose Index Registry (DIR) with the [employer] ([employer]). RADIATION OPTIMIZATION: All CT scans at this facility use at least one of these dose optimization te chniques: automated exposure control; mA and/or kV adjustment per patient size (includes targeted exa ms where dose is matched to clinical indication); or iterative reconstruction.
[2024-10-21] MEDS: Albuterol/Ipratropium 3 ML UPD VIAL UPD ×2 (15:33→18:23)
[2024-10-21] MEDS: POTASSIUM CHLORIDE 20 MEQ/100 ML BAG 50 MEQ IV_INF ×2 (15:34→18:18)
[2024-10-21] MEDS: MAGNESIUM SULFATE 1 GM/100 ML BAG IV_INF (15:34)
[2024-10-21] MEDS: Omnipaque 350 MG/ML 100 ML BTL 75 ML IJ (15:43)
[2024-10-21 17:07] LABS: BE (Venous) 21 mmol/L (-2-3); HCO3 (Venous) 48 mmol/L (23-28); O2 Sat (Venous) 97 %; TCO2 (Venous) 43 mmol/L (24-29); pH (Venous) 7.26 (7.31-7.41); pO2 (Venous) 97 mmHg
[2024-10-21 17:16] LABS: pCO2 (Venous) > 105 mmHg (41-51)
--- NOTE | 2024-10-21 17:23 | W.EDPROG ---
Date of service: 10/21/24 Time of Service: 17:23 Medical Decision Making I received signout at bedside on this 64-year-old female with COPD here with generalized weakness, cough, shortness of breath and new altered mental status. CT of the chest shows mild right lower lobe infiltrate. Antibiotics have been ordered. Concern now is for acute mental status changes. CT of the head is pending. VBG shows hypercapnia. RT has been consulted and will initiate BiPAP. 5:35 PM Patient was minimally responsive on BiPAP but improved with jaw thrust and sternal rubs. Will repeat VBG. I ordered a bolus of hypertonic saline, 150cc 3% over 20 minutes. 7:09 PM Repeat venous gas with resolved acidemia and improved hypercarbia. I was in touch w/Dr. Cespedes from the hospitalist team who graciously agreed to accept the patient for hospitalization. She had received treatment for community-acquired pneumonia with ceftriaxone and azithromycin. Blood cultures have been ordered. CT brain read as reassuring. 8:30 PM Prior to going upstairs to the ICU on rescue BiPAP patient was noted to have a rectal temp of 94.6 ?F. She continued to be alert. She was placed on a Diane hugger. I repeated the lactate which was within normal limits at 1.5 mmol/L. Quality:SDOH Health Related Social Needs: No Data to Display Discharge Plan Discharge Details Chief Complaint: SOB Clinical Impression: Hypomagnesemia, Hypokalemia, Hyponatremia, Prolonged QT interval, Acute respiratory failure with hypoxia and hypercapnia, Community acquired pneumonia of right lower lobe of lung Admit Date/Time: 10/21/24 18:54 Admit Provider: Tristan Cespedes Attending Provider: Tristan Cespedes Primary Care Provider: SILVA PRATHER ED Provider: Parrish Miranda Discharge Data Discharge Date/Time-TO BE ENTERED AT DEPARTURE: 10/21/24 21:04
[2024-10-21] MEDS: cefTRIAXone 2 GM/50 ML BAG IVPB (17:25)
[2024-10-21] MEDS: SODIUM CHLORIDE 3% 150 ML 450 ML IV INF (18:14)
[2024-10-21 18:17] LABS: BE (Venous) 20 mmol/L (-2-3); HCO3 (Venous) 45 mmol/L (23-28); O2 Sat (Venous) 81 %; TCO2 (Venous) 39 mmol/L (24-29); pH (Venous) 7.38 (7.31-7.41); pO2 (Venous) 46 mmHg
[2024-10-21 18:22] LABS: pCO2 (Venous) 77 mmHg (41-51)
--- NOTE | 2024-10-21 18:31 | NUR.NOTE ---
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 PO K unable to be administered r/t this, BIPAP initiated by RT. PO K not given.
--- NOTE | 2024-10-21 18:50 | DI.CT_ITS ---
Exam(s) CT HEAD WO EXAM: CT HEAD WO CLINICAL HISTORY: altered mentation. TECHNIQUE: Imaging Protocol: Axial computed tomography images with coronal and sagittal reformatted images were created and reviewed COMPARISON: No exams were available for comparison FINDINGS: There are no skull fractures. There is no fluid in the visualized paranasal sinuses. There is no evidence of intracranial hemorrhage, mass effect, or shift of midline structures. There are no extra-axial fluid collections. The ventricles are not enlarged or shifted and there is no blo od within the ventricular system nor within the basal cisterns. There does appear to be an element of cerebellar atrophy when compared to the supratentorial compartm ent.. IMPRESSION: Suboptimal study due to positioning in the gantry as the patient was apparently not able to be ashley ative. No evidence of intracranial hemorrhage nor midline shift. Cerebellar atrophy noted. Findings discussed by phone with ER physician 10/21/2024 at 7:10 p.m. RADIATION DOSE DELIVERED: 907.86mGy.cm Total DLP DATA REPOSITORY: All CT scans at this facility are submitted to the National Radiology Data Registry (NRDR) Dose Index Registry (DIR) with the [employer] (ACR). RADIATION OPTIMIZATION: All CT scans at this facility use at least one of these dose optimization te chniques: automated exposure control; mA and/or kV adjustment per patient size (includes targeted exa ms where dose is matched to clinical indication); or iterative reconstruction.
--- NOTE | 2024-10-21 18:56 | W.PM.HP.N ---
Date of service: 10/21/24 Time of Service: 18:56 Assessment and Plan Assessment and plan (1) Acute on chronic respiratory failure with hypoxia and hypercapnia: Status: Acute Assessment and plan: -patient with known end-stage COPD, ongoing smoker not trying to quite, chronic hypoxic resp failure who declined O2 therapy and claims to normally have O2 levels in the mid to low 80's -initial VBG showed COs >105 -repeat after initiation of BiPAP showed CO2 down to 77 -will continue BiPAP and repeat VBG in AM (2) COPD exacerbation: Status: Acute Assessment and plan: -likely cause of acute component of acute on chronic hypercapnic and hypoxic resp failure as noted above -was given nebulizers in the ED and steriods via EMS -f/u with 40mg predinisone daily -PRN albuterol, Q6hr duo nebs (3) Hyponatremia: Status: Acute Assessment and plan: -Na found to be 120 in ED -s/p 150ml of hypertonic saline in ED -f/u repeat Na level, continue to correct while being care not to exceed increase of 8mEq over first 24 hours (4) Acute metabolic encephalopathy: Status: Acute Assessment and plan: -secondary to potential combination of hyponatremia and hypercapnia as noted about (5) Community acquired pneumonia of right lower lobe of lung: Status: Acute Assessment and plan: -as seen on chest imaging -does not meet criteria for sepsis -was started on azithro and CTX, will continue (6) Hypokalemia: Status: Acute Assessment and plan: - Potassium 2.4 in the emergency department, improved to 3.0 after 20 mEq IV and 20 p.o. - Follow-up a.m. potassium and replete as needed (7) Hypomagnesemia: Status: Acute Assessment and plan: - Magnesium 1.6 in the emergency department - Status post 1 g IV - Follow-up a.m. magnesium (8) Nicotine dependence: Status: Acute Assessment and plan: - Reported history of smoking without interest in quitting - Recommend ongoing discussions with PCP (9) Hypothyroidism (acquired): Status: Acute Assessment and plan: - Continue home Synthroid (10) RLS (restless legs syndrome): Status: Acute Assessment and plan: - Hold home ropinirole while patient remains somnolent History of Present Illness History of Present Illness Chief Complaint: shortness of breath Narrative: 64-year-old female with past medical history of COPD, ongoing smoking without interest in quitting, chronic hypoxic respiratory failure who refuses to use home oxygen and reportedly lives in the low to mid 80s, who presents to the emergency department generally feeling weak over the last few days. Patient states she has had a cough for the last few months and has been feeling weaker over the last few days. Additional information was obtained from the patient's daughter who stated that she has not been feeling well over the last few days and refused to seek medical care. Patient denied any headache, lightheadedness, fevers, nausea vomiting or diarrhea. Per EMS the patient had oxygen saturation in the 60s on room air and was given 2 nebulizers and IV Solu-Medrol. In the emergency department VBG was performed and showed that patient's CO2 was greater than 105 she was placed on BiPAP which did significantly improve her CO2 levels down to 70 however the patient remained somnolent. Additionally, the patient was noted as having a sodium of the 120 for which she was given 125 mL of hypertonic saline which improved her sodium level to 124. Additionally, CBC was unremarkable, CMP showed potassium level of 2.6 which was repleted, magnesium of 1.6 for which the patient also received IV magnesium, and chest imaging that showed right middle lobe pneumonia for which the patient was started on azithromycin and ceftriaxone. At which time emergency room provider paged hospitalist for admission for patient with acute on chronic hypoxic and hypercapnic respiratory failure secondary to COPD exacerbation and community-acquired pneumonia. Review of Systems All systems reviewed & are unremarkable except as noted in HPI and below PFSH All Active Problems (Updated 10/21/24 @ 20:43 by PIERCE FREEMAN) Acute metabolic encephalopathy (Acute) COPD exacerbation (Acute) Acute on chronic respiratory failure with hypoxia and hypercapnia (Acute) Community acquired pneumonia of right lower lobe of lung (Acute) Acute respiratory failure with hypoxia and hypercapnia (Acute) Prolonged QT interval (Acute) Hyponatremia (Acute) Hypokalemia (Acute) Hypomagnesemia (Acute) Impacted cerumen of right ear (Acute) COPD with hypoxia (Acute) 2024: Declines home oxygen Nicotine dependence (Acute) Anxiety (Chronic) Localized edema (Acute) Partial atrioventricular block (Acute) Bilateral leg edema (Acute) Hypothyroidism (acquired) (Acute) Situational anxiety (Acute) GERD (gastroesophageal reflux disease) (Chronic) RLS (restless legs syndrome) (Acute) Onychocryptosis (Acute) Thrombocytopenia (Acute) Fatty liver (Acute) DVT prophylaxis (Acute) COPD (chronic obstructive pulmonary disease) (Chronic) Depression (Chronic) Tobacco abuse (Chronic) Hypertension (Chronic) Hyperlipidemia (Chronic) Alcoholism (Chronic) Currently abstinent x2 weeks. Medical History Essential hypertension Hypothyroid Fatigue Acute upper respiratory infection History of alcohol abuse Mammogram abnormal HPV in female LGSIL on Pap smear of cervix Bronchitis Viral URI COPD exacerbation HCAP (healthcare-associated pneumonia) Dehydration Hypomagnesemia Nausea & vomiting Bright red blood per rectum Gallstones Lactic acidosis Anemia Hypokalemia Recurrent Hyponatremia Recurrent Left lower lobe pneumonia (06/09/13) Surgical History History of tonsillectomy H/O section Family History Father , age82 COPD (chronic obstructive pulmonary disease) Sister Lymphedema Sister , age 59 COPD (chronic obstructive pulmonary disease) Son Autism high functioning Daughter CHD (coronary heart disease) Social History Smoking/Tobacco Use Status: Current every day Tobacco Type: cigarettes Smoking risk assessment performed?: Yes Alcohol Intake: current Alcohol Intake frequency: 3 or more drinks per day Drug use: Never Substance use type: does not use Do you feel safe at home: Yes Do you feel safe in your relationship?: Yes Meds Allergies and Home Medications Allergies Allergy/AdvReac Type Severity Reaction Status Date / Time codeine AdvReac Severe Dizziness/L Unverified 10/21/24 12:38 ightheade Home Medications ?Medication ?Instructions ?Recorded ?Confirmed ?Type simvastatin 40 mg tablet 40 mg PO DAILY 06/09/13 10/21/24 History albuterol 90 mcg/actuation aerosol mcg inhalation 06/17/22 10/13/24 History inhaler albuterol sulfate 0.63 mg/3 mL 0.63 mg inhalation QID PRN 06/17/22 10/21/24 History solution for nebulization potassium chloride 20 mEq 20 meq PO DAILY 06/17/22 10/21/24 History tablet,extended release(part/cryst) furosemide 20 mg tablet (Lasix) 20 mg PO DAILY PRN 11/28/22 10/21/24 History hydrochlorothiazide 25 mg tablet 25 mg PO QAM 11/28/22 10/21/24 History ipratropium 0.5 mg-albuterol 3 mg 3 ml inhalation Q4H PRN 11/28/22 10/21/24 History (2.5 mg base)/3 mL nebulization soln levothyroxine 75 mcg capsule 75 mcg PO DAILY 11/28/22 10/21/24 History lisinopril 40 mg tablet 20 mg PO DAILY PRN 11/28/22 10/21/24 History magnesium oxide 250 mg PO DAILY 11/28/22 10/21/24 History ropinirole 1 mg tablet 1 mg PO TID 11/28/22 10/21/24 History mecobalamin (vitamin B12) See Rx Instructions PO DIRECTED 08/15/23 10/21/24 History epinephrine 0.125 mg/actuation 1 puff inhalation Q6H PRN 06/22/24 10/21/24 History aerosol inhaler (Primatene Mist) azithromycin 250 mg tablet See Rx Instructions PO .COMPLEX 08/25/24 10/21/24 History (Zithromax) ipratropium bromide 0.02 % 2.5 ml inhalation Q6H PRN 08/25/24 10/21/24 History solution for inhalation loratadine 10 mg tablet 10 mg PO DAILY 08/25/24 10/21/24 History mecobalamin (vitamin B12) 1,000 1,000 mcg PO TID 08/25/24 10/21/24 History mcg chewable tablet prednisone 20 mg tablet 40 mg PO BID 08/25/24 10/21/24 History Exam Narrative Exam Narrative: Acutely ill-appearing older female laying in bed, fatigued, responsive to loud verbal stimuli, BiPAP mask in place, heart regular rhythm, lungs with end expiratory wheezing throughout, abdomen soft, nontender, nondistended Results Labs 10/21/24 12:40 10/21/24 20:05 Labs: Laboratory Results - last 24 hr 10/21/24 10/21/24 10/21/24 12:40 13:26 16:59 WBC 9.20 RBC 6.21 H Hgb 17.2 H Hct 50.7 H MCV 82 MCH 27.7 MCHC 33.9 RDW 13.4 Plt Count 279 MPV 9.6 Immature Gran % 0.7 Neutrophils % 75.1 Lymphocytes % 12.1 Monocytes % 8.4 Eosinophils % 3.4 Basophils % 0.3 Nucleated RBC % 0.0 Absolute Neutrophils 6.92 H Absolute Lymphocytes 1.11 L Absolute Monocytes 0.77 Absolute Eosinophils 0.31 Absolute Basophils 0.03 RBC Morphology Normal VBG pH 7.26 L VBG pCO2 > 105 H* VBG pO2 97 VBG HCO3 48 H VBG Total CO2 43 H VBG O2 Saturation 97 VBG Base Excess 21 H VBG Lactate 1.2 Sodium 120 L* Potassium 2.4 L* Chloride 76 L Carbon Dioxide > 45.0 H Anion Gap -1.83324 L BUN 20 H Creatinine 0.7 Est GFR (CKD-EPI 2020) 95.32 Glucose 132 H Calcium 8.6 Magnesium 1.6 L Total Bilirubin 0.5 AST 20 ALT 11 L Alkaline Phosphatase 85 Troponin I 23 Total Protein 7.4 Albumin 3.7 COVID-19 Source Nasopharynx SARS-CoV-2 (PCR) Negative Influenza Type A (PCR) Negative Influenza Type B (PCR) Negative RSV (PCR) Negative 10/21/24 18:14 WBC RBC Hgb Hct MCV MCH MCHC RDW Plt Count MPV Immature Gran % Neutrophils % Lymphocytes % Monocytes % Eosinophils % Basophils % Nucleated RBC % Absolute Neutrophils Absolute Lymphocytes Absolute Monocytes Absolute Eosinophils Absolute Basophils RBC Morphology VBG pH 7.38 VBG pCO2 77 H* VBG pO2 46 VBG HCO3 45 H VBG Total CO2 39 H VBG O2 Saturation 81 VBG Base Excess 20 H VBG Lactate Sodium Potassium Chloride Carbon Dioxide Anion Gap BUN Creatinine Est GFR (CKD-EPI 2020) Glucose Calcium Magnesium Total Bilirubin AST ALT Alkaline Phosphatase Troponin I Total Protein Albumin COVID-19 Source SARS-CoV-2 (PCR) Influenza Type A (PCR) Influenza Type B (PCR) RSV (PCR) Last Vital Signs Pulse 69 10/21/24 18:31 Resp 23 10/21/24 18:31 BP 135/83 10/21/24 18:31 Pulse Ox 92 10/21/24 18:31 Time Spent Time spent with Patient: >75 minutes Time was spent: preparing to see the patient(eg.review tests), obtaining and/or reviewing separately otained hiistory, ordering medications,tests, procedures, referring, communicating with other health nanny caregiver, indepentently interpreting results, counseling the patient and care coordination
[2024-10-21] MEDS: AZITHROMYCIN 500 MG in Normal Saline 250 ML 250 MG IVPB (19:56)
[2024-10-21 20:22] LABS: Anion Gap 1.5 mmol/L (3-11); BUN 18 mg/dL (7-18); CO2 44.5 mmol/L (21.0-32.0); CREATININE 0.5 mg/dL (0.55-1.02); Calcium 8.8 mg/dL (8.5-10.1); Chloride 78 mmol/L (98-107); Estimated GFR 103.38 (mL/min/1.73m2); Glucose 137 mg/dL (74-106)
[2024-10-21 20:25] LABS: Sodium 124 mmol/L (136-145)
[2024-10-21 20:27] LABS: Lactate 1.5 mmol/L (<or=2.0)
--- NOTE | 2024-10-21 20:31 | NUR.NOTE ---
Nursing Note:pt placed on bear hugger for warming on med per MD
[2024-10-21] MEDS: Normal Saline Flush 10 ML SYR IVP (22:09)
[2024-10-21] MEDS: methylPREDNISolone SUCC 125 MG VIAL IVP (22:09)
[2024-10-22] VITALS (51 sets, daily range): BP systolic 102–119; BP diastolic 58–77; PULSE 67–102; RESP 5–28; TEMP 36.3–37.1; O2SAT 84–94
[2024-10-22] MEDS: Albuterol/Ipratropium 3 ML UPD VIAL UPD ×4 (00:21→18:30)
--- NOTE | 2024-10-22 03:11 | W.PC.ACHO ---
Registration Status: Primary Language: Preferred Language: ED Information & Data Chief Complaint SOB 10/21/24 14:36 Triage Note BIBA, initially o2 sat in 10/21/24 12:33 the 60s on RA. EMS gave 2 nebs and 125 of solumedrol. Pt states that she is dizzy. No CP. 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 LGSIL on Pap smear of cervix Bronchitis Viral URI HCAP (healthcare-associated pneumonia) Dehydration Hypomagnesemia Nausea & vomiting Bright red blood per rectum Gallstones Lactic acidosis Anemia Hypokalemia Hyponatremia Left lower lobe pneumonia (06/09/13) (Last Reviewed 10/21/24 @ 15:40 by Xavier Castellano MD) History of tonsillectomy H/O section Most Recent Vital Signs Temperature 36.7 C 10/21/24 23:55 Temperature Source Tympanic 10/21/24 23:55 Pulse 92 H 10/22/24 02:06 Pulse 92 H 10/22/24 02:01 Respiratory Rate 25 H 10/22/24 02:06 Respiratory Effort Short of Breath, Labored, Accessory Muscle Use, Incrsd Work of Breathing 10/21/24 21:00 Respiratory Depth Normal 10/21/24 12:37 Respiratory Pattern Normal 10/21/24 21:00 Blood Pressure 108/75 10/22/24 02:01 Blood Pressure Mean 86 10/22/24 02:01 Blood Pressure Position Supine 10/21/24 21:00 Pulse Oximetry 88 L 10/22/24 02:06 Respiratory End-tidal CO2 54 10/21/24 17:10 Oxygen Delivery Method Bi-pap 10/21/24 23:55 Oxygen Flow Rate 0 10/21/24 12:33 Fraction of Inspired Oxygen (FIO2) 35 10/22/24 02:06 Pain Level 0 10/21/24 21:00 Allergies codeine Adverse Reaction (Severe, Unverified 10/21/24 12:38) Dizziness/Lightheade pass out Precautions Isolation Seizure precaution 10/21/24 12:36 Active Medications Generic Name Dose Route Start Last Admin Trade Name Freq PRN Reason Stop Dose Admin Albuterol/Ipratropium 3 ml 10/22/24 00:00 10/22/24 00:21 Albuterol/Ipratropium 3 Ml Upd Vial UPD 3 ml Q6H MARLENA Administration Iohexol 75 ml 10/21/24 15:45 10/21/24 15:43 Omnipaque 350 Mg/Ml 100 Ml Btl IJ 11/20/24 23:59 75 ml DIRECTED MARLENA Administration Sodium Chloride 0 ml 10/21/24 20:00 10/21/24 22:09 Normal Saline Flush 10 Ml Syr IVP 20 ml BID MARLENA Administration IV IV Catheter Type [Right Hand] Diffusics IV Catheter Type [Left Hand] Diffusics IV Catheter Type [Right Wrist] Saline Lock IV Catheter Type [Left Wrist] Saline Lock IV Catheter Gauge [Right Hand] 20 IV Catheter Gauge [Left Hand] 20 IV Catheter Gauge [Right Wrist 18 ] IV Catheter Gauge [Left Wrist] 20 Diet Orders Category Date Time Status Regular/Normal [DIET] Nutrition 10/22/24 Breakfast Active Diagnostics 10/22/24 10/21/24 10/21/24 Range/Units 05:35 20:24 20:05 WBC Pending (4.4-10.8) 10^3/uL RBC Pending (3.93-5.22) 10^6/uL Hgb Pending (11.2-15.7) g/dL Hct Pending (36.0-46.0) % MCV Pending (80-95) fL MCH Pending (27.0-33.0) pg MCHC Pending (32.0-36.0) % RDW Pending (11.7-14.6) % Plt Count Pending (130-400) 10^3/uL MPV Pending (8.0-11.0) fL Immature Gran % % Neutrophils % % Lymphocytes % % Monocytes % % Eosinophils % % Basophils % % Nucleated RBC % (0.0-0.3) % Absolute Neutrophils (1.2-6.7) 10^3/uL Absolute Lymphocytes (1.2-3.4) 10^3/uL Absolute Monocytes (0.1-0.8) 10^3/uL Absolute Eosinophils (0.0-0.7) 10^3/uL Absolute Basophils (0.0-0.2) 10^3/uL RBC Morphology VBG pH Pending (7.31-7.41) VBG pCO2 Pending (41-51) mmHg VBG pO2 Pending mmHg VBG HCO3 Pending (23-28) mmol/L VBG Total CO2 Pending (24-29) mmol/L VBG O2 Saturation Pending % VBG Base Excess Pending (-2-3) mmol/L VBG Lactate 1.5 (<or=2.0) mmol/L Sodium Pending 124 L* (136-145) mmol/L Potassium Pending 3.0 L (3.5-5.1) mmol/L Chloride Pending 78 L (98-107) mmol/L Carbon Dioxide Pending 44.5 H (21.0-32.0) mmol/L Anion Gap Pending 1.5 L (3-11) mmol/L BUN Pending 18 (7-18) mg/dL Creatinine Pending 0.5 L (0.55-1.02) mg/dL Est GFR (CKD-EPI 2020) Pending 103.38 (mL/min/1.73m2) Glucose Pending 137 H (74-106) mg/dL Calcium Pending 8.8 (8.5-10.1) mg/dL Magnesium (1.8-2.4) mg/dL Total Bilirubin (0.2-1.0) mg/dL AST (15-37) U/L ALT (14-59) U/L Alkaline Phosphatase (46-116) U/L Troponin I (<or=51) ng/L Total Protein (6.4-8.2) g/dL Albumin (3.4-5.0) g/dL COVID-19 Source SARS-CoV-2 (PCR) (Negative) Influenza Type A (PCR) (Negative) Influenza Type B (PCR) (Negative) RSV (PCR) (Negative) Path Cons Comment 10/21/24 10/21/24 10/21/24 Range/Units 19:28 19:12 18:14 WBC (4.4-10.8) 10^3/uL RBC (3.93-5.22) 10^6/uL Hgb (11.2-15.7) g/dL Hct (36.0-46.0) % MCV (80-95) fL MCH (27.0-33.0) pg MCHC (32.0-36.0) % RDW (11.7-14.6) % Plt Count (130-400) 10^3/uL MPV (8.0-11.0) fL Immature Gran % % Neutrophils % % Lymphocytes % % Monocytes % % Eosinophils % % Basophils % % Nucleated RBC % (0.0-0.3) % Absolute Neutrophils (1.2-6.7) 10^3/uL Absolute Lymphocytes (1.2-3.4) 10^3/uL Absolute Monocytes (0.1-0.8) 10^3/uL Absolute Eosinophils (0.0-0.7) 10^3/uL Absolute Basophils (0.0-0.2) 10^3/uL RBC Morphology VBG pH 7.38 (7.31-7.41) VBG pCO2 77 H* (41-51) mmHg VBG pO2 46 mmHg VBG HCO3 45 H (23-28) mmol/L VBG Total CO2 39 H (24-29) mmol/L VBG O2 Saturation 81 % VBG Base Excess 20 H (-2-3) mmol/L VBG Lactate (<or=2.0) mmol/L Sodium Cancelled Cancelled (136-145) mmol/L Potassium Cancelled Cancelled (3.5-5.1) mmol/L Chloride Cancelled Cancelled (98-107) mmol/L Carbon Dioxide Cancelled Cancelled (21.0-32.0) mmol/L Anion Gap Cancelled Cancelled (3-11) mmol/L BUN Cancelled Cancelled (7-18) mg/dL Creatinine Cancelled Cancelled (0.55-1.02) mg/dL Est GFR (CKD-EPI 2020) Cancelled Cancelled (mL/min/1.73m2) Glucose Cancelled Cancelled (74-106) mg/dL Calcium Cancelled Cancelled (8.5-10.1) mg/dL Magnesium (1.8-2.4) mg/dL Total Bilirubin (0.2-1.0) mg/dL AST (15-37) U/L ALT (14-59) U/L Alkaline Phosphatase (46-116) U/L Troponin I (<or=51) ng/L Total Protein (6.4-8.2) g/dL Albumin (3.4-5.0) g/dL COVID-19 Source SARS-CoV-2 (PCR) (Negative) Influenza Type A (PCR) (Negative) Influenza Type B (PCR) (Negative) RSV (PCR) (Negative) Path Cons Comment 10/21/24 10/21/24 10/21/24 Range/Units 16:59 13:26 12:40 WBC 9.20 (4.4-10.8) 10^3/uL RBC 6.21 H (3.93-5.22) 10^6/uL Hgb 17.2 H (11.2-15.7) g/dL Hct 50.7 H (36.0-46.0) % MCV 82 (80-95) fL MCH 27.7 (27.0-33.0) pg MCHC 33.9 (32.0-36.0) % RDW 13.4 (11.7-14.6) % Plt Count 279 (130-400) 10^3/uL MPV 9.6 (8.0-11.0) fL Immature Gran % 0.7 % Neutrophils % 75.1 % Lymphocytes % 12.1 % Monocytes % 8.4 % Eosinophils % 3.4 % Basophils % 0.3 % Nucleated RBC % 0.0 (0.0-0.3) % Absolute Neutrophils 6.92 H (1.2-6.7) 10^3/uL Absolute Lymphocytes 1.11 L (1.2-3.4) 10^3/uL Absolute Monocytes 0.77 (0.1-0.8) 10^3/uL Absolute Eosinophils 0.31 (0.0-0.7) 10^3/uL Absolute Basophils 0.03 (0.0-0.2) 10^3/uL RBC Morphology Normal VBG pH 7.26 L (7.31-7.41) VBG pCO2 > 105 H* (41-51) mmHg VBG pO2 97 mmHg VBG HCO3 48 H (23-28) mmol/L VBG Total CO2 43 H (24-29) mmol/L VBG O2 Saturation 97 % VBG Base Excess 21 H (-2-3) mmol/L VBG Lactate 1.2 (<or=2.0) mmol/L Sodium 120 L* (136-145) mmol/L Potassium 2.4 L* (3.5-5.1) mmol/L Chloride 76 L (98-107) mmol/L Carbon Dioxide > 45.0 H (21.0-32.0) mmol/L Anion Gap -1.67362 L (3-11) mmol/L BUN 20 H (7-18) mg/dL Creatinine 0.7 (0.55-1.02) mg/dL Est GFR (CKD-EPI 2020) 95.32 (mL/min/1.73m2) Glucose 132 H (74-106) mg/dL Calcium 8.6 (8.5-10.1) mg/dL Magnesium 1.6 L (1.8-2.4) mg/dL Total Bilirubin 0.5 (0.2-1.0) mg/dL AST 20 (15-37) U/L ALT 11 L (14-59) U/L Alkaline Phosphatase 85 (46-116) U/L Troponin I 23 (<or=51) ng/L Total Protein 7.4 (6.4-8.2) g/dL Albumin 3.7 (3.4-5.0) g/dL COVID-19 Source Nasopharynx SARS-CoV-2 (PCR) Negative (Negative) Influenza Type A (PCR) Negative (Negative) Influenza Type B (PCR) Negative (Negative) RSV (PCR) Negative (Negative) Path Cons Comment Pending 10/21/24 14:50 Blood Culture - Pending Blood 10/21/24 13:25 Blood Culture - Pending Blood Intake and Output - 24 Hour Total 10/21/24 12:22 thru 10/22/24 01:14 Intake Total 650 Output Total 1200 Balance -550 Weight 72 kg Intake: IV 650 Output: Urine 1200 Other: Urine Color Yellow Urine Appearance Cloudy Urinary Catheter Urinary Catheter Date of 10/21/24 Insertion [Urethral (Lopez)] Time of insertion [Urethral ( 19:00 Lopez)] Falls Risk Assessment History of Falls Previous History 10/21/24 12:38 Contributing Factors Unstable 10/21/24 21:00 Ambulatory Aids Uses ambulatory device 10/21/24 12:38 Tubes/Lines None 10/21/24 21:00 Gait Evaluation W/no contributing factors 10/21/24 12:38 Cognition No cognitive impairment 10/21/24 21:00 Fall Total Score 3 10/21/24 21:00 Level of Risk Standard/Low Risk 10/21/24 21:00 Problems (Last Reviewed 10/21/24 @ 15:40 by Xavier Castellano MD) Acute metabolic encephalopathy (Acute) COPD exacerbation (Acute) Acute on chronic respiratory failure with hypoxia and hypercapnia (Acute) Community acquired pneumonia of right lower lobe of lung (Acute) Prolonged QT interval (Acute) Hyponatremia (Acute) Hypokalemia (Acute) Hypomagnesemia (Acute) Nicotine dependence (Acute) Hypothyroidism (acquired) (Acute) RLS (restless legs syndrome) (Acute) Notes 10/21/24 20:31 Nursing Notes by Sarita Bonds Nursing Note:pt placed on bear hugger for warming on med per MD Initialized on 10/21/24 20:31 - END OF NOTE 10/21/24 18:31 Nursing Notes by Sarita Bonds Nursing Note: @ ~ 1500, MD made aware pt becoming more somnolent, sternal rub w/ scrap iron cutter response. PO K unable to be administered r/t this, BIPAP initiated by RT. PO K not given. Initialized on 10/21/24 18:31 - END OF NOTE v v v v v v v v v Sending and/or Receiving Nurses: Please use comment section below to note any information pertinent to the patient hand-off not included above. Information / Comments:patient arrived to ED in respiratory failure r/t CAP. Does have end stage copd. Became somulent, and VBG obtained. Patient placed on bipap, and given breathing treatment. electrolyte imbalances were repleted in the ED. Troponins negative. Patient refused home 02 in the past, and per daughter patient usually is hypoxic sating mid 80's. goal SPO2 is 88-92. has hypothermia with core temp of 94.6. Bear hugger applied. Sepsis protocol initiated. HR and BP stable. Report received from:Mendy Bonds RN
[2024-10-22 05:44] LABS: BE (Venous) 23 mmol/L (-2-3); HCO3 (Venous) 48 mmol/L (23-28); O2 Sat (Venous) 92 %; TCO2 (Venous) 41 mmol/L (24-29); pO2 (Venous) 60 mmHg
[2024-10-22 05:45] LABS: pCO2 (Venous) 78 mmHg (41-51)
[2024-10-22] MEDS: Levothyroxine 75 MCG TAB PO (06:04)
[2024-10-22 06:06] LABS: HCT 51.6 % (36.0-46.0); HGB 16.5 g/dL (11.2-15.7); MCH 27.3 pg (27.0-33.0); MCV 85 fL (80-95); MPV 9.8 fL (8.0-11.0); Platelet Count 252 10^3/uL (130-400); RBC 6.05 10^6/uL (3.93-5.22); RDW 13.6 % (11.7-14.6); RDW-SD 42.3 fL; WBC 7.46 10^3/uL (4.4-10.8)
[2024-10-22 06:14] LABS: BUN 15 mg/dL (7-18); CREATININE 0.4 mg/dL (0.55-1.02); Calcium 8.8 mg/dL (8.5-10.1); Chloride 84 mmol/L (98-107); Estimated GFR 109.09 (mL/min/1.73m2); Glucose 95 mg/dL (74-106); Sodium 131 mmol/L (136-145)
[2024-10-22 06:24] LABS: Anion Gap 1.99999 mmol/L (3-11); CO2 > 45.0 mmol/L (21.0-32.0)
[2024-10-22] MEDS: Simvastatin 40 MG TAB PO (08:18)
[2024-10-22] MEDS: Enoxaparin 40 MG/0.4 ML SYR SC (08:18)
[2024-10-22] MEDS: Azithromycin 250 MG TAB PO (08:18)
[2024-10-22] MEDS: Loratidine 10 MG TAB PO (08:18)
[2024-10-22] MEDS: predniSONE 20 MG TAB 40 MG PO (08:18)
[2024-10-22] MEDS: Normal Saline Flush 10 ML SYR IVP ×2 (08:19→19:29)
--- NOTE | 2024-10-22 08:58 | INITIAL_ITS ---
Date of service: 10/22/24 Time of Service: 08:58 Care Management Initial Assmt Initial Assessment Reason for Hospitalization: Respiratory failure and pneumonia Functional Status/Living Situation Patient Presentation: Carolin was sitting up in a chair when CM met with her. She was pleasant in manner and agreeable to conversation. Carolin was admitted with respiratory failure, COPD and pneumonia. She does not currently use home oxygen but informed CM that she would like to start. CM explain the process and time line and shared her request with her provider. Carolin lives with her daughter Umm in [facility]. She has 3 other daughters, Vanessa, Glenny and Alysa and a son Golden. Her son has autism and primarily lives with his father but spends a lot of time with Carolin and is a big help to her. 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 She is independent at baseline and does not receive any community services. Much of the conversation with Carolin today centered around her goals of care and, in particular, end of life issues. She did not seem to have a good understanding of Palliative Care and did not seem interested in that service. She did state that she was interested in doing paperwork regarding her end of life wishes. CM talked about Healthcare Agent forms and Advanced Directives. During the course of the lengthy conversation, it became clear that Carolin remains a bit confused. Upon closer review, CM found that she has seen Palliative Care in the past and has a Healthcare Agent form on file. CM informed her about this which seemed to relieve her a bit. CM also informed her that because she is still quite ill and a bit fuzzy, this would not be the best time to do the Advanced Directives. CM read through the document out loud with Carolin so that she would know which issues were addressed and offered to help her complete them later when she is feeling better. Town of Residence: [facility] Resides with: Child (daughter Umm) Significant Other/Family: Local Employment Status: Retired Instrumental Activities of Daily Living (ADLs): Independent Medications Medication Management: No Issues/Barriers identified Advance Directives Advance Directives: Do you have an Advance Directive: N 11/13/18 16:23 AD On File at [facility]: N 11/13/18 16:23 Date Asked 10/21/24 10/21/24 20:43 AD Date Reviewed COLST On File at [facility] COLST Date Scanned Code Status Resuscitation Status Full Code Portal Pt does not currently have a portal and education provided: Yes Insurance Coverage/Financial Issues Insurance: BC/BS Medicare Advantage Care Team Visit Care Team Role Provider Type SILVA PRATHER NP Primary Care Provider [facility] STAFF PHYSICIAN Parrish Miranda MD Emergency Provider [facility] STAFF PHYSICIAN Tristan Cespedes MD Admit Provider [facility] STAFF PHYSICIAN Attending Provider Discharge Potential Discharge Needs: PCP F/U Appt Anticipated Barriers to Discharge: None Identified Patient/Family Education Needs: Review discharge instructions, discuss Ask Me Three Transportation: Private vehicle Plan: Anticipate Carolin will be discharged home, possibly with new home health services for PT ([facility]) and OT. She will follow up with her community providers and plan of care and transport with family. CM will follow and continue to support discharge planning. Social Determinants of Health Screening Social Determinants of health last assessed in clinic: 10/22/24 Will the Patient Participate in the Screening?: Yes Do you worry about having a steady place to live?: no Problems where you live: no known problems In the past 12 months, have you had to go without electric, gas, oil or water in your home?: no 1. Within the past 12 months, we worried whether our food would run out before we got money to buy more.: Never true 2. Within the past 12 months, the food we bought just didn't last and we didn't have money to get more.: Never true Has lack of transportation kept you from medical appointments or from doing things needed for daily living?: yes Has anyone in your life made you feel unsafe or unsupported?: no How hard is it for you to pay for the very basics like food, housing, medical care, and heating? Would you say it is:: Not hard at all Do you want help finding or keeping work or a job?: I do not need or want help If for any reason you need help with day-to-day activities such as bathing, preparing meals, shopping, managing finances, etc., do you get the help you need?: I don?t need any help How often do you feel lonely or isolated from those around you?: Rarely Do you speak a language other than [place] at home?: No Does the patient want assistance with any of the above?: No Health Related Social Needs Health related social needs: transportation insecurity (Z59.82) and feeling lonely/isolated (Z60.8) Health related social needs details: lives with son, and [facility] All Active Problems (Updated 10/21/24 @ 20:43 by PIERCE FREEMAN) Acute metabolic encephalopathy (Acute) COPD exacerbation (Acute) Acute on chronic respiratory failure with hypoxia and hypercapnia (Acute) Community acquired pneumonia of right lower lobe of lung (Acute) Acute respiratory failure with hypoxia and hypercapnia (Acute) Prolonged QT interval (Acute) Hyponatremia (Acute) Hypokalemia (Acute) Hypomagnesemia (Acute) Impacted cerumen of right ear (Acute) COPD with hypoxia (Acute) 2024: Declines home oxygen Nicotine dependence (Acute) Anxiety (Chronic) Localized edema (Acute) Partial atrioventricular block (Acute) Bilateral leg edema (Acute) Hypothyroidism (acquired) (Acute) Situational anxiety (Acute) GERD (gastroesophageal reflux disease) (Chronic) RLS (restless legs syndrome) (Acute) Onychocryptosis (Acute) Thrombocytopenia (Acute) Fatty liver (Acute) DVT prophylaxis (Acute) COPD (chronic obstructive pulmonary disease) (Chronic) Depression (Chronic) Tobacco abuse (Chronic) Hypertension (Chronic) Hyperlipidemia (Chronic) Alcoholism (Chronic) Currently abstinent x2 weeks. Medical History Essential hypertension Hypothyroid Fatigue Acute upper respiratory infection History of alcohol abuse Mammogram abnormal HPV in female LGSIL on Pap smear of cervix Bronchitis Viral URI COPD exacerbation HCAP (healthcare-associated pneumonia) Dehydration Hypomagnesemia Nausea & vomiting Bright red blood per rectum Gallstones Lactic acidosis Anemia Hypokalemia Recurrent Hyponatremia Recurrent Left lower lobe pneumonia (06/09/13) Surgical History History of tonsillectomy H/O section Family History Father , age82 COPD (chronic obstructive pulmonary disease) Sister Lymphedema Sister , age 59 COPD (chronic obstructive pulmonary disease) Son Autism high functioning Daughter CHD (coronary heart disease) Social History Smoking/Tobacco Use Status: Current every day Tobacco Type: cigarettes Smoking risk assessment performed?: Yes Alcohol Intake: current Alcohol Intake frequency: 3 or more drinks per day Drug use: Never Substance use type: does not use Housing: apartment Do you feel safe at home: Yes Do you feel safe in your relationship?: Yes
[2024-10-22 09:00] LABS: Lab Add On Test DONE
[2024-10-22] MEDS: Potassium Chloride 20 MEQ TABCR 40 MEQ PO ×2 (09:33→14:22)
[2024-10-22 12:04] LABS: Ammonia 21 umol/L (11-32)
--- NOTE | 2024-10-22 13:43 | PHA.REVIEW2 ---
Pharmacy Admission Review Admission Clinical Review Admission Pharmacy Review: Acute metabolic encephalopathy (Acute) COPD exacerbation (Acute) Acute on chronic respiratory failure with hypoxia and hypercapnia (Acute) Community acquired pneumonia of right lower lobe of lung (Acute) Prolonged QT interval (Acute) Hyponatremia (Acute) Hypokalemia (Acute) Hypomagnesemia (Acute) Nicotine dependence (Acute) Hypothyroidism (acquired) (Acute) RLS (restless legs syndrome) (Acute) codeine Adverse Reaction (Severe, Unverified 10/21/24 12:38) Dizziness/Lightheade Resuscitation Status Full Code Height 5 ft 3 in Weight 72 kg Pharmacy Admission Review Renal Dosing Renal Dosing: BUN 15 mg/dL (7-18) 10/22/24 05:37 Creatinine 0.4 mg/dL (0.55-1.02) L 10/22/24 05:37 Medications needing adjustments: Reviewed List of meds needing interventions: CrCl=52ml/min. Current meds are okay. Anticoagulation Anticoagulation: Hgb 16.5 g/dL (11.2-15.7) H 10/22/24 05:37 Hct 51.6 % (36.0-46.0) H 10/22/24 05:37 Plt Count 252 10^3/uL (130-400) 10/22/24 05:37 Creatinine 0.4 mg/dL (0.55-1.02) L 10/22/24 05:37 DVT Prophylaxis: Reviewed Medications: Enoxaparin (on enoxaparin 40mg sc daily. ) Opiate Usage Evaluate Pain Scale/Pains Meds: Reviewed (on tylenol prn-no meds required. ) Scheduled Bowel Reg ordered if on Opiates?: No Relevant Labs Relevant Labs: Sodium 131 mmol/L (136-145) L 10/22/24 05:37 Potassium 3.0 mmol/L (3.5-5.1) L 10/22/24 05:37 Chloride 84 mmol/L (98-107) L 10/22/24 05:37 Magnesium 2.0 mg/dL (1.8-2.4) 10/22/24 05:37 Electrolytes, C-Reactive P, ESR: Reviewed (Na+ is trending up (per H&P was 120 in Ed and repleted with 3% saline)-goal to correct by 8meq/24hrs); K+ was repleted; ) DM Control DM Control: Reviewed Insulin Dosing, Diabetic Medication: glucose=95 with am labs; no history of DM; monitor while on steroids Cardiac Review Cardiac Review: HR and BP within normal limits. Troponin I 23 ng/L (<or=51) 10/21/24 12:40 BP, HR, EF%: Reviewed QTc Review QTc: Reviewed List meds needing interventions: BIy=[id number]; pt on azithromycin-will mention to provider to monitor. IV to PO Switch IV Medications: Reviewed Home Meds Home Med List reviewed: Reviewed Relevent Home Meds Not ordered & why?: home ropinirole while patient remains somnolent per provider note. Hydrochlorothiazide held due to hyponatremia. Current Meds Current Medication Order Review: Reviewed (entered IV access order. ) Pharmacy Antibiotic Review Pharmacy Antibiotic Activity: C/S review (on ceftriaxone/azithromycin for CAP. Blood cultures pending from 10/21. )
--- NOTE | 2024-10-22 16:29 | W.PM.PROGNOT ---
Date of Service Date of service: 10/22/24 Time of Service: 16:29 Assessment and Plan Assessment and plan (1) Acute on chronic respiratory failure with hypoxia and hypercapnia: Status: Acute Assessment and plan: -patient with known end-stage COPD, ongoing smoker not trying to quite, chronic hypoxic resp failure who declined O2 therapy and claims to normally have O2 levels in the mid to low 80's -initial VBG showed COs >105, after BiPAP this morning stable at 78 which is her baseline, normal pH -she is agreeable to home o2 if she can qualify before discharge -she would benefit from NIV at home with CO2 retention, she needs to f/u with pulmonology (2) COPD exacerbation: Status: Acute Assessment and plan: -likely cause of acute component of acute on chronic hypercapnic and hypoxic resp failure as noted above -was given nebulizers in the ED and steroids via EMS -now on 40mg predinisone daily -continue PRN albuterol, Q6hr duo nebs (3) Hyponatremia: Status: Acute Assessment and plan: -Na found to be 120 in ED -s/p 150ml of hypertonic saline in ED -Now 131, no further fluids (4) Acute metabolic encephalopathy: Status: Acute Assessment and plan: -secondary to potential combination of hyponatremia and hypercapnia as noted above. -she has notable asterixis this morning. This can be caused by respiratory failure, but less common. No known cirrhosis, but get ammonia (5) Community acquired pneumonia of right lower lobe of lung: Status: Acute Assessment and plan: -as seen on chest imaging -does not meet criteria for sepsis -was started on azithro and CTX, will change azithro to doxy with long QTc (6) Hypokalemia: Status: Acute Assessment and plan: - Improved, will follow and resume home potassium and Mg. - with chronic low Na and potassium, should stop HCTZ, use alternative BP medication. (7) Hypomagnesemia: Status: Acute Assessment and plan: - better this AM, resume oral, follow (8) Nicotine dependence: Status: Acute Assessment and plan: - Reported history of smoking without interest in quitting - Recommend ongoing discussions with PCP (9) Hypothyroidism (acquired): Status: Acute Assessment and plan: - Continue home Synthroid (10) RLS (restless legs syndrome): Status: Acute Assessment and plan: - resume home ropinirole (11) DVT prophylaxis: Status: Acute Assessment and plan: enoxaparin Subjective Subjective Patient reports: feels better, tolerating a regular diet and voiding w/o difficulty; denies diarrhea, nausea, vomiting or fever Interval history since last seen: Events: On BiPAP overnight, pH normalized on repeat VBG, CO2 at baseline Got IV potassium/mag overnight She feels better. She is doesn't have chest pain or other pain. Exam Narrative Exam Narrative: Sitting up in bed, fatigued, NAD. Minimal breath sounds diffusely, but moving some air with exp wheezes diffusely, no rales. heart regular rhythm, abdomen soft, nontender, nondistended. extremities without c/c/edema. Asterixis noted at rest left hand, bilaterally with hands extended. Objective Last Vital Signs Temp 36.3 C L 10/22/24 11:05 Pulse 93 H 10/22/24 11:40 Resp 21 10/22/24 11:40 BP 116/65 10/22/24 10:45 Pulse Ox 88 L 10/22/24 11:40 Laboratory Results - last 24 hr 10/21/24 10/21/24 10/21/24 16:59 18:14 19:12 WBC RBC Hgb Hct MCV MCH MCHC RDW Plt Count MPV VBG pH 7.26 L 7.38 VBG pCO2 > 105 H* 77 H* VBG pO2 97 46 VBG HCO3 48 H 45 H VBG Total CO2 43 H 39 H VBG O2 Saturation 97 81 VBG Base Excess 21 H 20 H VBG Lactate Sodium Cancelled Potassium Cancelled Chloride Cancelled Carbon Dioxide Cancelled Anion Gap Cancelled BUN Cancelled Creatinine Cancelled Est GFR (CKD-EPI 2020) Cancelled Glucose Cancelled Calcium Cancelled Magnesium Ammonia Add-On Test Request 10/21/24 10/21/24 10/21/24 19:28 20:05 20:24 WBC RBC Hgb Hct MCV MCH MCHC RDW Plt Count MPV VBG pH VBG pCO2 VBG pO2 VBG HCO3 VBG Total CO2 VBG O2 Saturation VBG Base Excess VBG Lactate 1.5 Sodium Cancelled 124 L* Potassium Cancelled 3.0 L Chloride Cancelled 78 L Carbon Dioxide Cancelled 44.5 H Anion Gap Cancelled 1.5 L BUN Cancelled 18 Creatinine Cancelled 0.5 L Est GFR (CKD-EPI 2020) Cancelled 103.38 Glucose Cancelled 137 H Calcium Cancelled 8.8 Magnesium Ammonia Add-On Test Request 10/22/24 10/22/24 05:37 11:39 WBC 7.46 RBC 6.05 H Hgb 16.5 H Hct 51.6 H MCV 85 MCH 27.3 MCHC 32.0 RDW 13.6 Plt Count 252 MPV 9.8 VBG pH 7.40 VBG pCO2 78 H* VBG pO2 60 VBG HCO3 48 H VBG Total CO2 41 H VBG O2 Saturation 92 VBG Base Excess 23 H VBG Lactate Sodium 131 L Potassium 3.0 L Chloride 84 L Carbon Dioxide > 45.0 H Anion Gap 1.68219 L BUN 15 Creatinine 0.4 L Est GFR (CKD-EPI 2020) 109.09 Glucose 95 Calcium 8.8 Magnesium 2.0 Ammonia 21 Add-On Test Request DONE Time Spent with Patient Time Spent with Patient: >50 minutes Time was spent: preparing to see the patient(eg.review tests), obtaining and/or reviewing separately otained hiistory, ordering medications,tests, procedures, referring, communicating with other health congregational care pastor, indepentently interpreting results, counseling the patient and care coordination
--- NOTE | 2024-10-22 16:45 | W.PALLCONSUL ---
Date of service: 10/22/24 Time of Service: 16:45 History of Present Illness Narrative: Carolin is a 64 year old with severe COPD, still smoking. She was seen by Dr. Acosta, Palliative care. She is SOB at rest at times, increases significantly with talking and activity. She has not tried low dose liquid morphine for SOB. She does not go out of the house. She prefers to stay home. She prefers not to be in the hospital. She cannot make herself meals. She lives with her daughter, Umm. She has lived with Umm for 6 years. Her son, Baldomero comes and stays with her every other week. She had increased difficulty getting around at home. She was unable to get to the bathroom for 3 days before she came to the ED. She is getting a BSC. She states, the last 4 months have been hell. She also reports leg discomfort. She thinks it is nerve pain. Gabapentin did not help. She may benefit from morphine for both pain and SOB. She has lost about 30# over the last year. Reviewed CODE status. She did not understand what CPR, etc entailed. She will think more about it. She remains a FULL CODE for now. She states, it's over... why not have booze. She is interested in MAID. Assessment and Plan Assessment and plan (1) Acute on chronic respiratory failure with hypoxia and hypercapnia: Status: Acute Assessment and plan: -patient with known end-stage COPD, ongoing smoker not trying to quit, chronic hypoxic resp failure who declined O2 therapy in the past but she is agreeable now. -She may qualify for hospice services, to be reevaluated once she is through this acute illness. -She does not like to leave the house and does not want to be in the hospital. (2) COPD exacerbation: Status: Acute (3) Hyponatremia: Status: Acute Assessment and plan: -Na found to be 120 in ED -s/p 150ml of hypertonic saline in ED -Now 131, no further fluids (4) Acute metabolic encephalopathy: Status: Acute Assessment and plan: Confusion appears to be clearing. (5) Community acquired pneumonia of right lower lobe of lung: Status: Acute Assessment and plan: -as seen on chest imaging (6) Hypokalemia: Status: Acute Assessment and plan: - Improved, will follow and resume home potassium and Mg. (7) Hypomagnesemia: Status: Acute Assessment and plan: - better this AM. (8) Nicotine dependence: Status: Acute Assessment and plan: - Reported history of smoking without interest in quitting She confirms today that she is not likely to quit. (9) Hypothyroidism (acquired): Status: Acute Assessment and plan: On Synthroid (10) RLS (restless legs syndrome): Status: Acute Assessment and plan: - resume home ropinirole Also with leg discomfort (does not call it pain, ?neuropathy). (11) Palliative care patient: Status: Acute (12) Advanced care planning/counseling discussion: Status: Acute Assessment and plan: Reviewed CODE status. She is pondering changing. In reviewing her GOC- she wants to stay home, she does not want to be in the hospital, she is interested in MAID, FULL code may not align with this. Will continue to review after this acute illness resolves. She is interested in Palliative f/u. She may benefit from low dose morphine for SOB and ?neuropathy. She lives with her daughter. She is dependent on others for care. Her activity is limited by SOB. She has an appointment scheduled for December,, will see if we can move her visit up. (13) Weight loss: Status: Acute Assessment and plan: She has lost about 12# over the last 4 months. She reports a 30# weight loss over the last year. Our records indicate nearly 60# weight loss since 2020. Review of Systems Narrative: PER HPI PFSH All Active Problems (Updated 10/22/24 @ 18:49 by Alma Ashley NP) Weight loss (Acute) Advanced care planning/counseling discussion (Acute) Palliative care patient (Acute) Acute metabolic encephalopathy (Acute) COPD exacerbation (Acute) Acute on chronic respiratory failure with hypoxia and hypercapnia (Acute) Community acquired pneumonia of right lower lobe of lung (Acute) Acute respiratory failure with hypoxia and hypercapnia (Acute) Prolonged QT interval (Acute) Hyponatremia (Acute) Hypokalemia (Acute) Hypomagnesemia (Acute) Impacted cerumen of right ear (Acute) COPD with hypoxia (Acute) 2024: Declines home oxygen Nicotine dependence (Acute) Anxiety (Chronic) Localized edema (Acute) Partial atrioventricular block (Acute) Bilateral leg edema (Acute) Hypothyroidism (acquired) (Acute) Situational anxiety (Acute) GERD (gastroesophageal reflux disease) (Chronic) RLS (restless legs syndrome) (Acute) Onychocryptosis (Acute) Thrombocytopenia (Acute) Fatty liver (Acute) DVT prophylaxis (Acute) COPD (chronic obstructive pulmonary disease) (Chronic) Depression (Chronic) Tobacco abuse (Chronic) Hypertension (Chronic) Hyperlipidemia (Chronic) Alcoholism (Chronic) Currently abstinent x2 weeks. Medical History Essential hypertension Hypothyroid Fatigue Acute upper respiratory infection History of alcohol abuse Mammogram abnormal HPV in female LGSIL on Pap smear of cervix Bronchitis Viral URI HCAP (healthcare-associated pneumonia) Dehydration Hypomagnesemia Nausea & vomiting Bright red blood per rectum Gallstones Lactic acidosis Anemia Hypokalemia Recurrent Hyponatremia Recurrent Left lower lobe pneumonia (06/09/13) Surgical History History of tonsillectomy H/O section Family History Father , age82 COPD (chronic obstructive pulmonary disease) Sister Lymphedema Sister , age 59 COPD (chronic obstructive pulmonary disease) Son Autism high functioning Daughter CHD (coronary heart disease) Social History Smoking/Tobacco Use Status: Current every day Tobacco Type: cigarettes Smoking risk assessment performed?: Yes Alcohol Intake: current Alcohol Intake frequency: 3 or more drinks per day Drug use: Never Substance use type: does not use Housing: apartment Do you feel safe at home: Yes Do you feel safe in your relationship?: Yes Exam Narrative Exam Narrative: General: frail, chronically ill appearing female sitting up in a chair in her hospital room. She appears older than her stated age. She is awake, alert, eating dinner slowly. HEENT: normocephalic, atraumatic, EOMI, mm slightly dry. Neck: supple Respiratory: increased WOB at rest and with talking, wearing O2 via nc. Ext: BLEs with edema and erythema bilaterally. Results Last Vital Signs Temp 36.3 C L 10/22/24 11:05 Pulse 93 H 10/22/24 11:40 Resp 21 10/22/24 11:40 BP 116/65 10/22/24 10:45 Pulse Ox 88 L 10/22/24 11:40 Labs 10/22/24 05:37 10/22/24 05:37 Labs: Laboratory Results - last 24 hr 10/21/24 10/21/24 10/21/24 16:59 18:14 19:12 WBC RBC Hgb Hct MCV MCH MCHC RDW Plt Count MPV VBG pH 7.26 L 7.38 VBG pCO2 > 105 H* 77 H* VBG pO2 97 46 VBG HCO3 48 H 45 H VBG Total CO2 43 H 39 H VBG O2 Saturation 97 81 VBG Base Excess 21 H 20 H VBG Lactate Sodium Cancelled Potassium Cancelled Chloride Cancelled Carbon Dioxide Cancelled Anion Gap Cancelled BUN Cancelled Creatinine Cancelled Est GFR (CKD-EPI 2020) Cancelled Glucose Cancelled Calcium Cancelled Magnesium Ammonia Add-On Test Request 10/21/24 10/21/24 10/21/24 19:28 20:05 20:24 WBC RBC Hgb Hct MCV MCH MCHC RDW Plt Count MPV VBG pH VBG pCO2 VBG pO2 VBG HCO3 VBG Total CO2 VBG O2 Saturation VBG Base Excess VBG Lactate 1.5 Sodium Cancelled 124 L* Potassium Cancelled 3.0 L Chloride Cancelled 78 L Carbon Dioxide Cancelled 44.5 H Anion Gap Cancelled 1.5 L BUN Cancelled 18 Creatinine Cancelled 0.5 L Est GFR (CKD-EPI 2020) Cancelled 103.38 Glucose Cancelled 137 H Calcium Cancelled 8.8 Magnesium Ammonia Add-On Test Request 10/22/24 10/22/24 05:37 11:39 WBC 7.46 RBC 6.05 H Hgb 16.5 H Hct 51.6 H MCV 85 MCH 27.3 MCHC 32.0 RDW 13.6 Plt Count 252 MPV 9.8 VBG pH 7.40 VBG pCO2 78 H* VBG pO2 60 VBG HCO3 48 H VBG Total CO2 41 H VBG O2 Saturation 92 VBG Base Excess 23 H VBG Lactate Sodium 131 L Potassium 3.0 L Chloride 84 L Carbon Dioxide > 45.0 H Anion Gap 1.14203 L BUN 15 Creatinine 0.4 L Est GFR (CKD-EPI 2020) 109.09 Glucose 95 Calcium 8.8 Magnesium 2.0 Ammonia 21 Add-On Test Request DONE Time Spent Time Spent with Patient Time Spent(min): 98
[2024-10-22] MEDS: cefTRIAXone 1 GM/50 ML BAG IVPB (18:22)
[2024-10-22] MEDS: rOPINIRole 1 MG TAB PO (19:28)
[2024-10-22] MEDS: Doxycycline Hyclate 100 MG CAP PO (19:28)
[2024-10-23] VITALS (50 sets, daily range): BP systolic 91–136; BP diastolic 61–99; PULSE 61–93; RESP 5–27; TEMP 36–36.8; O2SAT 83–99
[2024-10-23] MEDS: Albuterol/Ipratropium 3 ML UPD VIAL UPD ×3 (00:04→11:27)
[2024-10-23 05:08] LABS: Abs Immature Grans 0.08 10^3/uL (0.0-0.06); Absolute Lymphocyte Count 0.98 10^3/uL (1.2-3.4); Absolute Monocyte Count 1.53 10^3/uL (0.1-0.8); Basophils % 0.2 %; Eosinophils % 0.2 %; HGB 15.3 g/dL (11.2-15.7); Immature Grans % 0.6 %; Lymphocytes % 7.8 %; MCH 28.3 pg (27.0-33.0); MCHC 32.6 % (32.0-36.0); MCV 87 fL (80-95); MPV 9.5 fL (8.0-11.0); Monocytes % 12.2 %; Platelet Count 243 10^3/uL (130-400); RDW 13.9 % (11.7-14.6); RDW-SD 43.8 fL; WBC 12.55 10^3/uL (4.4-10.8)
[2024-10-23 05:46] LABS: BUN 17 mg/dL (7-18); CREATININE 0.4 mg/dL (0.55-1.02); Calcium 8.5 mg/dL (8.5-10.1); Chloride 83 mmol/L (98-107); Estimated GFR 109.09 (mL/min/1.73m2); Glucose 91 mg/dL (74-106); Magnesium 1.9 mg/dL (1.8-2.4); Potassium 3.6 mmol/L (3.5-5.1); Sodium 129 mmol/L (136-145)
[2024-10-23 05:48] LABS: Absolute Basophil Count 0.03 10^3/uL (0.0-0.2); Absolute Eosinophil Count 0.03 10^3/uL (0.0-0.7); Absolute Neutrophil Count 9.91 10^3/uL (1.2-6.7); Diff Comment Agrees w/ Instrument; RBC Morphology Normal
[2024-10-23 05:54] LABS: Anion Gap 0.99999 mmol/L (3-11); CO2 > 45.0 mmol/L (21.0-32.0)
[2024-10-23] MEDS: Azithromycin 250 MG TAB PO (06:07)
[2024-10-23] MEDS: Levothyroxine 75 MCG TAB PO (06:07)
--- NOTE | 2024-10-23 08:01 | W.PM.PROGNOT ---
Date of Service Date of service: 10/23/24 Time of Service: 08:01 Assessment and Plan Assessment and plan (1) Acute on chronic respiratory failure with hypoxia and hypercapnia: Status: Acute Assessment and plan: -patient with known end-stage COPD, ongoing smoker -initial VBG showed COs >105, after BiPAP stablized at 78 which is her baseline, normal pH -she is agreeable to home o2 if she can qualify before discharge, but need to be careful about CO2 retention. -she would benefit from NIV at home with CO2 retention, she needs to f/u with pulmonology. Her mental status appears stable this morning depsite not getting BiPAP overnight, to floor status (2) COPD exacerbation: Status: Acute Assessment and plan: -likely cause of acute component of acute on chronic hypercapnic and hypoxic resp failure as noted above -was given nebulizers in the ED and steroids via EMS -now on 40mg predinisone daily -continue PRN albuterol, Q6hr duo nebs, which are scheduled (3) Hyponatremia: Status: Acute Assessment and plan: -Na found to be 120 in ED -s/p 150ml of hypertonic saline in ED -Up to 131, faster than goal, to 129 today, which is appropriate. If trending down we will have to fluid restrict -HCTZ stopped, will not restart this. (4) Acute metabolic encephalopathy: Status: Acute Assessment and plan: -secondary to potential combination of hyponatremia and hypercapnia as noted above, has normalized -had asterixis, but normal ammonia, has resolved. This can be caused by respiratory failure. (5) Community acquired pneumonia of right lower lobe of lung: Status: Acute Assessment and plan: -as seen on chest imaging -was started on azithro and CTX, changed azithro to doxy with long QTc 6/, continue (6) Hypokalemia: Status: Acute Assessment and plan: - Improved, still low normal so given 20mEq today. - with chronic low Na and potassium, stopped HCTZ, resume lisinopril instead today at 10mg (she had stopped taking this) (7) Nicotine dependence: Status: Acute Assessment and plan: - Reported history of smoking without interest in quitting - Recommend ongoing discussions with PCP (8) RLS (restless legs syndrome): Status: Acute Assessment and plan: - imprved symptoms with resuming home ropinirole (9) External otitis of right ear: Status: Acute Assessment and plan: exam c/w otitis externa, related to recent instrumentation. Can use abx/steroid drops. (10) DVT prophylaxis: Status: Acute Assessment and plan: enoxaparin Subjective Subjective Patient reports: no new complaints and tolerating a regular diet; denies diarrhea, vomiting or fever Interval history since last seen: Events: Declined BiPAP overnight She c/o right ear pain. recently had large amount of wax removed at [facility]. Breathing feels a little better, but wants to make sure she is getting inhalers/nebs regularly, wants expectorant for cough. Exam Narrative Exam Narrative: Sitting up in bed, fatigued, NAD. left TM/canal nl, right canal red with slight exudate, no wax, TM clear. Minimal breath sounds diffusely, but moving some air with exp wheezes diffusely, no rales. heart regular rhythm, abdomen soft, nontender, nondistended. extremities without c/c/edema. Asterixis no longer evident. Objective Last Vital Signs Temp 36.6 C 10/23/24 04:00 Pulse 70 10/23/24 06:01 Resp 19 10/23/24 06:01 BP 121/78 10/23/24 06:01 Pulse Ox 93 10/23/24 06:01 Laboratory Results - last 24 hr 10/22/24 10/22/24 10/23/24 05:37 11:39 04:55 WBC 12.55 H RBC 5.40 H Hgb 15.3 Hct 47.0 H MCV 87 MCH 28.3 MCHC 32.6 RDW 13.9 Plt Count 243 MPV 9.5 Immature Gran % 0.6 Neutrophils % 79.0 Lymphocytes % 7.8 Monocytes % 12.2 Eosinophils % 0.2 Basophils % 0.2 Nucleated RBC % 0.0 Absolute Neutrophils 9.91 H Absolute Lymphocytes 0.98 L Absolute Monocytes 1.53 H Absolute Eosinophils 0.03 Absolute Basophils 0.03 RBC Morphology Normal Sodium 129 L Potassium 3.6 Chloride 83 L Carbon Dioxide > 45.0 H Anion Gap 0.17046 L BUN 17 Creatinine 0.4 L Est GFR (CKD-EPI 2020) 109.09 Glucose 91 Calcium 8.5 Magnesium 2.0 1.9 Ammonia 21 Add-On Test Request DONE Time Spent with Patient Time Spent with Patient: 35-49 minutes Time was spent: preparing to see the patient(eg.review tests), obtaining and/or reviewing separately otained hiistory, ordering medications,tests, procedures, referring, communicating with other health patient care representative, indepentently interpreting results, counseling the patient and care coordination
[2024-10-23] MEDS: Albuterol 2.5 MG/3 ML INH SOLN VIAL UPD ×2 (08:10→22:50)
[2024-10-23] MEDS: rOPINIRole 1 MG TAB PO ×3 (08:33→19:27)
[2024-10-23] MEDS: predniSONE 20 MG TAB 40 MG PO (08:33)
[2024-10-23] MEDS: Loratidine 10 MG TAB PO (08:33)
[2024-10-23] MEDS: Lisinopril 10 MG TAB PO (08:33)
[2024-10-23] MEDS: Potassium Chloride 20 MEQ TABCR PO (08:33)
[2024-10-23] MEDS: guaiFENesin 600 MG TABCR PO ×2 (08:33→19:27)
[2024-10-23] MEDS: Doxycycline Hyclate 100 MG CAP PO ×2 (08:33→19:27)
[2024-10-23] MEDS: Simvastatin 40 MG TAB PO (08:44)
[2024-10-23] MEDS: Normal Saline Flush 10 ML SYR IVP ×2 (09:32→19:28)
[2024-10-23] MEDS: Cortisporin OTIC SUSP 10 ML BTL AD ×4 (09:32→19:30)
[2024-10-23] MEDS: Enoxaparin 40 MG/0.4 ML SYR SC (09:33)
[2024-10-23] MEDS: Ibuprofen 800 MG TAB PO (11:54)
[2024-10-23] MEDS: Magnesium Oxide 400 MG TAB PO (13:54)
[2024-10-23 13:56] LABS: BE (Venous) 27 mmol/L (-2-3); HCO3 (Venous) 51 mmol/L (23-28); O2 Sat (Venous) 87 %; TCO2 (Venous) 44 mmol/L (24-29); pH (Venous) 7.45 (7.31-7.41); pO2 (Venous) 47 mmHg
[2024-10-23 13:58] LABS: pCO2 (Venous) 72 mmHg (41-51)
[2024-10-23] MEDS: cefTRIAXone 1 GM/50 ML BAG IVPB (18:36)
[2024-10-23] MEDS: Normal Saline 500 ML IV (18:38)
[2024-10-23] MEDS: Acetaminophen 325 MG TAB PO (19:30)
[2024-10-23] MEDS: Budesonide/Formoterol 80/4.5 6.9 GM 60 PUFF INH IH (20:31)
[2024-10-23] MEDS: Normal Saline 1,000 ML 500 ML IV (22:07)
[2024-10-24] VITALS (10 sets, daily range): BP systolic 111–131; BP diastolic 71–84; PULSE 63–80; RESP 5–20; TEMP 36.9–37; O2SAT 86–96
[2024-10-24] MEDS: Albuterol/Ipratropium 3 ML UPD VIAL UPD ×3 (04:56→18:02)
[2024-10-24] MEDS: Levothyroxine 75 MCG TAB PO (05:38)
[2024-10-24 05:45] LABS: Anion Gap -3.00001 mmol/L (3-11); BUN 16 mg/dL (7-18); CO2 > 45.0 mmol/L (21.0-32.0); CREATININE 0.5 mg/dL (0.55-1.02); Calcium 8.1 mg/dL (8.5-10.1); Chloride 86 mmol/L (98-107); Estimated GFR 103.38 (mL/min/1.73m2); Glucose 83 mg/dL (74-106); Potassium 3.9 mmol/L (3.5-5.1); Sodium 128 mmol/L (136-145)
[2024-10-24] MEDS: Budesonide/Formoterol 80/4.5 6.9 GM 60 PUFF INH IH ×2 (07:36→20:18)
[2024-10-24] MEDS: Tiotropium Bromide-Respimat 10 PUFF INH 2 PUFF IH (07:36)
[2024-10-24] MEDS: rOPINIRole 1 MG TAB PO ×3 (08:21→20:58)
[2024-10-24] MEDS: Simvastatin 40 MG TAB PO (08:21)
[2024-10-24] MEDS: predniSONE 20 MG TAB 40 MG PO (08:22)
[2024-10-24] MEDS: Ibuprofen 800 MG TAB PO (08:23)
[2024-10-24] MEDS: Doxycycline Hyclate 100 MG CAP PO ×2 (08:25→20:58)
[2024-10-24] MEDS: Loratidine 10 MG TAB PO (08:26)
[2024-10-24] MEDS: Potassium Chloride 20 MEQ TABCR PO (08:26)
[2024-10-24] MEDS: Enoxaparin 40 MG/0.4 ML SYR SC (08:26)
[2024-10-24] MEDS: guaiFENesin 600 MG TABCR PO ×2 (08:26→20:58)
[2024-10-24] MEDS: Lisinopril 10 MG TAB PO (08:26)
[2024-10-24] MEDS: Normal Saline Flush 10 ML SYR IVP ×5 (08:27→21:19)
--- NOTE | 2024-10-24 11:30 | W.PC.ACHO ---
Registration Status: Primary Language: Preferred Language: ED Information & Data Chief Complaint SOB 10/21/24 14:36 Triage Note BIBA, initially o2 sat in 10/21/24 12:33 the 60s on RA. EMS gave 2 nebs and 125 of solumedrol. Pt states that she is dizzy. No CP. 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 LGSIL on Pap smear of cervix Bronchitis Viral URI HCAP (healthcare-associated pneumonia) Dehydration Hypomagnesemia Nausea & vomiting Bright red blood per rectum Gallstones Lactic acidosis Anemia Hypokalemia Hyponatremia Left lower lobe pneumonia (06/09/13) (Last Reviewed 10/22/24 @ 18:26 by Alma Ashley NP) History of tonsillectomy H/O section Most Recent Vital Signs Temperature 36.9 C 10/24/24 09:30 Temperature Source Temporal Artery Scan 10/24/24 09:30 Pulse 67 10/24/24 09:30 Pulse 90 10/23/24 20:00 Respiratory Rate 18 10/24/24 11:09 Respiratory Effort Short of Breath, Labored, Accessory Muscle Use, Incrsd Work of Breathing 10/21/24 21:00 Respiratory Depth Normal 10/21/24 12:37 Respiratory Pattern Normal 10/21/24 21:00 Blood Pressure 111/71 10/24/24 09:30 Blood Pressure Mean 84 10/24/24 09:30 Blood Pressure Position Supine 10/21/24 21:00 Pulse Oximetry 91 L 10/24/24 11:09 Respiratory End-tidal CO2 54 10/21/24 17:10 Oxygen Delivery Method Nasal Cannula 10/24/24 11:09 Oxygen Flow Rate 1 10/24/24 11:09 Fraction of Inspired Oxygen (FIO2) 35 10/23/24 14:15 Pain Level 0 10/24/24 09:30 Comment BP taken left lower arm 10/24/24 09:30 Allergies codeine Adverse Reaction (Severe, Unverified 10/21/24 12:38) Dizziness/Lightheade pass out Precautions Isolation Seizure precaution 10/21/24 12:36 Active Medications Generic Name Dose Route Start Last Admin Trade Name Freq PRN Reason Stop Dose Admin Acetaminophen 0 mg 10/21/24 20:59 10/23/24 19:30 Acetaminophen 325 Mg Tab PO 650 mg Q4H PRN PRN Administration Albuterol Sulfate 2.5 mg 10/21/24 20:59 10/23/24 22:50 Albuterol 2.5 Mg/3 Ml Inh Soln Vial UPD 2.5 mg Q2H PRN PRN Administration Albuterol/Ipratropium 3 ml 10/22/24 00:00 10/24/24 11:09 Albuterol/Ipratropium 3 Ml Upd Vial UPD 3 ml Q6H MARLENA Administration Budesonide/Formoterol Fumarate 2 puff 10/23/24 20:00 10/24/24 07:36 Budesonide/Formoterol 80/4.5 6.9 Gm 60 Puff Inh IH 2 puffs BID MARLENA Administration Doxycycline Hyclate 100 mg 10/22/24 20:00 10/24/24 08:25 Doxycycline Hyclate 100 Mg Cap PO 100 mg BID MARLENA Administration Enoxaparin Sodium 40 mg 10/22/24 08:00 10/24/24 08:26 Enoxaparin 40 Mg/0.4 Ml Syr SC 40 mg 799 MARLENA Administration Guaifenesin 600 mg 10/23/24 08:30 10/24/24 08:26 Guaifenesin 600 Mg Tabcr PO 600 mg BID MARLENA Administration Ceftriaxone Sodium/Dextrose 1 gm in 50 mls @ 100 mls/hr 10/22/24 18:00 10/23/24 19:15 Rocephin IVPB Infused Q24H MARLENA Infusion Sodium Chloride 500 mls @ 0 mls/hr 10/23/24 18:37 10/23/24 18:38 Saline 500ml Bag IV 1 mls/hr PRN PRN Administration As Directed IV Miscellaneous Supplies 1 each 10/23/24 08:30 10/23/24 09:15 Iv Access IV Not Given DAILY [facility] Ibuprofen 800 mg 10/24/24 06:47 10/24/24 08:23 Ibuprofen 800 Mg Tab PO 800 mg TID PRN PRN Administration Pain or Headache Levothyroxine Sodium 75 mcg 10/22/24 06:00 10/24/24 05:38 Levothyroxine 75 Mcg Tab PO 75 mcg 0600 MARLENA Administration Lisinopril 10 mg 10/23/24 08:30 10/24/24 08:26 Lisinopril 10 Mg Tab PO 10 mg DAILY MARLENA Administration Loratadine 10 mg 10/22/24 08:30 10/24/24 08:26 Loratidine 10 Mg Tab PO 10 mg DAILY MARLENA Administration Magnesium Oxide 400 mg 10/23/24 14:00 10/23/24 13:54 Magnesium Oxide 400 Mg Tab PO 400 mg DAILY@1400 MARLENA Administration Neomycin/Polymyxin/Hydrocortisone 10 ml 10/23/24 08:30 10/23/24 19:30 Cortisporin Otic Susp 10 Ml Btl AD 4 drp QID MARLENA Administration Potassium Chloride 20 meq 10/23/24 08:30 10/24/24 08:26 Potassium Chloride 20 Meq Tabcr PO 20 meq DAILY MARLENA Administration Prednisone 40 mg 10/22/24 08:30 10/24/24 08:22 Prednisone 20 Mg Tab PO 40 mg DAILY MARLENA Administration Ropinirole HCl 1 mg 10/22/24 20:00 10/24/24 08:21 Ropinirole 1 Mg Tab PO 1 mg TID MARLENA Administration Simvastatin 40 mg 10/22/24 08:30 10/24/24 08:21 Simvastatin 40 Mg Tab PO 40 mg DAILY MARLENA Administration Sodium Chloride 0 ml 10/21/24 12:48 10/24/24 08:27 Normal Saline Flush 10 Ml Syr IVP 10 ml PRN PRN Administration Sodium Chloride 0 ml 10/21/24 20:00 10/24/24 08:27 Normal Saline Flush 10 Ml Syr IVP 10 ml BID MARLENA Administration Tiotropium [place] 2 puff 10/24/24 08:30 10/24/24 07:36 Tiotropium [place]-Respimat 10 Puff Inh IH 2 inh DAILY MARLENA Administration IV IV Catheter Type [Right Hand] Saline Lock IV Catheter Type [Left Hand] Saline Lock IV Catheter Type [Right Wrist] Saline Lock IV Catheter Type [Left Wrist] Saline Lock IV Catheter Gauge [Right Hand] 20 IV Catheter Gauge [Left Hand] 20 IV Catheter Gauge [Right Wrist 18 ] IV Catheter Gauge [Left Wrist] 20 Diagnostics 10/24/24 10/23/24 Range/Units 05:20 13:50 VBG pH 7.45 H (7.31-7.41) VBG pCO2 72 H* (41-51) mmHg VBG pO2 47 mmHg VBG HCO3 51 H (23-28) mmol/L VBG Total CO2 44 H (24-29) mmol/L VBG O2 Saturation 87 % VBG Base Excess 27 H (-2-3) mmol/L Sodium 128 L (136-145) mmol/L Potassium 3.9 (3.5-5.1) mmol/L Chloride 86 L (98-107) mmol/L Carbon Dioxide > 45.0 H (21.0-32.0) mmol/L Anion Gap -3.04304 L (3-11) mmol/L BUN 16 (7-18) mg/dL Creatinine 0.5 L (0.55-1.02) mg/dL Est GFR (CKD-EPI 2020) 103.38 (mL/min/1.73m2) Glucose 83 (74-106) mg/dL Calcium 8.1 L (8.5-10.1) mg/dL 10/21/24 14:50 Blood Culture - Preliminary Blood NO GROWTH 48 HOURS 10/21/24 13:25 Blood Culture - Preliminary Blood NO GROWTH 48 HOURS Intake and Output - 24 Hour Total 10/21/24 12:22 thru 10/24/24 10:07 Intake Total 3545 Output Total 2670 Balance 875 Weight 71.3 kg Intake: IV 1770 Oral 1775 Output: Urine 2670 Other: Urine Color Dark Cristina Urine Appearance Clear Stool Occult Blood Negative Stool Size Large Stool Characteristics Soft Brown Black Urinary Catheter Urinary Catheter Date of 10/21/24 Insertion [Urethral (Lopez)] Urinary Catheter Date of 10/21/24 Insertion [Urethral (Lopez)] Time of insertion [Urethral ( 19:00 Lopez)] Falls Risk Assessment History of Falls Previous History 10/21/24 12:38 Contributing Factors Unstable 10/21/24 21:00 Ambulatory Aids Uses ambulatory device 10/21/24 12:38 Tubes/Lines None 10/21/24 21:00 Gait Evaluation W/no contributing factors 10/21/24 12:38 Cognition No cognitive impairment 10/21/24 21:00 Fall Total Score 3 10/21/24 21:00 Level of Risk Standard/Low Risk 10/21/24 21:00 Problems (Last Reviewed 10/22/24 @ 18:26 by Alma Ashley NP) External otitis of right ear (Acute) Weight loss (Acute) Advanced care planning/counseling discussion (Acute) Palliative care patient (Acute) Acute metabolic encephalopathy (Acute) COPD exacerbation (Acute) Acute on chronic respiratory failure with hypoxia and hypercapnia (Acute) Community acquired pneumonia of right lower lobe of lung (Acute) Prolonged QT interval (Acute) Hyponatremia (Acute) Hypokalemia (Acute) Hypomagnesemia (Acute) Nicotine dependence (Acute) Hypothyroidism (acquired) (Acute) RLS (restless legs syndrome) (Acute) DVT prophylaxis (Acute) Notes 10/21/24 20:31 Nursing Notes by Sarita Bonds Nursing Note:pt placed on bear hugger for warming on med per MD Initialized on 10/21/24 20:31 - END OF NOTE 10/21/24 18:31 Nursing Notes by Sarita Bonds Nursing Note: @ ~ 1500, MD made aware pt becoming more somnolent, sternal rub w/ reference test clerk response. PO K unable to be administered r/t this, BIPAP initiated by RT. PO K not given. Initialized on 10/21/24 18:31 - END OF NOTE v v v v v v v v v Sending and/or Receiving Nurses: Please use comment section below to note any information pertinent to the patient hand-off not included above. Information / Comments: Report received from: Jackson Pérez at 09:10. Complete SBAR report given, all questions answered, pT meds moved to med/surg cassette.
--- NOTE | 2024-10-24 12:04 | PGE_ITS ---
Date of Service Date of service: 10/24/24 Time of Service: 12:04 Assessment and Plan Assessment and plan (1) Acute on chronic respiratory failure with hypoxia and hypercapnia: Status: Acute Assessment and plan: -patient with known end-stage COPD, ongoing smoker -initial VBG showed COs >105, after BiPAP stablized in 70s which is her baseline, normal pH -she will need formal oxygen assessment to qualify for home O2 prior to discharge. Per report she was hypoxic before this episode so I anticipate she will definitely need it. -she would benefit from NIV at home with CO2 retention, she needs to f/u with pulmonology. -likely d/c 10/25 if stable/improving (2) COPD exacerbation: Status: Acute Assessment and plan: -Cause of acute component of acute on chronic hypercapnic and hypoxic resp failure as noted above -was given nebulizers in the ED and steroids via EMS -now on 40mg predinisone daily -continue PRN albuterol, Q6hr duo nebs, which are scheduled -Started on ICS/LABA and LAMA chronic inhalers. Work with CM to make sure she can affort these outpatient. (3) Hyponatremia: Status: Acute Assessment and plan: -Na found to be 120 in ED -s/p 150ml of hypertonic saline in ED -Up to 131, faster than goal, but drifting down since -HCTZ stopped, will not restart this. -given decreasing Na, will fluid restrict to 1200ml (4) Acute metabolic encephalopathy: Status: Acute Assessment and plan: -secondary to potential combination of hyponatremia and hypercapnia as noted above, has normalized -had asterixis, but normal ammonia, has resolved. This can be caused by respiratory failure. Improving MS 10/24 (5) Community acquired pneumonia of right lower lobe of lung: Status: Acute Assessment and plan: -as seen on chest imaging -was started on azithro and CTX, changed azithro to doxy with long QTc 10/22, continue for 5 day course (6) Hypokalemia: Status: Acute Assessment and plan: - Improved, still low normal so given 20mEq today. - with chronic low Na and potassium, stopped HCTZ, resumed lisinopril instead 10/23 at 10mg (she had stopped taking this), K now normal (7) Nicotine dependence: Status: Acute Assessment and plan: - Reported history of smoking without interest in quitting - Recommend ongoing discussions with PCP (8) RLS (restless legs syndrome): Status: Acute Assessment and plan: - imprved symptoms with resuming home ropinirole (9) External otitis of right ear: Status: Acute Assessment and plan: exam 10/23 c/w otitis externa, related to recent instrumentation. On abx/steroid drops. (10) DVT prophylaxis: Status: Acute Assessment and plan: enoxaparin Subjective Subjective Patient reports: feels better and tolerating a regular diet; denies diarrhea, nausea, vomiting or fever Interval history since last seen: 24 hr: repeat VBG with stable/improved CO2 off BiPAP She feels better. Breathing/cough imrpoving. She is hungry today. Denies pain currently Exam Narrative Exam Narrative: Sitting in chair, appears less fatigued, NAD. Minimal breath sounds diffusely, but moving some air with no rales or wheezing now. heart regular rhythm, abdomen soft, nontender, nondistended. extremities without c/c/edema. no tremor Objective Last Vital Signs Temp 36.9 C 10/24/24 09:30 Pulse 67 10/24/24 09:30 Resp 18 10/24/24 11:09 BP 111/71 10/24/24 09:30 Pulse Ox 91 L 10/24/24 11:09 Laboratory Results - last 24 hr 10/23/24 10/24/24 13:50 05:20 VBG pH 7.45 H VBG pCO2 72 H* VBG pO2 47 VBG HCO3 51 H VBG Total CO2 44 H VBG O2 Saturation 87 VBG Base Excess 27 H Sodium 128 L Potassium 3.9 Chloride 86 L Carbon Dioxide > 45.0 H Anion Gap -3.31516 L BUN 16 Creatinine 0.5 L Est GFR (CKD-EPI 2020) 103.38 Glucose 83 Calcium 8.1 L Time Spent with Patient Time Spent with Patient: 35-49 minutes Time was spent: preparing to see the patient(eg.review tests), obtaining and/or reviewing separately otained hiistory, ordering medications,tests, procedures, referring, communicating with other health healthcare representative, indepentently interpreting results, counseling the patient and care coordination
--- NOTE | 2024-10-24 12:23 | PT.INIE ---
PT Notes Visit Reasons: Acute on chronic hypercapnic resp failure, COPD Inpatient Physical Therapy Evaluation Date: 10/24/24 Referring Doctor: Dr. Francis PT Orders: PT CONSULT: safety consultfor d/c; fall safety assessment Precautions: fall, standard Patient Profile/Admitting Diagnosis: Carolin is a 64 year old female with severe COPD, currently in acute care setting for management of Acute on chronic respiratory failure with hypoxia and hypercapnia, COPD exacerbation, and acute metabolic encephalopathy. PT orders received for assessment of mobility. Social History/Home Situation: Currently resides in a first-floor apartment with her daughter. No steps to enter. Typically utilizes a cane for ambulation, although also intermittently utilizes 4 WW and wheelchair. States that her wheelchair is large, and does not fit in the apartment, but she is able to utilize for appointments, etc. Typically ambulates short distances with frequent standing rest periods. Ambulation is limited almost exclusively to household distances. Equipment Owned/DME: cane, 4 WW, wheelchair Subjective: Carolin states that she is feeling okay. She has not done much walking since her admission, and is agreeable to getting up. Objective: General Observation: Resting in chair with Lopez catheter in place. Has supplemental oxygen via nasal cannula, which she has removed and is resting on her chest. She is agreeable to replacing when this is mentioned, stating that she took it out to blow her nose and forgot about it. Mental Status: A and O x 3 Vital Signs: SaO2 at rest 79% on room air. With replacement of nasal cannula, she resaturates to 88% with pursed lip breathing and greater than 5 minutes time spent at rest. Ambulates with supplemental oxygen in place, desaturating to 72% without SOB. ROM: Upper Extremity: Shoulder flexion 135* bilat. Elbow and wrist motion WFL. Lower Extremity: WFL Strength: Right Upper Extremity: Shoulder flexion 3/5. Biceps 4/5. Triceps 4 -/5. Left Upper Extremity: Shoulder flexion 3/5. Biceps 4/5. Triceps 4 -/5. Lower Extremity: Resistance not applied to lower extremities. Demonstrates greater than 3 out of 5 strength for hip flexion, knee extension, and ankle dorsiflexion. Bed Mobility/Transfers: Sit?stand: Supervision Stand?sit: Supervision Gait: Ambulates 20 feet x 1, 15 feet x 1 with FWW, SBA. Requires seated rest for recovery. Attempt ambulation with cane; patient has cane maximally raised, which is her preference. She declines modification. She ambulates with forward flexed trunk posturing, reaching for furniture as she passes, requiring CGA?min assist. She is agreeable to transitioning back to use of FWW for safety. Balance: Static Sitting: Normal Dynamic Sitting: Normal Static Standing: Fair Dynamic Standing: Fair Special Tests: Mobility Limitations Standardized Measure [facility] AM-PAC 6 clicks Basic Mobility Inpatient Short Form: Raw Score: [ 22 standardized Score: 53.28 CMS Score: 21% impairment Informed Consent/Education: Patient instructed in purpose of PT consult and plan of care. Treatment: Initial evaluation (93285 Therapeutic exercises (98254): Assisted with short distance ambulation for improved activity tolerance, with incorporation of instruction in pursed lip breathing for recovery, pacing techniques, and modification of assistive device for improved safety and activity tolerance. Assessment: Patient is a 64 year old female referred to physical therapy services in the acute care setting where she is being medically managed for Acute on chronic respiratory failure with hypoxia and hypercapnia, COPD exacerbation, and acute metabolic encephalopathy. she presents with severe limitations in mobility and activity tolerance related to chronic respiratory issues. Is not able to demonstrate safety with use of cane today, which is her baseline. Was able to ambulate short distances with walker, and have encouraged her to transition to use of 4 WW at home, which she is agreeable to. Will additionally benefit from ongoing PT services to improve activity tolerance, both here in acute care setting, and transition to home health PT upon discharge. She currently demonstrates the following impairment level findings: 1. Decreased activity tolerance 2. Desaturation with short distance ambulation 3. Decreased functional strength Impairments are contributing to the following functional limitations: 1. Unable to ambulate household distances without significant oxygen desaturation 2. Requiring increased support for ambulation, with a reliance on FWW versus cane Patient is assessed as Low 27260 complexity based on the following: History: As above Examination: As above Presentation: Evolving due to acute medical status Decision Making: Low complexity Goals: Goals X1 week 1. Supine-Sit : supervision 2. Sit-Supine : supervision 3. Sit-Stand : supervision 4. Stand-Sit : supervision 5. Bed-Chair : supervision with FWW 6. Chair-Bed : supervision with FWW 7. Gait : supervision with FWW x 25' Plan of Care/Treatment Plan: 1-2x/day, 7 days/week x 1 week. Plan of care has been reviewed with the [facility] providing the service under Physical Therapy direction. Initiate Physical Therapy intervention for strengthening, bed mobility, transfers, gait, stairs, balance training, use of assistive device. DISCHARGE RECOMMENDATIONS: Home with home health PT. No equipment needs. TREATMENT CODE/TIME: 1150?1235 (57449, [id number]) Vangie Sousa, PT, DPT [facility] All Active Problems (Updated 10/23/24 @ 08:11 by Parrish Francis) External otitis of right ear (Acute) Weight loss (Acute) Advanced care planning/counseling discussion (Acute) Palliative care patient (Acute) Acute metabolic encephalopathy (Acute) COPD exacerbation (Acute) Acute on chronic respiratory failure with hypoxia and hypercapnia (Acute) Community acquired pneumonia of right lower lobe of lung (Acute) Acute respiratory failure with hypoxia and hypercapnia (Acute) Prolonged QT interval (Acute) Hyponatremia (Acute) Hypokalemia (Acute) Hypomagnesemia (Acute) Impacted cerumen of right ear (Acute) COPD with hypoxia (Acute) 2024: Declines home oxygen Nicotine dependence (Acute) Anxiety (Chronic) Localized edema (Acute) Partial atrioventricular block (Acute) Bilateral leg edema (Acute) Hypothyroidism (acquired) (Acute) Situational anxiety (Acute) GERD (gastroesophageal reflux disease) (Chronic) RLS (restless legs syndrome) (Acute) Onychocryptosis (Acute) Thrombocytopenia (Acute) Fatty liver (Acute) DVT prophylaxis (Acute) COPD (chronic obstructive pulmonary disease) (Chronic) Depression (Chronic) Tobacco abuse (Chronic) Hypertension (Chronic) Hyperlipidemia (Chronic) Alcoholism (Chronic) Currently abstinent x2 weeks. 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
[2024-10-24] MEDS: Cortisporin OTIC SUSP 10 ML BTL AD ×3 (12:47→20:58)
[2024-10-24] MEDS: Magnesium Oxide 400 MG TAB PO (13:52)
[2024-10-24] MEDS: cefTRIAXone 1 GM/50 ML BAG IVPB (17:58)
[2024-10-25] VITALS (7 sets, daily range): BP systolic 108; BP diastolic 64; PULSE 68–91; RESP 5–24; TEMP 36.6; O2SAT 86–93
[2024-10-25] MEDS: Albuterol/Ipratropium 3 ML UPD VIAL UPD ×2 (00:09→06:06)
[2024-10-25] MEDS: Levothyroxine 75 MCG TAB PO (06:48)
[2024-10-25] MEDS: Budesonide/Formoterol 80/4.5 6.9 GM 60 PUFF INH IH (08:12)
[2024-10-25] MEDS: Tiotropium Bromide-Respimat 10 PUFF INH 2 PUFF IH (08:12)
[2024-10-25] MEDS: Doxycycline Hyclate 100 MG CAP PO (08:29)
[2024-10-25] MEDS: Potassium Chloride 20 MEQ TABCR PO (08:31)
[2024-10-25] MEDS: rOPINIRole 1 MG TAB PO (08:34)
[2024-10-25] MEDS: Lisinopril 10 MG TAB PO (08:35)
[2024-10-25] MEDS: predniSONE 20 MG TAB 40 MG PO (08:35)
[2024-10-25] MEDS: Simvastatin 40 MG TAB PO (08:36)
[2024-10-25] MEDS: Loratidine 10 MG TAB PO (08:36)
[2024-10-25] MEDS: guaiFENesin 600 MG TABCR PO (08:37)
[2024-10-25] MEDS: Enoxaparin 40 MG/0.4 ML SYR SC (08:40)
[2024-10-25] MEDS: Normal Saline Flush 10 ML SYR IVP (08:41)
--- NOTE | 2024-10-25 09:14 | PDOC.CMPRO ---
Date of service: 10/25/24 Time of Service: 09:14 Care Management Progress Note Discharge Potential Discharge Needs: PCP F/U Appt Anticipated Barriers to Discharge: None Identified Patient/Family Education Needs: Review discharge instructions, discuss Ask Me Three Transportation: Private vehicle Plan: Anticipate Carolin will be discharged home, possibly with new home health services for PT ([facility]) and OT. She will follow up with her community providers and plan of care and transport with family. CM will follow and continue to support discharge planning. Social Determinants of Health Screening Social Determinants of health last assessed in clinic: 10/22/24 Will the Patient Participate in the Screening?: Yes Do you worry about having a steady place to live?: no Problems where you live: no known problems In the past 12 months, have you had to go without electric, gas, oil or water in your home?: no Has lack of transportation kept you from medical appointments or from doing things needed for daily living?: yes Has anyone in your life made you feel unsafe or unsupported?: no How hard is it for you to pay for the very basics like food, housing, medical care, and heating? Would you say it is:: Not hard at all Do you want help finding or keeping work or a job?: I do not need or want help If for any reason you need help with day-to-day activities such as bathing, preparing meals, shopping, managing finances, etc., do you get the help you need?: I don?t need any help How often do you feel lonely or isolated from those around you?: Rarely Do you speak a language other than American at home?: No Does the patient want assistance with any of the above?: No Health Related Social Needs Health related social needs: transportation insecurity (Z59.82) and feeling lonely/isolated (Z60.8) Health related social needs details: lives with son, and has a daughter for support
[2024-10-25] MEDS: Cortisporin OTIC SUSP 10 ML BTL AD (10:09)
--- NOTE | 2024-10-25 10:59 | PT.INTREAT ---
PT Notes Visit Reasons: Acute on chronic hypercapnic resp failure, COPD Inpatient Physical Therapy Treatment Note [facility] Date: 10/25/2024 PRECAUTIONS: Fall. Standard. Ativity as tolerated. SUBJECTIVE: Short of breath when patient was seen walking back with RT Neil and Margaret to patient's room. Patient was agreeable to reolacing cane with walker to help conserve her energy better as she was becoing very short of breath. OBJECTIVE: Increased SOB with walking using SPC. RTs Neil and Margaret were with patient when PT saw them for session. ? PAIN: None reported VITALS: SAO2 ranged from 86-90% on 4 L of oxygen? BED MOBILITY/TRANSFERS: Provided direct one-on-one instruction in dynamic activities to improve functional performance. ? Sit-stand: stand by assist with FWW? Stand-sit: stand by assist with FWW? Bed-Chair: stand by assist with FWW? Chair-bed: stand by assist with FWW? ? GAIT? Direct one-on-one instruction and skilled instruction in equipment management and technique ? Assistive Device: FWW? Weight bearing: FWB Assist: stand by assist ? Distance:? 30 feet ? Deviation: slowed mckenna, mild kyphosis, SOB needing 2 satnding rests of about 3 minutes each ? STAIRS: Not performed for this session ? THERA EX: Direct one-on-one instruction in therapeutic exercises to develop strength, endurance, range of motion and flexibility. Seated marches with DBE x 5 Chest expansion exercises with DBE x 5 LAQs with DBE Chest expansion exercises with DBE x 5 Sit<>Stand with DBE Chest expansion exercises with DBE x 5 ASSESSMENT:? Patient demonstrated improved functional performance with SaO2 saturation range of 86% to 90% on 4 L throughout activity. PLAN: Contiue mobility progression and sterngthening at home with HH PT TREATMENT CODE/TIME: 36461 x 16 minutes for 1 nit, 14513 x 15 minutes for 1 unit (10:59-11:17 and 11:32-11:45). DISCHARGE RECOMMENDATION: HH PT
--- NOTE | 2024-10-25 11:01 | CMDISCH_ITS ---
Date of service: 10/25/24 Time of Service: 11:01 LACE Index Scoring Tool Questions: Length of Stay (in days): 4 - 6 Was the patient admitted via the E.D.?: Yes Comorbidities: Chronic Pulmonary Disease and Liver or Renal Disease E.D. Visits: 1 Answers: Total Score: 13 Risk of Readmission: High Risk Care Management Discharge Plan Reason for Hospitalization: COPD Discharge Plan: Carolin will be discharged home with new home health services for PT ([facility]) and nursing. She will follow up with her community providers and plan of care and transport with family. Patient/Family Education Needs: Review discharge instructions, discuss Ask Me Three Services Needed at Discharge: Home Health Care Services SDOH Health Related Social Needs: Health related social needs transportation insecurity (Z59.82), feeling lonely/isolated (Z60.8) Health related social needs details lives with son, an d has a daughter for support Health related social needs details: lives with son, and has a daughter for support
--- NOTE | 2024-10-25 11:22 | RESPIRATORY ---
Addendum entered by Neil Lopez 10/25/24 11:40: Pt needs 1L continuous at rest. 4L continuous with ambulation. Pt will be sent home with [facility], [employer] portable concentrator from [facility] consignment closet. SN# [id number]. Original Note: Pt walked from bed, into hallway a bit and then back. Pt states this is further than she walks at home from bed to bathroom. Pt states she does not ever walk further than this in her home. On 1L at rest, pt maintained 89% SpO2. WalkinL SpO2 85% 2L SpO2 dropped again to 82% 3L SpO2 86% 4L SpO2 89%. Pt needs 1L at rest and 4L with ambulation. Continuous oxygen flow.
[2024-10-25 11:46] LABS: Anion Gap -3.2 mmol/L (3-11); BUN 10 mg/dL (7-18); CO2 43.2 mmol/L (21.0-32.0); CREATININE 0.6 mg/dL (0.55-1.02); Calcium 8.4 mg/dL (8.5-10.1); Chloride 89 mmol/L (98-107); Estimated GFR 98.93 (mL/min/1.73m2); Glucose 110 mg/dL (74-106); Potassium 3.8 mmol/L (3.5-5.1); Sodium 129 mmol/L (136-145)
--- NOTE | 2024-10-25 12:43 | DSE_ITS ---
Date of service: 10/25/24 Time of Service: 12:43 DS: Diagnosis Discharge Diagnosis (1) Acute on chronic respiratory failure with hypoxia and hypercapnia: Status: Acute (2) COPD exacerbation: Status: Acute (3) Hyponatremia: Status: Acute (4) Acute metabolic encephalopathy: Status: Acute (5) Community acquired pneumonia of right lower lobe of lung: Status: Acute (6) Hypokalemia: Status: Acute (7) Nicotine dependence: Status: Acute (8) RLS (restless legs syndrome): Status: Acute (9) External otitis of right ear: Status: Acute (10) DVT prophylaxis: Status: Acute Discharge Plan Disposition Patient Disposition: Home Condition: Improving Discharge Details Reason For Visit: Acute on chronic hypercapnic resp failure, COPD Admit Date/Time: 10/21/24 18:54 Admit Provider: Tristan Cespedes Attending Provider: Tristan Cespedes Primary Care Provider: SILVA PRATHER Hospital Course Hospital Course: 64-year-old female with past medical history of COPD, ongoing smoking, chronic hypoxic respiratory failure not on oxygen, who presented to the emergency department generally feeling weak and confused. Initial assessment showed VBG with pCO2 >105 and sodium of 120. She was placed on BiPAP and admitted to the ICU. CXR showed RLL pneumonia and she was treated with ceftriaxone and azithromycin along with steroids and nebs for COPD. Her pCO2 returned to her baseline in the 70s with normal pH after the BiPAP and she was stable even off the bipap. She was given new inhalers including budesonide-formoterol and tiotripium for chronic control. She initially denied interest in quitting smoking but stated she would try to quit prior to discharge. She declined medication assistance. She finished 5 days of antibiotics and prednisone. 6 day prednisone taper was prescribed on discharge. She received 125ml of 3% saline in the ED and her sodium increased to 131 by hospital day 2 and leveled out at 129. Her HCTZ was stopped as she was also hypokalemic. She was started back on lisinopril 10mg (she was previously prescribed 40mg but had stopped it long ago). Her blood pressure on this was well controlled and her potassium was 3.8 and stable taking 20mEq KCl daily. On exercise assessment she needed 1L continuous O2 at rest, 4L continuous O2 with ambulation. Her new DME for this will be [employer], and we sent her home with a portable concentrator from [facility] closet She had right ear canal pain and inflammation after recently having hard wax removed. Her symptoms were resolving and she should use the n eomycin/polymyxin/hydrocortisone drop for 5 more days. She was seen by palliative care and plans to follow up as an outpatient. PCP follow up: 1 week follow up with BMP/Mg prior follow up blood pressure and potassium Follow up smoking, use of new inhalers, and respiratory status. Home Meds and New Rx's Prescriptions: New budesonide-formoterol [Symbicort] 80-4.5 mcg/actuation Hfa Aerosol Inhaler 2 puff inhalation BID Qty: 10.2 2RF guaifenesin [Mucus Relief ER] 600 mg Tablet Extended Release 12hr 600 mg PO BID Qty: 30 0RF prednisone 20 mg Tablet See Taper PO DAILY Qty: 6 0RF Taper: Prednisone 20mg taper 20 mg Daily for 4 Days and 0 Hour 10 mg Daily for 4 Days and 0 Hour lisinopril 10 mg Tablet 10 mg PO DAILY Qty: 30 1RF nvgjgcye-[id number]-TX 3.5-10,000-1 mg/mL-unit/mL-% Drops,Suspension 200 drp AD QID Qty: 5 0RF Spiriva Respimat 2.5 mcg/actuation Mist 2 puff inhalation DAILY Qty: 1 3RF Continued potassium chloride 20 mEq tablet,ER particles/crystals 20 meq PO DAILY albuterol 90 mcg/actuation aerosol inhalation albuterol sulfate 0.63 mg/3 mL solution for nebulization 0.63 mg inhalation QID PRN Primatene Mist 0.125 mg/actuation HFA aerosol inhaler 1 puff inhalation Q6H PRN Rx Instructions: may repeat once after 1 minute lisinopril 40 mg tablet 20 mg PO DAILY PRN Patient Comments: has not taken for 2 years magnesium oxide 250 mg magnesium tablet 250 mg PO DAILY furosemide [Lasix] 20 mg tablet 20 mg PO DAILY PRN levothyroxine 75 mcg capsule 75 mcg PO DAILY ropinirole 1 mg tablet 1 mg PO TID ipratropium-albuterol 0.5 mg-3 mg(2.5 mg base)/3 mL solution for nebulization 3 ml inhalation Q4H PRN mecobalamin (vitamin B12) See Rx Instructions PO DIRECTED Rx Instructions: orally as directed; ipratropium bromide 0.02 % solution 2.5 ml inhalation Q6H PRN loratadine 10 mg tablet 10 mg PO DAILY mecobalamin (vitamin B12) 1,000 mcg tablet,chewable 1,000 mcg PO TID simvastatin 40 MG tablet 40 mg PO DAILY Discontinued hydrochlorothiazide 25 mg tablet 25 mg PO QAM prednisone 20 mg tablet 40 mg PO BID azithromycin [Zithromax] 250 mg tablet See Rx Instructions PO .COMPLEX Rx Instructions: For 250 mg dose pack: take 500 mg today (day 1), then 250 mg for 4 days (days 2-5) PO Discharge Instructions Instructions: Chronic Obstructive Pulmonary Disease (COPD) (DC), Hyponatremia Additional Instructions: Take the 6 day taper of prednisone Keep using your new inhalers. These will help you feel better and stay out of the hospital. use you oxygen but keep your levels 88-91%, not higher. Too much oxygen can cause you to retain carbon dioxide and get very confused. No smoking! We recommend you limit your fluids to 1500ml per day (about a 1 1/2 quarts) so that your sodium dose not go down. Low sodium can also make you confused. Stop the hydrochlorothiazide. You should take the lisinopril 10mg instead. This is better for your sodium and helps you potassium. Activity:: Activity as Tolerated Equipment/Supplies:: Oxygen (L/min Below) Diet:: As Tolerated Discharge Orders Discharge Orders: Discharge Order (Routine); Ordered 10/25/24 Ordered By: Parrish Francis DS: Summary Time Spent with Patient providing and/or coordinating discharge services: Greater than 30 minutes Status at Discharge Functional status at discharge: uses cane/walker Overall status at discharge: patient is back to baseline Mental Status: mental status grossly normal Speech and Movement: speech and movement normal Mood: congruent mood Affect: normal affect Quality:SDOH Health Related Social Needs: Health related social needs transportation insecurity (Z59.82), feeling lonely/isolated (Z60.8) Health related social needs details lives with son, an d has a daughter for support Health related social needs details: lives with son, and has a daughter for support Exam Narrative Exam Narrative: Sitting in chair, appears less fatigued, NAD. Minimal breath sounds diffusely, but moving some air with no rales or wheezing now. heart regular rhythm, abdomen soft, nontender, nondistended. extremities without c/c/edema. no tremor Psych Mental Status: mental status grossly normal Speech and Movement: speech and movement normal Mood: congruent mood Affect: normal affect DS: Data Vitals/I&O Vitals and I&O: Vital Signs Temperature 36.6 C 10/25/24 08:04 Temperature Source Temporal Artery Scan 10/25/24 08:04 Pulse 80 10/25/24 08:04 Pulse 90 10/23/24 20:00 Respiratory Rate 20 10/25/24 08:04 Respiratory Effort Short of Breath, Labored, Accessory Muscle Use, Incrsd Work of Breathing 10/21/24 21:00 Respiratory Depth Normal 10/21/24 12:37 Respiratory Pattern Normal 10/21/24 21:00 Blood Pressure 108/64 10/25/24 08:04 Blood Pressure Mean 78 10/25/24 08:04 Blood Pressure Position Supine 10/21/24 21:00 Pulse Oximetry 88 L 10/25/24 08:13 Respiratory End-tidal CO2 54 10/21/24 17:10 Oxygen Delivery Method Nasal Cannula 10/25/24 08:13 Oxygen Flow Rate 1.5 10/25/24 08:13 Fraction of Inspired Oxygen (FIO2) 35 10/25/24 08:13 Pain Level 0 10/25/24 08:04 Comment RN notified 10/25/24 08:04 Intake & Output 10/24/24 10/25/24 10/25/24 23:59 11:59 23:59 Intake Total 940 / 2415 570 / 570 Output Total 125 / 400 400 / 400 Balance 2014 570 / 170 -400 / 170 Intake: IV 60 / 1060 20 / 20 Oral 880 / 1355 550 / 550 Output: Urine 125 / 400 400 / 400 Other: Urine Color Light Cristina Straw Urine Appearance Cloudy Sediment Clots Urine Odor None Comment pT due to void at 18:30; pT stated they did not have the urge at this time; bladder scan ranged from 142-176ml; with patients last episode of bowel incontinence, unable to determine IF they voided any at that time. voided Stool Size Moderate Large Stool Characteristics Soft Soft Liquid Liquid Brown Brown Data Completed and Pending Labs on day of discharge: Labs from last 24 hours 10/25/24 11:20 Sodium 129 L Potassium 3.8 Chloride 89 L Carbon Dioxide 43.2 H Anion Gap -3.2 L BUN 10 Creatinine 0.6 Est GFR (CKD-EPI 2020) 98.93 Glucose 110 H Calcium 8.4 L Preliminary micro results at discharge 10/21/24 14:50 Blood Blood Culture - Preliminary NO GROWTH 72 HOURS 10/21/24 13:25 Blood Blood Culture - Preliminary NO GROWTH 72 HOURS PFSH All Active Problems (Updated 10/25/24 @ 12:42 by Parrish Francis) External otitis of right ear (Acute) Weight loss (Acute) Advanced care planning/counseling discussion (Acute) Palliative care patient (Acute) Acute metabolic encephalopathy (Acute) Acute on chronic respiratory failure with hypoxia and hypercapnia (Acute) Community acquired pneumonia of right lower lobe of lung (Acute) Acute respiratory failure with hypoxia and hypercapnia (Acute) Prolonged QT interval (Acute) Hyponatremia (Acute) Hypokalemia (Acute) Hypomagnesemia (Acute) Impacted cerumen of right ear (Acute) COPD with hypoxia (Acute) 2024: Declines home oxygen Nicotine dependence (Acute) Anxiety (Chronic) Localized edema (Acute) Partial atrioventricular block (Acute) Bilateral leg edema (Acute) Hypothyroidism (acquired) (Acute) Situational anxiety (Acute) GERD (gastroesophageal reflux disease) (Chronic) RLS (restless legs syndrome) (Acute) Onychocryptosis (Acute) COPD exacerbation (Acute) Thrombocytopenia (Acute) Fatty liver (Acute) DVT prophylaxis (Acute) COPD (chronic obstructive pulmonary disease) (Chronic) Alcoholism (Chronic) Currently abstinent x2 weeks. 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 LGSIL on Pap smear of cervix Bronchitis Viral URI HCAP (healthcare-associated pneumonia) Dehydration Hypomagnesemia Nausea & vomiting Bright red blood per rectum Gallstones Lactic acidosis Anemia Hypokalemia Recurrent Hyponatremia Recurrent Left lower lobe pneumonia (06/09/13) Surgical History History of tonsillectomy H/O section Family History Father , age82 COPD (chronic obstructive pulmonary disease) Sister Lymphedema Sister , age 59 COPD (chronic obstructive pulmonary disease) Son Autism high functioning Daughter CHD (coronary heart disease) Social History Smoking/Tobacco Use Status: Current every day Tobacco Type: cigarettes Smoking risk assessment performed?: Yes Alcohol Intake: current Alcohol Intake frequency: 3 or more drinks per day Drug use: Never Substance use type: does not use Housing: apartment Do you feel safe at home: Yes Do you feel safe in your relationship?: Yes Time Spent with Patient Time Spent with Patient: <45 minutes Time was spent: preparing to see the patient(eg.review tests), obtaining and/or reviewing separately otained hiistory, ordering medications,tests, procedures, referring, communicating with other health home health care physician, indepentently interpreting results, counseling the patient and care coordination
--- NOTE | 2024-10-25 12:48 | PDOC.HHF2F_ITS ---
Home Health Referral Home Health Orders Clinical synopsis of why skilled professionals are needed: 64-year-old female with past medical history of COPD, ongoing smoking, chronic hypoxic respiratory failure not on oxygen, who presented to the emergency department generally feeling weak and confused. Initial assessment showed VBG with pCO2 >105 and sodium of 120. She was placed on BiPAP and admitted to the ICU. CXR showed RLL pneumonia and she was treated with ceftriaxone and azithromycin along with steroids and nebs for COPD. Her pCO2 returned to her baseline in the 70s with normal pH after the BiPAP and she was stable even off the bipap. She was given new inhalers including budesonide-formoterol and tiotripium for chronic control. She initially denied interest in quitting smoking but stated she would try to quit prior to discharge. She declined medication assistance. She finished 5 days of antibiotics and prednisone. 6 day prednisone taper was prescribed on discharge. She received 125ml of 3% saline in the ED and her sodium increased to 131 by hospital day 2 and leveled out at 129. Her HCTZ was stopped as she was also hypokalemic. She was started back on lisinopril 10mg (she was previously prescribed 40mg but had stopped it long ago). Her blood pressure on this was well controlled and her potassium was 3.8 and stable taking 20mEq KCl daily. On exercise assessment she needed 1L continuous O2 at rest, 4L continuous O2 with ambulation. Her new DME for this will be [employer], and we sent her home with a portable concentrator from [facility] closet She had right ear canal pain and inflammation after recently having hard wax removed. Her symptoms were resolving and she should use the neomycin/polymyxin/hydrocortisone drop for 5 more days. She was seen by palliative care and plans to follow up as an outpatient. She was evaluated by PT for weakness and walked with a walker. HH PT was recommended along with RN given medical complexity. PCP follow up: 1 week follow up with BMP/Mg prior follow up blood pressure and potassium Follow up smoking, use of new inhalers, and respiratory status. Medical diagnosis necessitation home health referral: COPD, hypontremia Registered Nurse: Check all that apply Instruct on new or changed medication(s)/assess compliance: Ordered Assess for exacerbation of medical condition, instruct patient/caregivers on signs and symptoms to report for early detection: Ordered Physical Therapist: Check all that apply Increase strength & endurance for safe mobility at home: Ordered To design/establish home maintenance program: Ordered Home safety evaluation and teaching/gait training including stair management (if applicable): Ordered Better [facility] Program: Ordered Home Bound Status Requires the aid of supportive device (check all that apply): Walker Describe why leaving home would require a considerable and taxing effort: Requires frequent rest periods and Oxygen Encounter Date and Reason: I certify that a FTF encounter for this patient was performed on October 25, 2024 and that such encounter was related to the primary reason the patient requires home health services. The encounter was conducted in the following manner: * By me as the certifying physician, MANAGER SPRING, PA or * By an inpatient physician, MANAGER SPRING or PA during an inpatient stay who communicated findings to me, Certification And Authentication I certify that I composed the above information based on my clinical judgment relating to this patient's medical condition and, if applicable, clinical findings communicated to me by the NPP or inpatient physician who performed the FTF encounter. Name of Provider that will be monitoring home health services: Janis Keller
[2024-10-25] MEDS: Albuterol 2.5 MG/3 ML INH SOLN VIAL UPD (13:47)
== END 2024-10-25 14:15 | disposition home health service (06) | DRG 193 ==
LOC: ER 17:23 → ICU 20:43 → MS 10-24 09:29
PROVIDERS: Student in an Organized Health Care Education/Training Program; Admitting Provider Family Medicine; Emergency Provider Emergency Medicine; PCP Nurse Practitioner Family; Responsible Provider Family Medicine; Visit Provider Family Medicine
DX: J18.9 Pneumonia, unspecified organism (principal); G93.41 Metabolic encephalopathy; J96.21 Acute and chronic respiratory failure with hypoxia; J96.22 Acute and chronic respiratory failure with hypercapnia; J44.1 Chronic obstructive pulmonary disease with (acute) exacerbation; E87.1 Hypo-osmolality and hyponatremia; J44.0 Chronic obstructive pulmonary disease with (acute) lower respiratory infection; E83.42 Hypomagnesemia; E87.6 Hypokalemia; F17.210 Nicotine dependence, cigarettes, uncomplicated; E03.9 Hypothyroidism, unspecified; G25.81 Restless legs syndrome; R63.4 Abnormal weight loss; Z68.27 Body mass index [BMI] 27.0-27.9, adult; H60.501 Unspecified acute noninfective otitis externa, right ear; K21.9 Gastro-esophageal reflux disease without esophagitis; D69.6 Thrombocytopenia, unspecified; K76.0 Fatty (change of) liver, not elsewhere classified; F32.A Depression, unspecified; I10 Essential (primary) hypertension; E78.5 Hyperlipidemia, unspecified; F10.20 Alcohol dependence, uncomplicated; R60.0 Localized edema; Z79.899 Other long term (current) drug therapy
CPT/HCPCS: 00123; 36415; 51702; 80048; 80053; 82805; 85027; 87040; 87637; 93005; 94618; 94640; 94761; 96365; 96366; 96367; 97110; 97161; 97530; 99285; J1650; 70450; 71045; 71260; 82140; 83605; 83735; 84484; 85025; 93010; 94660; 94664; 94760; 99223; 99232; 99233; 99239; J0456; J0696; J2919; J3475; J3480; J3490; J7512; J7613; J7620